=== PATIENT | male | born 1955 | race Caucasian/White ===

== ENCOUNTER 2016-06-27 13:56 | Emergency (ER) | payer MEDICARE, OTHER ==
[2016-06-27] MEDS ORDERED: SODIUM CHLORIDE 0.9% 1,000 ML IV STA (15:27)
[2016-06-27 15:54] LABS: Basophils % (A) 0 %; CH 33.8; CHCM 36.8; Eosinophils # (A) 0.1 k/uL (0-0.7); Eosinophils % (A) 1 %; HCT 47.6 % (39.0-53.0); HDW 3.17; HGB 16.9 gm/dL (13.0-17.5); Luc # (Auto) 0.17; Luc % (Auto) 2; Lymphocytes # (A) 1.4 k/uL (1.0-4.8); Lymphocytes % (A) 19 %; MCH 32.7 pg (25.0-35.0); MCHC 35.5 g/dL (31.0-37.0); MCV 92.1 fL (80.0-100.0); Mean Platelet Volume 7.1; Monocytes # (A) 0.4 k/uL (0-1.0); Monocytes % (A) 5 %; Neutrophils # (A) 5.5 k/uL (1.3-7.7); Neutrophils % (A) 73 %; RBC 5.17 m/uL (4.30-5.90); RDW 14.3 % (11.5-15.5); WBC 7.5 k/uL (3.8-10.6); WBC (Perox) 7.89
[2016-06-27 16:04] LABS: ALT 44 U/L (21-72); AST 25 U/L (17-59); Alkaline Phosphatase 127 U/L (38-126); Amylase 49 U/L (30-110); Anion Gap 15 mmol/L; Blood Urea Nitrogen 15 mg/dL (9-20); Calcium 9.9 mg/dL (8.4-10.2); Carbon Dioxide 25 mmol/L (22-30); Chloride 95 mmol/L (98-107); Glucose 416 mg/dL (74-99); Non-African American GFR(MDRD) >60 (>60 ml/min/1.73 sqM); Potassium 4.5 mmol/L (3.5-5.1); Sodium 135 mmol/L (137-145); Total Bilirubin 0.7 mg/dL (0.2-1.3); Total Protein 8.1 g/dL (6.3-8.2)
[2016-06-27] MEDS ORDERED: MORPHINE SULFATE 4 MG/ML SYRINGE IVP STA (16:07)
[2016-06-27 16:10] LABS: Creatine Kinase 58 U/L (55-170)
--- NOTE | 2016-06-27 16:14 | ED ---
General Adult HPI - General Chief complaint: Abdominal Pain Stated complaint: rt side pain, poss hernia Time Seen by Provider: 06/27/16 15:18 Source: patient, RN notes reviewed, old records reviewed Mode of arrival: ambulatory - History of Present Illness Initial comments: This is a upn-plav-brs no the ER for reevaluation. 8. Patient is a competitive epigastric right upper quadrant abdominal pain, worsening presses on it worse when he takes a deep breath. Mild indigestion. Patient has history of hiatal hernia, no prior history of scope. No significant recent medical issues. No modifying factors for symptoms eating and drinking appropriately, no diarrhea. Patient does have history of diverticulitis with colon surgery - Related Data Home Medications Medication Instructions Recorded Confirmed Lisinopril [Zestril] 5 mg PO DAILY 06/27/16 06/27/16 Pravastatin Sodium [Pravachol] 20 mg PO HS 06/27/16 06/27/16 glipiZIDE [Glucotrol] 10 mg PO AC-BID 06/27/16 06/27/16 sitaGLIPtin [Januvia] 100 mg PO DAILY 06/27/16 06/27/16 Previous Rx's Medication Instructions Recorded metFORMIN HCL [Glucophage] 1,000 mg PO BID #60 tab 05/31/15 Allergies Allergy/AdvReac Type Severity Reaction Status Date / Time No Known Allergies Allergy Verified 06/27/16 15:47 Review of Systems ROS Statement: Those systems with pertinent positive or pertinent negative responses have been documented in the HPI. ROS Other: All systems not noted in ROS Statement are negative. Past Medical History Past Medical History: Coronary Artery Disease (CAD), Diabetes Mellitus, Hyperlipidemia, Hypertension, Thyroid Disorder Additional Past Medical History / Comment(s): ddd, neck pain, chrons, diverticulits History of Any Multi-Drug Resistant Organisms: None Reported Past Surgical History: Bowel Resection, Cholecystectomy, Heart Catheterization With Stent Additional Past Surgical History / Comment(s): shoulder, stented in 2009 [facility] Past Anesthesia/Blood Transfusion Reactions: No Reported Reaction Date of Last Stent Placement:: 2009 Past Psychological History: No Psychological Hx Reported Smoking Status: Former smoker Past Alcohol Use History: None Reported Past Drug Use History: None Reported - Past Family History Father Family Medical History: Cancer, Myocardial Infarction ([place]) Additional Family Medical History / Comment(s): throat cancer Mother Family Medical History: Diabetes Mellitus, Myocardial Infarction ([place]) General Exam General appearance: alert, in no apparent distress Head exam: Present: atraumatic, normocephalic, normal inspection Eye exam: Present: normal appearance, PERRL, EOMI. Absent: scleral icterus, conjunctival injection, periorbital swelling ENT exam: Present: normal exam, mucous membranes moist Neck exam: Present: normal inspection. Absent: tenderness, meningismus, lymphadenopathy Respiratory exam: Present: normal lung sounds bilaterally. Absent: respiratory distress, wheezes, rales, rhonchi, stridor Cardiovascular Exam: Present: regular rate, normal rhythm, normal heart sounds. Absent: systolic murmur, diastolic murmur, rubs, gallop, clicks GI/Abdominal exam: Present: soft, normal bowel sounds. Absent: distended, tenderness, guarding, rebound, rigid Extremities exam: Present: normal inspection, full ROM, normal capillary refill. Absent: tenderness, pedal edema, joint swelling, calf tenderness Back exam: Present: normal inspection Neurological exam: Present: alert, oriented X3, CN II-XII intact Psychiatric exam: Present: normal affect, normal mood Skin exam: Present: warm, dry, intact, normal color. Absent: rash Course Vital Signs 06/27/16 15:07 Temperature 97.6 F Pulse Rate 87 Respiratory 18 Rate Blood Pressure 160/90 O2 Sat by Pulse 96 Oximetry - Reevaluation(s) Reevaluation #1: 06/27/16 19:09 At this time patient's pain appears to have resolved Medical Decision Making - Medical Decision Making 60 no year for evaluation of down pain. Lab work is normal, blood sugar is elevated will patient does or from diabetes, patient has x-rays CT evidence Pallister negative for acute disease, patient will be discharged home - Lab Data Result diagrams: 06/27/16 15:35 06/27/16 15:35 Lab Results 06/27/16 06/27/16 06/27/16 Range/Units 15:35 15:35 15:35 WBC 7.5 (3.8-10.6) k/uL RBC 5.17 (4.30-5.90) m/uL Hgb 16.9 (13.0-17.5) gm/dL Hct 47.6 (39.0-53.0) % MCV 92.1 (80.0-100.0) fL MCH 32.7 (25.0-35.0) pg MCHC 35.5 (31.0-37.0) g/dL RDW 14.3 (11.5-15.5) % Plt Count 218 (150-450) k/uL Neutrophils % 73 % Lymphocytes % 19 % Monocytes % 5 % Eosinophils % 1 % Basophils % 0 % Neutrophils # 5.5 (1.3-7.7) k/uL Lymphocytes # 1.4 (1.0-4.8) k/uL Monocytes # 0.4 (0-1.0) k/uL Eosinophils # 0.1 (0-0.7) k/uL Basophils # 0.0 (0-0.2) k/uL Sodium 135 L (137-145) mmol/L Potassium 4.5 (3.5-5.1) mmol/L Chloride 95 L (98-107) mmol/L Carbon Dioxide 25 (22-30) mmol/L Anion Gap 15 mmol/L BUN 15 (9-20) mg/dL Creatinine 0.60 L (0.66-1.25) mg/dL Est GFR (MDRD) Af Amer >60 (>60 ml/min/1.73 sqM) Est GFR (MDRD) Non-Af >60 (>60 ml/min/1.73 sqM) Glucose 416 H (74-99) mg/dL POC Glucose (mg/dL) (75-99) mg/dL POC Glu [employer] ID Calcium 9.9 (8.4-10.2) mg/dL Total Bilirubin 0.7 (0.2-1.3) mg/dL AST 25 (17-59) U/L ALT 44 (21-72) U/L Alkaline Phosphatase 127 H (38-126) U/L Total Creatine Kinase 58 (55-170) U/L CK-MB (CK-2) 0.9 (0.0-2.4) ng/mL CK-MB (CK-2) Rel Index 1.6 Troponin I <0.012 (0.000-0.034) ng/mL Total Protein 8.1 (6.3-8.2) g/dL Albumin 4.7 (3.5-5.0) g/dL Amylase 49 (30-110) U/L Lipase 81 (23-300) U/L 06/27/16 Range/Units 18:07 WBC (3.8-10.6) k/uL RBC (4.30-5.90) m/uL Hgb (13.0-17.5) gm/dL Hct (39.0-53.0) % MCV (80.0-100.0) fL MCH (25.0-35.0) pg MCHC (31.0-37.0) g/dL RDW (11.5-15.5) % Plt Count (150-450) k/uL Neutrophils % % Lymphocytes % % Monocytes % % Eosinophils % % Basophils % % Neutrophils # (1.3-7.7) k/uL Lymphocytes # (1.0-4.8) k/uL Monocytes # (0-1.0) k/uL Eosinophils # (0-0.7) k/uL Basophils # (0-0.2) k/uL Sodium (137-145) mmol/L Potassium (3.5-5.1) mmol/L Chloride (98-107) mmol/L Carbon Dioxide (22-30) mmol/L Anion Gap mmol/L BUN (9-20) mg/dL Creatinine (0.66-1.25) mg/dL Est GFR (MDRD) Af Amer (>60 ml/min/1.73 sqM) Est GFR (MDRD) Non-Af (>60 ml/min/1.73 sqM) Glucose (74-99) mg/dL POC Glucose (mg/dL) 336 H (75-99) mg/dL POC Glu [employer] ID Branch, Eyad Calcium (8.4-10.2) mg/dL Total Bilirubin (0.2-1.3) mg/dL AST (17-59) U/L ALT (21-72) U/L Alkaline Phosphatase (38-126) U/L Total Creatine Kinase (55-170) U/L CK-MB (CK-2) (0.0-2.4) ng/mL CK-MB (CK-2) Rel Index Troponin I (0.000-0.034) ng/mL Total Protein (6.3-8.2) g/dL Albumin (3.5-5.0) g/dL Amylase (30-110) U/L Lipase (23-300) U/L - Radiology Data Radiology results: report reviewed (CT pelvis is negative for acute disease), image reviewed Disposition Clinical Impression: Abdominal pain Disposition: HOME SELF-CARE Condition: Good Instructions: Abdominal Pain (ED) Referrals: Martín Davies MD [Primary Care Provider] - 1-2 days
[2016-06-27 16:22] LABS: Creatine Kinase MB 0.9 ng/mL (0.0-2.4); Troponin I <0.012 ng/mL (0.000-0.034)
--- NOTE | 2016-06-27 16:24 | XR ---
EXAMINATION TYPE: XR KUB DATE OF EXAM ORDERED: 06/27/2016 4:00 PM HISTORY: abdominal pain. COMPARISON: None. FINDINGS: There has been a previous cholecystectomy. The abdominal gas pattern is within normal limits. There is no evidence of obstruction or free air. N o unusual calcifications are seen. There is a modest stool load. IMPRESSION: CONSTIPATION.
[2016-06-27] MEDS ORDERED: INSULIN REGULAR 100 UNIT/ML VIAL IV ONE (17:13)
[2016-06-27] MEDS ORDERED: INSULIN REGULAR 100 UNIT/ML VIAL SQ ONE (17:13)
[2016-06-27] MEDS ORDERED: RX INFO: IV CONTRAST WAS GIVEN 1 EACH MISC MISCELLANE PRN (17:15)
[2016-06-27 18:09] LABS: Glucose,Whole Blood 336 mg/dL (75-99)
--- NOTE | 2016-06-27 18:14 | CT ---
EXAMINATION TYPE: CT abdomen pelvis w con DATE OF EXAM: 06/27/2016 5:52 PM COMPARISON: NONE HISTORY: Generalized pain with nausea CT DLP: 878 mGycm. Automated exposure control for dose reduction was used. TECHNIQUE: Helical acquisition of images was performed from the lung bases through the pelvis. CONTRAST: Patient injected with 100 mL mL of Omnipaque 300. FINDINGS: LUNG BASES: No acute abnormality is appreciated. No cardiomegaly or pericardial spaces findings, but coronary calcifications are noted. LIVER/GB: No significant abnormality is appreciated. PANCREAS: No significant abnormality is seen. SPLEEN: No significant abnormality is seen. ADRENALS: No significant abnormality is seen. KIDNEYS: No significant abnormality is seen. RETROPERITONEAL ADENOPATHY: None visualized REPRODUCTIVE ORGANS: No significant abnormality is seen URINARY BLADDER: No significant abnormality is seen. PELVIC ADENOPATHY: None visualized. OSSEOUS STRUCTURES: No significant abnormality is seen. BOWEL: No significant abnormality is seen. IMPRESSION: 1. NO ACUTE PROCESS, ABDOMINOPELVIC CT WITH CONTRAST. 2. INCIDENTAL FINDING: CORONARY CALCIFICATIONS.
[2016-06-27 19:32] VITALS: BP 154/87; PULSE 81; RESP 16; TEMP 97.2
== END 2016-06-27 19:26 | disposition home or self-care (01) ==
LOC: EC 13:56
DX: R10.9 Unspecified abdominal pain (principal); K30 Functional dyspepsia; E11.9 Type 2 diabetes mellitus without complications; I10 Essential (primary) hypertension; E78.5 Hyperlipidemia, unspecified; I25.10 Atherosclerotic heart disease of native coronary artery without angina pectoris; Z87.891 Personal history of nicotine dependence; Z79.899 Other long term (current) drug therapy; Z87.19 Personal history of other diseases of the digestive system; Z90.49 Acquired absence of other specified parts of digestive tract
CPT/HCPCS: 36415; 80053; 82150; 82550; 82553; 83690; 84484; 85025; 74000; 74177; 99285; 96374; 96361; J2270; Q9967

== ENCOUNTER 2016-11-13 01:59 | Inpatient (IN) | payer MEDICARE ==
[2016-11-13] MEDS ORDERED: SODIUM CHLORIDE 0.9% 1,000 ML IV STA (02:23)
[2016-11-13] MEDS ORDERED: ASPIRIN 81 MG CHEW PO STA (02:23)
--- NOTE | 2016-11-13 02:49 | XR ---
EXAM: XR Chest, 1 View CLINICAL HISTORY: Reason: chest pain TECHNIQUE: Frontal view of the chest. COMPARISON: No relevant prior studies available. FINDINGS: Lungs: Unchanged. No acute findings. Pleural space: Unremarkable. No pneumothorax. Heart: Unremarkable. No cardiomegaly. Mediastinum: Unchanged. Bones/joints: Unchanged. IMPRESSION: No evidence of acute pulmonary disease.
[2016-11-13 02:55] LABS: ALT 42 U/L (21-72); AST 22 U/L (17-59); Alkaline Phosphatase 116 U/L (38-126); Amylase <30 U/L (30-110); Anion Gap 15 mmol/L; Blood Urea Nitrogen 16 mg/dL (9-20); Carbon Dioxide 21 mmol/L (22-30); Chloride 99 mmol/L (98-107); Glucose 213 mg/dL (74-99); Magnesium 1.4 mg/dL (1.6-2.3); Non-African American GFR(MDRD) >60 (>60 ml/min/1.73 sqM); Potassium 4.4 mmol/L (3.5-5.1); Sodium 135 mmol/L (137-145); Total Protein 7.7 g/dL (6.3-8.2)
[2016-11-13 02:56] LABS: Basophils % (A) 0 %; CH 33.4; CHCM 36.8; Eosinophils # (A) 0.1 k/uL (0-0.7); Eosinophils % (A) 1 %; HCT 45.3 % (39.0-53.0); HGB 16.3 gm/dL (13.0-17.5); Luc # (Auto) 0.35; Luc % (Auto) 4; Lymphocytes # (A) 0.9 k/uL (1.0-4.8); Lymphocytes % (A) 12 %; MCH 32.6 pg (25.0-35.0); MCHC 35.9 g/dL (31.0-37.0); MCV 90.9 fL (80.0-100.0); Mean Platelet Volume 7.2; Monocytes # (A) 0.6 k/uL (0-1.0); Monocytes % (A) 7 %; Neutrophils # (A) 6.1 k/uL (1.3-7.7); Neutrophils % (A) 76 %; RBC 4.98 m/uL (4.30-5.90); RDW 13.6 % (11.5-15.5); WBC (Perox) 7.58
[2016-11-13 03:00] LABS: Partial Thromboplastin Time 31.3 sec (22.0-30.0); Prothrombin Time 10.3 sec (9.0-12.0)
[2016-11-13 03:13] LABS: Creatine Kinase 55 U/L (55-170)
[2016-11-13 03:25] LABS: Creatine Kinase MB 1.1 ng/mL (0.0-2.4); Troponin I <0.012 ng/mL (0.000-0.034)
[2016-11-13] MEDS ORDERED: RX INFO: IV CONTRAST WAS GIVEN 1 EACH MISC MISCELLANE PRN (03:25)
[2016-11-13 04:03] LABS: Appearance,Urine Clear (Clear); Bilirubin,Urine Negative (Negative); Glucose,Urine (UA) 4+ (Negative); Ketones,Urine 1+ (Negative); Leukocyte Esterase,Urine Negative (Negative); Nitrite,Urine Negative (Negative); Protein,Urine Negative (Negative); Specific Gravity,Urine 1.021 (1.001-1.035); UA Billing (MACRO vs. MICRO) CHEM; Urobilinogen,Urine <2.0 mg/dL (<2.0)
[2016-11-13] MEDS ORDERED: MAGNESIUM SULFATE-D5W PMX 1 GM in DEXTROSE/WATER 1 100ML.BAG IVPB ONE (04:32)
[2016-11-13] MEDS ORDERED: HEPARIN SODIUM,PORCINE 5,000 UNIT/ML 1 ML VIAL IV STA (04:32)
--- NOTE | 2016-11-13 04:35 | CT ---
EXAM: CT Angiography Chest With Intravenous Contrast CLINICAL HISTORY: Left chest pain TECHNIQUE: Axial computed tomographic angiography images of the chest with intravenous contrast using pulmonary embolism protocol. CTDI is 84.2 mGy and DLP is 319.30 mGy-cm. This CT exam was performed using one or more of the following dose reduction techniques: automated exposure control, adjustment of the mA and/or kV according to patient size, and/or use of iterative reconstruction technique. MIP reconstructed images were created and reviewed. COMPARISON: None. FINDINGS: Pulmonary arteries: Evaluation of the pulmonary arterial vasculature is limited secondary to poor opacification. Within this limitation, there appears to be a filling defect within a proximal subsegmental pulmonary artery supplying the left lower lobe (series 4, image 62) concerning for pulmonary embolism. Aorta: No acute findings. Mild/moderate atherosclerotic vascular calcifications. No thoracic aortic aneurysm. Lungs: Mild bronchiectasis is suggested. Minimal emphysematous changes are noted. No mass. Pleural space: Unremarkable. No significant effusion. No pneumothorax. Heart: Moderate atherosclerotic vascular calcifications involving the coronary arteries. No significant pericardial effusion. No evidence of RV dysfunction. Bones/joints: Mild degenerative changes are seen. No dislocation. Soft tissues: Unremarkable. Lymph nodes: Unremarkable. No enlarged lymph nodes. Mildly prominent peripancreatic lymph nodes are noted, measuring up to 1 cm in short axis, of unknown significance. Liver/spleen: Hepatic steatosis is noted. The spleen is enlarged, measuring up to 16 cm, of unknown significance. IMPRESSION: Evaluation of the pulmonary arterial vasculature is limited secondary to poor opacification. Within this limitation, there appears to be a filling defect within a proximal subsegmental pulmonary artery supplying the left lower lobe concerning for pulmonary embolism. Other findings as above. [employer] 11/13/16 04:27 Call Doctor Regarding Pulmonary Embolism, called Dr. Matias on 11/13 04:26 (-04:00)
[2016-11-13] MEDS ORDERED: MORPHINE SULFATE 4 MG/ML SYRINGE IV PRN (04:38)
[2016-11-13] MEDS ORDERED: ACETAMINOPHEN TAB 325 MG TAB PO PRN (04:38)
[2016-11-13] MEDS ORDERED: NALOXONE 0.4 MG/ML 1 ML VIAL IV PRN (04:38)
[2016-11-13] MEDS: HEPARIN SODIUM,PORCINE/D5W PMX 25,000 UNIT in DEXTROSE/WATER 1 500ML.BAG IV SCH ×2 (04:49→20:53)
[2016-11-13] MEDS: SODIUM CHLORIDE 0.9% 1,000 ML IV SCH ×2 (04:54→17:09)
--- NOTE | 2016-11-13 04:54 | ED ---
Chest Pain HPI - General Chief Complaint: Chest Pain Stated Complaint: Chest Pain Time Seen by Provider: 11/13/16 02:07 Source: patient Mode of arrival: wheelchair Limitations: no limitations - History of Present Illness MD Complaint: chest pain -: hour(s) Onset: during rest Pain Location: substernal Pain Radiation: none Severity: severe Quality: aching Consistency: constant Improves With: nothing Worsens With: nothing Anginal Symptoms: nausea Treatments Prior to Arrival: none - Related Data Home Medications Medication Instructions Recorded Confirmed Lisinopril [Zestril] 5 mg PO DAILY 06/27/16 11/13/16 Pravastatin Sodium [Pravachol] 20 mg PO HS 06/27/16 11/13/16 sitaGLIPtin [Januvia] 100 mg PO DAILY 06/27/16 11/13/16 Canagliflozin [Invokana] 300 mg PO 11/13/16 Diclofenac Sodium [Voltaren] 75 mg PO BID 11/13/16 11/13/16 Previous Rx's Medication Instructions Recorded metFORMIN HCL [Glucophage] 1,000 mg PO BID #60 tab 05/31/15 Allergies Allergy/AdvReac Type Severity Reaction Status Date / Time No Known Allergies Allergy Verified 06/27/16 15:47 Review of Systems ROS Statement: Those systems with pertinent positive or pertinent negative responses have been documented in the HPI. ROS Other: All systems not noted in ROS Statement are negative. Constitutional: Denies: fever, chills Respiratory: Denies: cough, dyspnea, hemoptysis Cardiovascular: Reports: as per HPI, chest pain. Denies: palpitations, edema, syncope Gastrointestinal: Denies: abdominal pain, nausea, vomiting Genitourinary: Denies: dysuria, hematuria Musculoskeletal: Reports: back pain Skin: Denies: rash, lesions Neurological: Denies: headache, weakness, numbness EKG Findings - EKG Results: EKG: interpreted by ERMD, sinus rhythm, normal axis, normal QRS, normal ST/T EKG shows: tachycardia Past Medical History Past Medical History: Coronary Artery Disease (CAD), Diabetes Mellitus, Hyperlipidemia, Hypertension, Thyroid Disorder Additional Past Medical History / Comment(s): ddd, neck pain, chrons, diverticulits History of Any Multi-Drug Resistant Organisms: None Reported Past Surgical History: Bowel Resection, Cholecystectomy, Heart Catheterization With Stent Additional Past Surgical History / Comment(s): shoulder, stented in 2009 [facility] Past Anesthesia/Blood Transfusion Reactions: No Reported Reaction Date of Last Stent Placement:: 2009 Past Psychological History: No Psychological Hx Reported Smoking Status: Former smoker - Past Family History Father Family Medical History: Cancer, Myocardial Infarction ([place]) Additional Family Medical History / Comment(s): throat cancer Mother Family Medical History: Diabetes Mellitus, Myocardial Infarction ([place]) General Exam Limitations: no limitations General appearance: alert, in no apparent distress Head exam: Present: atraumatic, normocephalic Eye exam: Present: normal appearance. Absent: scleral icterus, conjunctival injection ENT exam: Present: normal oropharynx Neck exam: Present: normal inspection, full ROM. Absent: meningismus Respiratory exam: Present: normal lung sounds bilaterally, chest wall tenderness. Absent: respiratory distress, wheezes, rales, rhonchi, stridor Cardiovascular Exam: Present: normal rhythm, tachycardia, normal heart sounds. Absent: systolic murmur, diastolic murmur, rubs, gallop GI/Abdominal exam: Present: soft. Absent: distended, tenderness, guarding, rebound, mass Extremities exam: Present: normal inspection, normal capillary refill. Absent: pedal edema, calf tenderness Back exam: Present: normal inspection. Absent: CVA tenderness (R), CVA tenderness (L) Neurological exam: Present: alert Skin exam: Present: warm, dry, intact, normal color. Absent: rash Course Vital Signs 11/13/16 11/13/16 11/13/16 02:02 03:55 05:02 Temperature 97.5 F L 98.2 F Pulse Rate 126 H 116 H 102 H Pulse Rate [ Pulse Oximetery ] Respiratory 20 18 18 Rate Blood Pressure 149/84 124/74 144/77 Blood Pressure [Right Arm] O2 Sat by Pulse 98 98 98 Oximetry 11/13/16 11/13/16 11/13/16 05:17 05:30 05:42 Temperature 98.2 F 97.1 F L 97.1 F L Pulse Rate 102 H Pulse Rate [ 98 98 Pulse Oximetery ] Respiratory 18 18 18 Rate Blood Pressure 144/77 Blood Pressure 131/73 131/73 [Right Arm] O2 Sat by Pulse 98 94 L 94 L Oximetry Chest Pain [facility] Patient is 60-year-old man with chest pain. D-dimer is slightly elevated and the subsequent computed tomography scan shows a possible pulmonary most of the left lower quadrant. Patient be admitted with heparinization. Also to have serial cardiac enzymes and telemetry monitoring. Disposition Clinical Impression: Chest pain, Pulmonary embolus, left Disposition: ADMITTED IP TO THIS HOSP Condition: Fair Referrals: Yohan Herrera MD [Primary Care Provider] - 1-2 days
[2016-11-13 05:42] VITALS: BMI 26.4
[2016-11-13 06:27] LABS: Glucose,Whole Blood 200 mg/dL (75-99)
[2016-11-13] MEDS: ETODOLAC 400 MG TAB PO SCH ×2 (08:16→21:36)
[2016-11-13] MEDS: LISINOPRIL 5 MG TAB PO SCH (08:16)
[2016-11-13] MEDS: FAMOTIDINE 20 MG TAB PO SCH ×2 (08:17→21:36)
[2016-11-13] MEDS: LINAGLIPTIN 5 MG TABLET PO SCH (08:17)
[2016-11-13] MEDS ORDERED: NON-FORMULARY DRUG (Metformin Hcl [Glucophage] 1,000 MG) PO SCH (09:00)
--- NOTE | 2016-11-13 10:36 | P.CNPUL ---
History of Present Illness Consult date: 11/13/16 Requesting physician: Saroj Damon Reason for consult: abnormal CXR/CT Chief complaint: Mid sternal chest pain History of present illness: This is a very pleasant 60-year-old gentleman who follows with Dr. Herrera as his primary care physician. He has a history of coronary artery disease with previous stent placement in 2009 at [facility], diabetes mellitus type II, hyperlipidemia, hypertension. He does have a 25 year pack per day smoking history but quit approximately 23 years ago. He presented to the emergency room yesterday after having a 2 week episode of chest discomfort that had been coming and going. He did feel it was possibly similar to his previous episode of angina that required stents in 2009. He did have some dizziness and lightheadedness as well. The pain was mainly midsternal with minimal radiation. No diaphoresis. No cough or congestion. No hemoptysis. No pain on inhalation. The patient is quite active and walks daily. No recent travels. No prolonged car rides. No recent surgeries. No cancer. No history of previous PE/DVT. No injuries. Upon questioning he does have some right calf discomfort. His chest x-ray revealed no acute cardiopulmonary process. D- dimer minimally elevated at 0.76. CT angiogram reveals poor quality opacity case and but possible pulmonary emboli in the proximal subsegmental pulmonary artery supplying the left lower lobe. He has been initiated on heparin. Troponins negative 2. EKG reveals normal sinus rhythm with no significant ST or T-wave abnormalities. Review of Systems 14 point review of system was conducted. All negative other than as mentioned in the HPI. Past Medical History Past Medical History: Coronary Artery Disease (CAD), Diabetes Mellitus, Hyperlipidemia, Hypertension, Thyroid Disorder Additional Past Medical History / Comment(s): ddd, neck pain, chrons, diverticulits History of Any Multi-Drug Resistant Organisms: None Reported Past Surgical History: Bowel Resection, Cholecystectomy, Heart Catheterization With Stent Additional Past Surgical History / Comment(s): shoulder, stented in 2009 [facility] Past Anesthesia/Blood Transfusion Reactions: No Reported Reaction Date of Last Stent Placement:: 2009 Past Psychological History: No Psychological Hx Reported Smoking Status: Former smoker - Past Family History Father Family Medical History: Cancer, Myocardial Infarction ([place]) Additional Family Medical History / Comment(s): throat cancer Mother Family Medical History: Diabetes Mellitus, Myocardial Infarction ([place]) Medications and Allergies Home Medications Medication Instructions Recorded Confirmed Type Lisinopril [Zestril] 5 mg PO DAILY 06/27/16 11/13/16 History Pravastatin Sodium [Pravachol] 20 mg PO HS 06/27/16 11/13/16 History sitaGLIPtin [Januvia] 100 mg PO DAILY 06/27/16 11/13/16 History Canagliflozin [Invokana] 300 mg PO DAILY 11/13/16 11/13/16 History Diclofenac Sodium [Voltaren] 75 mg PO BID 11/13/16 11/13/16 History Allergies Allergy/AdvReac Type Severity Reaction Status Date / Time No Known Allergies Allergy Verified 11/13/16 08:56 Physical Exam Vitals: Vital Signs Temp Pulse Pulse Resp BP BP Pulse Ox 11/13/16 08:00 97.2 F L 69 16 112/63 95 11/13/16 05:42 97.1 F L 98 18 131/73 94 L 11/13/16 05:30 97.1 F L 98 18 131/73 94 L 11/13/16 05:17 98.2 F 102 H 18 144/77 98 11/13/16 05:02 98.2 F 102 H 18 144/77 98 11/13/16 03:55 116 H 18 124/74 98 11/13/16 02:02 97.5 F L 126 H 20 149/84 98 Intake and Output 11/12/16 11/13/16 11/13/16 22:59 06:59 14:59 Other: # Voids 1 Weight 81 kg GENERAL EXAM: Alert, active, comfortable in no apparent distress. HEAD: Normocephalic. EYES: Normal reaction of pupils, equal size. NOSE: Clear with pink turbinates. THROAT: No erythema or exudates. NECK: No masses, no JVD. CHEST: No chest wall deformity. LUNGS: Equal air entry with no crackles, wheeze, rhonchi or dullness. CVS: S1 and S2 normal with no audible mumurs, regular rhythm. ABDOMEN: No hepatosplenomegaly, normal bowel sounds, no guarding or rigidity. SPINE: No scoliosis or deformity SKIN: No rashes CENTRAL NERVOUS SYSTEM: No focal deficits, tone is normal in all 4 extremities. Extremities: There is no peripheral edema. No clubbing, no cyanosis. Peripheral pulses are intact. There is some tenderness in the right calf. Results - Laboratory Findings CBC and BMP: 11/13/16 02:10 11/13/16 02:10 PT/INR, D-dimer PT 10.3 sec (9.0-12.0) 11/13/16 02:10 INR 1.0 (<1.2) 11/13/16 02:10 D-Dimer 0.76 mg/L FEU (<0.60) H 11/13/16 02:10 Abnormal lab findings: Abnormal Labs 11/13/16 11/13/16 11/13/16 02:10 02:10 02:10 Lymphocytes # 0.9 L APTT 31.3 H D-Dimer 0.76 H Sodium 135 L Carbon Dioxide 21 L Glucose 213 H POC Glucose (mg/dL) Magnesium 1.4 L Amylase <30 L Urine Glucose (UA) Urine Ketones 11/13/16 11/13/16 03:33 06:25 Lymphocytes # APTT D-Dimer Sodium Carbon Dioxide Glucose POC Glucose (mg/dL) 200 H Magnesium Amylase Urine Glucose (UA) 4+ H Urine Ketones 1+ H - Diagnostic Findings Chest x-ray: image reviewed CT scan - chest: image reviewed Assessment and Plan Plan: Impression: #1 Chest pain secondary to suspected small proximal subsegmental left lower lobe pulmonary emboli. #2 Coronary artery disease with previous stent placement in 2009. No evidence of acute coronary syndrome. #3 Hyper tension. #4 Hyperlipidemia. #5 Diabetes mellitus, type II. #6 Degenerative disc disease involving the neck and back with chronic pain and disability. #7 History of Crohn's disease with previous bowel resection. Plan: The patient was seen and evaluated by Dr. Sher. His chest x-ray and computed tomography scan and labs were all reviewed. It remains unclear if there is a true pulmonary emboli in the left lower lobe. We'll go ahead and order a VQ scan and Dopplers of the lower extremities. We'll continue with heparin drip for now. He is on Pepcid for GI prophylaxis. We will await further test results and make further recommendations based on his clinical status. Time with Patient: Greater than 30
[2016-11-13 11:36] LABS: Glucose,Whole Blood 266 mg/dL (75-99)
[2016-11-13] MEDS ORDERED: HEPARIN SODIUM,PORCINE 5,000 UNIT/ML 1 ML VIAL IV PRN ×2 (11:47→11:53)
[2016-11-13] MEDS ORDERED: Magnesium Replacement Protocol 1 EACH MISC MISCELLANE PRN (14:46)
--- NOTE | 2016-11-13 14:58 | NM ---
EXAMINATION TYPE: NM pul vent and perfuse DATE OF EXAM: 11/13/2016 COMPARISON: Correlation chest radiograph same day HISTORY: 60-year-old male question left lower lobe pulmonary embolus, chest pain and difficulty breat héctor. TECHNIQUE: Utilizing inhalation of 70.9 mCi Tc 99m DTPA aerosol and intravenous injection of 5.4 mCi of Tc 99m MAA, ventilation and perfusion images are acquired post injection in multiple projections. FINDINGS: Normal radiotracer distribution is noted in the lungs. There is no evidence of mismatched defects. IMPRESSION: Very low probability for pulmonary embolus.
--- NOTE | 2016-11-13 15:19 | US ---
EXAMINATION TYPE: US venous doppler duplex LE BI DATE OF EXAM: 11/13/2016 2:04 PM COMPARISON: NONE CLINICAL HISTORY: 60-year-old male with PE. on Heparin. Patient states having right calf pain. No sw elling or redness. SIDE PERFORMED: Bilateral TECHNIQUE: The lower extremity deep venous system is examined utilizing real time linear array sonog taylor with graded compression, doppler sonography and color-flow sonography. FINDINGS: VESSELS IMAGED: External Iliac Vein (EIV) Common Femoral Vein Deep Femoral Vein Greater Saphenous Vein * Femoral Vein Popliteal Vein Small Saphenous Vein * Proximal Calf Veins (* superficial vessels) Rouleaux flow seen in bilateral popliteal veins Right Leg: Appears negative for DVT Left Leg: Appears negative for DVT IMPRESSION: 1. No evidence for DVT within the bilateral lower extremities imaged from the groin to the upper calv es. 2. Slow flow seen by the intelligence specialist within both popliteal veins.
[2016-11-13 16:47] LABS: Glucose,Whole Blood 207 mg/dL (75-99)
[2016-11-13] MEDS: INSULIN LISPRO (humaLOG) 300 UNIT/3 ML VIAL SQ SCH ×2 (17:07→21:36)
[2016-11-13 18:05] LABS: Hemoglobin A1C 7.7 % (4.2-6.1)
[2016-11-13] MEDS ORDERED: PRAVASTATIN SODIUM 20 MG TAB PO SCH (21:00)
[2016-11-13 21:12] LABS: Glucose,Whole Blood 260 mg/dL (75-99)
--- NOTE | 2016-11-13 22:34 | P.HPIM ---
History of Present Illness H&P Date: 11/13/16 Chief Complaint: Chest pain Patient is a 60-year-old gentleman with a history of coronary artery disease with previous stent placement in 2009 at [facility], diabetes mellitus type II, hyperlipidemia, hypertension and 25 year pack per day smoking history but quit approximately 23 years ago who presented to the emergency room with complaints of chest discomfort and dizziness, lightheadedness on and off for the past 2 weeks. The pain was mainly midsternal with minimal radiation. No diaphoresis. No cough or congestion. No hemoptysis. No recent travels. No prolonged car rides. No recent surgeries. No cancer. No history of previous PE/DVT. No injuries. chest x-ray revealed no acute cardiopulmonary process. D-dimer minimally elevated at 0.76. CT angiogram reveals poor quality opacity case and but possible pulmonary emboli in the proximal subsegmental pulmonary artery supplying the left lower lobe. He has been initiated on heparin. Troponins negative 2. EKG reveals normal sinus rhythm with no significant ST or T-wave abnormalities. Bilateral lower extremity Duplex is negative for DVT. VQ scan showed very low probability for PE. Review of Systems CONSTITUTIONAL: No fever, no malaise, no fatigue. HEENT: No recent visual problems or hearing problems. Denied any sore throat. CARDIOVASCULAR: Chest discomfort. Denied chest pain, orthopnea, PND, no palpitations, no syncope. PULMONARY: , no hemoptysis. GASTROINTESTINAL: No diarrhea, no nausea, no vomiting, no abdominal pain. Normoactive bowel sounds. NEUROLOGICAL: No headaches, no weakness, no numbness. Patient does have dizziness and lightheadedness HEMATOLOGICAL: Denies any bleeding or petechiae. GENITOURINARY: Denies any burning micturition, frequency, or urgency. MUSCULOSKELETAL/RHEUMATOLOGICAL: Denies any joint pain, swelling, or any muscle pain. ENDOCRINE: Denies any polyuria or polydipsia. The rest of the 14-point review of systems is negative. Past Medical History Past Medical History: Coronary Artery Disease (CAD), Diabetes Mellitus, Hyperlipidemia, Hypertension, Thyroid Disorder Additional Past Medical History / Comment(s): ddd, neck pain, chrons, diverticulits History of Any Multi-Drug Resistant Organisms: None Reported Past Surgical History: Bowel Resection, Cholecystectomy, Heart Catheterization With Stent Additional Past Surgical History / Comment(s): shoulder, stented in 2009 [facility] Past Anesthesia/Blood Transfusion Reactions: No Reported Reaction Date of Last Stent Placement:: 2009 Past Psychological History: No Psychological Hx Reported Smoking Status: Former smoker - Past Family History Father Family Medical History: Cancer, Myocardial Infarction ([place]) Additional Family Medical History / Comment(s): throat cancer Mother Family Medical History: Diabetes Mellitus, Myocardial Infarction ([place]) Medications and Allergies Home Medications Medication Instructions Recorded Confirmed Type Lisinopril [Zestril] 5 mg PO DAILY 06/27/16 11/13/16 History Pravastatin Sodium [Pravachol] 20 mg PO HS 06/27/16 11/13/16 History sitaGLIPtin [Januvia] 100 mg PO DAILY 06/27/16 11/13/16 History Canagliflozin [Invokana] 300 mg PO DAILY 11/13/16 11/13/16 History Diclofenac Sodium [Voltaren] 75 mg PO BID 11/13/16 11/13/16 History Allergies Allergy/AdvReac Type Severity Reaction Status Date / Time No Known Allergies Allergy Verified 11/13/16 08:56 Physical Exam Vitals: Vital Signs Temp Pulse Pulse Resp BP BP Pulse Ox 11/13/16 15:37 97.8 F 68 16 114/74 98 11/13/16 11:20 96.8 F L 80 16 136/76 96 11/13/16 08:00 97.2 F L 69 16 112/63 95 11/13/16 05:42 97.1 F L 98 18 131/73 94 L 11/13/16 05:30 97.1 F L 98 18 131/73 94 L 11/13/16 05:17 98.2 F 102 H 18 144/77 98 11/13/16 05:02 98.2 F 102 H 18 144/77 98 11/13/16 03:55 116 H 18 124/74 98 11/13/16 02:02 97.5 F L 126 H 20 149/84 98 Intake and Output 11/13/16 11/13/16 11/13/16 06:59 14:59 22:59 Intake Total 202.301 Balance 202.301 Intake: Intake, IV Titration 202.301 Amount Heparin Sodium,Porcine/ 202.301 D5w Pmx 25,000 unit In Dextrose/Water 1 500ml. bag @ 18 UNITS/KG/HR 29. 39 mls/hr IV .Q17H1M [facility] Rx#:[id number] Other: # Voids 1 3 Weight 81 kg PHYSICAL EXAMINATION: Patient is lying in the bed comfortably, no acute distress, awake alert and oriented.. HEENT: Normocephalic. Neck is supple. Pupils reactive. Nostrils clear. Oral cavity is moist. Ears reveal no drainage. Neck reveals no JVD, carotid bruits, or thyromegaly. CHEST EXAMINATION: Trachea is central. Symmetrical expansion. Lung curiel clear to auscultation and percussion. CARDIAC: Normal S1, S2 with no gallops. No murmurs ABDOMEN: Soft. Bowel sounds normal. No organomegaly. No abdominal bruits. Extremities reveal no edema. No clubbing or cyanosis Neurologically awake, alert, oriented x3 with well-coordinated movements. Skin: no rash or skin lesions Musculoskeletal: no joint swelling or deformity. Results CBC & Chem 7: 11/13/16 02:10 11/13/16 02:10 Labs: Abnormal Lab Results - Last 24 Hours (Table) 11/13/16 11/13/16 11/13/16 Range/Units 02:10 02:10 02:10 Lymphocytes # 0.9 L (1.0-4.8) k/uL APTT 31.3 H (22.0-30.0) sec D-Dimer 0.76 H (<0.60) mg/L FEU Sodium 135 L (137-145) mmol/L Carbon Dioxide 21 L (22-30) mmol/L Glucose 213 H (74-99) mg/dL POC Glucose (mg/dL) (75-99) mg/dL Magnesium 1.4 L (1.6-2.3) mg/dL Amylase <30 L (30-110) U/L Urine Glucose (UA) (Negative) Urine Ketones (Negative) 11/13/16 11/13/16 11/13/16 Range/Units 03:33 06:25 10:59 Lymphocytes # (1.0-4.8) k/uL APTT 41.4 H (22.0-30.0) sec D-Dimer (<0.60) mg/L FEU Sodium (137-145) mmol/L Carbon Dioxide (22-30) mmol/L Glucose (74-99) mg/dL POC Glucose (mg/dL) 200 H (75-99) mg/dL Magnesium (1.6-2.3) mg/dL Amylase (30-110) U/L Urine Glucose (UA) 4+ H (Negative) Urine Ketones 1+ H (Negative) 11/13/16 11/13/16 Range/Units 11:35 16:46 Lymphocytes # (1.0-4.8) k/uL APTT (22.0-30.0) sec D-Dimer (<0.60) mg/L FEU Sodium (137-145) mmol/L Carbon Dioxide (22-30) mmol/L Glucose (74-99) mg/dL POC Glucose (mg/dL) 266 H 207 H (75-99) mg/dL Magnesium (1.6-2.3) mg/dL Amylase (30-110) U/L Urine Glucose (UA) (Negative) Urine Ketones (Negative) Thrombosis Risk Factor Assmnt - Choose All That Apply Any of the Below Risk Factors Present?: Yes Each Factor Represents 1 point: Age 41-60 years, Obesity (BMI >25) Other Risk Factors: No Thrombosis Risk Factor Assessment Total Risk Factor Score: 2 Thrombosis Risk Factor Assessment Level: Low Risk Assessment and Plan Plan: #1 Chest pressure with dizziness. suspected small proximal subsegmental left lower lobe pulmonary emboli. #2 Coronary artery disease with previous stent placement in 2009. No evidence of acute coronary syndrome. Troponin 2 negative #3 Hypertension. #4 Hyperlipidemia. #5 Diabetes mellitus-2. [id number] #6 Degenerative disc disease involving the neck and back with chronic pain and disability. #7 History of Crohn's disease with previous bowel resection. #8 GI and DVT prophylaxis Plan: Patient had elevated d-dimer and CT angiogram showed filling defect in the proximal subsegmental arteries supplying left lower lobe could not be seen clearly due to poor opacification. Patient had lower extremity duplex which is negative and VQ scan is very low probability for PE. Pulmonary has been consulted for further recommendations. We'll continue with the heparin drip for now. Follow up closely further recommendations based on the clinical course. Time with Patient: Greater than 30
[2016-11-13] MEDS ORDERED: MELATONIN 5 MG TABLET PO PRN (23:38)
[2016-11-14 03:25] LABS: Basophils % (A) 0 %; CH 32.9; CHCM 35.6; Eosinophils # (A) 0.1 k/uL (0-0.7); Eosinophils % (A) 2 %; HDW 3.37; HGB 14.1 gm/dL (13.0-17.5); Luc # (Auto) 0.26; Luc % (Auto) 4; Lymphocytes # (A) 1.2 k/uL (1.0-4.8); Lymphocytes % (A) 20 %; MCH 33.4 pg (25.0-35.0); MCV 92.8 fL (80.0-100.0); Mean Platelet Volume 7.1; Monocytes # (A) 0.5 k/uL (0-1.0); Monocytes % (A) 8 %; Neutrophils # (A) 4.1 k/uL (1.3-7.7); Neutrophils % (A) 67 %; RDW 13.5 % (11.5-15.5); WBC 6.1 k/uL (3.8-10.6); WBC (Perox) 6.41
[2016-11-14 03:40] LABS: Anion Gap 13 mmol/L; Blood Urea Nitrogen 15 mg/dL (9-20); Calcium 9.2 mg/dL (8.4-10.2); Carbon Dioxide 22 mmol/L (22-30); Chloride 101 mmol/L (98-107); Glucose 192 mg/dL (74-99); Magnesium 1.7 mg/dL (1.6-2.3); Non-African American GFR(MDRD) >60 (>60 ml/min/1.73 sqM); Potassium 3.6 mmol/L (3.5-5.1); Sodium 136 mmol/L (137-145)
[2016-11-14 06:23] LABS: Glucose,Whole Blood 173 mg/dL (75-99)
[2016-11-14] MEDS: SODIUM CHLORIDE 0.9% 1,000 ML IV SCH (06:44)
[2016-11-14] MEDS: INSULIN LISPRO (humaLOG) 300 UNIT/3 ML VIAL SQ SCH ×2 (06:44→14:25)
[2016-11-14] MEDS: ETODOLAC 400 MG TAB PO SCH (07:36)
[2016-11-14] MEDS: FAMOTIDINE 20 MG TAB PO SCH (07:37)
[2016-11-14] MEDS: LISINOPRIL 5 MG TAB PO SCH (07:37)
[2016-11-14] MEDS: LINAGLIPTIN 5 MG TABLET PO SCH (07:37)
[2016-11-14 07:39] VITALS: RESP 16; TEMP 98.1
[2016-11-14] MEDS ORDERED: AMINOPHYLLINE 500 MG/20 ML VIAL IV PRN (10:45)
[2016-11-14] MEDS ORDERED: REGADENOSON 0.4 MG/5 ML SYRINGE IV ONE (10:45)
--- NOTE | 2016-11-14 11:24 | P.CRDCN ---
History of Present Illness Consult date: 11/14/16 Reason for Consult (text): This is a very pleasant 60-year-old gentleman with history of coronary artery disease with previous LAD stent placement in 2009 at [facility], diabetes mellitus type 2, hyperlipidemia, hypertension and diabetic neuropathy. He does have a 25 year pack per day smoking history but quit approximately 23 years ago. He presented to the emergency roomafter having a 2 week episode of chest discomfort that had been coming and going. Not exertional, relieved with time, worse with deep inspiration. He did have some dizziness and lightheadedness as well. The pain was mainly midsternal with minimal radiation, described as a pressure. No diaphoresis or palpitations. EKG on admission showed sinus tachycardia. Laboratory values showed a d-dimer of 0.76. Patient subsequently underwent CT of the chest showed possible PE. Ultrasound of lower extremities negative for DVTs. To clarify the probability of PE V/Q scan was done that showed very low probability. Troponins negative 3. Upon examination, patient is sitting up in a chair, no current complaints of chest discomfort however did have an episode through the night. Complains of bilateral lower extremity mid calf down neuropathic pain. Past Medical History Past Medical History: Coronary Artery Disease (CAD), Diabetes Mellitus, Hyperlipidemia, Hypertension, Thyroid Disorder Additional Past Medical History / Comment(s): ddd, neck pain, chrons, diverticulits History of Any Multi-Drug Resistant Organisms: None Reported Past Surgical History: Bowel Resection, Cholecystectomy, Heart Catheterization With Stent Additional Past Surgical History / Comment(s): shoulder, stented in 2009 [facility] Past Anesthesia/Blood Transfusion Reactions: No Reported Reaction Date of Last Stent Placement:: 2009 Past Psychological History: No Psychological Hx Reported Smoking Status: Former smoker - Past Family History Father Family Medical History: Cancer, Myocardial Infarction ([place]) Additional Family Medical History / Comment(s): throat cancer Mother Family Medical History: Diabetes Mellitus, Myocardial Infarction ([place]) Medications and Allergies Home Medications Medication Instructions Recorded Confirmed Type Lisinopril [Zestril] 5 mg PO DAILY 06/27/16 11/13/16 History Pravastatin Sodium [Pravachol] 20 mg PO HS 06/27/16 11/13/16 History sitaGLIPtin [Januvia] 100 mg PO DAILY 06/27/16 11/13/16 History Canagliflozin [Invokana] 300 mg PO DAILY 11/13/16 11/13/16 History Diclofenac Sodium [Voltaren] 75 mg PO BID 11/13/16 11/13/16 History Allergies Allergy/AdvReac Type Severity Reaction Status Date / Time No Known Allergies Allergy Verified 11/13/16 08:56 Physical Exam Vitals: Vital Signs Temp Pulse Resp BP Pulse Ox 11/14/16 07:38 98.1 F 82 16 114/66 94 L 11/14/16 04:00 67 18 111/70 97 11/14/16 00:00 96 16 147/79 98 11/13/16 20:00 98.4 F 97 18 122/77 95 11/13/16 15:37 97.8 F 68 16 114/74 98 11/13/16 11:20 96.8 F L 80 16 136/76 96 Intake and Output 11/13/16 11/14/16 11/14/16 22:59 06:59 14:59 Intake Total 297.699 612.821 Balance 297.699 612.821 Intake: IV 330 Heparin Sodium,Porcine/ 330 D5w Pmx 25,000 unit In Dextrose/Water 1 500ml. bag @ 18 UNITS/KG/HR 29. 39 mls/hr IV .Q17H1M [facility] Rx#:[id number] Intake, IV Titration 297.699 282.821 Amount Heparin Sodium,Porcine/ 297.699 282.821 D5w Pmx 25,000 unit In Dextrose/Water 1 500ml. bag @ 18 UNITS/KG/HR 29. 39 mls/hr IV .Q17H1M [facility] Rx#:[id number] Other: # Voids 2 2 Weight 79.2 kg PHYSICAL EXAMINATION: HEENT: Head is atraumatic, normocephalic. Pupils equal, round. Neck is supple. There is no elevated jugular venous pressure. HEART EXAMINATION: Heart sounds regular, S1 and S2 normal. No murmur or gallop heard. CHEST EXAMINATION: Lungs are clear to auscultation and precussion. No chest wall tenderness is noted on palpation or with deep breathing. ABDOMEN: Soft, nontender. Bowel sounds are heard. No organomegaly noted. EXTREMITIES: 1+ peripheral pulses with no evidence of peripheral edema and no calf tenderness noted. NEUROLOGIC patient is awake, alert and oriented x3. . Results 11/14/16 03:02 11/14/16 03:02 Cardiac Enzymes 11/13/16 Range/Units 15:23 Troponin I <0.012 (0.000-0.034) ng/mL Coagulation 11/13/16 11/13/16 11/14/16 Range/Units 10:59 19:01 03:02 APTT 41.4 H 35.5 H 49.3 H (22.0-30.0) sec CBC 11/14/16 Range/Units 03:02 WBC 6.1 (3.8-10.6) k/uL RBC 4.20 L (4.30-5.90) m/uL Hgb 14.1 (13.0-17.5) gm/dL Hct 39.0 (39.0-53.0) % Plt Count 160 (150-450) k/uL Comprehensive Metabolic Panel 11/14/16 Range/Units 03:02 Sodium 136 L (137-145) mmol/L Potassium 3.6 (3.5-5.1) mmol/L Chloride 101 (98-107) mmol/L Carbon Dioxide 22 (22-30) mmol/L BUN 15 (9-20) mg/dL Creatinine 0.60 L (0.66-1.25) mg/dL Glucose 192 H (74-99) mg/dL Calcium 9.2 (8.4-10.2) mg/dL Current Medications Generic Name Dose Route Start Last Admin Trade Name Freq PRN Reason Stop Dose Admin Acetaminophen 650 mg 11/13/16 04:38 Tylenol Tab PO Q6HR PRN Mild Pain or Fever > 100.5 Aminophylline 100 mg 11/14/16 10:45 Aminophylline IV ONCE PRN Patient Response Etodolac 400 mg 11/13/16 09:00 11/14/16 07:36 Lodine PO 400 mg BID [facility] Administration Famotidine 20 mg 11/13/16 09:00 11/14/16 07:37 Pepcid PO 20 mg BID [facility] Administration Heparin Sodium (Porcine) 0 unit 11/13/16 11:53 Heparin IV PER PROTOCOL PRN PER PROTOCOL Protocol Sodium Chloride 1,000 mls @ 75 mls/hr 11/13/16 04:45 11/14/16 06:44 Saline 0.9% IV 75 mls/hr .[id number] [facility] Administration Insulin Human Lispro 0 unit 11/13/16 17:30 11/14/16 06:44 Humalog SQ 2 unit ACHS [facility] Administration Protocol Linagliptin 5 mg 11/13/16 09:00 11/14/16 07:37 Tradjenta PO 5 mg DAILY [facility] Administration Lisinopril 5 mg 11/13/16 09:00 11/14/16 07:37 Zestril PO 5 mg DAILY [facility] Administration Melatonin 5 mg 11/13/16 23:38 11/14/16 00:29 Melatonin PO 5 mg HS PRN Administration Insomnia Miscellaneous Information 1 each 11/13/16 03:25 Rx Info: Iv Contrast Was Given MISCELLANE 11/15/16 03:25 DAILY PRN Per Protocol Miscellaneous Information 1 each 11/13/16 14:46 Magnesium Per Protocol MISCELLANE DAILY PRN Per Protocol Protocol Morphine Sulfate 4 mg 11/13/16 04:38 11/13/16 04:53 Morphine Sulfate (Inj) IV 4 mg Q4HR PRN Administration Severe Pain Naloxone HCl 0.2 mg 11/13/16 04:38 Narcan IV Q2M PRN Opioid Reversal Pravastatin Sodium 20 mg 11/13/16 21:00 11/13/16 21:36 Pravachol PO 20 mg HS [facility] Administration Intake and Output 11/13/16 11/14/16 11/14/16 22:59 06:59 14:59 Intake Total 297.699 612.821 Balance 297.699 612.821 Intake: IV 330 Heparin Sodium,Porcine/ 330 D5w Pmx 25,000 unit In Dextrose/Water 1 500ml. bag @ 18 UNITS/KG/HR 29. 39 mls/hr IV .Q17H1M [facility] Rx#:[id number] Intake, IV Titration 297.699 282.821 Amount Heparin Sodium,Porcine/ 297.699 282.821 D5w Pmx 25,000 unit In Dextrose/Water 1 500ml. bag @ 18 UNITS/KG/HR 29. 39 mls/hr IV .Q17H1M [facility] Rx#:[id number] Other: # Voids 2 2 Weight 79.2 kg 11/14/16 03:02 11/14/16 03:02 Assessment and Plan Plan: Assessment and plan #1 symptoms of chest pressure with history significant for coronary artery disease, status post stenting of LAD in 2010 #2 hypertension #3 diabetes #4 hyperlipidemia From cardiology perspective, we'll obtain a 2-D echo with Doppler. 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 Due to patient's prior history and risk factors, although per symptoms are atypical for angina, we will schedule the patient for Lexiscan Cardiolite which will likely be done as an outpatient due to recent VQ scan. [employer] FABRICATOR note has been reviewed, I agree with a documented findings and plan of care. Patient was seen and examined.
[2016-11-14 11:47] LABS: Glucose,Whole Blood 227 mg/dL (75-99)
--- NOTE | 2016-11-14 12:17 | ECHOF ---
Referral Reason:chest pain MEASUREMENTS -------- HEIGHT: 175.3 cm WEIGHT: 78.9 kg BP: 114/66 RVIDd: 3.0 cm (< 3.3) IVSd: 1.1 cm (0.6 - 1.1) LVIDd: 4.3 cm (3.9 - 5.3) LVPWd: 1.1 cm (0.6 - 1.1) IVSs: 1.6 cm LVIDs: 3.2 cm LVPWs: 1.7 cm LA Diam: 3.3 cm (2.7 - 3.8) LAESV Index (A-L): 14.84 ml/m Ao Diam: 3.5 cm (2.0 - 3.7) AV Cusp: 2.4 cm (1.5 - 2.6) MV EXCURSION: 14.230 mm (> 18.000) MV EF SLOPE: 70 mm/s (70 - 150) EPSS: 1.0 cm MV E Aden: 0.74 m/s MV DecT: 238 ms MV A Aden: 0.83 m/s MV E/A Ratio: 0.90 FINDINGS -------- Sinus rhythm. This was a technically adequate study. The left ventricular size is normal. There is borderline concentric left ventricular hypertrophy. Overall left ventricular systolic function is normal with, an EF between 60 - 65 %. The right ventricle is normal in size. Normal LA size by volume 22+/-6 ml/m2. The right atrium is normal in size. The aortic valve is trileaflet and appears structurally normal. The mitral valve is normal. The tricuspid valve appears structurally normal. There is no pulmonic regurgitation present. The aortic root size is normal. IVC Not well visulized. There is no pericardial effusion. CONCLUSIONS -------- 1. Sinus rhythm. 2. The mitral valve is normal. 3. The tricuspid valve appears structurally normal. 4. There is no pulmonic regurgitation present. 5. The aortic root size is normal. 6. IVC Not well visulized. 7. There is no pericardial effusion. 8. This was a technically adequate study. 9. The left ventricular size is normal. 10. There is borderline concentric left ventricular hypertrophy. 11. Overall left ventricular systolic function is normal with, an EF between 60 - 65 %. 12. The right ventricle is normal in size. 13. Normal LA size by volume 22+/-6 ml/m2. 14. The right atrium is normal in size. 15. The aortic valve is trileaflet and appears structurally normal. [employer] SUPERVISOR: Sheron Paulson RDCS
--- NOTE | 2016-11-14 12:19 | P.PN ---
Subjective Principal diagnosis: Atypical chest pain This is a very pleasant 60-year-old gentleman who follows with Dr. Herrera as his primary care physician. He has a history of coronary artery disease with previous stent placement in 2009 at [facility], diabetes mellitus type II, hyperlipidemia, hypertension. He does have a 25 year pack per day smoking history but quit approximately 23 years ago. He presented to the emergency room yesterday after having a 2 week episode of chest discomfort that had been coming and going. He did feel it was possibly similar to his previous episode of angina that required stents in 2009. He did have some dizziness and lightheadedness as well. The pain was mainly midsternal with minimal radiation. No diaphoresis. No cough or congestion. No hemoptysis. No pain on inhalation. The patient is quite active and walks daily. No recent travels. No prolonged car rides. No recent surgeries. No cancer. No history of previous PE/DVT. No injuries. Upon questioning he does have some right calf discomfort. His chest x-ray revealed no acute cardiopulmonary process. D- dimer minimally elevated at 0.76. CT angiogram reveals poor quality opacity case and but possible pulmonary emboli in the proximal subsegmental pulmonary artery supplying the left lower lobe. He has been initiated on heparin. Troponins negative 2. EKG reveals normal sinus rhythm with no significant ST or T-wave abnormalities. Patient was reevaluated today on 11/14/2016, feeling better, no chest pain, no further episodes of shortness of breath, and I reviewed with him today the results of the venous Doppler which came back negative for DVT, VQ scan came back low probability for pulmonary embolism. Patient is asymptomatic, hence I felt this is not a picture of thromboembolic disease, and I have recommended that we stop heparin, and I also recommended a cardiology evaluation/ consultation. Pain is atypical, and further workup showed no evidence to suggest thromboembolic disease. Objective - Vital Signs Vital signs: Vital Signs Temp 98.1 F 11/14/16 07:38 Pulse 82 11/14/16 07:38 Resp 16 11/14/16 07:38 BP 114/66 11/14/16 07:38 Pulse Ox 94 L 11/14/16 07:38 Intake & Output 11/13/16 11/14/16 11/14/16 18:59 06:59 18:59 Intake Total 202.301 910.520 Balance 202.301 910.520 Weight 79.2 kg Intake: IV 330 Heparin Sodium,Porcine/ 330 D5w Pmx 25,000 unit In Dextrose/Water 1 500ml. bag @ 18 UNITS/KG/HR 29. 39 mls/hr IV .Q17H1M [facility] Rx#:[id number] Intake, IV Titration 202.301 580.520 Amount Heparin Sodium,Porcine/ 202.301 580.520 D5w Pmx 25,000 unit In Dextrose/Water 1 500ml. bag @ 18 UNITS/KG/HR 29. 39 mls/hr IV .Q17H1M [facility] Rx#:[id number] Other: # Voids 3 2 - Exam GENERAL EXAM: Alert, active, comfortable in no apparent distress. HEAD: Normocephalic. EYES: Normal reaction of pupils, equal size. NOSE: Clear with pink turbinates. THROAT: No erythema or exudates. NECK: No masses, no JVD. CHEST: No chest wall deformity. LUNGS: Equal air entry with no crackles, wheeze, rhonchi or dullness. CVS: S1 and S2 normal with no audible mumurs, regular rhythm. ABDOMEN: No hepatosplenomegaly, normal bowel sounds, no guarding or rigidity. SPINE: No scoliosis or deformity SKIN: No rashes CENTRAL NERVOUS SYSTEM: No focal deficits, tone is normal in all 4 extremities. Extremities: There is no peripheral edema. No clubbing, no cyanosis. Peripheral pulses are intact. There is some tenderness in the right calf. - Labs CBC & Chem 7: 11/14/16 03:02 11/14/16 03:02 Labs: Abnormal Lab Results - Last 24 Hours (Table) 11/13/16 11/13/16 11/13/16 Range/Units 02:10 16:46 19:01 RBC (4.30-5.90) m/uL APTT 35.5 H (22.0-30.0) sec Sodium (137-145) mmol/L Creatinine (0.66-1.25) mg/dL Glucose (74-99) mg/dL POC Glucose (mg/dL) 207 H (75-99) mg/dL Hemoglobin A1c 7.7 H (4.2-6.1) % 11/13/16 11/14/16 11/14/16 Range/Units 21:02 03:02 03:02 RBC (4.30-5.90) m/uL APTT 49.3 H (22.0-30.0) sec Sodium 136 L (137-145) mmol/L Creatinine 0.60 L (0.66-1.25) mg/dL Glucose 192 H (74-99) mg/dL POC Glucose (mg/dL) 260 H (75-99) mg/dL Hemoglobin A1c (4.2-6.1) % 11/14/16 11/14/16 11/14/16 Range/Units 03:02 06:21 11:46 RBC 4.20 L (4.30-5.90) m/uL APTT (22.0-30.0) sec Sodium (137-145) mmol/L Creatinine (0.66-1.25) mg/dL Glucose (74-99) mg/dL POC Glucose (mg/dL) 173 H 227 H (75-99) mg/dL Hemoglobin A1c (4.2-6.1) % Assessment and Plan Plan: #1 atypical chest pain, strongly doubt pulmonary embolism based on the workup so far, hence I will discontinue heparin, and I will arrange for cardiac evaluation on this patient. #2 Coronary artery disease with previous stent placement in 2009. No evidence of acute coronary syndrome. #3 Hyper tension. #4 Hyperlipidemia. #5 Diabetes mellitus, type II. #6 Degenerative disc disease involving the neck and back with chronic pain and disability. #7 History of Crohn's disease with previous bowel resection. Recommendation: Discussed with the patient the findings so far including the workup I have performed, and considering his VQ scan is negative, his venous Doppler was also negative, suggest cardiac evaluation, may need at least a Cardiolite stress test, or even a cardiac catheterization down the line. We'll see on when necessary basis. Time with Patient: Less than 30
[2016-11-14 15:46] VITALS: BP 100/59; PULSE 75
--- NOTE | 2016-11-15 01:23 | P.DS ---
Providers Date of admission: 11/13/16 04:38 Expected date of discharge: 11/14/16 Attending physician: Saroj Damon Consults: 11/13/16 04:41 Consult Physician Routine Consulting Provider: Indira Ramirez Consult Reason/Comments: chest pain, suspect PE. Do you want consulting provider notified?: Yes 11/13/16 11:00 Consult Physician Routine Consulting Provider: Juan Burk Consult Reason/Comments: chest pain hx of ashd and stent placement [place] Do you want consulting provider notified?: Yes Primary care physician: [facility] Course: Discharge diagnosis #1 Chest pressure with dizziness. suspected small proximal subsegmental left lower lobe pulmonary emboli. No Evidence of PE noted. DC'd heparin #2 Coronary artery disease with previous stent placement in 2009. No evidence of acute coronary syndrome. Troponin 2 negative. 2-D echo showed normal ejection fraction #3 Hypertension. #4 Hyperlipidemia. #5 Diabetes mellitus-2. Nss-kubhzdl-irczunjju #6 Degenerative disc disease involving the neck and back with chronic pain and disability. #7 History of Crohn's disease with previous bowel resection. #8 GI and DVT prophylaxis Patient is a 60-year-old gentleman with a history of coronary artery disease with previous stent placement in 2009 at [facility], diabetes mellitus type II, hyperlipidemia, hypertension and 25 year pack per day smoking history but quit approximately 23 years ago who presented to the emergency room with complaints of chest discomfort and dizziness, lightheadedness on and off for the past 2 weeks. The pain was mainly midsternal with minimal radiation. No diaphoresis. No cough or congestion. No hemoptysis. No recent travels. No prolonged car rides. No recent surgeries. No cancer. No history of previous PE/DVT. No injuries. chest x-ray revealed no acute cardiopulmonary process. D-dimer minimally elevated at 0.76. CT angiogram reveals poor quality opacity case and but possible pulmonary emboli in the proximal subsegmental pulmonary artery supplying the left lower lobe. He has been initiated on heparin. Troponins negative 2. EKG reveals normal sinus rhythm with no significant ST or T-wave abnormalities. Bilateral lower extremity Duplex is negative for DVT. VQ scan showed very low probability for PE. Patient had elevated d-dimer and CT angiogram showed filling defect in the proximal subsegmental arteries supplying left lower lobe could not be seen clearly due to poor opacification. Patient had lower extremity duplex which is negative and VQ scan is very low probability for PE. Pulmonary has been consulted for further recommendations. Heparin drip was discontinued. Patient was seen by cardiology and 2-D echo was done. It showed normal ejection fraction. Cardiology recommended to follow with as an outpatient for stress test. Patient currently is symptom free and is anxious to go home. Patient will be discharged and follow with primary care physician in one to 3 days. PHYSICAL EXAMINATION: Patient is lying in the bed comfortably, no acute distress, awake alert and oriented.. HEENT: Normocephalic. Neck is supple. Pupils reactive. Nostrils clear. Oral cavity is moist. Ears reveal no drainage. Neck reveals no JVD, carotid bruits, or thyromegaly. CHEST EXAMINATION: Trachea is central. Symmetrical expansion. Lung curiel clear to auscultation and percussion. CARDIAC: Normal S1, S2 with no gallops. No murmurs ABDOMEN: Soft. Bowel sounds normal. No organomegaly. No abdominal bruits. Extremities reveal no edema. No clubbing or cyanosis Neurologically awake, alert, oriented x3 with well-coordinated movements. Skin: no rash or skin lesions Musculoskeletal: no joint swelling or deformity. Patient Condition at Discharge: Fair Plan - Discharge Summary New Discharge Prescriptions: Continue metFORMIN HCL [Glucophage] 1,000 mg PO BID #60 tab sitaGLIPtin [Januvia] 100 mg PO DAILY Pravastatin Sodium [Pravachol] 20 mg PO HS Lisinopril [Zestril] 5 mg PO DAILY Diclofenac Sodium [Voltaren] 75 mg PO BID Canagliflozin [Invokana] 300 mg PO DAILY Discharge Medication List metFORMIN HCL [Glucophage] 1,000 mg PO BID #60 tab 05/31/15 [Rx] Lisinopril [Zestril] 5 mg PO DAILY 06/27/16 [History] Pravastatin Sodium [Pravachol] 20 mg PO HS 06/27/16 [History] sitaGLIPtin [Januvia] 100 mg PO DAILY 06/27/16 [History] Canagliflozin [Invokana] 300 mg PO DAILY 11/13/16 [History] Diclofenac Sodium [Voltaren] 75 mg PO BID 11/13/16 [History] Follow up Appointment(s)/Referral(s): Juan Burk MD [STAFF PHYSICIAN] - 11/27/16 11:15 am Yohan Herrera MD [Primary Care Provider] - 11/19/16 12:30 pm Patient Instructions/Handouts: Angina (DC) Discharge Disposition: HOME SELF-CARE
== END 2016-11-14 16:20 | disposition home or self-care (01) | DRG 313 ==
LOC: EC 01:59 → 6SEL 04:38
PROVIDERS: ADMIT Hospitalist; ATTEND Hospitalist
DX: R07.9 Chest pain, unspecified (principal); K50.90 Crohn's disease, unspecified, without complications; I25.10 Atherosclerotic heart disease of native coronary artery without angina pectoris; E11.40 Type 2 diabetes mellitus with diabetic neuropathy, unspecified; R42 Dizziness and giddiness; E78.5 Hyperlipidemia, unspecified; G89.29 Other chronic pain; I10 Essential (primary) hypertension; E07.9 Disorder of thyroid, unspecified; K57.90 Diverticulosis of intestine, part unspecified, without perforation or abscess without bleeding; M50.30 Other cervical disc degeneration, unspecified cervical region; Z79.84 Long term (current) use of oral hypoglycemic drugs; Z79.899 Other long term (current) drug therapy; Z87.891 Personal history of nicotine dependence; Z95.5 Presence of coronary angioplasty implant and graft; Z82.49 Family history of ischemic heart disease and other diseases of the circulatory system
CPT/HCPCS: 36415; 71010; 71275; 78582; 80048; 80053; 81003; 82150; 82550; 82553; 83036; 83605; 83690; 83735; 84484; 85025; 85379; 85610; 85730; 93005; 93306; 93970; 96361; 96365; 96367; 96375; 96376; 99285

== ENCOUNTER → 2018-04-13 | Outpatient (CLI) | payer MEDICARE ==
--- NOTE | 2018-04-13 12:59 | US ---
EXAMINATION TYPE: US thyroid st tissue head/neck DATE OF EXAM: 04/13/2018 COMPARISON: NONE CLINICAL HISTORY: M54.2 cervicalgia. GLAND SIZE: Right Lobe: 3.3 x 1.3 x 1.4 cm Overall Parenchyma: heterogenous Left Lobe: 4.4 x 1.3 x 1.4 cm Overall Parenchyma: heterogeneous Isthmus Thickness: 0.2 cm NODULES RIGHT: # of nodules measured on right: 1- Multiple subcentimeter cystic areas visualized, largest m easured: 1. 0.3 X 0.3 x 0.4 cm hypoechoic cystic nodule at the upper pole with well-defined margins; . This nodule is wider than tall and shows no intranodular vascularity. Prior size: No previous LEFT: # of nodules measured on left: 1 1. 0.7 X 0.6 x 0.6 cm hypoechoic mixed nodule at the lower pole with well-defined margins; . This nodule is wider than tall and shows intranodular vascularity. Prior size: No previous ISTHMUS: # of nodules measured in the isthmus: 0 Bilateral neck scanned, no evidence of lymphadenopathy. There is markedly heterogeneous somewhat small size thyroid with few small nodules marked by technolo gist. IMPRESSION: Heterogeneous small sized thyroid without suspicious greater than 1 cm solid or cystic nodule identif ied.
== END ==
LOC: RADUSWWP 12:02
PROVIDERS: ATTEND Family Medicine
DX: R93.89 Abnormal findings on diagnostic imaging of other specified body structures (principal)
CPT/HCPCS: 76536

== ENCOUNTER 2018-08-19 10:18 | Observation (INO) | payer MEDICARE ==
[2018-08-19] MEDS ORDERED: NITROGLYCERIN SL TABS 0.4 MG TAB SUBLINGUAL STA (10:32)
[2018-08-19] MEDS ORDERED: SODIUM CHLORIDE 0.9% 1,000 ML IV STA (10:32)
[2018-08-19] MEDS ORDERED: ASPIRIN 81 MG PO STA (10:32)
[2018-08-19] MEDS ORDERED: INSULIN REGULAR 100 UNIT/ML VIAL IV ONE (10:36)
--- NOTE | 2018-08-19 10:59 | ED ---
Chest Pain HPI <Yusef Funez - Last Filed: 08/19/18 11:29> - General Source: patient, RN notes reviewed Mode of arrival: wheelchair Limitations: no limitations <Cristian Saucedo - Last Filed: 08/19/18 12:22> - General Chief Complaint: Chest Pain Stated Complaint: high blood sugar & chest pain Time Seen by Provider: 08/19/18 10:21 - History of Present Illness Initial Comments: 62-year-old male presents emergency Department with chief complaint of chest pain and hyperglycemia. Patient states that it's been having on and off chest pain but worsens morning and he also woke up with a blood sugar over 500. Patient states that he has been out of some of his diabetes medications because he cannot afford them all in the ran out of samples. Patient states she did take Januvia and metformin this morning. Patient states he has prior cardiac disease including stents, diabetes, hyperlipidemia and hypertension. Patient was a former smoker quit 20 years ago. Patient denies any current nausea vomiting diarrhea constipation no fevers or chills no URI symptoms. Patient states his chest pain is centralized nonradiating. (Cristian Saucedo) - Related Data Home Medications Medication Instructions Recorded Confirmed sitaGLIPtin [Januvia] 100 mg PO DAILY 06/27/16 08/19/18 Diclofenac Sodium [Voltaren] 75 mg PO BID 11/13/16 08/19/18 Gabapentin [Neurontin] 300 mg PO TID 01/19/17 08/19/18 Levothyroxine Sodium [Synthroid] 75 mcg PO DAILY 08/19/18 08/19/18 Lisinopril [Zestril] 5 mg PO DAILY 08/19/18 08/19/18 Pravastatin Sodium [Pravachol] 20 mg PO HS 08/19/18 08/19/18 Previous Rx's Medication Instructions Recorded metFORMIN HCL [Glucophage] 1,000 mg PO BID #60 tab 05/31/15 Allergies Allergy/AdvReac Type Severity Reaction Status Date / Time No Known Allergies Allergy Verified 08/19/18 10:42 Review of Systems ROS Other: All systems not noted in ROS Statement are negative. <Yusef Funez - Last Filed: 08/19/18 11:29> ROS Other: All systems not noted in ROS Statement are negative. <Cristian Saucedo - Last Filed: 08/19/18 12:22> ROS Statement: Those systems with pertinent positive or pertinent negative responses have been documented in the HPI. EKG Findings - EKG Comments: EKG Findings:: EKG performed at 10:31 normal sinus rhythm with a rate of 92 LA 152 QRS 92 QT/QTC 356/440 <LewisCristian Mejias - Last Filed: 08/19/18 12:22> Past Medical History Past Medical History: Coronary Artery Disease (CAD), Diabetes Mellitus, Hyperlipidemia, Hypertension, Thyroid Disorder Additional Past Medical History / Comment(s): ddd, neck pain, chrons, diverticulits , not currently on anything for HTN, and cholesterol,. crohns, diverticulosis History of Any Multi-Drug Resistant Organisms: None Reported Past Surgical History: Bowel Resection, Cholecystectomy, Heart Catheterization With Stent, Joint Replacement Additional Past Surgical History / Comment(s): shoulder, stented in 2009 [facility]. colonoscopy Past Anesthesia/Blood Transfusion Reactions: No Reported Reaction Date of Last Stent Placement:: 2009 Past Psychological History: No Psychological Hx Reported Smoking Status: Former smoker - Past Family History Father Family Medical History: Cancer, Myocardial Infarction ([place]) Additional Family Medical History / Comment(s): throat cancer Mother Family Medical History: Diabetes Mellitus, Myocardial Infarction ([place]) <Cristian Saucedo Magalie - Last Filed: 08/19/18 12:22> General Exam Limitations: no limitations General appearance: alert, in no apparent distress Head exam: Present: atraumatic, normocephalic, normal inspection Eye exam: Present: normal appearance, PERRL, EOMI. Absent: scleral icterus, conjunctival injection, periorbital swelling ENT exam: Present: normal exam, normal oropharynx, mucous membranes moist Neck exam: Present: normal inspection. Absent: tenderness, meningismus, lymphadenopathy Respiratory exam: Present: normal lung sounds bilaterally. Absent: respiratory distress, wheezes, rales, rhonchi, stridor Cardiovascular Exam: Present: regular rate, normal rhythm, normal heart sounds. Absent: systolic murmur, diastolic murmur, rubs, gallop, clicks GI/Abdominal exam: Present: soft, normal bowel sounds. Absent: distended, tenderness, guarding, rebound, rigid Neurological exam: Present: alert, oriented X3, CN II-XII intact Skin exam: Present: warm, dry, intact, normal color. Absent: rash <Dedoe,Cristian M - Last Filed: 08/19/18 12:22> Course <Yusef Funez - Last Filed: 08/19/18 11:29> Vital Signs 08/19/18 08/19/18 10:21 10:55 Temperature 97.8 F Pulse Rate 98 71 Respiratory 20 18 Rate Blood Pressure 152/84 137/93 O2 Sat by Pulse 96 Oximetry - Reevaluation(s) Reevaluation #1: 08/19/18 11:29 PA supervision: I proceeded [id number] evaluation the patient did present with complaints of intermittent episodes of midsternal chest pain sharp in nature some pain going to the right chest. He does have a history of cardiac disease with stents in the past. He is also noted have a glucose level is markedly elevated in about 500 he ran out of some of his medication. Early is pain-free at this time EKG was nonspecific. He will be admitted for evaluation of the chest pain and control of the diabetes. I did discuss the case with Dr. Damon. (Yusef Funez) Chest Pain MDM <Cristian Saucedo - Last Filed: 08/19/18 12:22> - MDM 62-year-old male presents emergency department for chest pain hyperglycemia. Patient lab work, EKG, chest x-ray. Patiently admitted for unstable angina, hyperglycemia. Patient will be admitted with consultation to cardiology. (Cristian Saucedo) Critical Care Time Critical Care Time: Yes Total Critical Care Time: 35 <Cristian Saucedo - Last Filed: 08/19/18 12:22> Critical Care Time: Total 35 minutes critical care time were used initially evaluated the patient, reviewed vitals, reviewed past medical history, medications. Labs including CBC, CMP, troponin, acetone, EKG and chest x-ray were ordered. Patient was given aspirin and nitro. Patient also given a fluid bolus secondary to hyperglycemia along with insulin IV. Blood sugar has responded well. Patient's EKG does not reveal any acute changes though he has significant cardiac history and will be admitted for unstable angina started on heparin with cardiology evaluation. Discussed the case with the admitting physician. (Cristian Saucedo) Disposition <Yusef Funez - Last Filed: 08/19/18 11:29> <Cristian Saucedo - Last Filed: 08/19/18 12:22> Clinical Impression: Chest pain, Hyperglycemia Disposition: ADMITTED IP TO THIS HOSP Condition: Stable Referrals: Yohan Herrera MD [Primary Care Provider] - 1-2 days
[2018-08-19 11:03] LABS: Glucose,Whole Blood 426 mg/dL (75-99)
[2018-08-19 11:17] LABS: Appearance,Urine Clear (Clear); Bilirubin,Urine Negative (Negative); Blood,Urine Negative (Negative); Color,Urine Light Yellow; Glucose,Urine (UA) 4+ (Negative); Ketones,Urine Negative (Negative); Leukocyte Esterase,Urine Negative (Negative); Nitrite,Urine Negative (Negative); PH, Urine 5.5 (5.0-8.0); Protein,Urine Negative (Negative); Specific Gravity,Urine 1.026 (1.001-1.035); Urobilinogen,Urine <2.0 mg/dL (<2.0)
[2018-08-19 11:22] LABS: INR 0.9 (<1.2); Partial Thromboplastin Time 27.5 sec (22.0-30.0); Prothrombin Time 9.8 sec (9.0-12.0)
--- NOTE | 2018-08-19 11:24 | XR ---
EXAMINATION TYPE: XR chest 2V DATE OF EXAM: 08/19/2018 COMPARISON: NONE HISTORY: Chest pain and shortness of breath TECHNIQUE: Frontal and lateral views of the chest are obtained. FINDINGS: There is no focal air space opacity, pleural effusion, or pneumothorax seen. The cardiac silhouette size is within normal limits. The osseous structures are intact. Minimal multilevel dege nerative changes of the spine. IMPRESSION: No acute cardiopulmonary process.
[2018-08-19 11:31] LABS: ALT 24 U/L (21-72); AST 28 U/L (17-59); Albumin 4.2 g/dL (3.5-5.0); Alkaline Phosphatase 122 U/L (38-126); Anion Gap 11 mmol/L; Blood Urea Nitrogen 13 mg/dL (9-20); Calcium 9.4 mg/dL (8.4-10.2); Carbon Dioxide 24 mmol/L (22-30); Chloride 98 mmol/L (98-107); Glucose 478 mg/dL (74-99); Magnesium 1.3 mg/dL (1.6-2.3); Potassium 4.7 mmol/L (3.5-5.1); Sodium 133 mmol/L (137-145); Total Bilirubin 0.5 mg/dL (0.2-1.3)
[2018-08-19 11:43] LABS: Basophils % (A) 0 %; Eosinophils # (A) 0.1 k/uL (0-0.7); Eosinophils % (A) 1 %; HCT 43.7 % (39.0-53.0); HGB 14.8 gm/dL (13.0-17.5); Lymphocytes # (A) 0.8 k/uL (1.0-4.8); Lymphocytes % (A) 16 %; MCH 31.6 pg (25.0-35.0); MCHC 33.9 g/dL (31.0-37.0); MCV 93.2 fL (80.0-100.0); Mean Platelet Volume 7.8; Monocytes # (A) 0.4 k/uL (0-1.0); Monocytes % (A) 7 %; Neutrophils # (A) 3.9 k/uL (1.3-7.7); Neutrophils % (A) 74 %; Platelet Count 187 k/uL (150-450); RBC 4.69 m/uL (4.30-5.90); WBC 5.3 k/uL (3.8-10.6)
[2018-08-19 11:57] LABS: Glucose,Whole Blood 263 mg/dL (75-99)
[2018-08-19] MEDS ORDERED: NITROGLYCERIN SL TABS 0.4 MG TAB SUBLINGUAL PRN (12:22)
[2018-08-19] MEDS ORDERED: HEPARIN SODIUM,PORCINE 5,000 UNIT/ML 1 ML VIAL IV ONE (12:22)
[2018-08-19] MEDS ORDERED: HEPARIN SOD,PORK IN 0.45% NACL 25,000 UNIT in 0.45% NACL 1 250ML.BAG IV SCH (12:30)
[2018-08-19] MEDS ORDERED: MAGNESIUM OXIDE 400 MG TAB PO STA (13:40)
[2018-08-19 15:00] LABS: Glucose,Whole Blood 158 mg/dL (75-99)
[2018-08-19] MEDS: INSULIN ASPART (NovoLOG) 100 UNIT/ML VIAL SQ SCH ×3 (15:09→21:00)
[2018-08-19] MEDS ORDERED: MORPHINE SULFATE 4 MG/ML SYRINGE IVP PRN (15:11)
[2018-08-19] MEDS ORDERED: HYDROcodone/APAP 5-325MG 1 EACH TAB PO PRN (15:11)
[2018-08-19] MEDS ORDERED: HYDROcodone/APAP 5-325MG 1 EACH TAB PO STA (15:11)
[2018-08-19 16:38] LABS: Glucose,Whole Blood 192 mg/dL (75-99)
[2018-08-19] MEDS: GABAPENTIN 300 MG CAP PO SCH ×2 (17:18→20:21)
[2018-08-19 20:49] LABS: Glucose,Whole Blood 183 mg/dL (75-99)
[2018-08-19] MEDS ORDERED: PRAVASTATIN SODIUM 20 MG TAB PO SCH (21:00)
--- NOTE | 2018-08-19 22:38 | HP ---
HISTORY AND PHYSICAL DATE OF ADMISSION: 08/19/2018 DATE OF SERVICE: 08/19/2018 PRESENTING COMPLAINT: Chest pain. HISTORY OF PRESENTING COMPLAINT: This is a pleasant 62-year-old patient of Dr. Herrera. Chronic stable medical conditions include coronary artery disease with stent in 2006, hypertension, hyperlipidemia, hypothyroid, peripheral neuropathy, diverticulitis with colon resection. This morning the patient took his sugar and it was over 500. Patient took 2 Januvia extra metformin pill. He checked it again and sugar was 540. He decided to come to the ER. The patient for about 3 weeks has been having episodes of chest pain, even present at rest, not really related to activity. Sometimes it occurs going up the right shoulder, but he has had shoulder problems. Sometimes it is associated with shortness of breath and perspiration. There is no dizziness or lightheadedness. Patient has been getting episodes of clamminess; hence patient was admitted for the same. Cardiology was consulted. REVIEW OF SYSTEMS: CONSTITUTIONAL: None. HEENT: None. RESPIRATORY: None. CARDIOVASCULAR: None. GASTROINTESTINAL: None. GENITOURINARY: None. MUSCULOSKELETAL: None. DERMATOLOGICAL: None. HEMATOLOGICAL: None. LYMPHATICS: None. PSYCHIATRY: None. NEUROLOGICAL: Numbness and tingling in the feet. PAST MEDICAL HISTORY: 1. Coronary artery disease with stent around 2006. 2. Diabetes mellitus, type 2. 3. Hypertension. 4. Hyperlipidemia. 5. Hypothyroid. 6. Peripheral neuropathy of the feet. 7. Chronic low back pain. 8. DJD. 9. Vertebral stress fractures, lower back. 10.Two herniated cervical discs. 11.Neck pain. 12.Diverticulitis with bowel resection. 13.Recurrent shingles. PAST SURGICAL HISTORY: 1. Bowel resection. 2. Cholecystectomy. 3. Cardiac cath with stent in 2009 at [facility]. 4. Bowel resection due to Crohn's. 5. Right shoulder rotator cuff repair. 6. Colonoscopy. SOCIAL HISTORY: . Smoked for about 25 years, stopped in . He is on disability. 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 Alcohol none. FAMILY HISTORY: Father of throat cancer and also had heart problems. HOME MEDICATIONS: 1. Pravachol 20 mg at bedtime. 2. Zestril 5 mg p.o. daily. 3. Synthroid 75 mcg daily. 4. Januvia 100 mg p.o. daily. 5. Glucophage 1000 mg b.i.d. 6. Neurontin 300 mg t.i.d. 7. Voltaren 75 mg p.o. b.i.d. ALLERGIES: NONE. PHYSICAL EXAMINATION: VITAL SIGNS ON PRESENTATION: Temperature 97.8, pulse 80, respiration 20, blood pressure 152/84, pulse ox 96% on room air. GENERAL APPEARANCE: Average build. Sitting up. Not in distress. EYES: Pupils equal. Conjunctivae normal. HEENT: External appearance of nose and ears normal. Oral cavity normal. NECK: JVD not raised. Mass not palpable. RESPIRATORY: Effort normal. LUNGS: Fair air entry. CARDIOVASCULAR: First and second sounds normal. No edema. ABDOMEN: Soft, non-tender. Liver and spleen not palpable. LYMPHATIC: No lymph node palpable in neck or axillae. PSYCHIATRY: Alert and oriented x3. Mood and affect normal. NEUROLOGICAL: Pupils equal. Cranial nerves grossly intact. Decreased sensation in the feet. INVESTIGATIONS: White count 5.3, hemoglobin 14.8, potassium 4.7. BUN 13, creatinine 0.47. Initial blood sugar was 478. Troponin was negative. EKG tracing, personally reviewed by me, shows normal sinus rhythm. Chest x-ray film, personally reviewed by me, shows normal chest x-ray, no obvious infiltrate. ASSESSMENT: 1. Possible unstable angina in a patient with known coronary artery disease, possibly precipitated by hyperglycemia. 2. Non-ketotic hyperglycemia in a patient with diabetes mellitus, type 2. 3. Coronary artery disease with stent back in 2006. 4. Hyperlipidemia. 5. Essential hypertension. 6. Hypothyroid. 7. Peripheral neuropathy secondary to diabetes. PLAN: The patient was put on IV fluids. Home medications are resumed. Serial cardiac enzymes are ordered. The patient was also put on IV heparin. Cardiology was consulted. Will make the patient n.p.o. after midnight. The patient will need at least a stress test. Care was discussed the patient. Questions were answered. MMODL / IJN: [id number] /
[2018-08-19] MEDS: SODIUM CHLORIDE 0.9% 1,000 ML IV SCH (23:17)
[2018-08-20 02:16] LABS: Glucose,Whole Blood 158 mg/dL (75-99)
[2018-08-20 05:51] LABS: Platelet Count 195 k/uL (150-450)
[2018-08-20 06:02] LABS: Cholesterol 91 mg/dL (<200); HDL Cholesterol 21 mg/dL (40-60); LDL Cholesterol,Calculated 12 mg/dL (0-99); Triglycerides 288 mg/dL (<150)
[2018-08-20] MEDS ORDERED: LEVOTHYROXINE 75 MCG TAB PO SCH (06:30)
[2018-08-20 06:52] LABS: Glucose,Whole Blood 188 mg/dL (75-99)
[2018-08-20 07:52] VITALS: RESP 16
--- NOTE | 2018-08-20 08:57 | CONS ---
CONSULTATION CHIEF COMPLAINT: Uncontrolled blood sugars and chest pain. This is a 62-year-old gentleman with history of coronary artery disease, status post prior angioplasty, hypertension, dyslipidemia, hypothyroidism, and non-insulin diabetes, who presented to hospital mainly with elevated blood sugars. While in the ER, he also complained of chest pain. He describes it as a sharp precordial pain. It usually comes on at rest without diaphoresis and without radiation to neck, back. This thing has been going on for the last several weeks. His EKG shows normal sinus rhythm and is within normal limits. Cardiac enzymes have all been normal. At the time of my evaluation this morning, he appears comfortable at rest and is free of symptoms. Blood sugars are better controlled. I talked to him about his treatment options including a stress test in the hospital, a cardiac catheterization on an outpatient stress test. The patient does not want to have any further testing here, but is agreeable to undergoing an outpatient stress test. PAST MEDICAL HISTORY: Significant for hypertension, diabetes, dyslipidemia, and hypothyroidism. MEDICATIONS: At home included Pravachol 20 mg daily, Zestril 5 mg daily, Synthroid, Januvia, Glucophage, Neurontin, and Voltaren. ALLERGIES: There are no known drug allergies. FAMILY HISTORY: Negative for premature coronary artery disease. SOCIAL HISTORY: Negative for current smoking, EtOH abuse, or drug abuse. REVIEW OF SYSTEMS: HEENT is unremarkable. CARDIAC: As described above. RESPIRATORY: As described above. GI: Negative. GENITOURINARY: Negative. ALLERGY/IMMUNOLOGY: Negative. MUSCULOSKELETAL: Significant for arthritis. PSYCHOSOCIAL: Negative. ENDOCRINE: Negative. CONSTITUTIONAL: Negative. ONCOLOGICAL: Negative. The rest of the system review is not relevant. PHYSICAL EXAM: Comfortable at rest. Vital signs are stable. There is no jugular venous distention. Carotid upstroke is normal. There is no bruit. Chest exam reveals good air entry bilaterally. Heart exam reveals first and second heart sounds. No gallop. No murmur. No rub. Abdomen is soft, nontender. Exam of extremities did not reveal any edema. Peripheral pulses are felt. [employer] exam did not reveal focal neurological deficits. O2 sat is 96% on room air. Three sets of cardiac enzymes are negative EKG looks normal. LDL cholesterol is 12. ASSESSMENT: 1. Uncontrolled blood sugars in a patient with known diabetes. 2. Precordial chest pain. PLAN: I will stop the IV heparin, ambulate the patient. Obtain a 2D echo. Whenever he is fine, he can be discharged home and I will arrange an outpatient stress test on him. MALINA / JESSICA: [id number] /
[2018-08-20] MEDS ORDERED: LINAGLIPTIN 5 MG TABLET PO SCH (09:00)
[2018-08-20] MEDS ORDERED: ASPIRIN 325 MG TAB PO SCH (09:00)
[2018-08-20] MEDS ORDERED: LISINOPRIL 5 MG TAB PO SCH (09:00)
[2018-08-20] MEDS ORDERED: ISOSORBIDE MONONITRATE ER 30 MG TAB.ER.24H PO SCH (09:00)
--- NOTE | 2018-08-20 09:17 | ECHOF ---
Referral Reason:chest pain MEASUREMENTS -------- HEIGHT: 175.3 cm WEIGHT: 81.6 kg BP: 137/93 IVSd: 1.2 cm (0.6 - 1.1) LVIDd: 4.7 cm (3.9 - 5.3) LVPWd: 1.1 cm (0.6 - 1.1) IVSs: 1.5 cm LVIDs: 3.6 cm LVPWs: 1.7 cm LA Diam: 3.5 cm (2.7 - 3.8) LAESV Index (A-L): 20.74 ml/m Ao Diam: 3.4 cm (2.0 - 3.7) AV Cusp: 2.3 cm (1.5 - 2.6) MV EXCURSION: 28.460 mm (> 18.000) MV EF SLOPE: 458 mm/s (70 - 150) EPSS: 2.3 cm MV E Aden: 0.67 m/s MV DecT: 193 ms MV A Aden: 0.89 m/s MV E/A Ratio: 0.75 RAP: 5.00 mmHg RVSP: 20.59 mmHg FINDINGS -------- Sinus rhythm. This was a technically adequate study. The left ventricular size is normal. There is borderline concentric left ventricular hypertrophy. Overall left ventricular systolic function is normal with, an EF between 60 - 65 %. Normal LA size by volume 22+/-6 ml/m2. The right atrium is normal in size. Interatrial and interventricular septum intact. The aortic valve is trileaflet and appears structurally normal. The mitral valve is normal. Mild tricuspid regurgitation present. Right ventricular systolic pressure is normal at < 35 mmHg. The pulmonic valve was not well visualized. The aortic root size is normal. Normal inferior vena cava with normal inspiratory collapse consistent with estimated right atrial pre ssure of 5 mmHg. There is no pericardial effusion. CONCLUSIONS -------- 1. Sinus rhythm. 2. This was a technically adequate study. 3. The left ventricular size is normal. 4. There is borderline concentric left ventricular hypertrophy. 5. Overall left ventricular systolic function is normal with, an EF between 60 - 65 %. 6. Normal LA size by volume 22+/-6 ml/m2. 7. The right atrium is normal in size. 8. Interatrial and interventricular septum intact. 9. The aortic valve is trileaflet and appears structurally normal. 10. The mitral valve is normal. 11. Mild tricuspid regurgitation present. 12. Right ventricular systolic pressure is normal at < 35 mmHg. 13. The pulmonic valve was not well visualized. 14. The aortic root size is normal. 15. Normal inferior vena cava with normal inspiratory collapse consistent with estimated right atrial pressure of 5 mmHg. 16. There is no pericardial effusion. CARDROOM MANAGER: Sheron Paulson RDCS
[2018-08-20] MEDS: GABAPENTIN 300 MG CAP PO SCH (10:11)
[2018-08-20] MEDS: INSULIN ASPART (NovoLOG) 100 UNIT/ML VIAL SQ SCH ×2 (10:13→12:34)
[2018-08-20 11:39] VITALS: BP 102/65; PULSE 71; TEMP 97.9
[2018-08-20 11:53] LABS: Glucose,Whole Blood 303 mg/dL (75-99)
[2018-08-20] MEDS ORDERED: glipiZIDE 5 MG TAB PO SCH (12:15)
[2018-08-20] MEDS: SODIUM CHLORIDE 0.9% 1,000 ML IV SCH (12:28)
--- NOTE | 2018-08-21 04:16 | DS ---
DISCHARGE SUMMARY DATE OF ADMISSION: August 19, 2018. DATE OF DISCHARGE: August 20, 2018. FINAL DIAGNOSES: 1. Anterior chest wall pain possible angina. 2. Nonketotic hyperglycemia in a patient with diabetes mellitus type 2. 3. Coronary artery disease with stent in 2006. 4. Hyperlipidemia. 5. Essential hypertension. 6. Hyperthyroid. 7. Peripheral neuropathy secondary to diabetes. HOSPITAL COURSE: This patient presented with chest pain. Troponins were negative. Also had nonketotic hyperglycemia and that could have precipitated some element of angina. Given IV fluids. Medications adjusted. Doing much better. Seen by Dr. Twin Rivas. The patient will be further worked up as an outpatient. The patient is asymptomatic, up and about. PHYSICAL EXAMINATION: Temperature 97.9, pulse 72, respiration 16, blood pressure 102/65. LUNGS: Clear. CARDIOVASCULAR: 1st and 2nd sounds normal. CONSULTATION: Dr. Twin Rivas from Cardiology. INVESTIGATIONS: A 2-D echocardiogram EF of 60-65 percent. DISCHARGE MEDICATIONS: 1. Glucophage 1000 mg b.i.d. 2. Januvia 100 mg p.o. daily. 3. Voltaren 75 mg p.o. b.i.d. 4. Neurontin 300 mg p.o. t.i.d. 5. Synthroid 75 mcg a day. 6. Zestril 5 mg a day. 7. Pravachol 20 mg q.h.s. 8. Imdur ER 30 mg p.o. daily. 9. Nitrostat 0.4 sublingual q.5 p.r.n. 10.Glucotrol 5 mg a.c. b.i.d. FOLLOWUP: Follow up with Dr. Herrera in 3 days. Follow up with Dr. Twin Rivas on 09/02/2018. The patient to keep a check on his Accu-Cheks. Discussed with him. Copy to Dr. Herrera. MMODL / IJN: [id number] /
== END 2018-08-20 13:56 | disposition home or self-care (01) ==
LOC: EC 10:18 → 1SOBS 11:29
PROVIDERS: ADMIT Hospitalist; ATTEND Hospitalist
DX: R07.89 Other chest pain (principal); E11.42 Type 2 diabetes mellitus with diabetic polyneuropathy; E11.65 Type 2 diabetes mellitus with hyperglycemia; E03.9 Hypothyroidism, unspecified; E78.5 Hyperlipidemia, unspecified; I10 Essential (primary) hypertension; I25.10 Atherosclerotic heart disease of native coronary artery without angina pectoris; Z79.84 Long term (current) use of oral hypoglycemic drugs; Z79.890 Hormone replacement therapy; Z79.899 Other long term (current) drug therapy; Z87.891 Personal history of nicotine dependence; Z90.49 Acquired absence of other specified parts of digestive tract; Z95.5 Presence of coronary angioplasty implant and graft; Z80.8 Family history of malignant neoplasm of other organs or systems; Z82.49 Family history of ischemic heart disease and other diseases of the circulatory system; Z80.0 Family history of malignant neoplasm of digestive organs; Z83.3 Family history of diabetes mellitus
CPT/HCPCS: 96361 ×2; 96366 ×2; 96376; 96365; 99291; 36415; 93005; 93306; 80061; 80053; 82009; 83735; 84484; 85025; 85049; 85610; 85730 ×2; 81003; 71046; G0378 ×2; J1644 ×2

== ENCOUNTER 2019-01-22 13:22 | Observation (INO) | payer MEDICARE ==
[2019-01-22] MEDS ORDERED: NITROGLYCERIN OINT 1 INCH/GM PACKET TOPICAL STA (13:40)
[2019-01-22] MEDS ORDERED: ASPIRIN 81 MG PO STA (13:40)
--- NOTE | 2019-01-22 13:43 | ED ---
General Adult HPI - General Chief complaint: Chest Pain Stated complaint: chest pain, diabetic issue Time Seen by Provider: 01/22/19 13:24 Source: patient, RN notes reviewed Mode of arrival: wheelchair Limitations: no limitations - History of Present Illness Initial comments: Patient is a pleasant 63-year-old male presenting to the emergency Department with chest discomfort and hyperglycemia. Patient states this morning his blood sugars 300. Patient states prior to arrival his blood sugar was in the 500s. states he does have occasional sharp chest discomfort, right sternal region. Today patient has had mild tightness in the sternal region. No sharp discomfort today. Patient states he did have some associated dyspnea. No nausea or diaphoresis. Symptoms were not necessarily worse with exertion. No leg pain or leg swelling. Patient states the sharp chest discomfort occurs approximate once monthly and that he needs to follow-up with her doctor regarding this. - Related Data Home Medications Medication Instructions Recorded Confirmed Levothyroxine Sodium [Synthroid] 75 mcg PO DAILY 08/19/18 01/22/19 Lisinopril [Zestril] 5 mg PO DAILY 08/19/18 01/22/19 Pravastatin Sodium [Pravachol] 20 mg PO DAILY 08/19/18 01/22/19 Previous Rx's Medication Instructions Recorded metFORMIN HCL [Glucophage] 1,000 mg PO BID #60 tab 05/31/15 glipiZIDE [Glucotrol] 5 mg PO AC-BID #60 tab 08/20/18 Allergies Allergy/AdvReac Type Severity Reaction Status Date / Time No Known Allergies Allergy Verified 01/22/19 14:31 Review of Systems ROS Statement: Those systems with pertinent positive or pertinent negative responses have been documented in the HPI. ROS Other: All systems not noted in ROS Statement are negative. Constitutional: Denies: fever Eyes: Denies: eye pain ENT: Denies: ear pain Respiratory: Reports: dyspnea. Denies: cough Cardiovascular: Reports: chest pain Endocrine: Denies: fatigue, polydipsia, polyuria Gastrointestinal: Denies: abdominal pain Genitourinary: Denies: dysuria Musculoskeletal: Denies: back pain Skin: Denies: rash Neurological: Denies: weakness Past Medical History Past Medical History: Coronary Artery Disease (CAD), Diabetes Mellitus, Hyperlipidemia, Hypertension, Thyroid Disorder Additional Past Medical History / Comment(s): NIDDM type II, neuropathy bilateral feet, hypothyroid, chronic low back pain, DDD, stress vertebral fracture lower back, 2 herniated cervical discs-neck pain, chron's, diverticulosis, illeitis, suspected L upper lobe pulmonary embolism, recent/current shingelles R upper chest. History of Any Multi-Drug Resistant Organisms: None Reported Past Surgical History: Bowel Resection, Cholecystectomy, Heart Catheterization With Stent, Orthopedic Surgery, Tonsillectomy Additional Past Surgical History / Comment(s): PCI with stent [address] [facility], bowel resection d/t chron's, R shoulder rotator cuff repair, colonoscopy Past Anesthesia/Blood Transfusion Reactions: No Reported Reaction Date of Last Stent Placement:: 2009 Past Psychological History: No Psychological Hx Reported Smoking Status: Former smoker Past Alcohol Use History: None Reported Past Drug Use History: None Reported - Past Family History Father Family Medical History: Cancer Additional Family Medical History / Comment(s): Father of throat cancer in his early 70s. He had heart problems and an aneurysm Mother Family Medical History: Diabetes Mellitus, Myocardial Infarction ([place]) Additional Family Medical History / Comment(s): Pt does not recall at what age mother had her [place] General Exam Limitations: no limitations General appearance: alert, in no apparent distress Head exam: Present: normocephalic Eye exam: Present: normal appearance, PERRL ENT exam: Present: normal oropharynx Neck exam: Present: normal inspection Respiratory exam: Present: normal lung sounds bilaterally Cardiovascular Exam: Present: regular rate, normal rhythm Expanded Peripheral pulses: 2+: Radial (R), Radial (L), Posterior Tibialis (R), Posterior Tibialis (L), Dorsalis Pedis (R), Dorsalis Pedis (L) GI/Abdominal exam: Present: soft. Absent: tenderness Extremities exam: Present: normal inspection. Absent: pedal edema, calf tenderness Neurological exam: Present: alert Psychiatric exam: Present: normal affect, normal mood Skin exam: Present: normal color Course Vital Signs 01/22/19 01/22/19 13:25 13:45 Temperature 97.5 F L Pulse Rate 93 Pulse Rate [ 87 Bilateral Anchor Tacker ] Respiratory 18 Rate Blood Pressure 141/82 O2 Sat by Pulse 97 Oximetry EKG Findings - EKG Comments: EKG Findings:: Normal sinus rhythm 87. [place] 156. QRS 92. QT 366. QTc 440. Normal axis. Normal QRS. No acute ST change Medical Decision Making - Medical Decision Making Patient reevaluated and resting comfortably in bed. Blood sugar was elevated patient provided insulin. Blood sugar will need to be monitored. Patient updated on results and plan. [facility] physician group has been paged, covering for Dr. Herrera for admission. - Lab Data Result diagrams: 01/22/19 13:52 01/22/19 13:52 Lab Results 01/22/19 01/22/19 01/22/19 Range/Units 13:45 13:52 13:52 WBC 4.9 (3.8-10.6) k/uL RBC 4.38 (4.30-5.90) m/uL Hgb 14.7 (13.0-17.5) gm/dL Hct 41.1 (39.0-53.0) % MCV 93.8 (80.0-100.0) fL MCH 33.4 (25.0-35.0) pg MCHC 35.6 (31.0-37.0) g/dL RDW 13.8 (11.5-15.5) % Plt Count 198 (150-450) k/uL Neutrophils % 76 % Lymphocytes % 15 % Monocytes % 4 % Eosinophils % 2 % Basophils % 1 % Neutrophils # 3.7 (1.3-7.7) k/uL Lymphocytes # 0.7 L (1.0-4.8) k/uL Monocytes # 0.2 (0-1.0) k/uL Eosinophils # 0.1 (0-0.7) k/uL Basophils # 0.1 (0-0.2) k/uL PT (9.0-12.0) sec INR (<1.2) APTT (22.0-30.0) sec D-Dimer (<0.60) mg/L FEU Sodium 133 L (137-145) mmol/L Potassium 4.5 (3.5-5.1) mmol/L Chloride 97 L (98-107) mmol/L Carbon Dioxide 24 (22-30) mmol/L Anion Gap 12 mmol/L BUN 14 (9-20) mg/dL Creatinine 0.63 L (0.66-1.25) mg/dL Est GFR (CKD-EPI)AfAm >90 (>60 ml/min/1.73 sqM) Est GFR (CKD-EPI)NonAf >90 (>60 ml/min/1.73 sqM) Glucose 526 H* (74-99) mg/dL POC Glucose (mg/dL) 532 H (75-99) mg/dL POC Glu Teaching Aide ID Tristan Flowers Calcium 8.9 (8.4-10.2) mg/dL Magnesium 1.4 L (1.6-2.3) mg/dL Total Bilirubin 0.5 (0.2-1.3) mg/dL AST 39 (17-59) U/L ALT 56 (21-72) U/L Alkaline Phosphatase 91 (38-126) U/L Troponin I (0.000-0.034) ng/mL Total Protein 7.0 (6.3-8.2) g/dL Albumin 4.0 (3.5-5.0) g/dL Acetone, Qual Negative (Negative) 01/22/19 01/22/19 Range/Units 13:52 13:52 WBC (3.8-10.6) k/uL RBC (4.30-5.90) m/uL Hgb (13.0-17.5) gm/dL Hct (39.0-53.0) % MCV (80.0-100.0) fL MCH (25.0-35.0) pg MCHC (31.0-37.0) g/dL RDW (11.5-15.5) % Plt Count (150-450) k/uL Neutrophils % % Lymphocytes % % Monocytes % % Eosinophils % % Basophils % % Neutrophils # (1.3-7.7) k/uL Lymphocytes # (1.0-4.8) k/uL Monocytes # (0-1.0) k/uL Eosinophils # (0-0.7) k/uL Basophils # (0-0.2) k/uL PT 9.8 (9.0-12.0) sec INR 0.9 (<1.2) APTT 26.4 (22.0-30.0) sec D-Dimer 0.32 (<0.60) mg/L FEU Sodium (137-145) mmol/L Potassium (3.5-5.1) mmol/L Chloride (98-107) mmol/L Carbon Dioxide (22-30) mmol/L Anion Gap mmol/L BUN (9-20) mg/dL Creatinine (0.66-1.25) mg/dL Est GFR (CKD-EPI)AfAm (>60 ml/min/1.73 sqM) Est GFR (CKD-EPI)NonAf (>60 ml/min/1.73 sqM) Glucose (74-99) mg/dL POC Glucose (mg/dL) (75-99) mg/dL POC Glu Teaching Aide ID Calcium (8.4-10.2) mg/dL Magnesium (1.6-2.3) mg/dL Total Bilirubin (0.2-1.3) mg/dL AST (17-59) U/L ALT (21-72) U/L Alkaline Phosphatase (38-126) U/L Troponin I <0.012 (0.000-0.034) ng/mL Total Protein (6.3-8.2) g/dL Albumin (3.5-5.0) g/dL Acetone, Qual (Negative) - Radiology Data Radiology results: image reviewed (Chest x-ray shows no acute process) Disposition Clinical Impression: Chest pain, Hyperglycemia Disposition: ADMITTED IP TO THIS HOSP Is patient prescribed a controlled substance at d/c from ED?: No Referrals: Yohan Herrera MD [Primary Care Provider] - 1-2 days Decision Time: 15:24
[2019-01-22 13:47] LABS: Glucose,Whole Blood 532 mg/dL (75-99)
[2019-01-22 14:04] LABS: Basophils # (A) 0.1 k/uL (0-0.2); Basophils % (A) 1 %; Eosinophils # (A) 0.1 k/uL (0-0.7); Eosinophils % (A) 2 %; HCT 41.1 % (39.0-53.0); HGB 14.7 gm/dL (13.0-17.5); Lymphocytes # (A) 0.7 k/uL (1.0-4.8); Lymphocytes % (A) 15 %; MCH 33.4 pg (25.0-35.0); MCHC 35.6 g/dL (31.0-37.0); MCV 93.8 fL (80.0-100.0); Mean Platelet Volume 6.3; Monocytes # (A) 0.2 k/uL (0-1.0); Monocytes % (A) 4 %; Neutrophils # (A) 3.7 k/uL (1.3-7.7); Neutrophils % (A) 76 %; Platelet Count 198 k/uL (150-450); RBC 4.38 m/uL (4.30-5.90); RDW 13.8 % (11.5-15.5); WBC 4.9 k/uL (3.8-10.6)
[2019-01-22 14:14] LABS: ALT 56 U/L (21-72); AST 39 U/L (17-59); African American GFR (CKD) >90 (>60 ml/min/1.73 sqM); Alkaline Phosphatase 91 U/L (38-126); Anion Gap 12 mmol/L; Blood Urea Nitrogen 14 mg/dL (9-20); Calcium 8.9 mg/dL (8.4-10.2); Carbon Dioxide 24 mmol/L (22-30); Chloride 97 mmol/L (98-107); Magnesium 1.4 mg/dL (1.6-2.3); Non-African American GFR(CKD) >90 (>60 ml/min/1.73 sqM); Potassium 4.5 mmol/L (3.5-5.1); Sodium 133 mmol/L (137-145); Total Bilirubin 0.5 mg/dL (0.2-1.3)
--- NOTE | 2019-01-22 14:16 | XR ---
EXAMINATION TYPE: XR chest 2V DATE OF EXAM: 01/22/2019 COMPARISON: 08/19/2018 INDICATION: Chest pain TECHNIQUE: Frontal and lateral views of the chest are obtained. FINDINGS: The heart size is normal. The pulmonary vasculature is normal. The lungs are clear. IMPRESSION: 1. No acute pulmonary process.
[2019-01-22] MEDS ORDERED: INSULIN REGULAR 100 UNIT/ML VIAL IV ONE (14:19)
[2019-01-22 14:27] LABS: D-Dimer 0.32 mg/L FEU (<0.60); INR 0.9 (<1.2); Partial Thromboplastin Time 26.4 sec (22.0-30.0); Prothrombin Time 9.8 sec (9.0-12.0)
[2019-01-22 14:28] LABS: Glucose 526 mg/dL (74-99)
[2019-01-22] MEDS ORDERED: MAGNESIUM OXIDE 400 MG TAB PO STA (15:03)
[2019-01-22] MEDS ORDERED: NITROGLYCERIN SL TABS 0.4 MG TAB SUBLINGUAL PRN (15:26)
[2019-01-22 16:02] LABS: Glucose,Whole Blood 267 mg/dL (75-99)
[2019-01-22] MEDS: NITROGLYCERIN OINT 1 INCH/GM PACKET TOPICAL SCH ×2 (16:28→23:00)
[2019-01-22] MEDS: INSULIN ASPART (NovoLOG) 100 UNIT/ML VIAL SQ SCH ×2 (16:30→19:52)
--- NOTE | 2019-01-22 17:39 | P.CRDCN ---
History of Present Illness Consult date: 01/22/19 History of present illness: This is a 63-year-old gentleman with history of ischemic heart disease with previous angioplasty and also diabetes mellitus who was admitted to the hospital with uncontrolled diabetes and also some vague chest pains. Patient was admitted to the hospital in July of this year with similar scenario. At the time he had some atypical chest pain. He was advised to have outpatient stress test. Patient never had follow-up. His previous angioplasty was performed in [facility]. At the time of my examination patient is comfortable. His have some chest pain on the right side of the sternum which appear to be atypical with local tenderness. We will follow his cardiac enzymes. EKG did not reveal acute changes. If cardiac enzymes are negative, patient could be discharged home. 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 Review of Systems As per the chart Past Medical History Past Medical History: Coronary Artery Disease (CAD), Diabetes Mellitus, Hyperlipidemia, Hypertension, Thyroid Disorder Additional Past Medical History / Comment(s): NIDDM type II, neuropathy bilateral feet, hypothyroid, chronic low back pain, DDD, stress vertebral fracture lower back, 2 herniated cervical discs-neck pain, chron's, diverticu losis, illeitis, suspected L upper lobe pulmonary embolism, recent/current shingelles R upper chest. History of Any Multi-Drug Resistant Organisms: None Reported Past Surgical History: Bowel Resection, Cholecystectomy, Heart Catheterization With Stent, Orthopedic Surgery, Tonsillectomy Additional Past Surgical History / Comment(s): PCI with stent 2009 at [facility], bowel resection d/t chron's, R shoulder rotator cuff repair, colonoscopy Past Anesthesia/Blood Transfusion Reactions: No Reported Reaction Date of Last Stent Placement:: 2009 Past Psychological History: No Psychological Hx Reported Additional Psychological History / Comment(s): Pt resides with his spouse. He is disabled. He uses no assistive device. He drives. He states he cannot afford his diabetic medication. Smoking Status: Former smoker Past Alcohol Use History: None Reported Additional Past Alcohol Use History / Comment(s): Pt started smoking in 1968 and quit smoking in 1992 Past Drug Use History: None Reported - Past Family History Father Family Medical History: Cancer Additional Family Medical History / Comment(s): Father of throat cancer in his early 70s. He had heart problems and an aneurysm Mother Family Medical History: Diabetes Mellitus, Myocardial Infarction ([place]) Additional Family Medical History / Comment(s): Pt does not recall at what age mother had her [place] Medications and Allergies Home Medications Medication Instructions Recorded Confirmed Type metFORMIN HCL [Glucophage] 1,000 mg PO BID #60 tab 05/31/15 01/22/19 Rx Levothyroxine Sodium [Synthroid] 75 mcg PO DAILY 08/19/18 01/22/19 History Lisinopril [Zestril] 5 mg PO DAILY 08/19/18 01/22/19 History Pravastatin Sodium [Pravachol] 20 mg PO DAILY 08/19/18 01/22/19 History glipiZIDE [Glucotrol] 5 mg PO AC-BID #60 tab 08/20/18 01/22/19 Rx Allergies Allergy/AdvReac Type Severity Reaction Status Date / Time No Known Allergies Allergy Verified 01/22/19 14:31 Physical Exam Vitals: Vital Signs Temp Pulse Pulse Pulse Resp BP BP 01/22/19 16:29 97.5 F L 89 18 136/79 01/22/19 16:19 97.5 F L 90 18 120/78 01/22/19 16:10 90 18 120/78 01/22/19 16:01 90 18 120/78 01/22/19 16:00 18 01/22/19 13:45 87 01/22/19 13:25 97.5 F L 93 18 141/82 Pulse Ox 01/22/19 16:29 96 01/22/19 16:19 98 01/22/19 16:10 98 01/22/19 16:01 98 01/22/19 16:00 01/22/19 13:45 01/22/19 13:25 97 Intake and Output 01/22/19 01/22/19 01/22/19 06:59 14:59 22:59 Other: Voiding Method Toilet Weight 81.647 kg GENERAL EXAM: Patient is alert and oriented and doesn't appear to be in any acute distress HEENT: Normocephalic. Normal reaction of pupils, equal size, normal range of extraocular motion. No erythema or exudates in the throat. NECK: No masses, no nuchal rigidity. CHEST: No chest wall deformity. LUNGS: Equal air entry with no crackles or wheeze. HEART: S1 and S2 normal with no audible mumurs or gallops. Regular rhythm, femorals equal on both sides.. ABDOMEN: No hepatosplenomegaly, normal bowel sounds, no guarding or rigidity. SKIN: No rashes CENTRAL NERVOUS SYSTEM: No focal deficits. EXTREMITIES: No cyanosis, clubbing or edema. Results 01/22/19 13:52 01/22/19 13:52 Cardiac Enzymes 01/22/19 01/22/19 Range/Units 13:52 13:52 AST 39 (17-59) U/L Troponin I <0.012 (0.000-0.034) ng/mL Coagulation 01/22/19 Range/Units 13:52 PT 9.8 (9.0-12.0) sec APTT 26.4 (22.0-30.0) sec CBC 01/22/19 Range/Units 13:52 WBC 4.9 (3.8-10.6) k/uL RBC 4.38 (4.30-5.90) m/uL Hgb 14.7 (13.0-17.5) gm/dL Hct 41.1 (39.0-53.0) % Plt Count 198 (150-450) k/uL Comprehensive Metabolic Panel 01/22/19 Range/Units 13:52 Sodium 133 L (137-145) mmol/L Potassium 4.5 (3.5-5.1) mmol/L Chloride 97 L (98-107) mmol/L Carbon Dioxide 24 (22-30) mmol/L BUN 14 (9-20) mg/dL Creatinine 0.63 L (0.66-1.25) mg/dL Glucose 526 H* (74-99) mg/dL Calcium 8.9 (8.4-10.2) mg/dL AST 39 (17-59) U/L ALT 56 (21-72) U/L Alkaline Phosphatase 91 (38-126) U/L Total Protein 7.0 (6.3-8.2) g/dL Albumin 4.0 (3.5-5.0) g/dL Current Medications Generic Name Dose Route Start Last Admin Trade Name Freq PRN Reason Stop Dose Admin Aspirin 325 mg 01/23/19 09:00 Aspirin PO DAILY BARTOLO Insulin Aspart 0 unit 01/22/19 17:30 01/22/19 16:30 Novolog SQ 4 unit ACHS BARTOLO Administration Protocol Nitroglycerin 0.4 mg 01/22/19 15:26 Nitrostat SUBLINGUAL Q5M PRN Chest Pain Nitroglycerin 1 inch 01/22/19 18:00 01/22/19 16:28 Nitro-Bid Oint TOPICAL Not Given Q6HR BARTOLO Sodium Chloride 10 ml 01/22/19 21:00 Saline Flush IV BID BARTOLO Intake and Output 01/22/19 01/22/19 01/22/19 06:59 14:59 22:59 Other: Voiding Method Toilet Weight 81.647 kg Patient Weight 01/23/19 06:59 Weight 81.647 kg 01/22/19 13:52 01/22/19 13:52 EKG Interpretations (text) Sinus rhythm. No acute changes Assessment and Plan (1) Coronary artery disease Current Visit: Yes Status: Acute Code(s): I25.10 - ATHSCL HEART DISEASE OF [place] CORONARY ARTERY W/O ANG PCTRS SNOMED Code(s): 55286732 (2) Chest pain Current Visit: Yes Status: Acute Code(s): R07.9 - CHEST PAIN, UNSPECIFIED SNOMED Code(s): 14406525 (3) Hyperglycemia Current Visit: Yes Status: Acute Code(s): R73.9 - HYPERGLYCEMIA, UNSPECIFIED SNOMED Code(s): 33181205 Plan: Patient is admitted with atypical chest pain which appears to be atypical and not localized with is tenderness. Patient could be discharged home and his blood showed is controlled. Recommend outpatient evaluation
[2019-01-22 19:32] LABS: Glucose,Whole Blood 241 mg/dL (75-99)
[2019-01-22] MEDS: MAGNESIUM SULFATE-D5W PMX 1 GM in DEXTROSE/WATER 1 100ML.BAG IVPB SCH ×2 (20:40→21:45)
--- NOTE | 2019-01-22 20:46 | P.HPIM ---
History of Present Illness H&P Date: 01/22/19 Chief Complaint: chest pain, and hyperglycemia 63-year-old male with history of diabetes Crohn's disease hypertension CAD. patient comes in today due to chest pain and elevated blood sugar. He reports occasional chest pain right-sided 6 out of 10 in severity nonradiating not associated with any shortness of breath nausea vomiting sweating or palpitations denies any fevers chills or coughing. Reports that pain usually comes about randomly regardless of activity. He usually tries to walks a dog around his neighborhood walking long distances with no issues or limitations due to chest pain. However this time he got the chest pain while resting doing nothing he wa s also concerned regarding his elevated blood sugar which been high for a few days now he has run out of his diabetes medications for a while now unable to afford them. Patient admits that he doesn't watch his diet as he should be. His blood sugar normally runs between 203 100 however today was persistently high for which she decided come to the hospital. He denies any abdominal pain confusion headache changes in his vision or hearing denies any urinary symptoms or symptoms of upper respiratory infection. Denies any GI bleeding. he denies any history of cardiac workup in the past. In the ED he was found to have elevated blood sugar admit and hypomagnesemia he was admitted for chest pain to rule out ACS and for management of his hyperglycemia. Urine acetone was negative patient is not in DKA, initial troponins negative, EKG unremarkable Review of Systems Pertinent positives as noted in HPI. All other systems were reviewed and are negative Past Medical History Past Medical History: Coronary Artery Disease (CAD), Diabetes Mellitus, Hyperlipidemia, Hypertension, Thyroid Disorder Additional Past Medical History / Comment(s): NIDDM type II, neuropathy bilateral feet, hypothyroid, chronic low back pain, DDD, stress vertebral fracture lower back, 2 herniated cervical discs-neck pain, chron's, diverticulosis, illeitis, suspected L upper lobe pulmonary embolism, recent/current shingelles R upper chest. History of Any Multi-Drug Resistant Organisms: None Reported Past Surgical History: Bowel Resection, Cholecystectomy, Heart Catheterization With Stent, Orthopedic Surgery, Tonsillectomy Additional Past Surgical History / Comment(s): PCI with stent 2009 at [facility], bowel resection d/t chron's, R shoulder rotator cuff repair, colonoscopy Past Anesthesia/Blood Transfusion Reactions: No Reported Reaction Date of Last Stent Placement:: 2009 Past Psychological History: No Psychological Hx Reported Additional Psychological History / Comment(s): Pt resides with his spouse. He is disabled. He uses no assistive device. He drives. He states he cannot afford his diabetic medication. Smoking Status: Former smoker Past Alcohol Use History: None Reported Additional Past Alcohol Use History / Comment(s): Pt started smoking in 1968 and quit smoking in 1992 Past Drug Use History: None Reported - Past Family History Father Family Medical History: Cancer Additional Family Medical History / Comment(s): Father of throat cancer in his early 70s. He had heart problems and an aneurysm Mother Family Medical History: Diabetes Mellitus, Myocardial Infarction ([place]) Additional Family Medical History / Comment(s): Pt does not recall at what age mother had her [place] Medications and Allergies Home Medications Medication Instructions Recorded Confirmed Type metFORMIN HCL [Glucophage] 1,000 mg PO BID #60 tab 05/31/15 01/22/19 Rx Levothyroxine Sodium [Synthroid] 75 mcg PO DAILY 08/19/18 01/22/19 History Lisinopril [Zestril] 5 mg PO DAILY 08/19/18 01/22/19 History Pravastatin Sodium [Pravachol] 20 mg PO DAILY 08/19/18 01/22/19 History glipiZIDE [Glucotrol] 5 mg PO AC-BID #60 tab 08/20/18 01/22/19 Rx Allergies Allergy/AdvReac Type Severity Reaction Status Date / Time No Known Allergies Allergy Verified 01/22/19 14:31 Physical Exam Vitals: Vital Signs Temp Pulse Pulse Pulse Resp BP BP 01/22/19 19:58 18 01/22/19 19:37 97.4 F L 96 18 102/66 01/22/19 16:29 97.5 F L 89 18 136/79 01/22/19 16:19 97.5 F L 90 18 120/78 01/22/19 16:10 90 18 120/78 01/22/19 16:01 90 18 120/78 01/22/19 16:00 18 01/22/19 13:45 87 01/22/19 13:25 97.5 F L 93 18 141/82 Pulse Ox 01/22/19 19:58 01/22/19 19:37 94 L 01/22/19 16:29 96 01/22/19 16:19 98 01/22/19 16:10 98 01/22/19 16:01 98 01/22/19 16:00 01/22/19 13:45 01/22/19 13:25 97 Intake and Output 01/22/19 01/22/19 01/22/19 06:59 14:59 22:59 Other: Voiding Method Toilet # Voids 1 Weight 81.647 kg Constitutional: No acute distress, conversant, pleasant Eyes: Anicteric sclerae, moist conjunctiva, no lid-lag Pupils equal round reactive to light ENMT: NC/AT Oropharynx clear, no erythema, exudates Neck: Supple, FROM, no masses, or JVD No carotid bruits No thyromegaly Lungs: Clear to auscultation Clear to percussion Normal respiratory effort, no accessory muscle use Cardiovascular: Heart regular in rate and rhythm, No murmurs, gallops, or rubs No peripheral edema Abdominal: Soft Nontender, no guarding, rebound or rigidity Abdomen moving with respiration Normoactive bowel sounds No hepatomegaly, No splenomegaly No palpable mass No abdominal wall hernia noted Skin: Normal temperature, tone, texture, turgor No induration No subcutaneous nodules No rash, lesions No ulcers Extremities: No digital cyanosis No clubbing Pedal pulses intact and symmetrical Radial pulses intact and symmetrical No calf tenderness Psychiatric: Alert and oriented to person, place and time Appropriate affect fair judgment Neuro Muscles Strength 5/5 in all 4 extremities Sensation to light touch grossly present throughout Cranial nerves II-XII grossly intact No focal sensory deficits Lymphatics: no palpable cervical or supraclavicular , or inguinal lymph nodes Results CBC & Chem 7: 01/22/19 13:52 01/22/19 13:52 Labs: Abnormal Lab Results - Last 24 Hours (Table) 01/22/19 01/22/19 01/22/19 Range/Units 13:45 13:52 13:52 Lymphocytes # 0.7 L (1.0-4.8) k/uL Sodium 133 L (137-145) mmol/L Chloride 97 L (98-107) mmol/L Creatinine 0.63 L (0.66-1.25) mg/dL Glucose 526 H* (74-99) mg/dL POC Glucose (mg/dL) 532 H (75-99) mg/dL Magnesium 1.4 L (1.6-2.3) mg/dL 01/22/19 01/22/19 Range/Units 16:00 19:31 Lymphocytes # (1.0-4.8) k/uL Sodium (137-145) mmol/L Chloride (98-107) mmol/L Creatinine (0.66-1.25) mg/dL Glucose (74-99) mg/dL POC Glucose (mg/dL) 267 H 241 H (75-99) mg/dL Magnesium (1.6-2.3) mg/dL Thrombosis Risk Factor Assmnt - Choose All That Apply Each Risk Factor Represents 2 Points: Age 61-74 years Thrombosis Risk Factor Assessment Total Risk Factor Score: 2 Thrombosis Risk Factor Assessment Level: Low Risk Assessment and Plan Assessment: 63-year-old male with history of diabetes Crohn's disease hypertension CAD. Presented with chest pain admitted under observation with anticipated length of stay less than 2 midnights. Patient was also found to have elevated blood sugar with history of diabetes but not in DKA. Plan: chest pain rule out ACS Cardiac monitoring Trend cardiac enzymes Cardiology evaluation resume home meds lisinopril Continue aspirin and statin Hyperglycemia history of diabetes, not in DKA, secondary to noncompliance of medications Continue with insulin sliding scale Evaluate A1c assessments insulin requirement Hypothyroidism resume thyroxine Hypomagnesemia replace recheck levels in the morning CODE STATUS full code DVT prophylaxis:heparin subcu 3 times a day Discussed with: Patient, ER,RN Anticipated length of stay less than [address]: home A total of 60 minutes was spent on the care of this complex patient more than 50% of the time was spent in counseling and care coordination.
[2019-01-22] MEDS ORDERED: MELATONIN 3 MG TABLET PO SCH (21:00)
[2019-01-22] MEDS: HEPARIN SODIUM,PORCINE 5,000 UNIT/ML 1 ML VIAL SQ SCH (23:00)
[2019-01-23 03:03] LABS: Basophils % (A) 0 %; Eosinophils % (A) 2 %; HCT 39.2 % (39.0-53.0); HGB 13.9 gm/dL (13.0-17.5); Lymphocytes # (A) 1.3 k/uL (1.0-4.8); Lymphocytes % (A) 19 %; MCH 33.3 pg (25.0-35.0); MCHC 35.4 g/dL (31.0-37.0); Mean Platelet Volume 6.1; Monocytes # (A) 0.4 k/uL (0-1.0); Monocytes % (A) 5 %; Neutrophils % (A) 72 %; Platelet Count 199 k/uL (150-450); RBC 4.18 m/uL (4.30-5.90); RDW 13.7 % (11.5-15.5)
[2019-01-23 03:04] LABS: Eosinophils # (A) 0.1 k/uL (0-0.7)
[2019-01-23 03:13] LABS: Blood Urea Nitrogen 16 mg/dL (9-20); Calcium 8.7 mg/dL (8.4-10.2); Chloride 100 mmol/L (98-107); Glucose 260 mg/dL (74-99); HDL Cholesterol 24 mg/dL (40-60); Magnesium 2.1 mg/dL (1.6-2.3); Potassium 4.3 mmol/L (3.5-5.1); Sodium 135 mmol/L (137-145); Triglycerides 503 mg/dL (<150)
[2019-01-23 03:17] LABS: Cholesterol 128 mg/dL (<200)
[2019-01-23 03:18] LABS: African American GFR (CKD) >90 (>60 ml/min/1.73 sqM); Anion Gap 7 mmol/L; Carbon Dioxide 28 mmol/L (22-30); Non-African American GFR(CKD) >90 (>60 ml/min/1.73 sqM)
[2019-01-23] MEDS: NITROGLYCERIN OINT 1 INCH/GM PACKET TOPICAL SCH (03:35)
[2019-01-23] MEDS ORDERED: LEVOTHYROXINE 75 MCG TAB PO SCH (06:30)
[2019-01-23 06:51] LABS: Glucose,Whole Blood 303 mg/dL (75-99)
[2019-01-23 07:46] VITALS: BP 125/75; PULSE 74; RESP 16; TEMP 97.6
[2019-01-23] MEDS: HEPARIN SODIUM,PORCINE 5,000 UNIT/ML 1 ML VIAL SQ SCH (08:14)
[2019-01-23] MEDS: INSULIN ASPART (NovoLOG) 100 UNIT/ML VIAL SQ SCH (08:14)
[2019-01-23] MEDS ORDERED: PRAVASTATIN SODIUM 20 MG TAB PO SCH (09:00)
[2019-01-23] MEDS ORDERED: LISINOPRIL 5 MG TAB PO SCH (09:00)
[2019-01-23] MEDS ORDERED: ASPIRIN 325 MG TAB PO SCH (09:00)
--- NOTE | 2019-01-23 09:06 | P.PN ---
Subjective Progress Note Date: 01/23/19 This 62-year-old gentleman is admitted with atypical chest pain and uncontrolled diabetes. He chest pains are resolved, which appear to be muscular skeletal. Cardiac enzymes are negative. Once his diabetes is under control, patient could be discharged home. Follow-up with Dr. Rivas as an outpatient for further workup. Objective - Vital Signs Vital signs: Vital Signs Temp 97.6 F 01/23/19 07:45 Pulse 74 01/23/19 07:45 Resp 16 01/23/19 07:45 BP 125/75 01/23/19 07:45 Pulse Ox 97 01/23/19 07:45 Intake & Output 01/22/19 01/23/19 01/23/19 18:59 06:59 18:59 Weight 81.647 kg Other: Voiding Method Toilet Toilet # Voids 1 - Exam GENERAL EXAM: Patient is alert and oriented and doesn't appear to be in any acute distress HEENT: Normocephalic. Normal reaction of pupils, equal size, normal range of extraocular motion. No erythema or exudates in the throat. NECK: No masses, no nuchal rigidity. CHEST: No chest wall deformity. LUNGS: Equal air entry with no crackles or wheeze. HEART: S1 and S2 normal with no audible mumurs or gallops. Regular rhythm, f emorals equal on both sides.. ABDOMEN: No hepatosplenomegaly, normal bowel sounds, no guarding or rigidity. SKIN: No rashes CENTRAL NERVOUS SYSTEM: No focal deficits. EXTREMITIES: No cyanosis, clubbing or edema. - Labs CBC & Chem 7: 01/23/19 02:36 01/23/19 02:36 Labs: Abnormal Lab Results - Last 24 Hours (Table) 01/22/19 01/22/19 01/22/19 Range/Units 13:45 13:52 13:52 RBC (4.30-5.90) m/uL Lymphocytes # 0.7 L (1.0-4.8) k/uL Sodium 133 L (137-145) mmol/L Chloride 97 L (98-107) mmol/L Creatinine 0.63 L (0.66-1.25) mg/dL Glucose 526 H* (74-99) mg/dL POC Glucose (mg/dL) 532 H (75-99) mg/dL Magnesium 1.4 L (1.6-2.3) mg/dL Triglycerides (<150) mg/dL HDL Cholesterol (40-60) mg/dL 01/22/19 01/22/19 01/23/19 Range/Units 16:00 19:31 02:36 RBC (4.30-5.90) m/uL Lymphocytes # (1.0-4.8) k/uL Sodium 135 L (137-145) mmol/L Chloride (98-107) mmol/L Creatinine (0.66-1.25) mg/dL Glucose 260 H (74-99) mg/dL POC Glucose (mg/dL) 267 H 241 H (75-99) mg/dL Magnesium (1.6-2.3) mg/dL Triglycerides 503 H (<150) mg/dL HDL Cholesterol 24 L (40-60) mg/dL 01/23/19 01/23/19 Range/Units 02:36 06:49 RBC 4.18 L (4.30-5.90) m/uL Lymphocytes # (1.0-4.8) k/uL Sodium (137-145) mmol/L Chloride (98-107) mmol/L Creatinine (0.66-1.25) mg/dL Glucose (74-99) mg/dL POC Glucose (mg/dL) 303 H (75-99) mg/dL Magnesium (1.6-2.3) mg/dL Triglycerides (<150) mg/dL HDL Cholesterol (40-60) mg/dL Assessment and Plan (1) Coronary artery disease Current Visit: Yes Status: Acute Code(s): I25.10 - ATHSCL HEART DISEASE OF [place] CORONARY ARTERY W/O ANG PCTRS SNOMED Code(s): 77998285 (2) Chest pain Current Visit: Yes Status: Acute Code(s): R07.9 - CHEST PAIN, UNSPECIFIED SNOMED Code(s): 68512072 (3) Hyperglycemia Current Visit: Yes Status: Acute Code(s): R73.9 - HYPERGLYCEMIA, UNSPECIFIED SNOMED Code(s): 08258521 Plan: Patient is critically stable. From Cardec standpoint, patient could be discharged home. Outpatient follow-up
--- NOTE | 2019-01-23 10:54 | P.DS ---
Providers Date of admission: 01/22/19 15:26 Expected date of discharge: 01/23/19 Attending physician: Nat Rubi, DO Consults: 01/22/19 15:26 Consult Physician Urgent Consulting Provider: Jojo Ruiz Consult Reason/Comments: cp Do you want consulting provider notified?: Yes Primary care physician: [facility] Course: The patient is a 63-year-old male with a PMH of coronary artery disease, hypertension, poorly controlled diabetes mellitus, and hypothyroidism who presented to the ED with complaints of right-sided chest discomfort, pain, nonexertional, with no association shortness of breath, nausea, vomiting, palpitations, or dizziness. Patient had reported that he often does not get this pain with exertion and that there is no specific onset or alleviating/exacerbating factors. The patient was admitted for further management and evaluation by cardiology, who noted the patient had previously presented in July 2018 with similar symptoms and was advised to undergo an outpatient stress test for was the patient had never followed up. cardiology thereby recommended that the patient may be discharged home from their standpoint with outpatient follow-up stress test. The patient was also noted to be hyperglycemic in the emergency room with blood glucose in the 500s. Patient reported poor compliance with diet and notes that he does not check his sugar often. He noted that he is also unable to afford most of the medications that his physicians have prescribed the past due to cost. Confirmed the cost of basal insulins (lantus $250/month, levemir $300/3 months) which the patient stated is too much for him to afford. Prescribed Pioglitazone from [facility] ($10 for 30 day supply) which the patient is in agreement with. Stressed the importance of compliance with dietary modifications and medications. Also advised the patient on follow-up as an outpatient with his PMD and an conciliation court judge. The patient was seen and examined at the bedside on the day of discharge. He reported no further episodes of chest discomfort. He also denied cough, fever, chills, nausea, vomiting, or diaphoresis. Patient is currently stable and agreeable for discharge to home. The patient is currently stable, and ready for discharge home. Physical Examination General: Non-toxic, in no acute distress, appears stated age, overweight HEENT: NC/AT, anicteric sclerae, moist conjunctiva, no lid-lag, PERRLA Cardiovascular: S1/S2 wnl, no murmurs, rubs, or gallops Lungs: Clear to auscultation, normal respiratory effort, no accessory muscle use Abdominal: Soft, non-tender, non-distended, no guarding, rebound, or rigidity Skin: Warm, dry Extremities: No edema or contractures Psychiatric: Alert and oriented to person, place and time, appropriate affect Neuro: CN II-XII grossly intact, Strength 5/5 in all 4 extremities, Speech intact, Sensation to light touch grossly intact throughout Discharge diagnosis: Atypical chest pain; poorly controlled diabetes mellitus; hypertension; hypothyroidism; hypomagnesemia A total of 40 minutes of time were spent preparing this complex discharge summary. Patient Condition at Discharge: Stable Plan - Discharge Summary Discharge Rx Participant: No New Discharge Prescriptions: New Pioglitazone [Actos] 30 mg PO DAILY #30 tab Continue metFORMIN HCL [Glucophage] 1,000 mg PO BID #60 tab Pravastatin Sodium [Pravachol] 20 mg PO DAILY Lisinopril [Zestril] 5 mg PO DAILY Levothyroxine Sodium [Synthroid] 75 mcg PO DAILY glipiZIDE [Glucotrol] 5 mg PO AC-BID #60 tab Discharge Medication List metFORMIN HCL [Glucophage] 1,000 mg PO BID #60 tab 05/31/15 [Rx] Levothyroxine Sodium [Synthroid] 75 mcg PO DAILY 08/19/18 [History] Lisinopril [Zestril] 5 mg PO DAILY 08/19/18 [History] Pravastatin Sodium [Pravachol] 20 mg PO DAILY 08/19/18 [History] glipiZIDE [Glucotrol] 5 mg PO AC-BID #60 tab 08/20/18 [Rx] Pioglitazone [Actos] 30 mg PO DAILY #30 tab 01/23/19 [Rx] Follow up Appointment(s)/Referral(s): Yohan Herrera MD [Primary Care Provider] - 1-2 days John Rivas MD [STAFF PHYSICIAN] - 2 Weeks Discharge Disposition: HOME SELF-CARE
== END 2019-01-23 10:54 | disposition home or self-care (01) ==
LOC: EC 13:22 → 1SOBS 15:26
PROVIDERS: ADMIT Internal Medicine; ATTEND Internal Medicine
DX: R07.89 Other chest pain (principal); E11.65 Type 2 diabetes mellitus with hyperglycemia; I25.10 Atherosclerotic heart disease of native coronary artery without angina pectoris; T38.3X6A Underdosing of insulin and oral hypoglycemic [antidiabetic] drugs, initial encounter; Z91.120 Patient's intentional underdosing of medication regimen due to financial hardship; I10 Essential (primary) hypertension; E78.5 Hyperlipidemia, unspecified; E03.9 Hypothyroidism, unspecified; E11.42 Type 2 diabetes mellitus with diabetic polyneuropathy; G89.29 Other chronic pain; M54.5 Low back pain; K57.90 Diverticulosis of intestine, part unspecified, without perforation or abscess without bleeding; B02.9 Zoster without complications; E83.42 Hypomagnesemia; Z79.890 Hormone replacement therapy; Z79.899 Other long term (current) drug therapy; Z79.84 Long term (current) use of oral hypoglycemic drugs; Z90.49 Acquired absence of other specified parts of digestive tract; Z87.19 Personal history of other diseases of the digestive system; Z87.891 Personal history of nicotine dependence; Z87.312 Personal history of (healed) stress fracture; Z95.5 Presence of coronary angioplasty implant and graft; Z83.3 Family history of diabetes mellitus; Z82.49 Family history of ischemic heart disease and other diseases of the circulatory system; Z80.0 Family history of malignant neoplasm of digestive organs
CPT/HCPCS: 96365; 96366; 96372; 99285; 36415; 93005; 85379; 80061; 80053; 80048; 82009; 83735 ×2; 84484 ×2; 85025 ×2; 85610; 85730; 71046; G0378 ×2; J1644; J3475

== ENCOUNTER → 2020-05-15 | Outpatient (CLI) | payer MEDICARE ==
--- NOTE | 2020-05-16 14:09 | P.ARTDOP ---
Arterial Doppler LOWER EXTREMITY ARTERIAL DOPPLER: DATE OF SERVICE: 05/15/2020 Reason for study: Suspected PVD. Doppler waveforms: Multiphasic bilaterally throughout with normal digital waveforms. Pulse volume recording: []. Pressure gradients: None. Ankle-brachial indices: Greater than 1 bilaterally. Toe brachial indices: 0.71 on the right, 0.7 on the left Impression: Normal study.
== END | disposition home or self-care (01) ==
LOC: RADUSWWP 12:44
PROVIDERS: ATTEND Family Medicine
DX: I73.9 Peripheral vascular disease, unspecified (principal)
CPT/HCPCS: 93922; 93923

== ENCOUNTER → 2020-12-13 | Outpatient (CLI) | payer MEDICARE ==
--- NOTE | 2020-12-13 18:39 | XR ---
EXAMINATION TYPE: XR thoracic spine 3 views, XR lumbar spine 3V DATE OF EXAM: 12/13/2020 COMPARISON: CT 11/13/2016 HISTORY: 65-year-old male with a chronic mid and low back pain. FINDINGS: THORACIC SPINE: 12 rib-bearing thoracic vertebral bodies. All pedicles are visualized. Mild degenerative disc disease lower thoracic spine. T12 superior endplate deformity. Other vertebral body heights are preserved an d alignment is maintained. Lumbar spine: Cholecystectomy clips. 5 lumbar type vertebral bodies. Facet arthropathy lower lumbar spine. Superior endplate deformity with secondary mild anterior wedging T12. Remaining vertebral body heights are pr eserved. Alignment is maintained. IMPRESSION (thoracic and lumbar spine): 1. Chronic mild anterior compression deformity of T12, seen on the CT of 2017. 2. Mild degenerative disc disease lower thoracic spine. 3. Facet arthropathy lower lumbar spine. 4. No malalignment. No additional vertebral compression collapse seen.
== END | disposition home or self-care (01) ==
LOC: RADXRMAIN 15:06
PROVIDERS: ATTEND Nurse Practitioner Family
DX: M51.34 Other intervertebral disc degeneration, thoracic region (principal); M47.896 Other spondylosis, lumbar region
CPT/HCPCS: 72070; 72100

== ENCOUNTER 2021-03-02 15:07 | Inpatient (IN) | payer MEDICARE ==
[2021-03-02] MEDS ORDERED: NITROGLYCERIN SL TABS 0.4 MG TAB SUBLINGUAL STA (15:16)
[2021-03-02] MEDS ORDERED: NITROGLYCERIN OINT 1 INCH/GM PACKET TOPICAL STA (15:30)
[2021-03-02] MEDS ORDERED: HEPARIN SODIUM 1,000 UN/ML (10ML VL) IVP STA (15:31)
--- NOTE | 2021-03-02 15:31 | ED ---
General Adult HPI - General Chief complaint: Chest Pain Stated complaint: chest pain Time Seen by Provider: 03/02/21 15:07 Source: patient, EMS Mode of arrival: EMS Limitations: no limitations - History of Present Illness Initial comments: 65-year-old male with past medical history of coronary artery disease, one stent placed in 2010 and diabetes presents with chest pain for the past 2 hours. Reports he is at home getting ready for work when he had sudden onset of substernal chest pressure without radiation. Grades it as 10 out of 10. Has associated shortness of breath and diaphoresis. Patient felt nauseated but did not vomit. Pain became more significant and called EMS. Provided him with 4 chewable aspirins and 1 nitro. Prehospital EKG demonstrates ST segment elevation in V2 through V4. Patient reports improvement in pain upon hospital arrival and is currently graded as 5 out of 10. States he feels improved. EKG continues to demonstrate some J-point elevation in all leads. He denies associated shortness of breath. No fevers chills or cough. No other alleviating, precipitating or modifying factors - Related Data Home Medications Medication Instructions Recorded Confirmed Levothyroxine Sodium [Synthroid] 75 mcg PO DAILY 08/19/18 03/02/21 Pravastatin Sodium [Pravachol] 20 mg PO HS 08/19/18 03/02/21 lisinopriL [Zestril] 5 mg PO HS 08/19/18 03/02/21 Albuterol Inhaler [Ventolin Hfa 2 puff INHALATION RT-Q4H PRN 03/02/21 03/02/21 Inhaler] Aspirin EC [Ecotrin Low Dose] 81 mg PO HS 03/02/21 03/02/21 Naproxen 500 mg PO BID PRN 03/02/21 03/02/21 Previous Rx's Medication Instructions Recorded metFORMIN HCL [Glucophage] 1,000 mg PO BID #60 tab 05/31/15 glipiZIDE [Glucotrol] 5 mg PO AC-BID #60 tab 08/20/18 Allergies Allergy/AdvReac Type Severity Reaction Status Date / Time No Known Allergies Allergy Verified 03/02/21 15:42 Review of Systems ROS Statement: Those systems with pertinent positive or pertinent negative responses have been documented in the HPI. ROS Other: All systems not noted in ROS Statement are negative. Past Medical History Past Medical History: Coronary Artery Disease (CAD), Diabetes Mellitus, Hyperlipidemia, Hypertension, Thyroid Disorder Additional Past Medical History / Comment(s): NIDDM type II, neuropathy bilateral feet, hypothyroid, chronic low back pain, DDD, stress vertebral fracture lower back, 2 herniated cervical discs-neck pain, chron's, diverticulosis, illeitis, suspected L upper lobe pulmonary embolism, recent/current shingelles R upper chest. History of Any Multi-Drug Resistant Organisms: None Reported Past Surgical History: Bowel Resection, Cholecystectomy, Heart Catheterization With Stent, Orthopedic Surgery, Tonsillectomy Additional Past Surgical History / Comment(s): PCI with stent 2009 at [facility], bowel resection d/t chron's, R shoulder rotator cuff repair, colonoscopy Past Anesthesia/Blood Transfusion Reactions: No Reported Reaction Date of Last Stent Placement:: 2009 Past Psychological History: No Psychological Hx Reported Smoking Status: Former smoker Past Alcohol Use History: None Reported Past Drug Use History: None Reported - Past Family History Father Family Medical History: Cancer Additional Family Medical History / Comment(s): Father of throat cancer in his early 70s. He had heart problems and an aneurysm Mother Family Medical History: Diabetes Mellitus, Myocardial Infarction (LA) Additional Family Medical History / Comment(s): Pt does not recall at what age mother had her LA General Exam Limitations: no limitations General appearance: alert, in no apparent distress Head exam: Present: atraumatic, normocephalic, normal inspection Eye exam: Present: normal appearance, PERRL, EOMI. Absent: scleral icterus, conjunctival injection, periorbital swelling ENT exam: Present: normal exam, mucous membranes moist Neck exam: Present: normal inspection. Absent: tenderness, meningismus, lymphadenopathy Respiratory exam: Present: normal lung sounds bilaterally. Absent: respiratory distress, wheezes, rales, rhonchi, stridor Cardiovascular Exam: Present: regular rate, normal rhythm, normal heart sounds. Absent: systolic murmur, diastolic murmur, rubs, gallop, clicks GI/Abdominal exam: Present: soft, normal bowel sounds. Absent: distended, tenderness, guarding, rebound, rigid Extremities exam: Present: normal inspection, full ROM, normal capillary refill. Absent: tenderness, pedal edema, joint swelling, calf tenderness Back exam: Present: normal inspection Neurological exam: Present: alert, oriented X3, CN II-XII intact Psychiatric exam: Present: normal affect, normal mood Skin exam: Present: warm, dry, intact, normal color. Absent: rash Course Vital Signs 03/02/21 03/02/21 15:09 15:38 Temperature 97.7 F Pulse Rate 88 83 Respiratory 19 19 Rate Blood Pressure 162/87 175/83 O2 Sat by Pulse 98 98 Oximetry EKG Findings - EKG Comments: EKG Findings:: EKG 1510 demonstrates sinus rhythm with a rate of 78. WV of 118. Distress 90. QTC of 419. J-point elevation in 2, 3, aVF as well as V2 through the sixth. No reciprocal changes. EKG done at 1513 continues demonstrated sinus rhythm with a rate of 85. WV interval 122. QRS 92. QTC 440. Continue J-point elevation in all leads with no reciprocal changes. EKG 1518 demonstrates a sinus rhythm with ventricular rate of 84. Interval 120. QRS 90. QTC is 4:30. J-point elevation changes. EKG at 1529 demonstrates ventricular rate of 80. WV interval 120. QRS 90. QTC 422. J-point elevation. No reciprocal changes Medical Decision Making - Medical Decision Making Upon arrival patient is placed into room 2. Thorough history and physical exam was performed. The patient placed on continuous pulse ox and cardiac monitoring. 12-lead EKG was obtained immediately which demonstrates J-point elevation in most leads. Dr. Rivas is contacted due to concerning pre-hospital EKG. Serial EKGS obtained. Dr. Rivas does present to the ED. STEMI is activated. Patient awaiting kiln labourer at this time. Nitropaste, heparin, 1 liter bolus ordered. Patient taken to kiln labourer in stable condition. Spoke with Dr. Carroll who agreed to admit the patient. - Lab Data Result diagrams: 03/02/21 15:20 03/02/21 15:20 Lab Results 03/02/21 03/02/21 03/02/21 Range/Units 15:20 15:20 15:20 WBC 7.4 (3.8-10.6) k/uL RBC 3.89 L (4.30-5.90) m/uL Hgb 12.8 L (13.0-17.5) gm/dL Hct 36.4 L (39.0-53.0) % MCV 93.6 (80.0-100.0) fL MCH 32.9 (25.0-35.0) pg MCHC 35.2 (31.0-37.0) g/dL RDW 13.9 (11.5-15.5) % Plt Count 321 (150-450) k/uL MPV 8.9 Neutrophils % 81 % Lymphocytes % 9 % Monocytes % 7 % Eosinophils % 2 % Basophils % 0 % Neutrophils # 6.0 (1.3-7.7) k/uL Lymphocytes # 0.7 L (1.0-4.8) k/uL Monocytes # 0.5 (0-1.0) k/uL Eosinophils # 0.1 (0-0.7) k/uL Basophils # 0.0 (0-0.2) k/uL Hyperchromasia Slight Poikilocytosis Slight PT 10.7 (9.0-12.0) sec INR 1.0 (<1.2) APTT 19.9 L (22.0-30.0) sec Sodium 132 L (137-145) mmol/L Potassium 4.6 (3.5-5.1) mmol/L Chloride 97 L (98-107) mmol/L Carbon Dioxide 22 (22-30) mmol/L Anion Gap 13 mmol/L BUN 16 (9-20) mg/dL Creatinine 0.68 (0.66-1.25) mg/dL Est GFR (CKD-EPI)AfAm >90 (>60 ml/min/1.73 sqM) Est GFR (CKD-EPI)NonAf >90 (>60 ml/min/1.73 sqM) Glucose 297 H (74-99) mg/dL Calcium 9.4 (8.4-10.2) mg/dL Magnesium 1.0 L (1.6-2.3) mg/dL Total Bilirubin 0.6 (0.2-1.3) mg/dL AST 31 (17-59) U/L ALT 24 (4-49) U/L Alkaline Phosphatase 77 (38-126) U/L Troponin I (0.000-0.034) ng/mL NT-Pro-B Natriuret Pep pg/mL Total Protein 6.2 L (6.3-8.2) g/dL Albumin 3.2 L (3.5-5.0) g/dL Lipase 87 (23-300) U/L 03/02/21 03/02/21 Range/Units 15:20 15:20 WBC (3.8-10.6) k/uL RBC (4.30-5.90) m/uL Hgb (13.0-17.5) gm/dL Hct (39.0-53.0) % MCV (80.0-100.0) fL MCH (25.0-35.0) pg MCHC (31.0-37.0) g/dL RDW (11.5-15.5) % Plt Count (150-450) k/uL MPV Neutrophils % % Lymphocytes % % Monocytes % % Eosinophils % % Basophils % % Neutrophils # (1.3-7.7) k/uL Lymphocytes # (1.0-4.8) k/uL Monocytes # (0-1.0) k/uL Eosinophils # (0-0.7) k/uL Basophils # (0-0.2) k/uL Hyperchromasia Poikilocytosis PT (9.0-12.0) sec INR (<1.2) APTT (22.0-30.0) sec Sodium (137-145) mmol/L Potassium (3.5-5.1) mmol/L Chloride (98-107) mmol/L Carbon Dioxide (22-30) mmol/L Anion Gap mmol/L BUN (9-20) mg/dL Creatinine (0.66-1.25) mg/dL Est GFR (CKD-EPI)AfAm (>60 ml/min/1.73 sqM) Est GFR (CKD-EPI)NonAf (>60 ml/min/1.73 sqM) Glucose (74-99) mg/dL Calcium (8.4-10.2) mg/dL Magnesium (1.6-2.3) mg/dL Total Bilirubin (0.2-1.3) mg/dL AST (17-59) U/L ALT (4-49) U/L Alkaline Phosphatase (38-126) U/L Troponin I <0.012 (0.000-0.034) ng/mL NT-Pro-B Natriuret Pep 112 pg/mL Total Protein (6.3-8.2) g/dL Albumin (3.5-5.0) g/dL Lipase (23-300) U/L Critical Care Time Critical Care Time: Yes Critical Care Time: 32 minutes for stemi activation, consultation with cardio and heparin administra tion Disposition Clinical Impression: Chest pain Disposition: ADMITTED IP TO THIS HOSP Condition: Serious Is patient prescribed a controlled substance at d/c from ED?: No Decision to Admit Reason: Admit from EC Decision Date: 03/02/21 Decision Time: 15:48
[2021-03-02] MEDS ORDERED: SODIUM CHLORIDE 0.9% 1,000 ML IV ONE (15:33)
[2021-03-02 15:41] LABS: ALT 24 U/L (4-49); AST 31 U/L (17-59); African American GFR (CKD) >90 (>60 ml/min/1.73 sqM); Albumin 3.2 g/dL (3.5-5.0); Alkaline Phosphatase 77 U/L (38-126); Anion Gap 13 mmol/L; Blood Urea Nitrogen 16 mg/dL (9-20); Calcium 9.4 mg/dL (8.4-10.2); Carbon Dioxide 22 mmol/L (22-30); Chloride 97 mmol/L (98-107); Glucose 297 mg/dL (74-99); Lipase 87 U/L (23-300); Non-African American GFR(CKD) >90 (>60 ml/min/1.73 sqM); Sodium 132 mmol/L (137-145); Total Bilirubin 0.6 mg/dL (0.2-1.3); Total Protein 6.2 g/dL (6.3-8.2)
[2021-03-02 15:42] LABS: Potassium 4.6 mmol/L (3.5-5.1)
[2021-03-02] MEDS ORDERED: NALOXONE 0.4 MG/ML 1 ML VIAL IV PRN (15:48)
[2021-03-02] MEDS ORDERED: LIDOCAINE 1% INJ 10MG/ML (20 ML MDV) ONE (16:03)
[2021-03-02] MEDS ORDERED: LIDOCAINE 1% INJ 10MG/ML (20 ML MDV) SQ ONE (16:03)
[2021-03-02] MEDS ORDERED: VERAPAMIL 2.5 MG/ML 2 ML AMP ONE (16:04)
[2021-03-02 16:06] LABS: Prothrombin Time 10.7 sec (9.0-12.0)
[2021-03-02] MEDS ORDERED: VERAPAMIL SYRINGE (5 MG/10 ML) INTRAARTER ONE (16:09)
[2021-03-02] MEDS ORDERED: .fentaNYL (PF) 50 MCG/ML 2 ML AMP IV ONE (16:11)
[2021-03-02] MEDS ORDERED: MIDAZOLAM 2 MG/2 ML VIAL IV ONE ×2 (16:11)
[2021-03-02] MEDS ORDERED: IV FLUID CONTINUATION 500 ML IV ONE (16:12)
[2021-03-02 16:22] LABS: Partial Thromboplastin Time 19.9 sec (22.0-30.0)
[2021-03-02 16:24] LABS: Basophils % (A) 0 %; Eosinophils # (A) 0.1 k/uL (0-0.7); Eosinophils % (A) 2 %; HCT 36.4 % (39.0-53.0); HGB 12.8 gm/dL (13.0-17.5); Hyperchromasia Slight; Lymphocytes # (A) 0.7 k/uL (1.0-4.8); Lymphocytes % (A) 9 %; MCH 32.9 pg (25.0-35.0); MCHC 35.2 g/dL (31.0-37.0); MCV 93.6 fL (80.0-100.0); Mean Platelet Volume 8.9; Monocytes # (A) 0.5 k/uL (0-1.0); Monocytes % (A) 7 %; Neutrophils % (A) 81 %; Platelet Count 321 k/uL (150-450); Poikilocytosis Slight; RBC 3.89 m/uL (4.30-5.90); RDW 13.9 % (11.5-15.5); WBC 7.4 k/uL (3.8-10.6)
--- NOTE | 2021-03-02 16:29 | XR ---
INDICATION: Patient age:Male; 65 years old; Reason for study: chest pain; PHH. COMPARISON: Multiple radiographs, with the most recent on 12/13/2020 TECHNIQUE: Frontal view of the chest. FINDINGS: Lungs/Pleura: Subtle peripheral airspace opacities are seen within the lung bases. No evidence of pne umothorax or pleural effusion. Pulmonary vascularity: Unremarkable. Heart/mediastinum: Cardiomediastinal silhouette is unremarkable. Musculoskeletal: No acute osseous pathology. IMPRESSION: Findings suspicious for multifocal pneumonia.
[2021-03-02] MEDS ORDERED: HEPARIN SODIUM 1,000 UN/ML (10ML VL) IV ONE ×2 (16:30→17:05)
--- NOTE | 2021-03-02 16:36 | CONS ---
CONSULTATION CHIEF COMPLAINT: Chest pain. This is a 65-year-old gentleman with history of coronary artery disease, status post prior angioplasty, who presented to hospital with sudden-onset chest pain. He was getting ready to go to work and started having severe chest pressure, 8/10 in intensity, about 2 hours prior to coming to hospital. His chest pain has improved after receiving sublingual nitroglycerin. His EKG shows sinus rhythm with hyperacute T- waves and subtle ST-elevation in V2, V3 and V4. His ST segment looked different compared to a baseline EKG from 2019. At the time of my evaluation, he was more comfortable. Chest pain was improving. PAST MEDICAL HISTORY: Significant for coronary artery disease, status post prior [id number] diabetes, hypertension, hypothyroidism, chronic back pain Glucophage 1000 b.i.d. ALLERGIES: There are NO KNOWN DRUG ALLERGIES. FAMILY HISTORY: Family history is negative for premature coronary artery disease. SOCIAL HISTORY: He denies current smoking, EtOH abuse or drug abuse. REVIEW OF SYSTEMS: HEENT is unremarkable. CARDIAC: As described above. RESPIRATORY: Negative. GI: Negative. GENITOURINARY: Negative. ALLERGY/IMMUNOLOGY: Negative. SKIN: Negative. MUSCULOSKELETAL: Negative. ENDOCRINE: Negative. DERMATOLOGY: Negative. CONSTITUTIONAL: Negative. ONCOLOGICAL: Negative. PHYSICAL EXAMINATION: Comfortable at rest. Vital signs are stable. There is no jugular venous distention. Carotid upstroke is normal. There is no bruit. Chest exam reveals good air entry bilaterally. Heart exam reveals first and second heart sounds. No gallop. No murmur. No rub. Abdomen is soft, nontender. Examination of extremities did not reveal any edema. Peripheral pulses are felt. 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 ASSESSMENT: Acute coronary syndrome, probably acute anterior wall myocardial infarction with hyperacute T-waves in the precordial leads. PLAN: Patient will undergo emergent cardiac catheterization with a view to performing angioplasty. He understands risks, benefits. MMODL / IJN: [id number] /
[2021-03-02] MEDS ORDERED: IOPAMIDOL-370 100ML BTL INJ ONE (16:40)
[2021-03-02] MEDS ORDERED: TIROFIBAN BOLUS 12.5MG/250 ML BAG IV ONE (16:48)
[2021-03-02] MEDS ORDERED: NITROGLYCERIN 1000MCG/10ML SYRINGE INTRACORON ONE ×2 (16:49→16:52)
[2021-03-02] MEDS ORDERED: TIROFIBAN 12.5MG-250ML NS 250 ML IV ONE (16:49)
[2021-03-02] MEDS ORDERED: CLOPIDOGREL 75 MG TAB ONE (16:59)
[2021-03-02] MEDS ORDERED: CLOPIDOGREL 75 MG TAB PO ONE (17:05)
[2021-03-02] MEDS ORDERED: MAG HYDROX/AL HYDROX/SIMETH 30 ML CUP PO PRN (17:06)
[2021-03-02] MEDS ORDERED: RX INFO: IV CONTRAST WAS GIVEN 1 EACH MISC MISCELLANE PRN (17:06)
[2021-03-02] MEDS ORDERED: NITROGLYCERIN SL TABS 0.4 MG TAB SUBLINGUAL PRN (17:06)
[2021-03-02] MEDS ORDERED: ATROPINE SULFATE 0.1 MG/ML 10ML SYRINGE IV PRN (17:06)
[2021-03-02] MEDS ORDERED: ZOLPIDEM 5 MG TAB PO PRN (17:06)
[2021-03-02] MEDS ORDERED: WATER IVPB STA ×2 (17:09)
[2021-03-02] MEDS ORDERED: DEXTROSE 5% IVPB STA ×2 (17:09)
[2021-03-02] MEDS ORDERED: MAGNESIUM SULFATE IVPB STA ×2 (17:09)
[2021-03-02] MEDS ORDERED: ALBUTEROL NEBULIZED 2.5 MG/3 ML INHALATION PRN (17:10)
[2021-03-02] MEDS ORDERED: TIROFIBAN 12.5MG-250ML NS 250 ML IV SCH (17:15)
[2021-03-02] MEDS: SODIUM CHLORIDE 0.9% 1,000 ML IV SCH (17:43)
[2021-03-02 17:46] LABS: Glucose,Whole Blood 271 mg/dL (75-99)
[2021-03-02] MEDS: glipiZIDE 5 MG TAB PO SCH (18:05)
--- NOTE | 2021-03-02 18:06 | CC ---
CARDIAC CATHETERIZATION REPORT INDICATION: Acute coronary syndrome in a patient with known CAD status post prior angioplasty of LAD. PROCEDURE NOTE: After obtaining informed consent, left heart catheterization and coronary angiogram were performed via the right radial artery using a size 4 Jessica catheters. Patient tolerated the procedure well without any obvious immediate complications. Total sedation time was 19 minutes. The radial artery access was obtained using modified Seldinger technique and under fluoroscopic guidance the guidewire and catheters were floated into the ascending aorta. A pigtail was used to obtain left ventricular end- diastolic pressures. The patient received verapamil and already received IV heparin in the emergency room. FINDINGS: HEMODYNAMICS: Left ventricular end-diastolic pressure is 15 mm. There is no significant gradient across the aortic valve. LEFT VENTRICULOGRAM: Not performed. ANGIOGRAPHIC DATA: LEFT MAIN CORONARY ARTERY: Left main coronary artery is a normal-sized vessel and is free of stenosis. Divides into left anterior descending coronary artery and circumflex coronary artery. LEFT ANTERIOR DESCENDING CORONARY ARTERY: LAD was stented in the proximal portion before. There is a 90% focal in-stent restenosis noted. CIRCUMFLEX CORONARY ARTERY: The circumflex coronary artery is a nondominant vessel that was subselectively visualized but was free of significant stenosis. RIGHT CORONARY ARTERY: Right coronary artery is a large dominant vessel and is free of significant disease. CONCLUSIONS: 90% focal area of in-stent restenosis in the proximal LAD. PLAN: Patient will undergo angioplasty with stent placement of the same. MMODL / IJN: [id number] /
--- NOTE | 2021-03-02 18:09 | PTCA ---
PERCUTANEOUSTRANS CORORONARY ANGIOGRAPHY DATE OF SERVICE: 03/02/2021 PROCEDURE: PTCA and stenting of mid left anterior descending coronary artery a restenotic lesion with thrombus in the setting of an acute anterior wall ischemia with ST elevation. PERFORMED BY: Dr. Lee Ann Castillo. Moderate conscious sedation time was 31 minutes. Patient was administered Versed. Oxygen saturation, hemodynamics and EKG were monitored closely. CLINICAL INFORMATION: Mr. Иван Moctezuma is a 65-year-old gentleman, type 2 diabetes, hypertension, hyperlipidemia, and previous stenting of LAD performed about 10-12 years ago. This was performed at [facility]. He sees Dr. Ceasar Sears in the outpatient setting. He came to the hospital with chest pain, had a precordial prominent T-wave/ST elevation suggestive anterior ST elevation [place], was seen by Dr. Rivas who performed a cardiac cath from right radial approach which revealed an 80-90 percent mid LAD lesion within a previous stent with haziness suggestive of thrombus and somewhat of a sluggish flow in the LAD. Other vessels were nonsignificant. Circumflex had about an 80% mid lesion, but this was a nondominant circumflex. RCA had minor irregularities. He was advised PCI that was performed in the same setting. PCI PROCEDURE DETAILS: I used a JL 3.5 guide catheter to cannulate the left coronary artery and used a run- through wire to cross the lesion. A 2.5 caliber 12 mm Trek balloon was used to pre- dilate the lesion. I then deployed a 3.5 caliber 18 mm long Xience stent within the previous stent and distal to it. This was deployed at 13 atmospheres. Patient had mild chest pain and more prominent precordial ST elevation. Excellent angiographic result was achieved without complication. He received heparin intravenously. ACT was 205, and I gave additional 1000 units of heparin. Patient also received Aggrastat bolus and infusion. He also received 600 mg of Plavix. Excellent angiographic result without complication was achieved. The sheath was taken out and TR band applied as per protocol and saturation the fingers of the right hand was 94%. Results were discussed with the patient and and he was sent to the telemetry unit in a stable condition. Excellent angiographic result was achieved with reperfusion accomplished in about 88 minutes. MMODL / IJN: [id number] /
[2021-03-02] MEDS: METOPROLOL TARTRATE 25 MG TAB PO SCH (20:17)
[2021-03-02] MEDS: ATORVASTATIN 80 MG TAB PO SCH (20:17)
[2021-03-02 20:55] LABS: Glucose,Whole Blood 352 mg/dL (75-99)
[2021-03-02] MEDS: INSULIN ASPART (NovoLOG) 100 UNIT/ML VIAL SQ SCH (21:12)
[2021-03-03] MEDS: SODIUM CHLORIDE 0.9% 1,000 ML IV SCH ×2 (03:30→08:59)
[2021-03-03 06:01] LABS: Glucose,Whole Blood 245 mg/dL (75-99)
[2021-03-03] MEDS: glipiZIDE 5 MG TAB PO SCH ×2 (06:51→17:14)
[2021-03-03] MEDS: INSULIN ASPART (NovoLOG) 100 UNIT/ML VIAL SQ SCH ×4 (06:51→20:44)
[2021-03-03] MEDS: LEVOTHYROXINE 75 MCG TAB PO SCH (06:51)
[2021-03-03 08:29] LABS: Basophils % (A) 0 %; Eosinophils # (A) 0.1 k/uL (0-0.7); Eosinophils % (A) 1 %; HCT 32.8 % (39.0-53.0); HGB 11.4 gm/dL (13.0-17.5); Lymphocytes # (A) 0.6 k/uL (1.0-4.8); Lymphocytes % (A) 10 %; MCHC 34.7 g/dL (31.0-37.0); MCV 92.1 fL (80.0-100.0); Mean Platelet Volume 7.8; Monocytes # (A) 0.5 k/uL (0-1.0); Monocytes % (A) 7 %; Neutrophils # (A) 5.1 k/uL (1.3-7.7); Neutrophils % (A) 79 %; Platelet Count 280 k/uL (150-450); Poikilocytosis Slight; RBC 3.56 m/uL (4.30-5.90); RDW 13.1 % (11.5-15.5); WBC 6.4 k/uL (3.8-10.6)
[2021-03-03 08:40] LABS: African American GFR (CKD) >90 (>60 ml/min/1.73 sqM); Anion Gap 6 mmol/L; Blood Urea Nitrogen 11 mg/dL (9-20); Calcium 8.4 mg/dL (8.4-10.2); Carbon Dioxide 27 mmol/L (22-30); Chloride 101 mmol/L (98-107); Glucose 221 mg/dL (74-99); Magnesium 1.2 mg/dL (1.6-2.3); Non-African American GFR(CKD) >90 (>60 ml/min/1.73 sqM); Potassium 4.4 mmol/L (3.5-5.1); Sodium 134 mmol/L (137-145)
[2021-03-03] MEDS: METOPROLOL TARTRATE 25 MG TAB PO SCH ×2 (08:59→20:45)
[2021-03-03] MEDS: lisinopriL 10 MG TAB PO SCH (08:59)
[2021-03-03] MEDS: ASPIRIN 81 MG PO SCH (08:59)
[2021-03-03] MEDS: CLOPIDOGREL 75 MG TAB PO SCH (08:59)
[2021-03-03] MEDS ORDERED: Magnesium Replacement Protocol 1 EACH MISC MISCELLANE PRN (10:30)
--- NOTE | 2021-03-03 11:36 | ECHOF ---
Referral Reason:Ant Ischemia, LAD Stent MEASUREMENTS -------- HEIGHT: 175.3 cm WEIGHT: 79.8 kg BP: 147/82 RVIDd: 4.8 cm (< 3.3) IVSd: 1.2 cm (0.6 - 1.1) LVIDd: 4.4 cm (3.9 - 5.3) LVPWd: 1.3 cm (0.6 - 1.1) IVSs: 1.3 cm LVIDs: 3.5 cm LVPWs: 1.7 cm LAESV Index (A-L): 18.31 ml/m Ao Diam: 3.3 cm (2.0 - 3.7) AV Cusp: 1.3 cm (1.5 - 2.6) MV E Aden: 0.76 m/s MV DecT: 177 ms MV A Aden: 0.94 m/s MV E/A Ratio: 0.81 FINDINGS -------- Sinus rhythm. This was a technically adequate study. The left ventricular size is normal. There is mild concentric left ventricular hypertrophy. Overa ll left ventricular systolic function is low-normal with, an EF between 50 - 55 %. The right ventricle is moderately enlarged. Normal LA size by volume 22+/-6 ml/m2. The right atrium is mildly enlarged. Interatrial and interventricular septum intact. The aortic valve was not well visualized. There is no evidence of aortic regurgitation. There is no evidence of aortic stenosis. No mitral regurgitation. Mild tricuspid regurgitation present. There is no evidence of pulmonary hypertension. The right v entricular systolic pressure, as measured by Doppler, is {RVSP}. The pulmonic valve was not well visualized. There is no pulmonic regurgitation present. The aortic root size is normal. IVC Not well visulized. There is no pericardial effusion. CONCLUSIONS -------- 1. The left ventricular size is normal. 2. There is mild concentric left ventricular hypertrophy. 3. Overall left ventricular systolic function is low-normal with, an EF between 50 - 55 %. 4. The right atrium is mildly enlarged. 5. Mild tricuspid regurgitation present. TRAUMA PROGRAM MANAGER: Usha Freeman DINO
[2021-03-03 11:48] LABS: Glucose,Whole Blood 298 mg/dL (75-99)
[2021-03-03] MEDS: MAGNESIUM SULFATE-D5W PMX 1 GM in DEXTROSE/WATER 1 100ML.BAG IVPB SCH ×3 (11:55→14:00)
--- NOTE | 2021-03-03 15:29 | P.HPIM ---
History of Present Illness H&P Date: 03/02/21 Chief Complaint: Chest pain Patient is a 65-year-old male with a known history of hypertension, diabetes type 2 [id number] hyperlipidemia, coronary artery disease history of stent placement, hypothyroidism and history of bowel resection, prior history of smoking presents to ER with complaints of chest pain. Patient was at home and getting ready for work and suddenly developed left substernal chest pressure without any radiation. Patient is out of 10 in severity. Associated with shortness of breath and patient became diaphoretic. He felt nauseated and vom iting. patient has been having chest pain for 2 hours prior to admission. due to worsening symptoms can't ems and patient was brought to er. patient was given aspirin tablets and one nitro. Chest pain improved to 5 out of 10. EKG showed ST elevation in the anterior and lateral leads. Lab was activated and patient was taken to cardiac catheterization. Patient had PTCA and stenting of mid left anterior descending artery. Laboratory data showed WBC 7.4 hemoglobin 12.8 and platelets 321 Sodium 132 potassium 4.6 chloride 97 blood sugars 294, magnesium 1.0 proBNP 112 and troponin less than 0.012 and 1.320 Review of Systems Constitutional: Patient denies any fever or chills . No generalized weakness or weight loss. Abdomen: Patient denied nausea vomiting and diarrhea and abdominal pain. Cardiovascular: Patient denies any chest pain or short of breath no palpitations. Respiratory: patient denied any cough is from production. No shortness of breath Neurologic: Patient denied any numbness or tingling headache. Musculoskeletal: Patient denies any complaints of joint swelling or deformity. Skin: Negative Psychiatric: Negative Endocrine: No heat or cold intolerance. No recent weight gain. Genitourinary: No dysuria or hematuria. All other 14 point ROS negative except the above Past Medical History Past Medical History: Coronary Artery Disease (CAD), Diabetes Mellitus, Hyperlipidemia, Hypertension, Thyroid Disorder Additional Past Medical History / Comment(s): NIDDM type II, neuropathy bilateral feet, hypothyroid, chronic low back pain, DDD, stress vertebral fracture lower back, 2 herniated cervical discs-neck pain, chron's, diverticulosis, illeitis, suspected L upper lobe pulmonary embolism, recent/current shingelles R upper chest. Last Myocardial Infarction Date:: 03-02-2021 History of Any Multi-Drug Resistant Organisms: None Reported Past Surgical History: Bowel Resection, Cholecystectomy, Heart Catheterization With Stent, Orthopedic Surgery, Tonsillectomy Additional Past Surgical History / Comment(s): PCI with stent 2009 at [facility], bowel resection d/t chron's, R shoulder rotator cuff repair, colonoscopy Past Anesthesia/Blood Transfusion Reactions: No Reported Reaction Date of Last Stent Placement:: 2009 Past Psychological History: No Psychological Hx Reported Smoking Status: Former smoker Past Alcohol Use History: None Reported Past Drug Use History: None Reported - Past Family History Father Family Medical History: Cancer Additional Family Medical History / Comment(s): Father of throat cancer in his early 70s. He had heart problems and an aneurysm Mother Family Medical History: Diabetes Mellitus, Myocardial Infarction ([place]) Additional Family Medical History / Comment(s): Pt does not recall at what age mother had her VA Medications and Allergies Home Medications Medication Instructions Recorded Confirmed Type metFORMIN HCL [Glucophage] 1,000 mg PO BID #60 tab 05/31/15 03/02/21 Rx Levothyroxine Sodium [Synthroid] 75 mcg PO DAILY 08/19/18 03/02/21 History Pravastatin Sodium [Pravachol] 20 mg PO HS 08/19/18 03/02/21 History lisinopriL [Zestril] 5 mg PO HS 08/19/18 03/02/21 History glipiZIDE [Glucotrol] 5 mg PO AC-BID #60 tab 08/20/18 03/02/21 Rx Albuterol Inhaler [Ventolin Hfa 2 puff INHALATION RT-Q4H PRN 03/02/21 03/02/21 History Inhaler] Aspirin EC [Ecotrin Low Dose] 81 mg PO HS 03/02/21 03/02/21 History Naproxen 500 mg PO BID PRN 03/02/21 03/02/21 History Allergies Allergy/AdvReac Type Severity Reaction Status Date / Time No Known Allergies Allergy Verified 03/02/21 15:42 Physical Exam Vitals: Vital Signs Temp Pulse Pulse Pulse Resp BP BP 03/02/21 20:08 98.1 F 88 16 154/83 03/02/21 19:00 93 16 143/82 03/02/21 18:30 79 16 164/78 03/02/21 18:14 98 16 160/91 03/02/21 18:00 16 150/90 03/02/21 17:45 97.6 F 81 16 139/68 03/02/21 15:38 83 19 175/83 03/02/21 15:09 97.7 F 88 19 162/87 Pulse Ox 03/02/21 20:08 94 L 03/02/21 19:00 97 03/02/21 18:30 97 03/02/21 18:14 97 03/02/21 18:00 03/02/21 17:45 97 03/02/21 15:38 98 03/02/21 15:09 98 Intake and Output 03/02/21 03/02/21 03/02/21 06:59 14:59 22:59 Intake Total 250 Balance 250 Intake: IV 250 Other: # Voids 1 Weight 81.647 kg PHYSICAL EXAMINATION: Patient is lying in the bed comfortably, no acute distress, awake alert and oriented.. HEENT: Normocephalic. Neck is supple. Pupils reactive. Nostrils clear. Oral ca vity is moist. Neck reveals no JVD, carotid bruits, or thyromegaly. CHEST EXAMINATION: Trachea is central. Symmetrical expansion. Lung curiel clear to auscultation and percussion. CARDIAC: Normal S1, S2 with no gallops. No murmurs ABDOMEN: Soft. Bowel sounds normal. No organomegaly. No abdominal bruits. Extremities: reveal no edema. No clubbing or cyanosis Neurologically awake, alert, oriented x3 with well-coordinated movements. No focal deficits noted Skin: No rash or skin lesions. Psychiatric: Coperative. Nonsuicidal Musculoskeletal: No joint swelling or deformity. Normal range of motion. Results CBC & Chem 7: 03/03/21 07:42 03/03/21 07:55 Labs: Abnormal Lab Results - Last 24 Hours (Table) 03/02/21 03/02/21 03/02/21 Range/Units 15:20 15:20 15:20 RBC 3.89 L (4.30-5.90) m/uL Hgb 12.8 L (13.0-17.5) gm/dL Hct 36.4 L (39.0-53.0) % Lymphocytes # 0.7 L (1.0-4.8) k/uL APTT 19.9 L (22.0-30.0) sec Sodium 132 L (137-145) mmol/L Chloride 97 L (98-107) mmol/L Glucose 297 H (74-99) mg/dL POC Glucose (mg/dL) (75-99) mg/dL Magnesium 1.0 L (1.6-2.3) mg/dL Troponin I (0.000-0.034) ng/mL Total Protein 6.2 L (6.3-8.2) g/dL Albumin 3.2 L (3.5-5.0) g/dL 03/02/21 03/02/21 03/02/21 Range/Units 17:43 20:46 21:07 RBC (4.30-5.90) m/uL Hgb (13.0-17.5) gm/dL Hct (39.0-53.0) % Lymphocytes # (1.0-4.8) k/uL APTT (22.0-30.0) sec Sodium (137-145) mmol/L Chloride (98-107) mmol/L Glucose (74-99) mg/dL POC Glucose (mg/dL) 271 H 352 H (75-99) mg/dL Magnesium (1.6-2.3) mg/dL Troponin I 1.320 H* (0.000-0.034) ng/mL Total Protein (6.3-8.2) g/dL Albumin (3.5-5.0) g/dL Thrombosis Risk Factor Assmnt - DVT/VTE Prophylaxis DVT/VTE Prophylaxis: Pharmacologic Prophylaxis ordered - Choose All That Apply Any of the Below Risk Factors Present?: No Assessment and Plan Assessment: Acute anterior wall ST elevated [place]. Status post stent placement to mid LAD. Hyperglycemia with uncontrolled diabetes type 2 Coronary artery disease and history of stent placement in 2009 Hypovolemic hyponatremia Hypomagnesemia Hyperlipidemia Hypothyroidism History of bowel resection DVT prophylaxis. Plan: Patient was given heparin bolus in the ER. Was taken to cardiac catheterization and PTCA to mid LAD. Patient will be continued on telemetry monitoring. Continue with aspirin, Plavix and metoprolol, lisinopril and statins. Cardiology is on board. Continue with Glucotrol and insulin sliding scale and A1c level ordered Replace magnesium and repeat level. Continue with home medications. Follow-up CBC and BMP tomorrow. Time with Patient: Greater than 30
--- NOTE | 2021-03-03 15:33 | P.PN ---
Subjective Progress Note Date: 03/03/21 Principal diagnosis: Acute anterior wall SD Patient is a 65-year-old male with a known history of hypertension, diabetes type 2 [id number] hyperlipidemia, coronary artery disease history of stent placement, hypothyroidism and history of bowel resection, prior history of smoking presents to ER with complaints of chest pain. Patient was at home and getting ready for work and suddenly developed left substernal chest pressure without any radiation. Patient is out of 10 in severity. Associated with shortness of breath and patient became diaphoretic. He felt nauseated and vomiting. patient has been having chest pain for 2 hours prior to admission. due to worsening symptoms can't ems and patient was brought to er. patient was given aspirin tablets and one nitro. Chest pain improved to 5 out of 10. EKG showed ST elevation in the anterior and lateral leads. Lab was activated and patient was taken to cardiac catheterization. Patient had PTCA and stenting of mid left anterior descending artery. Laboratory data showed WBC 7.4 hemoglobin 12.8 and platelets 321 Sodium 132 potassium 4.6 chloride 97 blood sugars 294, magnesium 1.0 proBNP 112 and troponin less than 0.012 and 1.320 03/03/2021 Patient is status post stent placement to LAD. Currently denied any complaints of chest pain. No nausea vomiting or abdominal pain or diarrhea. No fever no chills. Magnesium is low and is being replaced. Added Levemir 10 units at bedtime for better blood pressure control. Follow-up A1c level. Cardiac telemetry monitoring. Cardiology is on board. Continue with the dual antiplatelets and statins. Current medications reviewed. Objective - Vital Signs Vital signs: Vital Signs Temp 97.6 F 03/03/21 15:11 Pulse 80 03/03/21 15:11 Resp 16 03/03/21 15:11 BP 128/69 03/03/21 15:11 Pulse Ox 93 L 03/03/21 15:11 Intake & Output 03/02/21 03/03/21 03/03/21 18:59 06:59 18:59 Intake Total 250 567.52 780 Output Total 700 Balance 250 -132.48 780 Weight 81.647 kg 80.1 kg Intake: IV 250 450 340 Invasive Line 1 20 Invasive Line 2 20 Magnesium Sulfate-D5w Pmx 300 1 gm In Dextrose/Water 1 100ml.bag @ 100 mls/hr IVPB Q[facility]H [facility] Rx#: [id number] Sodium Chloride 0.9% 1, 450 000 ml @ 75 mls/hr IV . [id number] [facility] Rx#:[id number] Intake, IV Titration 117.52 Amount Tirofiban 12.5MG-250Ml Ns 117.52 250 ml @ 0.15 MCG/KG/MIN 14.696 mls/hr IV .Q17H1M [facility] Rx#:[id number] Oral 440 Output: Urine 700 Other: # Voids 1 1 2 - Exam PHYSICAL EXAMINATION: Patient is lying in the bed comfortably, no acute distress, awake alert and oriented.. HEENT: Normocephalic. Neck is supple. Pupils reactive. Nostrils clear. Oral cavity is moist. Neck reveals no JVD, carotid bruits, or thyromegaly. CHEST EXAMINATION: Trachea is central. Symmetrical expansion. Lung curiel clear to auscultation and percussion. CARDIAC: Normal S1, S2 with no gallops. No murmurs ABDOMEN: Soft. Bowel sounds normal. No organomegaly. No abdominal bruits. Extremities: reveal no edema. No clubbing or cyanosis Neurologically awake, alert, oriented x3 with well-coordinated movements. No focal deficits noted Skin: No rash or skin lesions. Psychiatric: Coperative. Nonsuicidal Musculoskeletal: No joint swelling or deformity. Normal range of motion. - Labs CBC & Chem 7: 03/03/21 07:42 03/03/21 07:55 Labs: Abnormal Lab Results - Last 24 Hours (Table) 03/02/21 03/02/21 03/02/21 Range/Units 15:20 15:20 15:20 RBC 3.89 L (4.30-5.90) m/uL Hgb 12.8 L (13.0-17.5) gm/dL Hct 36.4 L (39.0-53.0) % Lymphocytes # 0.7 L (1.0-4.8) k/uL APTT 19.9 L (22.0-30.0) sec Sodium 132 L (137-145) mmol/L Chloride 97 L (98-107) mmol/L Creatinine (0.66-1.25) mg/dL Glucose 297 H (74-99) mg/dL POC Glucose (mg/dL) (75-99) mg/dL Magnesium 1.0 L (1.6-2.3) mg/dL Troponin I (0.000-0.034) ng/mL Total Protein 6.2 L (6.3-8.2) g/dL Albumin 3.2 L (3.5-5.0) g/dL 03/02/21 03/02/21 03/02/21 Range/Units 17:43 20:46 21:07 RBC (4.30-5.90) m/uL Hgb (13.0-17.5) gm/dL Hct (39.0-53.0) % Lymphocytes # (1.0-4.8) k/uL APTT (22.0-30.0) sec Sodium (137-145) mmol/L Chloride (98-107) mmol/L Creatinine (0.66-1.25) mg/dL Glucose (74-99) mg/dL POC Glucose (mg/dL) 271 H 352 H (75-99) mg/dL Magnesium (1.6-2.3) mg/dL Troponin I 1.320 H* (0.000-0.034) ng/mL Total Protein (6.3-8.2) g/dL Albumin (3.5-5.0) g/dL 03/03/21 03/03/21 03/03/21 Range/Units 05:48 07:42 07:42 RBC 3.56 L (4.30-5.90) m/uL Hgb 11.4 L (13.0-17.5) gm/dL Hct 32.8 L (39.0-53.0) % Lymphocytes # 0.6 L (1.0-4.8) k/uL APTT (22.0-30.0) sec Sodium (137-145) mmol/L Chloride (98-107) mmol/L Creatinine (0.66-1.25) mg/dL Glucose (74-99) mg/dL POC Glucose (mg/dL) 245 H (75-99) mg/dL Magnesium (1.6-2.3) mg/dL Troponin I 1.780 H* (0.000-0.034) ng/mL Total Protein (6.3-8.2) g/dL Albumin (3.5-5.0) g/dL 03/03/21 03/03/21 Range/Units 07:55 11:46 RBC (4.30-5.90) m/uL Hgb (13.0-17.5) gm/dL Hct (39.0-53.0) % Lymphocytes # (1.0-4.8) k/uL APTT (22.0-30.0) sec Sodium 134 L (137-145) mmol/L Chloride (98-107) mmol/L Creatinine 0.56 L (0.66-1.25) mg/dL Glucose 221 H (74-99) mg/dL POC Glucose (mg/dL) 298 H (75-99) mg/dL Magnesium 1.2 L (1.6-2.3) mg/dL Troponin I (0.000-0.034) ng/mL Total Protein (6.3-8.2) g/dL Albumin (3.5-5.0) g/dL Assessment and Plan Assessment: Acute anterior wall ST elevated SD. Status post stent placement to mid LAD. Hyperglycemia with uncontrolled diabetes type 2 Coronary artery disease and history of stent placement in 2009 Hypovolemic hyponatremia Hypomagnesemia Hyperlipidemia Hypothyroidism History of bowel resection DVT prophylaxis. Plan: Patient will be continued on telemetry monitoring. Continue with aspirin, Plavix and metoprolol, lisinopril and statins. Cardiology is on board. Continue with Glucotrol and insulin sliding scale and A1c level ordered Replace magnesium and repeat level. Continue with home medications. Follow-up CBC and BMP tomorrow. Time with Patient: Greater than 30
[2021-03-03 16:23] LABS: Glucose,Whole Blood 318 mg/dL (75-99)
[2021-03-03] MEDS: HEPARIN SODIUM,PORCINE/PF 5,000 UNIT/0.5 ML SYRINGE SQ SCH ×2 (17:15→23:44)
--- NOTE | 2021-03-03 17:24 | PN ---
PROGRESS NOTE Иван is a 65-year-old gentleman was presented to hospital with acute coronary syndrome, underwent emergent cardiac catheterization and angioplasty of proximal LAD. He is doing well and is free of chest pain. His peak troponin was 1.7. On exam, comfortable at rest. Vital signs are stable. There is no jugular venous distention. Carotid upstroke is normal. There is no bruit. Chest exam reveals good air entry bilaterally. Heart exam reveals first and second heart sounds. No gallop. Examination of extremities did not reveal any edema. Peripheral pulses are felt. Labs show a potassium of 4.4. Creatinine is 0.5. Troponins are elevated. Hemoglobin is 11.4. An echocardiogram shows normal LV systolic function. ASSESSMENT: Acute coronary syndrome, status post catheterization and angioplasty of LAD. PLAN: Patient is doing well. I reviewed echo findings with him. He is currently on aspirin, Lipitor, Plavix, insulin, Synthroid, Zestril, Lopressor, which he is going to continue. Hopefully home tomorrow. MMLIANNE / IJN: [id number] /
[2021-03-03 20:34] LABS: Glucose,Whole Blood 320 mg/dL (75-99)
[2021-03-03] MEDS: ATORVASTATIN 80 MG TAB PO SCH (20:45)
[2021-03-03] MEDS ORDERED: INSULIN DETEMIR (LEVEMIR) 100 UNIT/ML SYR SQ SCH (21:00)
[2021-03-04 06:25] LABS: Glucose,Whole Blood 173 mg/dL (75-99)
[2021-03-04] MEDS: INSULIN ASPART (NovoLOG) 100 UNIT/ML VIAL SQ SCH ×5 (06:41→20:36)
[2021-03-04] MEDS: LEVOTHYROXINE 75 MCG TAB PO SCH (06:41)
[2021-03-04] MEDS: glipiZIDE 5 MG TAB PO SCH ×2 (06:41→16:55)
[2021-03-04] MEDS: METOPROLOL TARTRATE 25 MG TAB PO SCH ×2 (08:17→20:36)
[2021-03-04] MEDS: CLOPIDOGREL 75 MG TAB PO SCH (08:17)
[2021-03-04] MEDS: ASPIRIN 81 MG PO SCH (08:17)
[2021-03-04] MEDS: lisinopriL 10 MG TAB PO SCH (08:17)
[2021-03-04] MEDS: HEPARIN SODIUM,PORCINE/PF 5,000 UNIT/0.5 ML SYRINGE SQ SCH ×3 (08:17→23:18)
[2021-03-04 10:12] LABS: Basophils % (A) 0 %; Eosinophils # (A) 0.1 k/uL (0-0.7); Eosinophils % (A) 1 %; HCT 35.4 % (39.0-53.0); HGB 11.9 gm/dL (13.0-17.5); Lymphocytes # (A) 0.6 k/uL (1.0-4.8); Lymphocytes % (A) 7 %; MCH 31.4 pg (25.0-35.0); MCHC 33.6 g/dL (31.0-37.0); MCV 93.6 fL (80.0-100.0); Monocytes # (A) 0.6 k/uL (0-1.0); Monocytes % (A) 7 %; Neutrophils # (A) 6.5 k/uL (1.3-7.7); Neutrophils % (A) 82 %; Platelet Count 305 k/uL (150-450); Poikilocytosis Slight; RBC 3.78 m/uL (4.30-5.90); RDW 13.1 % (11.5-15.5); WBC 7.9 k/uL (3.8-10.6)
[2021-03-04 10:30] LABS: African American GFR (CKD) >90 (>60 ml/min/1.73 sqM); Anion Gap 10 mmol/L; Blood Urea Nitrogen 10 mg/dL (9-20); Calcium 8.4 mg/dL (8.4-10.2); Carbon Dioxide 24 mmol/L (22-30); Chloride 95 mmol/L (98-107); Glucose 495 mg/dL (74-99); Magnesium 1.4 mg/dL (1.6-2.3); Non-African American GFR(CKD) >90 (>60 ml/min/1.73 sqM); Potassium 4.6 mmol/L (3.5-5.1); Sodium 129 mmol/L (137-145)
[2021-03-04] MEDS ORDERED: Magnesium Replacement Protocol 1 EACH MISC MISCELLANE PRN (10:53)
--- NOTE | 2021-03-04 11:14 | P.PN ---
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 Patient presented to the hospital secondary to chest pain. Patient was found to have a STEMI. He underwent cardiac cath yesterday with PCI of LAD which was a restenotic lesion with thrombus. Patient examined this morning. Patient is sitting up in the chair. He denies chest pain or pressure. He denies shortness of breath. Vital signs are stable. Right cardiac cath site with pulse present. Echocardiogram completed revealed ejection fraction 50-55% with mild tricuspid regurgitation. PHYSICAL EXAM: VITAL SIGNS: Reviewed. GENERAL: Well-developed in no acute distress. NECK: Supple. No JVD or thyromegaly LUNGS: Respirations even and unlabored. Lungs essentially clear to auscultation bilaterally. HEART: Regular rate and rhythm. S1 and S2 heard. EXTREMITIES: Normal range of motion. No clubbing or cyanosis. Peripheral pulses intact. No lower extremity edema ASSESSMENT: STEMI, s/p PCI of LAD History of coronary artery disease with previous stenting Hypertension Hyperlipidemia Diabetes PLAN: Continue current cardiac medications Continue to antiplatelet therapy with aspirin and Plavix He is stable for discharge home today from a cardiac standpoint He is to follow up outpatient with Dr. Rivas Nurse practitioner note has been reviewed by physician. Signing provider agrees with the documented findings, assessment, and plan of care. Objective - Vital Signs Vital signs: Vital Signs Temp 97.4 F L 03/04/21 07:30 Pulse 103 H 03/04/21 07:30 Resp 16 03/04/21 07:30 BP 119/68 03/04/21 07:30 Pulse Ox 92 L 03/04/21 07:30 Intake & Output 03/03/21 03/04/21 03/04/21 18:59 06:59 18:59 Intake Total 1020 138 Balance 1020 138 Weight 80 kg Intake: IV 340 20 Invasive Line 1 20 10 Invasive Line 2 20 10 Magnesium Sulfate-D5w Pmx 300 1 gm In Dextrose/Water 1 100ml.bag @ 100 mls/hr IVPB Q1H [facility] Rx#: [id number] Oral 680 118 Other: # Voids 2 - Labs CBC & Chem 7: 03/04/21 09:19 03/04/21 09:19 Labs: Abnormal Lab Results - Last 24 Hours (Table) 03/03/21 03/03/21 03/03/21 Range/Units 11:46 16:20 20:10 RBC (4.30-5.90) m/uL Hgb (13.0-17.5) gm/dL Hct (39.0-53.0) % Lymphocytes # (1.0-4.8) k/uL Sodium (137-145) mmol/L Chloride (98-107) mmol/L Glucose (74-99) mg/dL POC Glucose (mg/dL) 298 H 318 H 320 H (75-99) mg/dL Magnesium (1.6-2.3) mg/dL 03/04/21 03/04/21 03/04/21 Range/Units 05:51 09:19 09:19 RBC 3.78 L (4.30-5.90) m/uL Hgb 11.9 L (13.0-17.5) gm/dL Hct 35.4 L (39.0-53.0) % Lymphocytes # 0.6 L (1.0-4.8) k/uL Sodium 129 L (137-145) mmol/L Chloride 95 L (98-107) mmol/L Glucose 495 H (74-99) mg/dL POC Glucose (mg/dL) 173 H (75-99) mg/dL Magnesium 1.4 L (1.6-2.3) mg/dL
[2021-03-04 11:34] LABS: Glucose,Whole Blood 347 mg/dL (75-99)
[2021-03-04] MEDS: MAGNESIUM SULFATE-D5W PMX 1 GM in DEXTROSE/WATER 1 100ML.BAG IVPB SCH ×3 (12:32→16:56)
[2021-03-04] MEDS ORDERED: INSULIN DETEMIR (LEVEMIR) 100 UNIT/ML SYR SQ STA (12:36)
[2021-03-04 15:03] VITALS: BMI 26.0
[2021-03-04 16:47] LABS: Glucose,Whole Blood 406 mg/dL (75-99)
[2021-03-04] MEDS ORDERED: SODIUM CHLORIDE 0.9% 1,000 ML IV SCH (17:45)
--- NOTE | 2021-03-04 17:45 | P.PN ---
Subjective Progress Note Date: 03/04/21 This is a 65-year-old gentleman admitted with acute anterior wall STEMI, status post cardiac catheterization with stent placement to the mid LAD, hyperglycemia and multiple other medical issues. Denies chest pain, palpitations or shortness of breath. Hyperglycemic, with blood sugars currently in the 400s, hemoglobin A1c 8.7.. Magnesium 1.4. Sodium 129, renal function stable. Objective - Vital Signs Vital signs: Vital Signs Temp 97.8 F 03/04/21 12:34 Pulse 86 03/04/21 12:34 Resp 16 03/04/21 12:34 BP 121/59 03/04/21 12:34 Pulse Ox 93 L 03/04/21 12:34 Intake & Output 03/03/21 03/04/21 03/04/21 18:59 06:59 18:59 Intake Total 1020 1538 Balance 1020 1538 Weight 80 kg 80 kg Intake: IV 340 340 Invasive Line 1 20 20 Invasive Line 2 20 20 Magnesium Sulfate-D5w Pmx 300 300 1 gm In Dextrose/Water 1 100ml.bag @ 100 mls/hr IVPB Q1H [facility] Rx#: [id number] Oral 680 1198 Other: # Voids 2 1 - Exam - Exam General: Sitting up in chair, no acute distress HEENT: Normocephalic. Neck is supple. Pupils reactive. Oral mucosa moist. Neck: Supple, no JVD. CHEST EXAMINATION: CTA CARDIAC: Normal S1, S2 with no gallops. No murmurs ABDOMEN: Soft. Bowel sounds normal. No organomegaly. Extremities: reveal no edema. No clubbing or cyanosis Neurologically awake, alert, oriented x3.No focal deficits noted Skin: No rash, warm and dry - Labs CBC & Chem 7: 03/04/21 09:19 03/04/21 09:19 Labs: Abnormal Lab Results - Last 24 Hours (Table) 03/03/21 03/04/21 03/04/21 Range/Units 20:10 05:51 09:19 RBC (4.30-5.90) m/uL Hgb (13.0-17.5) gm/dL Hct (39.0-53.0) % Lymphocytes # (1.0-4.8) k/uL Sodium (137-145) mmol/L Chloride (98-107) mmol/L Glucose (74-99) mg/dL POC Glucose (mg/dL) 320 H 173 H (75-99) mg/dL Hemoglobin A1c 8.7 H (4.0-6.0) % Magnesium (1.6-2.3) mg/dL 03/04/21 03/04/21 03/04/21 Range/Units 09:19 09:19 11:25 RBC 3.78 L (4.30-5.90) m/uL Hgb 11.9 L (13.0-17.5) gm/dL Hct 35.4 L (39.0-53.0) % Lymphocytes # 0.6 L (1.0-4.8) k/uL Sodium 129 L (137-145) mmol/L Chloride 95 L (98-107) mmol/L Glucose 495 H (74-99) mg/dL POC Glucose (mg/dL) 347 H (75-99) mg/dL Hemoglobin A1c (4.0-6.0) % Magnesium 1.4 L (1.6-2.3) mg/dL 03/04/21 Range/Units 16:27 RBC (4.30-5.90) m/uL Hgb (13.0-17.5) gm/dL Hct (39.0-53.0) % Lymphocytes # (1.0-4.8) k/uL Sodium (137-145) mmol/L Chloride (98-107) mmol/L Glucose (74-99) mg/dL POC Glucose (mg/dL) 406 H (75-99) mg/dL Hemoglobin A1c (4.0-6.0) % Magnesium (1.6-2.3) mg/dL Assessment and Plan Assessment: Acute anterior wall ST elevated [place]. Status post stent placement to mid LAD. Hyperglycemia with uncontrolled diabetes type 2, hemoglobin A1c 8.7 Coronary artery disease and history of stent placement in 2009 Hypovolemic hyponatremia Hypomagnesemia Hyperlipidemia Hypothyroidism Plan: Continue on current medication regime ,monitoring and symptomatic treatment. Maintained on aspirin, Plavix, in a jessica, RAVI inhibitor and statin .Cleared by cardiology for discharge. Magnesium 1.4, supplementation as per replacement protocol ordered .Sodium 129, Blood sugars in the 400s, discharge placed on hold. Gentle IV fluid hydration. Lantus increased. Close monitoring of Accu-Cheks. Case management to check on outpatient Rx coverage for long-acting insulin. Patient will require further diabetic teaching in clinic with PCP. The impression and plan of care has been dictated as directed. : I performed a history and examination of this patient, discussed the same with the dictator. I agree with the dictator's note ,documented as a scribe. Any additional findings or plans will be noted.
[2021-03-04 20:23] LABS: Glucose,Whole Blood 324 mg/dL (75-99)
[2021-03-04] MEDS: ATORVASTATIN 80 MG TAB PO SCH (20:36)
[2021-03-04] MEDS ORDERED: INSULIN DETEMIR (LEVEMIR) 100 UNIT/ML SYR SQ SCH (21:00)
[2021-03-05 00:30] VITALS: RESP 16
[2021-03-05] MEDS: LEVOTHYROXINE 75 MCG TAB PO SCH (05:59)
[2021-03-05 06:45] LABS: Basophils % (A) 0 %; Eosinophils # (A) 0.1 k/uL (0-0.7); Eosinophils % (A) 1 %; HGB 11.9 gm/dL (13.0-17.5); Lymphocytes # (A) 0.9 k/uL (1.0-4.8); Lymphocytes % (A) 11 %; MCH 31.9 pg (25.0-35.0); MCHC 35.1 g/dL (31.0-37.0); MCV 91.1 fL (80.0-100.0); Mean Platelet Volume 8.1; Monocytes # (A) 0.7 k/uL (0-1.0); Monocytes % (A) 8 %; Neutrophils # (A) 6.3 k/uL (1.3-7.7); Neutrophils % (A) 78 %; Platelet Count 289 k/uL (150-450); Poikilocytosis Slight; RBC 3.73 m/uL (4.30-5.90); RDW 13.3 % (11.5-15.5); WBC 8.2 k/uL (3.8-10.6)
[2021-03-05 06:54] LABS: African American GFR (CKD) >90 (>60 ml/min/1.73 sqM); Anion Gap 5 mmol/L; Blood Urea Nitrogen 8 mg/dL (9-20); Calcium 8.2 mg/dL (8.4-10.2); Carbon Dioxide 28 mmol/L (22-30); Chloride 101 mmol/L (98-107); Glucose 124 mg/dL (74-99); Magnesium 1.8 mg/dL (1.6-2.3); Non-African American GFR(CKD) >90 (>60 ml/min/1.73 sqM); Potassium 4.5 mmol/L (3.5-5.1); Sodium 134 mmol/L (137-145)
[2021-03-05 06:55] LABS: Glucose,Whole Blood 210 mg/dL (75-99)
[2021-03-05] MEDS ORDERED: INSULIN DETEMIR (LEVEMIR) 100 UNIT/ML SYR SQ SCH (07:00)
[2021-03-05] MEDS: INSULIN ASPART (NovoLOG) 100 UNIT/ML VIAL SQ SCH ×4 (07:25→12:38)
[2021-03-05] MEDS: glipiZIDE 5 MG TAB PO SCH (07:26)
[2021-03-05] MEDS: lisinopriL 10 MG TAB PO SCH (07:26)
[2021-03-05] MEDS: HEPARIN SODIUM,PORCINE/PF 5,000 UNIT/0.5 ML SYRINGE SQ SCH (07:26)
[2021-03-05] MEDS: METOPROLOL TARTRATE 25 MG TAB PO SCH (07:26)
[2021-03-05] MEDS: CLOPIDOGREL 75 MG TAB PO SCH (07:26)
[2021-03-05] MEDS: ASPIRIN 81 MG PO SCH (07:26)
[2021-03-05 07:27] LABS: Glucose,Whole Blood 150 mg/dL (75-99)
[2021-03-05 07:28] VITALS: TEMP 98.6
[2021-03-05] MEDS: MAGNESIUM SULFATE-D5W PMX 1 GM in DEXTROSE/WATER 1 100ML.BAG IVPB SCH ×2 (07:33→09:33)
--- NOTE | 2021-03-05 12:31 | P.PN ---
Subjective Progress Note Date: 03/05/21 HISTORY OF PRESENT ILLNESS: This is a 65-year-old male who has not followed with a associate director qa in many years. Patient presented to the hospital secondary to chest pain. Patient was found to have a STEMI. He underwent cardiac cath yesterday with PCI of LAD which was a restenotic lesion with thrombus. Patient examined this morning. Patient is sitting up in the chair. He denies chest pain or pressure. He denies shortness of breath. Vital signs are stable. Right cardiac cath site with pulse present. Echocardiogram completed revealed ejection fraction 50-55% with mild tricuspid regurgitation. 03/05/2021 Patient examined this morning the bedside. Patient denies chest pain or pressure. He denies shortness of breath. Patient has been up ambulating in the hallway. Vital signs are stable. Patient anticipates being discharged home today. PHYSICAL EXAM: VITAL SIGNS: Reviewed. GENERAL: Well-developed in no acute distress. NECK: Supple. No JVD or thyromegaly LUNGS: Respirations even and unlabored. Lungs essentially clear to auscultation bilaterally. HEART: Regular rate and rhythm. S1 and S2 heard. EXTREMITIES: Normal range of motion. No clubbing or cyanosis. Peripheral pulses intact. No lower extremity edema ASSESSMENT: STEMI, s/p PCI of LAD History of coronary artery disease with previous stenting Hypertension Hyperlipidemia Diabetes PLAN: Continue current cardiac medications Continue dual antiplatelet therapy with aspirin and Plavix He is stable for discharge home today from a cardiac standpoint He is to follow up outpatient with Dr. Rivas Nurse practitioner note has been reviewed by physician. Signing provider agrees with the documented findings, assessment, and plan of care. Objective - Vital Signs Vital signs: Vital Signs Temp 98.6 F 03/05/21 07:20 Pulse 78 03/05/21 07:20 Resp 16 03/05/21 07:20 BP 108/59 03/05/21 07:20 Pulse Ox 88 L 03/05/21 07:20 Intake & Output 03/04/21 03/05/21 03/05/21 18:59 06:59 18:59 Intake Total 1538 240 480 Balance 1538 240 480 Weight 80 kg 80.4 kg Intake: IV 340 Invasive Line 1 20 Invasive Line 2 20 Magnesium Sulfate-D5w Pmx 300 1 gm In Dextrose/Water 1 100ml.bag @ 100 mls/hr IVPB Q1H [facility] Rx#: [id number] Oral 1198 144 480 Other: Voiding Method Toilet # Voids 1 1 # Bowel Movements 1 - Labs CBC & Chem 7: 03/05/21 06:24 03/05/21 06:24 Labs: Abnormal Lab Results - Last 24 Hours (Table) 03/04/21 03/04/21 03/04/21 Range/Units 09:19 16:27 20:21 RBC (4.30-5.90) m/uL Hgb (13.0-17.5) gm/dL Hct (39.0-53.0) % Lymphocytes # (1.0-4.8) k/uL Sodium (137-145) mmol/L BUN (9-20) mg/dL Creatinine (0.66-1.25) mg/dL Glucose (74-99) mg/dL POC Glucose (mg/dL) 406 H 324 H (75-99) mg/dL Hemoglobin A1c 8.7 H (4.0-6.0) % Calcium (8.4-10.2) mg/dL 03/05/21 03/05/21 03/05/21 Range/Units 06:24 06:24 06:51 RBC 3.73 L (4.30-5.90) m/uL Hgb 11.9 L (13.0-17.5) gm/dL Hct 34.0 L (39.0-53.0) % Lymphocytes # 0.9 L (1.0-4.8) k/uL Sodium 134 L (137-145) mmol/L BUN 8 L (9-20) mg/dL Creatinine 0.65 L (0.66-1.25) mg/dL Glucose 124 H (74-99) mg/dL POC Glucose (mg/dL) 210 H (75-99) mg/dL Hemoglobin A1c (4.0-6.0) % Calcium 8.2 L (8.4-10.2) mg/dL 03/05/21 Range/Units 07:22 RBC (4.30-5.90) m/uL Hgb (13.0-17.5) gm/dL Hct (39.0-53.0) % Lymphocytes # (1.0-4.8) k/uL Sodium (137-145) mmol/L BUN (9-20) mg/dL Creatinine (0.66-1.25) mg/dL Glucose (74-99) mg/dL POC Glucose (mg/dL) 150 H (75-99) mg/dL Hemoglobin A1c (4.0-6.0) % Calcium (8.4-10.2) mg/dL
[2021-03-05 12:33] LABS: Glucose,Whole Blood 113 mg/dL (75-99)
[2021-03-05 12:46] VITALS: BP 120/60; PULSE 74
--- NOTE | 2021-03-05 14:55 | P.DS ---
Providers Date of admission: 03/02/21 15:48 Expected date of discharge: 03/05/21 Attending physician: Ceasar Sears Consults: 03/02/21 15:48 Consult Physician Stat Consulting Provider: John Rivas Consult Reason/Comments: chest pain, stemi Do you want consulting provider notified?: Already Contacted 03/02/21 17:06 Consult Physician Routine Consulting Provider: [facility] Consult Reason/Comments: Post Interventional patient Do you want consulting provider notified?: Already Contacted Primary care physician: Ceasar Sears Hospital Course: Final Diagnoses: Acute anterior wall ST elevated [place]. Status post stent placement to mid LAD. Hyperglycemia with uncontrolled diabetes type 2, hemoglobin A1c 8.7 Coronary artery disease and history of stent placement in 2009 Hypovolemic hyponatremia Hypomagnesemia Hyperlipidemia Hypothyroidism Hospital course:This is a 65-year-old gentleman admitted with acute anterior wall STEMI, status post cardiac catheterization with stent placement to the mid LAD, hyperglycemia and multiple other medical issues. Denies chest pain, palpitations or shortness of breath. Hyperglycemic, with blood sugars currently in the 400s, hemoglobin A1c 8.7.. Magnesium 1.4. Sodium 129, renal function stable. Maintain on aspirin, Plavix, beta jessica, RAVI inhibitor and statin. Magnesium post supplementation 1.8. Sodium 134. Blood sugars better controlled this morning, ranging 150s to 200s long-acting insulin. Case management verified and patient currently does not have coverage for long-acting insulin at discharge-to be further researched outpatient in clinic. Patient will be discharged therefore on NovoLog 70/30 insulin. Patient will require further diabetic education in clinic with PCP. Significant clinical improvement. Cleared by cardiology for discharge. Denies chest pain, palpitations or increased shortness of breath. Ambulating, tolerating well Denies lightheadedness, dizziness or focal deficits with exertion. Patient will be discharged home today in a stable condition with guarded prognosis. The impression and plan of care has been dictated as directed. : I performed a history and examination of this patient, discussed the same with the dictator. I agree with the dictator's note ,documented as a scribe. Any additional findings or plans will be noted. Patient Condition at Discharge: Stable Plan - Discharge Summary Discharge Rx Participant: No New Discharge Prescriptions: New Atorvastatin [Lipitor] 80 mg PO HS #90 tab Clopidogrel [Plavix] 75 mg PO DAILY #90 tab lisinopriL [Zestril] 10 mg PO DAILY #90 tab Insuln Asp Prt/Insulin Aspart [NovoLOG MIX 70-30 VIAL] 15 unit SQ BID #10 ml Syringe-Needle,Insulin,0.5 ml [Insulin Syringe 30G 08/12" 1/2 ml] 1 syr SQ DIRECTED #60 each Metoprolol Tartrate [Lopressor] 25 mg PO BID #180 tab Nitroglycerin Sl Tabs [Nitrostat] 0.4 mg SUBLINGUAL Q5M PRN #100 tab PRN Reason: Chest Pain Magnesium Oxide [Mag-Ox] 400 mg PO BID #60 tablet Continue metFORMIN HCL [Glucophage] 1,000 mg PO BID #60 tab Levothyroxine Sodium [Synthroid] 75 mcg PO DAILY glipiZIDE [Glucotrol] 5 mg PO AC-BID #60 tab Albuterol Inhaler [Ventolin Hfa Inhaler] 2 puff INHALATION RT-Q4H PRN PRN Reason: Shortness Of Breath Aspirin EC [Ecotrin Low Dose] 81 mg PO HS #90 tab Discontinued Pravastatin Sodium [Pravachol] 20 mg PO HS lisinopriL [Zestril] 5 mg PO HS Naproxen 500 mg PO BID PRN PRN Reason: Pain Discharge Medication List metFORMIN HCL [Glucophage] 1,000 mg PO BID #60 tab 05/31/15 [Rx] Levothyroxine Sodium [Synthroid] 75 mcg PO DAILY 08/19/18 [History] glipiZIDE [Glucotrol] 5 mg PO AC-BID #60 tab 08/20/18 [Rx] Albuterol Inhaler [Ventolin Hfa Inhaler] 2 puff INHALATION RT-Q4H PRN 03/02/21 [History] Aspirin EC [Ecotrin Low Dose] 81 mg PO HS #90 tab 03/04/21 [Rx] Atorvastatin [Lipitor] 80 mg PO HS #90 tab 03/04/21 [Rx] Clopidogrel [Plavix] 75 mg PO DAILY #90 tab 03/04/21 [Rx] Metoprolol Tartrate [Lopressor] 25 mg PO BID #180 tab 03/04/21 [Rx] Nitroglycerin Sl Tabs [Nitrostat] 0.4 mg SUBLINGUAL Q5M PRN #100 tab 03/04/21 [Rx] lisinopriL [Zestril] 10 mg PO DAILY #90 tab 03/04/21 [Rx] Insuln Asp Prt/Insulin Aspart [NovoLOG MIX 70-30 VIAL] 15 unit SQ BID #10 ml 03/05/21 [Rx] Magnesium Oxide [Mag-Ox] 400 mg PO BID #60 tablet 03/05/21 [Rx] Syringe-Needle,Insulin,0.5 ml [Insulin Syringe 30G 5/16" 1/2 ml] 1 syr SQ DIRECTED #60 each 03/05/21 [Rx] Follow up Appointment(s)/Referral(s): Ceasar Sears DO [Primary Care Provider] - 03/12/21 10:50 am Jojo Ruiz MD [STAFF PHYSICIAN] - 03/13/21 11:00 am Patient Instructions/Handouts: *Surgery [facility] - After Heart Catheterization - [employer] Furn[employer] Instructions, Insulin Aspart, Recombinant (By injection), Insulin NPH/Regular (By injection), Heart Attack (DC), Coronary Artery Disease (DC), Heart Healthy Diet (DC), Basic Carbohydrate Counting (DC), Diabetic Foot Ulcers (DC), Diabetic Hyperglycemia (ED), Diabetic Kidney Disease (ED), Mediterranean Diet (DC) Activity/Diet/Wound Care/Special Instructions: Ensure patient has glucometer .Accu-Chek before meals and at bedtime, maintain log and take to follow-up visit with PCP for further recommendations. Patient will require further diabetic teaching in clinic with PCP. Discharge Disposition: HOME SELF-CARE
== END 2021-03-05 12:59 | disposition home or self-care (01) | DRG 246 ==
LOC: EC 15:07 → 2SICU 15:48 → 3SCARD 17:18
PROVIDERS: ADMIT Family Medicine; ATTEND Family Medicine
PROC: B2111ZZ Fluoroscopy of Multiple Coronary Arteries using Low Osmolar Contrast (ICD-10-PCS; 2021-03-02)
PROC: 027034Z Dilation of Coronary Artery, One Artery with Drug-eluting Intraluminal Device, Percutaneous Approach (ICD-10-PCS; principal; 2021-03-02 15:48)
PROC: 4A023N7 Measurement of Cardiac Sampling and Pressure, Left Heart, Percutaneous Approach (ICD-10-PCS; 2021-03-02 15:48)
DX: T82.855A Stenosis of coronary artery stent, initial encounter (principal); I21.09 ST elevation (STEMI) myocardial infarction involving other coronary artery of anterior wall; K50.90 Crohn's disease, unspecified, without complications; E87.1 Hypo-osmolality and hyponatremia; E03.9 Hypothyroidism, unspecified; E11.65 Type 2 diabetes mellitus with hyperglycemia; E78.5 Hyperlipidemia, unspecified; E83.42 Hypomagnesemia; I10 Essential (primary) hypertension; I25.10 Atherosclerotic heart disease of native coronary artery without angina pectoris; Y83.1 Surgical operation with implant of artificial internal device as the cause of abnormal reaction of the patient, or of later complication, without mention of misadventure at the time of the procedure; E86.1 Hypovolemia; Z20.822 Contact with and (suspected) exposure to COVID-19; Z79.84 Long term (current) use of oral hypoglycemic drugs; Z79.890 Hormone replacement therapy; Z79.899 Other long term (current) drug therapy; Z80.0 Family history of malignant neoplasm of digestive organs; Z82.49 Family history of ischemic heart disease and other diseases of the circulatory system; Z83.3 Family history of diabetes mellitus; Z87.891 Personal history of nicotine dependence; Z90.49 Acquired absence of other specified parts of digestive tract
CPT/HCPCS: 36415; 71045; 80048; 80053; 83036; 83690; 83735; 83880; 84484; 85025; 85610; 85730; 87635; 93005; 93306; 93458; 96374; 99285

== ENCOUNTER 2021-04-15 17:40 | Emergency (ER) | payer MEDICARE ==
[2021-04-15 18:38] VITALS: RESP 20
[2021-04-15] MEDS ORDERED: PROPARACAINE 0.5% OPHTH DROPS 15 ML BTL RIGHT EYE STA (18:58)
[2021-04-15] MEDS ORDERED: FLUORESCEIN STRIPS 1 MG STRIP RIGHT EYE ONE (18:58)
--- NOTE | 2021-04-15 20:27 | ED ---
Eye Problem HPI - General Chief complaint: Eye Problems Stated complaint: Lt Eye Problems Time Seen by Provider: 04/15/21 18:57 Source: patient Mode of arrival: ambulatory Limitations: no limitations - History of Present Illness Initial comments: 65 year-old male patient presents to the emergency department for evaluation of right eye discomfort and redness. States he was sitting and watching TV a few hours ago when he started to get some mild irritation to the right eye. States right over the corner of the eye on the outside. He states his vision became blurred. His daughter noticed that his eye was very red and instructed him to come in. Patient states he continues to have a slight pain to the right lateral eye. Denies any double vision. States it feels slightly blurred. States when he closes his eye for a few seconds and opens it he sees a "shutter" over the right side of his vision, then it clears. He started eliquis last month after having a heart attack. Denies any trauma to the eye. Denies any headache, pain with chewing, or fevers. Does report history of hypertension. - Related Data Home Medications Medication Instructions Recorded Confirmed Levothyroxine Sodium [Synthroid] 75 mcg PO DAILY 08/19/18 03/02/21 Albuterol Inhaler [Ventolin Hfa 2 puff INHALATION RT-Q4H PRN 03/02/21 03/02/21 Inhaler] Previous Rx's Medication Instructions Recorded metFORMIN HCL [Glucophage] 1,000 mg PO BID #60 tab 05/31/15 glipiZIDE [Glucotrol] 5 mg PO AC-BID #60 tab 08/20/18 Aspirin EC [Ecotrin Low Dose] 81 mg PO HS #90 tab 03/04/21 Atorvastatin [Lipitor] 80 mg PO HS #90 tab 03/04/21 Clopidogrel [Plavix] 75 mg PO DAILY #90 tab 03/04/21 Metoprolol Tartrate [Lopressor] 25 mg PO BID #180 tab 03/04/21 Nitroglycerin Sl Tabs [Nitrostat] 0.4 mg SUBLINGUAL Q5M PRN #100 tab 03/04/21 lisinopriL [Zestril] 10 mg PO DAILY #90 tab 03/04/21 Insuln Asp Prt/Insulin Aspart 15 unit SQ BID #10 ml 03/05/21 [NovoLOG MIX 70-30 VIAL] Magnesium Oxide [Mag-Ox] 400 mg PO BID #60 tablet 03/05/21 Syringe-Needle,Insulin,0.5 ml 1 syr SQ DIRECTED #60 each 03/05/21 [Insulin Syringe 30G 08/12" 1/2 ml] Allergies Allergy/AdvReac Type Severity Reaction Status Date / Time No Known Allergies Allergy Verified 04/15/21 18:34 Review of Systems ROS Statement: Those systems with pertinent positive or pertinent negative responses have been documented in the HPI. ROS Other: All systems not noted in ROS Statement are negative. Past Medical History Past Medical History: Coronary Artery Disease (CAD), Diabetes Mellitus, Hy perlipidemia, Hypertension, Myocardial Infarction (RI), Thyroid Disorder Additional Past Medical History / Comment(s): NIDDM type II, neuropathy bilateral feet, hypothyroid, chronic low back pain, DDD, stress vertebral fracture lower back, 2 herniated cervical discs-neck pain, chron's, diverticulosis, illeitis, suspected L upper lobe pulmonary embolism, recent/current shingelles R upper chest. Last Myocardial Infarction Date:: 03-02-2021 History of Any Multi-Drug Resistant Organisms: None Reported Past Surgical History: Bowel Resection, Cholecystectomy, Heart Catheterization With Stent, Orthopedic Surgery, Tonsillectomy Additional Past Surgical History / Comment(s): PCI with stent 2009 at [facility], bowel resection d/t chron's, R shoulder rotator cuff repair, colonoscopy Past Anesthesia/Blood Transfusion Reactions: No Reported Reaction Date of Last Stent Placement:: 2009 Past Psychological History: No Psychological Hx Reported Smoking Status: Former smoker Past Alcohol Use History: None Reported Past Drug Use History: None Reported - Past Family History Father Family Medical History: Cancer Additional Family Medical History / Comment(s): Father of throat cancer in his early 70s. He had heart problems and an aneurysm Mother Family Medical History: Diabetes Mellitus, Myocardial Infarction (RI) Additional Family Medical History / Comment(s): Pt does not recall at what age mother had her RI General Exam Limitations: no limitations General appearance: alert, in no apparent distress, other (This is a well developed, well nourished adult male in no acute distress.) Head exam: Present: other (No right temporal tenderness. No arterial induration. Palpable temporal pulse. ) Eye exam: Present: PERRL, EOMI, periorbital tenderness (right lateral canthus), other. Absent: scleral icterus, conjunctival injection, periorbital swelling Expanded Sclera/Conjunctival: Hemorrhage: Right (from 3 o'clock, extending to 11 o'clock) Anterior chamber: Normal Inspection: Right Posterior chamber: Normal Inspection: Right Visual acuity (R) = 20/: 15 Visual acuity (L) = 20/: 40 With correction: Yes IOP (R) in mmH IOP measured with: [facility] ENT exam: Present: normal exam, normal oropharynx, mucous membranes moist Respiratory exam: Present: normal lung sounds bilaterally. Absent: respiratory distress, wheezes, rales, rhonchi, stridor Cardiovascular Exam: Present: regular rate, normal rhythm, normal heart sounds. Absent: systolic murmur, diastolic murmur, rubs, gallop, clicks Neurological exam: Present: alert, oriented X3, CN II-XII intact Psychiatric exam: Present: normal affect, normal mood Skin exam: Present: warm, dry, intact, normal color. Absent: rash Course Vital Signs 04/15/21 04/15/21 18:35 20:59 Temperature 98.4 F 98.7 F Pulse Rate 82 85 Respiratory 20 20 Rate Blood Pressure 173/95 159/73 O2 Sat by Pulse 98 97 Oximetry Medical Decision Making - Medical Decision Making 65-year-old male patient presents for evaluation of redness and discomfort to the right eye. Physical examination did reveal large right subconjunctival hemorrhage. Cornea intact. No hyphema. Did perform limited funduscopic examination with the ophthalmoscope. No evidence for retinal detachment or other abnormalities. Pressure to the right eye 16 mmHg, visual acuity 20/15 with correction. I did discuss the case with on-call cafe lead who recommends follow-up in his office in the morning at 8 AM. I did discuss this plan with the patient. He is agreeable. He is discharged in stable condition. Case is discussed with my attending Dr. Leal. Disposition Clinical Impression: Subconjunctival hemorrhage of right eye Disposition: HOME SELF-CARE Condition: Good Instructions (If sedation given, give patient instructions): Subconjunctival Hemorrhage (ED) Additional Instructions: Do not rub the eye. Take home medications as directed. Follow up with ophthalmology in their office tomorrow morning at 8 AM. Follow up with your primary care physician for recheck in 1-2 days. Return for any new, worsening, or concerning symptoms. Is patient prescribed a controlled substance at d/c from ED?: No Referrals: Ceasar Sears DO [Primary Care Provider] - 1-2 days Ancelmo Ibrahim MD [STAFF PHYSICIAN] - 1-2 days Time of Disposition: 20:26
[2021-04-15] MEDS ORDERED: ACETAMINOPHEN TAB 325 MG TAB PO STA (20:31)
[2021-04-15 21:23] VITALS: BP 159/73; PULSE 85; TEMP 98.7
== END 2021-04-15 20:59 | disposition home or self-care (01) ==
LOC: EC 17:40
DX: H11.31 Conjunctival hemorrhage, right eye (principal); E11.9 Type 2 diabetes mellitus without complications; I10 Essential (primary) hypertension; I21.9 Acute myocardial infarction, unspecified; Z87.891 Personal history of nicotine dependence
CPT/HCPCS: 99283

== ENCOUNTER 2021-06-03 14:11 | Observation (INO) | payer MEDICARE ==
[2021-06-03 14:38] LABS: Basophils % (A) 0 %; Eosinophils # (A) 0.1 k/uL (0-0.7); Eosinophils % (A) 2 %; HCT 40.5 % (39.0-53.0); HGB 13.6 gm/dL (13.0-17.5); Lymphocytes # (A) 0.9 k/uL (1.0-4.8); Lymphocytes % (A) 13 %; MCH 32.6 pg (25.0-35.0); MCHC 33.5 g/dL (31.0-37.0); MCV 97.4 fL (80.0-100.0); Mean Platelet Volume 7.6; Monocytes # (A) 0.4 k/uL (0-1.0); Monocytes % (A) 5 %; Neutrophils # (A) 5.4 k/uL (1.3-7.7); Neutrophils % (A) 77 %; Platelet Count 236 k/uL (150-450); RBC 4.16 m/uL (4.30-5.90); RDW 14.8 % (11.5-15.5); WBC 6.9 k/uL (3.8-10.6)
[2021-06-03 14:44] LABS: INR 0.9 (<1.2); Prothrombin Time 10.4 sec (9.0-12.0)
[2021-06-03] MEDS ORDERED: ASPIRIN 81 MG PO STA (14:57)
[2021-06-03 14:58] LABS: ALT 25 U/L (4-49); AST 30 U/L (17-59); African American GFR (CKD) >90 (>60 ml/min/1.73 sqM); Albumin 4.2 g/dL (3.5-5.0); Alkaline Phosphatase 79 U/L (38-126); Anion Gap 9 mmol/L; Blood Urea Nitrogen 16 mg/dL (9-20); Calcium 9.3 mg/dL (8.4-10.2); Carbon Dioxide 24 mmol/L (22-30); Chloride 102 mmol/L (98-107); Glucose 295 mg/dL (74-99); Magnesium 1.5 mg/dL (1.6-2.3); Non-African American GFR(CKD) >90 (>60 ml/min/1.73 sqM); Potassium 4.8 mmol/L (3.5-5.1); Sodium 135 mmol/L (137-145); Total Bilirubin 0.7 mg/dL (0.2-1.3)
--- NOTE | 2021-06-03 15:03 | XR ---
EXAMINATION TYPE: XR chest 2V DATE OF EXAM: 06/03/2021 COMPARISON: Chest x-ray 03/02/2021 HISTORY: Chest pain TECHNIQUE: Frontal and lateral views of the chest are obtained. FINDINGS: There is no focal air space opacity, pleural effusion, or pneumothorax seen. The cardiac silhouette size is within normal limits. The aorta is dense. The osseous structures are stable, post op change noted to the distal right clavicle. IMPRESSION: No acute cardiopulmonary process.
--- NOTE | 2021-06-03 15:04 | ED ---
General Adult HPI - General Chief complaint: Chest Pain Stated complaint: chest pain Time Seen by Provider: 06/03/21 14:56 Source: patient, RN notes reviewed Mode of arrival: ambulatory Limitations: no limitations - History of Present Illness Initial comments: Patient is a pleasant [age]-year-old male presenting to the emergency department chest discomfort. Symptoms have been persistent for a several days now. Discomfort is sharp. Discomfort does worsen somewhat with exertion. Patient also has some mild dyspnea. No nausea. No diaphoresis. - Related Data Home Medications Medication Instructions Recorded Confirmed Levothyroxine Sodium [Synthroid] 75 mcg PO DAILY 08/19/18 03/02/21 Albuterol Inhaler [Ventolin Hfa 2 puff INHALATION RT-Q4H PRN 03/02/21 03/02/21 Inhaler] Previous Rx's Medication Instructions Recorded metFORMIN HCL [Glucophage] 1,000 mg PO BID #60 tab 05/31/15 glipiZIDE [Glucotrol] 5 mg PO AC-BID #60 tab 08/20/18 Aspirin EC [Ecotrin Low Dose] 81 mg PO HS #90 tab 03/04/21 Atorvastatin [Lipitor] 80 mg PO HS #90 tab 03/04/21 Clopidogrel [Plavix] 75 mg PO DAILY #90 tab 03/04/21 Metoprolol Tartrate [Lopressor] 25 mg PO BID #180 tab 03/04/21 Nitroglycerin Sl Tabs [Nitrostat] 0.4 mg SUBLINGUAL Q5M PRN #100 tab 03/04/21 lisinopriL [Zestril] 10 mg PO DAILY #90 tab 03/04/21 Insuln Asp Prt/Insulin Aspart 15 unit SQ BID #10 ml 03/05/21 [NovoLOG MIX 70-30 VIAL] Magnesium Oxide [Mag-Ox] 400 mg PO BID #60 tablet 03/05/21 Syringe-Needle,Insulin,0.5 ml 1 syr SQ DIRECTED #60 each 03/05/21 [Insulin Syringe 30G 5/16" 1/2 ml] Allergies Allergy/AdvReac Type Severity Reaction Status Date / Time No Known Allergies Allergy Verified 06/03/21 14:18 Review of Systems ROS Statement: Those systems with pertinent positive or pertinent negative responses have been documented in the HPI. ROS Other: All systems not noted in ROS Statement are negative. Constitutional: Denies: fever Eyes: Denies: eye pain ENT: Denies: ear pain Respiratory: Reports: as per HPI. Denies: cough Cardiovascular: Reports: as per HPI, chest pain Endocrine: Denies: fatigue Gastrointestinal: Denies: abdominal pain Genitourinary: Denies: urgency Musculoskeletal: Denies: back pain Skin: Denies: rash Neurological: Denies: weakness Past Medical History Past Medical History: Coronary Artery Disease (CAD), Diabetes Mellitus, Hyperlipidemia, Hypertension, Myocardial Infarction ([place]), Thyroid Disorder Additional Past Medical History / Comment(s): NIDDM type II, neuropathy bilateral feet, hypothyroid, chronic low back pain, DDD, stress vertebral fracture lower back, 2 herniated cervical discs-neck pain, chron's, diverticulosis, illeitis, suspected L upper lobe pulmonary embolism, recent/current shingelles R upper chest. Last Myocardial Infarction Date:: 03-02-2021 History of Any Multi-Drug Resistant Organisms: None Reported Past Surgical History: Bowel Resection, Cholecystectomy, Heart Catheterization With Stent, Orthopedic Surgery, Tonsillectomy Additional Past Surgical History / Comment(s): PCI with stent 2009 at [facility], bowel resection d/t chron's, R shoulder rotator cuff repair, colonoscopy Past Anesthesia/Blood Transfusion Reactions: No Reported Reaction Date of Last Stent Placement:: 2009 Past Psychological History: No Psychological Hx Reported Smoking Status: Former smoker Past Alcohol Use History: None Reported Past Drug Use History: None Reported - Past Family History Father Family Medical History: Cancer Additional Family Medical History / Comment(s): Father of throat cancer in his early 70s. He had heart problems and an aneurysm Mother Family Medical History: Diabetes Mellitus, Myocardial Infarction ([place]) Additional Family Medical History / Comment(s): Pt does not recall at what age mother had her [place] General Exam Limitations: no limitations General appearance: alert, in no apparent distress Head exam: Present: normocephalic Eye exam: Present: normal appearance Neck exam: Present: normal inspection Respiratory exam: Present: normal lung sounds bilaterally. Absent: chest wall tenderness Cardiovascular Exam: Present: regular rate, normal rhythm Expanded Peripheral pulses: 2+: Radial (R), Radial (L), Posterior Tibialis (R), Posterior Tibialis (L) GI/Abdominal exam: Present: soft. Absent: tenderness Extremities exam: Present: normal inspection. Absent: pedal edema, calf tenderness Neurological exam: Present: alert Psychiatric exam: Present: normal affect, normal mood Skin exam: Present: normal color Course Vital Signs 06/03/21 14:15 Temperature 96.9 F L Pulse Rate 96 Respiratory 18 Rate Blood Pressure 125/70 O2 Sat by Pulse 97 Oximetry EKG Findings - EKG Comments: EKG Findings:: Sinus rhythm with a rate of 88. SD 160. QRS 94. QT 356. QTc 402. Normal axis. Normal QRS. No acute ST change. Medical Decision Making - Medical Decision Making Patient updated on results and plan. Dr. Sears has been paged for admission of his patient. - Lab Data Result diagrams: 06/03/21 14:27 06/03/21 14:27 Lab Results 06/03/21 06/03/21 06/03/21 Range/Units 14:27 14:27 14:27 WBC 6.9 (3.8-10.6) k/uL RBC 4.16 L (4.30-5.90) m/uL Hgb 13.6 (13.0-17.5) gm/dL Hct 40.5 (39.0-53.0) % MCV 97.4 (80.0-100.0) fL MCH 32.6 (25.0-35.0) pg MCHC 33.5 (31.0-37.0) g/dL RDW 14.8 (11.5-15.5) % Plt Count 236 (150-450) k/uL MPV 7.6 Neutrophils % 77 % Lymphocytes % 13 % Monocytes % 5 % Eosinophils % 2 % Basophils % 0 % Neutrophils # 5.4 (1.3-7.7) k/uL Lymphocytes # 0.9 L (1.0-4.8) k/uL Monocytes # 0.4 (0-1.0) k/uL Eosinophils # 0.1 (0-0.7) k/uL Basophils # 0.0 (0-0.2) k/uL PT 10.4 (9.0-12.0) sec INR 0.9 (<1.2) APTT 25.0 (22.0-30.0) sec D-Dimer (<0.60) mg/L FEU Sodium 135 L (137-145) mmol/L Potassium 4.8 (3.5-5.1) mmol/L Chloride 102 (98-107) mmol/L Carbon Dioxide 24 (22-30) mmol/L Anion Gap 9 mmol/L BUN 16 (9-20) mg/dL Creatinine 0.79 (0.66-1.25) mg/dL Est GFR (CKD-EPI)AfAm >90 (>60 ml/min/1.73 sqM) Est GFR (CKD-EPI)NonAf >90 (>60 ml/min/1.73 sqM) Glucose 295 H (74-99) mg/dL Calcium 9.3 (8.4-10.2) mg/dL Magnesium 1.5 L (1.6-2.3) mg/dL Total Bilirubin 0.7 (0.2-1.3) mg/dL AST 30 (17-59) U/L ALT 25 (4-49) U/L Alkaline Phosphatase 79 (38-126) U/L Troponin I (0.000-0.034) ng/mL NT-Pro-B Natriuret Pep pg/mL Total Protein 7.0 (6.3-8.2) g/dL Albumin 4.2 (3.5-5.0) g/dL 06/03/21 06/03/21 06/03/21 Range/Units 14:27 14:27 14:27 WBC (3.8-10.6) k/uL RBC (4.30-5.90) m/uL Hgb (13.0-17.5) gm/dL Hct (39.0-53.0) % MCV (80.0-100.0) fL MCH (25.0-35.0) pg MCHC (31.0-37.0) g/dL RDW (11.5-15.5) % Plt Count (150-450) k/uL MPV Neutrophils % % Lymphocytes % % Monocytes % % Eosinophils % % Basophils % % Neutrophils # (1.3-7.7) k/uL Lymphocytes # (1.0-4.8) k/uL Monocytes # (0-1.0) k/uL Eosinophils # (0-0.7) k/uL Basophils # (0-0.2) k/uL PT (9.0-12.0) sec INR (<1.2) APTT (22.0-30.0) sec D-Dimer 0.74 H (<0.60) mg/L FEU Sodium (137-145) mmol/L Potassium (3.5-5.1) mmol/L Chloride (98-107) mmol/L Carbon Dioxide (22-30) mmol/L Anion Gap mmol/L BUN (9-20) mg/dL Creatinine (0.66-1.25) mg/dL Est GFR (CKD-EPI)AfAm (>60 ml/min/1.73 sqM) Est GFR (CKD-EPI)NonAf (>60 ml/min/1.73 sqM) Glucose (74-99) mg/dL Calcium (8.4-10.2) mg/dL Magnesium (1.6-2.3) mg/dL Total Bilirubin (0.2-1.3) mg/dL AST (17-59) U/L ALT (4-49) U/L Alkaline Phosphatase (38-126) U/L Troponin I <0.012 (0.000-0.034) ng/mL NT-Pro-B Natriuret Pep 32 pg/mL Total Protein (6.3-8.2) g/dL Albumin (3.5-5.0) g/dL - Radiology Data Radiology results: image reviewed (Chest x-ray shows no acute process) Disposition Clinical Impression: Chest pain Disposition: ADMITTED IP TO THIS HOSP Is patient prescribed a controlled substance at d/c from ED?: No Referrals: Ceasar Sears DO [Primary Care Provider] - 1-2 days Decision Time: 15:31
[2021-06-03] MEDS ORDERED: NITROGLYCERIN SL TABS 0.4 MG TAB SUBLINGUAL PRN (15:31)
--- NOTE | 2021-06-03 16:53 | CT ---
EXAMINATION TYPE: CT angio chest DATE OF EXAM: 06/03/2021 COMPARISON: CT dated 11/13/2016 HISTORY: Mid to right chest pain. CT DLP: 408.6 mGy.cm. Automated Exposure Control for Dose Reduction was Utilized. TECHNIQUE AND CONTRAST: CTA scan of the thorax is performed with IV Contrast, patient injected with 100 mL of Isovue 370, pul [facility] angiogram protocol. MIP Images are created on CT scanner and reviewed. FINDINGS: No definite filling defect within the pulmonary trunk, main pulmonary arteries, lobar, segmental and proximal subsegmental branches to suggest pulmonary embolism. Distal subsegmental branches are subopt imally assessed. The pulmonary trunk measures 2.6 cm. No gross cardiomegaly. Arterial and coronary at herosclerotic calcifications. No pericardial effusion. No pathologically enlarged lymph nodes in the chest. Stable 6 mm nodule at the posterolateral aspect of the right lower lobe (image #94, series 506). CBD changes with mild centrilobular emphysematous changes in the right upper lobe. Bilateral peripheral p ulmonary reticulations and [id number] fibrotic changes. Patent trachea and main bronchi. No ple ural effusion. Bulky liver and spleen, please correlate clinically. Previous cholecystectomy. No aggr essive bone lesion. IMPRESSION: No major or central pulmonary embolism. Incidental findings as described above.
[2021-06-03 18:38] LABS: Glucose,Whole Blood 158 mg/dL (75-99)
[2021-06-03] MEDS: NITROGLYCERIN OINT 1 INCH/GM PACKET TOPICAL SCH (20:06)
[2021-06-03] MEDS ORDERED: metFORMIN 500 MG TAB PO SCH (21:00)
[2021-06-03] MEDS ORDERED: ATORVASTATIN 80 MG TAB PO SCH (21:00)
[2021-06-03] MEDS ORDERED: glipiZIDE 5 MG TAB PO SCH (21:00)
[2021-06-03] MEDS ORDERED: ASPIRIN 81 MG PO SCH (21:00)
[2021-06-03 21:40] LABS: Glucose,Whole Blood 275 mg/dL (75-99)
[2021-06-03] MEDS ORDERED: INSULIN REGULAR 100 UNIT/ML VIAL (IV) IV ONE (21:50)
[2021-06-03] MEDS: METOPROLOL TARTRATE 25 MG TAB PO SCH (22:21)
[2021-06-03] MEDS: MAGNESIUM OXIDE 400 MG TAB PO SCH (22:21)
[2021-06-03] MEDS: INSULIN ASPART (NovoLOG) 100 UNIT/ML VIAL SQ SCH (22:57)
[2021-06-04] MEDS: NITROGLYCERIN OINT 1 INCH/GM PACKET TOPICAL SCH ×2 (02:32→05:39)
[2021-06-04] MEDS ORDERED: LEVOTHYROXINE 75 MCG TAB PO SCH (06:30)
[2021-06-04 08:10] LABS: Glucose,Whole Blood 189 mg/dL (75-99)
[2021-06-04 08:46] VITALS: BP 130/72; PULSE 69; RESP 14; TEMP 97.4
[2021-06-04] MEDS ORDERED: ASPIRIN 325 MG TAB PO SCH (09:00)
[2021-06-04] MEDS ORDERED: lisinopriL 10 MG TAB PO SCH (09:00)
[2021-06-04] MEDS ORDERED: CLOPIDOGREL 75 MG TAB PO SCH (09:00)
[2021-06-04] MEDS: MAGNESIUM OXIDE 400 MG TAB PO SCH (09:06)
[2021-06-04] MEDS: METOPROLOL TARTRATE 25 MG TAB PO SCH (09:07)
[2021-06-04] MEDS: INSULIN ASPART (NovoLOG) 100 UNIT/ML VIAL SQ SCH (09:07)
--- NOTE | 2021-06-04 10:32 | P.HPIM ---
History of Present Illness H&P Date: 06/04/21 History and Physical and Discharge Summary This is a 65-year-old gentleman with past medical history of recent anterior wall STEMI with stent placement to the mid LAD in February 2021, hyperglycemia a nd multiple other medical issues admitted with sharp chest pain, accompanied by mild increased shortness of breath, worsened with exertion for several days. Denies nausea vomiting or diarrhea. Denies diaphoresis. Denies lightheadedness dizziness or focal deficits. Serial troponins negative. EKG reported sinus rhythm. D-dimer elevated, 0.74. Chest CTA reported no major central PE, incidental findings of stable 6 mm nodule at the posterior lateral aspect of the right lower lobe,CBD changes with mild centrilobar emphysematous changes in the right upper lobe, bilateral peripheral pulmonary reticulations and mild to moderate fibrotic changes, bilateral peripheral pulmonary, bulky liver and spleen. Chest x-ray reporting no acute cardiopulmonary process. Afebrile, normal WBC, vital signs stable. Hematology and chemistry unremarkable with the exception of magnesium 1.5, repeat level pending. Lipid panel pending. Blood sugars ranging from 180s to 200s, recently placed on NovoLog mix 70/30 insulin. Cardiology consult in place. Review of Systems ROS Statement: Those systems with pertinent positive or pertinent negative responses have been documented in the HPI. ROS Other: All systems not noted in ROS Statement are negative. Past Medical History Past Medical History: Coronary Artery Disease (CAD), Diabetes Mellitus, Hyperlipidemia, Hypertension, Myocardial Infarction ([place]), Thyroid Disorder Additional Past Medical History / Comment(s): NIDDM type II, neuropathy bilateral feet, hypothyroid, chronic low back pain, DDD, stress vertebral fracture lower back, 2 herniated cervical discs-neck pain, chron's, diverticulosis, illeitis, suspected L upper lobe pulmonary embolism, recent/current shingelles R upper chest. Last Myocardial Infarction Date:: 03-02-2021 History of Any Multi-Drug Resistant Organisms: None Reported Past Surgical History: Bowel Resection, Cholecystectomy, Heart Catheterization With Stent, Orthopedic Surgery, Tonsillectomy Additional Past Surgical History / Comment(s): PCI with stent 2009 at [facility], bowel resection d/t chron's, R shoulder rotator cuff repair, colonoscopy Past Anesthesia/Blood Transfusion Reactions: No Reported Reaction Date of Last Stent Placement:: 2009 Past Psychological History: No Psychological Hx Reported Smoking Status: Former smoker Past Alcohol Use History: None Reported Past Drug Use History: None Reported - Past Family History Father Family Medical History: Cancer Additional Family Medical History / Comment(s): Father of throat cancer in his early 70s. He had heart problems and an aneurysm Mother Family Medical History: Diabetes Mellitus, Myocardial Infarction ([place]) Additional Family Medical History / Comment(s): Pt does not recall at what age mother had her [place] Medications and Allergies Home Medications Medication Instructions Recorded Confirmed Type metFORMIN HCL [Glucophage] 1,000 mg PO BID #60 tab 05/31/15 06/03/21 Rx Levothyroxine Sodium [Synthroid] 75 mcg PO DAILY 08/19/18 06/03/21 History Aspirin EC [Ecotrin Low Dose] 81 mg PO HS #90 tab 03/04/21 06/03/21 Rx Atorvastatin [Lipitor] 80 mg PO HS #90 tab 03/04/21 06/03/21 Rx Clopidogrel [Plavix] 75 mg PO DAILY #90 tab 03/04/21 06/03/21 Rx Metoprolol Tartrate [Lopressor] 25 mg PO BID #180 tab 03/04/21 06/03/21 Rx Nitroglycerin Sl Tabs [Nitrostat] 0.4 mg SUBLINGUAL Q5M PRN #100 tab 03/04/21 06/03/21 Rx lisinopriL [Zestril] 10 mg PO DAILY #90 tab 03/04/21 06/03/21 Rx Magnesium Oxide [Mag-Ox] 400 mg PO BID #60 tablet 03/05/21 06/03/21 Rx Insulin Aspart Protam & Aspart See Protocol SQ BID 06/03/21 06/03/21 History [NovoLOG MIX 70-30 Flexpen] Sildenafil Citrate [Viagra] 100 mg PO Q72H PRN 06/03/21 06/03/21 History glipiZIDE [Glucotrol] 5 mg PO BID 06/03/21 06/03/21 History Allergies Allergy/AdvReac Type Severity Reaction Status Date / Time No Known Allergies Allergy Verified 06/03/21 14:18 Physical Exam Vitals: Vital Signs Temp Pulse Pulse Pulse Resp BP BP 06/04/21 07:50 97.4 F L 69 14 130/72 06/04/21 07:17 06/04/21 06:08 98.5 F 67 18 124/69 06/04/21 02:21 63 18 06/04/21 01:00 62 16 06/04/21 00:38 65 16 06/03/21 23:00 72 06/03/21 21:37 70 18 120/78 06/03/21 20:01 76 16 06/03/21 18:22 69 18 127/76 06/03/21 17:00 69 18 121/68 06/03/21 16:00 70 18 111/63 06/03/21 15:37 83 06/03/21 15:33 81 18 135/72 06/03/21 14:15 96.9 F L 96 18 125/70 Pulse Ox 06/04/21 07:50 96 06/04/21 07:17 97 06/04/21 06:08 96 06/04/21 02:21 06/04/21 01:00 06/04/21 00:38 06/03/21 23:00 06/03/21 21:37 95 06/03/21 20:01 06/03/21 18:22 96 06/03/21 17:00 95 06/03/21 16:00 95 06/03/21 15:37 06/03/21 15:33 95 06/03/21 14:15 97 - Exam General: Sitting up in bed, no acute distress HEENT: Normocephalic. Neck is supple. Pupils reactive. Neck: Supple, no JVD. CHEST EXAMINATION: CTA CARDIAC: Normal S1, S2 with no gallops. No murmurs ABDOMEN: Soft. Bowel sounds normal. No organomegaly. Extremities: reveal no edema. No clubbing or cyanosis Neurologically awake, alert, oriented x3.No focal deficits noted Skin: No rash, warm and dry Results CBC & Chem 7: 06/03/21 14:27 06/03/21 14:27 Labs: Abnormal Lab Results - Last 24 Hours (Table) 06/03/21 06/03/21 06/03/21 Range/Units 14:27 14:27 14:27 RBC 4.16 L (4.30-5.90) m/uL Lymphocytes # 0.9 L (1.0-4.8) k/uL D-Dimer 0.74 H (<0.60) mg/L FEU Sodium 135 L (137-145) mmol/L Glucose 295 H (74-99) mg/dL POC Glucose (mg/dL) (75-99) mg/dL Magnesium 1.5 L (1.6-2.3) mg/dL 06/03/21 06/03/21 06/04/21 Range/Units 18:36 21:34 08:09 RBC (4.30-5.90) m/uL Lymphocytes # (1.0-4.8) k/uL D-Dimer (<0.60) mg/L FEU Sodium (137-145) mmol/L Glucose (74-99) mg/dL POC Glucose (mg/dL) 158 H 275 H 189 H (75-99) mg/dL Magnesium (1.6-2.3) mg/dL Assessment and Plan Assessment: Chest pain, serial troponins negative, outpatient stress test next week CAD,Recent anterior wall ST elevated [place], mid LAD stent, February 2021 and previous stent placement 2009 Incidental findings of stable 6 mm nodule at the posterior lateral aspect of the right lower lobe, further follow-up outpatient Diabetes mellitus type 2, hemoglobin A1c 8.1, February 2021. Hypomagnesemia Hyperlipidemia Hypothyroidism Plan: Continue current medication regime ,monitoring and symptomatic treatment. Evaluated and cleared by cardiology for discharge, patient to proceed with outpatient stress test previously scheduled for next week. Patient will be discharged home today in a stable condition with her prognosis pending magnesium level. Discharge Medication List metFORMIN HCL [Glucophage] 1,000 mg PO BID #60 tab 05/31/15 [Rx] Levothyroxine Sodium [Synthroid] 75 mcg PO DAILY 08/19/18 [History] Aspirin EC [Ecotrin Low Dose] 81 mg PO HS #90 tab 03/04/21 [Rx] Atorvastatin [Lipitor] 80 mg PO HS #90 tab 03/04/21 [Rx] Clopidogrel [Plavix] 75 mg PO DAILY #90 tab 03/04/21 [Rx] Metoprolol Tartrate [Lopressor] 25 mg PO BID #180 tab 03/04/21 [Rx] Nitroglycerin Sl Tabs [Nitrostat] 0.4 mg SUBLINGUAL Q5M PRN #100 tab 03/04/21 [Rx] lisinopriL [Zestril] 10 mg PO DAILY #90 tab 03/04/21 [Rx] Magnesium Oxide [Mag-Ox] 400 mg PO BID #60 tablet 12/07/21 [Rx] Insulin Aspart Protam & Aspart [NovoLOG MIX 70-30 Flexpen] See Protocol SQ BID 06/03/21 [History] Sildenafil Citrate [Viagra] 100 mg PO Q72H PRN 06/03/21 [History] glipiZIDE [Glucotrol] 5 mg PO BID 06/03/21 [History] The impression and plan of care has been dictated as directed. : I performed a history and examination of this patient, discussed the same with the dictator. I agree with the dictator's note ,documented as a scribe. Any additional findings or plans will be noted.
[2021-06-04] MEDS ORDERED: INSULIN DETEMIR (LEVEMIR) 100 UNIT/ML SYR SQ SCH (11:00)
[2021-06-04 11:12] LABS: Chol/HDL Ratio 2.31 Ratio; LDL Cholesterol,Calculated 13.2 mg/dL (0.0-131.0)
--- NOTE | 2021-06-04 13:12 | CONS ---
CONSULTATION Mr. Иван Moctezuma is a 65-year-old gentleman with a known history of CAD who underwent stenting of his mid LAD, a restenotic lesion that was performed by me in early February 2021. He has seen Dr. Rivas in the outpatient setting and was scheduled to have a stress test next week. However, for the last one week on and off he has been experiencing a persistent focal discomfort on the right side of his chest, sharp in nature, that seems to persist, does not have any relation to physical activity; in fact, with activity he feels better. With these symptoms he came into the hospital. Three sets of troponins are normal. Pain is atypical. He is asymptomatic and his EKG and troponins are unremarkable. Quality of pain is atypical. He also has other comorbid conditions in the form of hypertension, hyperlipidemia and type 2 diabetes mellitus, which are under good control. Based on my evaluation, his pain is atypical. I am recommending he can be discharged and follow up with Dr. Rivas within the next 7 to 8 days, and he is already scheduled to have a stress test. Discussed my thoughts in detail with the patient. He can be discharged. PAST MEDICAL HISTORY: 1. Hypertension. 2. Hyperlipidemia. 3. Type 2 diabetes mellitus. 4. CAD with anterior ST-elevation [place] and stenting of mid LAD restenotic lesion in early February 2021. MEDICATIONS: Please refer to the chart. PHYSICAL EXAMINATION: On examination, blood pressure is 124/70, pulse rate is 68 per minute, regular. HEENT unremarkable. Fundus was not examined by me. Neck is supple. No JVD. I do not hear a carotid bruit. Heart exam reveals S1, S2 heard normally. No rub, murmur or gallop. Lungs are clear. Abdomen is soft, nontender. Lower extremities reveal normal pulses. No edema. Central nervous system is normal EKG revealed sinus mechanism, no acute changes. LABORATORY DATA: Laboratory data suggest mild elevation of D-dimer and CT angiogram was negative for any pulmonary embolism. IMPRESSION: 1. Atypical chest pain. 2. History of coronary artery disease with previous stenting of LAD, last episode was an ST-elevation [place] with a good result in early February 2021. 3. Type 2 diabetes. 4. Hypertension. 5. Hyperlipidemia. RECOMMENDATIONS: We will increase activity, feed the patient. If he has no further symptoms, he can be discharged and follow up with a stress test scheduled within the next 7 to 8 days at the office and see Dr. Rivas following that. Thank you very much for the consult. MMODL / IJN: [id number] /
== END 2021-06-04 13:01 | disposition home or self-care (01) ==
LOC: EC 14:11 → 6NMEDSUR 15:32
PROVIDERS: ADMIT Family Medicine; ATTEND Family Medicine
DX: R07.89 Other chest pain (principal); R06.00 Dyspnea, unspecified; I25.10 Atherosclerotic heart disease of native coronary artery without angina pectoris; E11.40 Type 2 diabetes mellitus with diabetic neuropathy, unspecified; M50.20 Other cervical disc displacement, unspecified cervical region; E78.5 Hyperlipidemia, unspecified; I10 Essential (primary) hypertension; I25.2 Old myocardial infarction; R06.02 Shortness of breath; R79.89 Other specified abnormal findings of blood chemistry; E83.42 Hypomagnesemia; R91.1 Solitary pulmonary nodule; E11.65 Type 2 diabetes mellitus with hyperglycemia; E03.9 Hypothyroidism, unspecified; K50.90 Crohn's disease, unspecified, without complications; M50.30 Other cervical disc degeneration, unspecified cervical region; G89.29 Other chronic pain; M54.50 Low back pain, unspecified; K57.90 Diverticulosis of intestine, part unspecified, without perforation or abscess without bleeding; G62.9 Polyneuropathy, unspecified; Z79.890 Hormone replacement therapy; Z79.899 Other long term (current) drug therapy; Z79.84 Long term (current) use of oral hypoglycemic drugs; Z79.02 Long term (current) use of antithrombotics/antiplatelets; Z79.4 Long term (current) use of insulin; Z79.82 Long term (current) use of aspirin; Z90.49 Acquired absence of other specified parts of digestive tract; Z95.5 Presence of coronary angioplasty implant and graft; Z87.891 Personal history of nicotine dependence; Z86.19 Personal history of other infectious and parasitic diseases; Z80.0 Family history of malignant neoplasm of digestive organs; Z83.3 Family history of diabetes mellitus; Z82.49 Family history of ischemic heart disease and other diseases of the circulatory system
CPT/HCPCS: 99285; 36415; 93005 ×2; 85379; 83880; 80061; 80053; 83735 ×2; 84484; 85025; 85610; 85730; 71046; 71275; G0378 ×2; Q9967

== ENCOUNTER → 2022-07-10 | Outpatient (CLI) | payer MEDICARE ==
--- NOTE | 2022-07-10 09:56 | US ---
EXAMINATION TYPE: US abdomen complete DATE OF EXAM: 07/10/2022 COMPARISON: CT 2017 CLINICAL HISTORY: K50.90. Part of colon removed, Chron's, diverticulosis, cholecystectomy. TECHNIQUE: Multiple sonographic images of the abdomen are obtained. FINDINGS: EXAM MEASUREMENTS: Liver Length: 16.5 cm normal less than 15.5 cm. Gallbladder Wall: Surgically absent. CBD: 0.58 cm Spleen: 10.9 cm Right Kidney: 13.8 x 5.9 x 5.5 cm Left Kidney: 12.7 x 6.0 x 5.2 cm CANDY DIPPER HAND NOTES: Limited due to patient body habitus and overlying bowel gas. Pancreas: Hyperechoic. Not well seen. Liver: Increased echogenicity. Appears very coarse. Gallbladder: Surgically absent. Evidence for sonographic Steve's sign: No CBD: Normal Spleen: Appears wnl Right Kidney: Enlarged. No hydronephrosis or masses seen Left Kidney: Enlarged. No hydronephrosis or masses seen Upper IVC: Appears wnl Abd Aorta: Proximal segment appears ectatic. Iliacs were obscured. IMPRESSION: 1. Fatty infiltration of the liver. Mild hepatomegaly is present.
== END | disposition home or self-care (01) ==
LOC: RADUSWWP 08:46
PROVIDERS: ATTEND Family Medicine
DX: K76.0 Fatty (change of) liver, not elsewhere classified (principal); K50.90 Crohn's disease, unspecified, without complications; R16.0 Hepatomegaly, not elsewhere classified
CPT/HCPCS: 76700

== ENCOUNTER 2022-07-18 05:39 | Day surgery (SDC) | payer MEDICARE ==
[2022-07-16 10:52] VITALS: BMI 28.0
[2022-07-18] MEDS ORDERED: LACTATED RINGERS 1,000 ML IV SCH (06:02)
[2022-07-18] MEDS ORDERED: LACTATED RINGERS 1,000 ML IV ONE (06:08)
[2022-07-18 06:19] LABS: Glucose,Whole Blood 137 mg/dL (70-110)
[2022-07-18 06:20] VITALS: TEMP 98
[2022-07-18] MEDS ORDERED: PROPOFOL 10 MG/ML 20 ML VIAL IV ONE (06:48)
[2022-07-18] MEDS ORDERED: LIDOCAINE 2% INJ 20 MG/ML (2 ML VIAL) ONE (06:48)
--- NOTE | 2022-07-18 07:12 | P.PCN ---
Date of Procedure: 07/18/22 Procedure(s) Performed: BRIEF HISTORY: Patient is a 66-year-old pleasant white male scheduled for an elective colonoscopy as a part of evaluation of long-standing history of Crohn's disease diagnosed in 2009. He is been in clinical remission. Her no maintenance medications. Last colonoscopy in 2017 was normal. PROCEDURE PERFORMED: Colonoscopy. PREOPERATIVE DIAGNOSIS: Long-standing history of Crohn's disease. IV sedation per Anesthesia. PROCEDURE: After informed consent was obtained, the patient, was brought into the endoscopy unit. IV sedation was administered by Anesthesia under continuous monitoring. Digital rectal examination was normal. Initially the Olympus CF-160 flexible video colonoscope was then inserted in the rectum, gradually advanced into the cecum without any difficulty. Careful examination was performed as the scope was gradually being withdrawn. Ileocecal valve and the appendiceal orifice were visualized and appeared normal. Prep was excellent. Terminal ileum was intubated and 20 cm visualized appeared normal. Mucosa of the cecum, ascending colon, transverse colon, descending colon, sigmoid colon, and rectum appeared normal. Scattered sigmoid diverticulosis. At 20 cm from anal was there was anastomosis from previous sigmoid colectomy noted. Retroflexion was performed in the rectum and no lesions were seen. The patient tolerated the procedure well. IMPRESSION: Normal-appearing colon from rectum to cecum with no evidence of colitis or colorectal neoplasia Normal-appearing terminal ileum Scattered sigmoid diverticulosis . RECOMMENDATIONS: Findings of this examination were discussed with the patient as well as his family. He was advised to have a repeat colonoscopy in 5 years..
[2022-07-18 07:15] VITALS: RESP 16
[2022-07-18 07:31] VITALS: BP 109/70; PULSE 71
== END 2022-07-18 07:54 | disposition home or self-care (01) ==
LOC: ORWHC2ENDO 05:39
PROVIDERS: ATTEND Internal Medicine Gastroenterology
DX: K50.90 Crohn's disease, unspecified, without complications (principal); K57.30 Diverticulosis of large intestine without perforation or abscess without bleeding; I25.2 Old myocardial infarction; E78.5 Hyperlipidemia, unspecified; I25.10 Atherosclerotic heart disease of native coronary artery without angina pectoris; E11.9 Type 2 diabetes mellitus without complications; E03.9 Hypothyroidism, unspecified; Z79.890 Hormone replacement therapy; Z79.899 Other long term (current) drug therapy; Z79.84 Long term (current) use of oral hypoglycemic drugs; Z95.5 Presence of coronary angioplasty implant and graft; Z79.82 Long term (current) use of aspirin; Z98.890 Other specified postprocedural states
CPT/HCPCS: 45378; J2704; J2001

== ENCOUNTER 2022-07-18 23:54 | Emergency (ER) | payer MEDICARE ==
[2022-07-19 00:11] VITALS: BP 124/71; PULSE 79; RESP 18; TEMP 98.3
--- NOTE | 2022-07-19 00:37 | ED ---
Eye Problem HPI - General Chief complaint: Eye Problems Stated complaint: Metal in Right Eye Time Seen by Provider: 07/19/22 00:19 Source: patient Mode of arrival: ambulatory Limitations: no limitations - History of Present Illness Initial comments: Patient is a 66-year-old male presenting with chief complaint of foreign body sensation to the right eye. Patient states that he had a piece of metal in his eye earlier today. He was seen at urgent care, the piece of metal was removed and tobramycin eyedrops are sent's pharmacy. Patient has not been able to warp picker the eyedrops yet. States that this evening he started having increased pain and foreign body sensation to the eye. He is worried that there is a piece in there that was missed earlier. He is having watering as well as discomfort with moving the eye. No swelling or discharge. No vision loss. Patient does not wear contact lenses. - Related Data Home Medications Medication Instructions Recorded Confirmed Levothyroxine Sodium [Synthroid] 75 mcg PO QAM 08/19/18 07/16/22 Insulin Aspart Prot/Insuln Asp See Protocol SQ BID PRN 06/03/21 07/16/22 [NovoLOG MIX 70-30 Flexpen] glipiZIDE [Glucotrol] 5 mg PO BID 06/03/21 07/16/22 Naproxen [Naprosyn] 500 mg PO HS PRN 03/20/22 07/16/22 lisinopriL [Zestril] 10 mg PO HS 07/16/22 07/16/22 Previous Rx's Medication Instructions Recorded metFORMIN HCL [Glucophage] 1,000 mg PO BID #60 tab 05/31/15 Aspirin EC [Ecotrin Low Dose] 81 mg PO HS #90 tab 03/04/21 Atorvastatin [Lipitor] 80 mg PO HS #90 tab 03/04/21 Clopidogrel [Plavix] 75 mg PO DAILY #90 tab 03/04/21 Allergies Allergy/AdvReac Type Severity Reaction Status Date / Time No Known Allergies Allergy Verified 07/19/22 00:09 Review of Systems ROS Statement: Those systems with pertinent positive or pertinent negative responses have been documented in the HPI. ROS Other: All systems not noted in ROS Statement are negative. Past Medical History Past Medical History: Coronary Artery Disease (CAD), Diabetes Mellitus, Hyperlipidemia, Hypertension, Myocardial Infarction (AL), Thyroid Disorder Additional Past Medical History / Comment(s): NIDDM type II, neuropathy bilateral feet, hypothyroid, chronic low back pain, DDD, stress vertebral fracture lower back, 2 herniated cervical discs-neck pain, chron's, diverticulosis, suspected L upper lobe pulmonary embolism, shingles R upper chest Last Myocardial Infarction Date:: 03-02-2021 History of Any Multi-Drug Resistant Organisms: None Reported Past Surgical History: Bowel Resection, Cholecystectomy, Heart Catheterization With Stent, Orthopedic Surgery, Tonsillectomy Additional Past Surgical History / Comment(s): PCI with stent 2009 at [facility], bowel resection with 1 ft of colon removed d/t chron's, R shoulder rotator cuff repair, colonoscopy, right neck glad removed as child Past Anesthesia/Blood Transfusion Reactions: No Reported Reaction Date of Last Stent Placement:: 2020 Past Psychological History: No Psychological Hx Reported Smoking Status: Former smoker Past Alcohol Use History: None Reported Past Drug Use History: None Reported - Past Family History Father Family Medical History: Cancer Additional Family Medical History / Comment(s): Father of throat cancer in his early 70s. He had heart problems and an aneurysm Mother Family Medical History: Diabetes Mellitus, Myocardial Infarction (AL) Additional Family Medical History / Comment(s): Pt does not recall at what age mother had her AL Daughter(s) Family Medical History: Cancer Additional Family Medical History / Comment(s): thyroid CA Brother(s) Family Medical History: Diabetes Mellitus, Renal Disease General Exam Limitations: no limitations General appearance: alert, in no apparent distress Head exam: Present: atraumatic, normocephalic, normal inspection Eye exam: Present: PERRL, EOMI, conjunctival injection, other (no FB, corneal abrasion noted). Absent: periorbital swelling, periorbital tenderness Neck exam: Present: normal inspection, full ROM Neurological exam: Present: alert, oriented X3, CN II-XII intact Psychiatric exam: Present: normal affect, normal mood Skin exam: Present: warm, dry, intact, normal color. Absent: rash Course Vital Signs 07/19/22 00:09 Temperature 98.3 F Pulse Rate 79 Respiratory 18 Rate Blood Pressure 124/71 O2 Sat by Pulse 98 Oximetry Medical Decision Making - Medical Decision Making Was pt. sent in by a medical professional or institution (, PA, NIB FINISHER, urgent care, hospital, or fdc...) When possible be specific @ -No Did you speak to anyone other than the patient for history (EMS, parent, family, police, friend...)? What history was obtained from this source @ -No Did you review nursing and triage notes (agree or disagree)? Why? @ -I reviewed and agree with nursing and triage notes Were old charts reviewed (outside hosp., previous admission, EMS record, old EKG, old radiological studies, urgent care reports/EKG's, fdc records)? Report findings @ -No old charts were reviewed Differential Diagnosis (chest pain, altered mental status, abdominal pain women, abdominal pain men, vaginal bleeding, weakness, fever, dyspnea, syncope, headache, dizziness, GI bleed, back pain, seizure, CVA, palpatations, mental health, musculoskeletal)? @ -Differential includes corneal abrasion, foreign body, corneal ulcer, this is not an all inclusive list EKG interpreted by me (3pts min.). @ -As above X-rays interpreted by me (1pt min.). @ -None done CT interpreted by me (1pt min.). @ -None done U/S interpreted by me (1pt. min.). @ -None done What testing was considered but not performed or refused? (CT, X-rays, U/S, labs)? Why? @ -None What meds were considered but not given or refused? Why? @ -None Did you discuss the management of the patient with other professionals (professionals i.e. , PA, NIB FINISHER, lab, RT, psych nurse, web content & social media manager, flake miller helper, teacher, adult probation officer, housing case manager)? Give summary @ -No Was smoking cessation discussed for >3mins.? @ -No Was critical care preformed (if so, how long)? @ -No Were there social determinants of health that impacted care today? How? (Homelessness, low income, unemployed, alcoholism, drug addiction, transportation, low edu. Level, literacy, decrease access to med. care, [place] [facility], rehab)? @ -No Was there de-escalation of care discussed even if they declined (Discuss DNR or withdrawal of care, Hospice)? DNR status @ -No What co-morbidities impacted this encounter? (DM, HTN, Smoking, COPD, CAD, Cancer, CVA, ARF, Chemo, Hep., AIDS, mental health diagnosis, sleep apnea, morbid obesity)? @ -None Was patient admitted / discharged? Hospital course, mention meds given and route, prescriptions, significant lab abnormalities, going to OR and other pertinent info. @ -Patient is 66-year-old male presenting with chief complaint of right eye discomfort. Patient earlier had a piece of metal got into the eye today. He was seen in urgent care and foreign body was removed, [facility] eyed[facility] Patient has not yet picked up the eye drops, states that he still feels a foreign body sensation and is worried something else is in the eye. On with slight examination with fluorescein staining corneal abrasion is noted, no other foreign body noted on inspection and eyelid inversion. Patient is educated that corneal abrasions often reproduce the foreign body sensation. Patient is started on erythromycin eye ointment and is given the ointment to take home. Use 4 times a day for 5 days and is instructed to follow-up with his gear nicker. Follow-up with PCP. Report back to ER with any new or worsening symptoms. Discussed return parameters and answered all questions. Patient conveyed verbal understanding and agreed to the plan. I discussed this case in detail with my attending Dr. Saravia Undiagnosed new problem with uncertain prognosis? @ -No Drug Therapy requiring intensive monitoring for toxicity (Heparin, Nitro, Insulin, Cardizem)? @ -No Were any procedures done? @ -No Diagnosis/symptom? @ -Corneal abrasion Acute, or Chronic, or Acute on Chronic? @ -Acute Uncomplicated (without systemic symptoms) or Complicated (systemic symptoms)? @ -Uncomplicated Side effects of treatment? @ -No Exacerbation, Progression, or Severe Exacerbation? @ -No Poses a threat to life or bodily function? How? (Chest pain, USA, AL, pneumonia, PE, COPD, DKA, ARF, appy, cholecystitis, CVA, Diverticulitis, Homicidal, Suicidal, threat to staff... and all critical care pts) @ -No Disposition Clinical Impression: Corneal abrasion Disposition: HOME SELF-CARE Condition: Good Instructions (If sedation given, give patient instructions): Corneal Abrasion (ED) Additional Instructions: Follow-up with PCP and gear nicker. Report back to ER with any new or worsening symptoms. Apply antibiotic ointment to the affected eye 4 times daily for 5 days. Is patient prescribed a controlled substance at d/c from ED?: No Referrals: Ceasar Sears DO [Primary Care Provider] - 1-2 days Edin Jacob MD [STAFF PHYSICIAN] - 1-2 days Time of Disposition: 00:37
[2022-07-19] MEDS ORDERED: ERYTHROMYCIN 5 MG/GM OPHTH OINT 3.5 GM TUBE RIGHT EYE SCH (00:45)
== END 2022-07-19 00:52 | disposition home or self-care (01) ==
LOC: EC 23:54
DX: T15.01XA Foreign body in cornea, right eye, initial encounter (principal); I10 Essential (primary) hypertension; I25.10 Atherosclerotic heart disease of native coronary artery without angina pectoris; I25.2 Old myocardial infarction; E07.9 Disorder of thyroid, unspecified; E11.9 Type 2 diabetes mellitus without complications; E78.5 Hyperlipidemia, unspecified; Z79.02 Long term (current) use of antithrombotics/antiplatelets; Z79.1 Long term (current) use of non-steroidal anti-inflammatories (NSAID); Z79.84 Long term (current) use of oral hypoglycemic drugs; Z79.899 Other long term (current) drug therapy; Z79.890 Hormone replacement therapy; Z87.891 Personal history of nicotine dependence; Z90.49 Acquired absence of other specified parts of digestive tract
CPT/HCPCS: 99283

== ENCOUNTER 2022-08-16 14:42 | Observation (INO) | payer MEDICARE ==
[2022-08-16 15:34] LABS: Basophils % (A) 0 %; Eosinophils # (A) 0.1 k/uL (0-0.7); Eosinophils % (A) 1 %; HCT 32.6 % (39.0-53.0); HGB 10.4 gm/dL (13.0-17.5); Hypochromasia Moderate; Lymphocytes % (A) 13 %; MCH 26.1 pg (25.0-35.0); MCV 81.6 fL (80.0-100.0); Mean Platelet Volume 8.3; Monocytes # (A) 0.3 k/uL (0-1.0); Monocytes % (A) 5 %; Neutrophils % (A) 79 %; Platelet Count 262 k/uL (150-450); RDW 15.2 % (11.5-15.5); WBC 7.6 k/uL (3.8-10.6)
--- NOTE | 2022-08-16 15:36 | XR ---
EXAMINATION TYPE: XR chest 2V DATE OF EXAM: 08/16/2022 COMPARISON: CTA chest June 03, 2021 HISTORY: Chest pain and shortness of breath TECHNIQUE: Frontal and lateral views of the chest are obtained. FINDINGS: There is no suspicious focal air space opacity, pleural effusion, or pneumothorax seen. Th e cardiac silhouette size is stable and within normal limits. The osseous structures are intact. IMPRESSION: No acute process. No significant change from prior.
[2022-08-16 15:43] LABS: Partial Thromboplastin Time 23.1 sec (22.0-30.0); Prothrombin Time 10.3 sec (9.0-12.0)
--- NOTE | 2022-08-16 16:01 | ED ---
Chest Pain HPI - General Chief Complaint: Chest Pain Stated Complaint: Chest pain,SOB Time Seen by Provider: 08/16/22 15:19 Source: patient, RN notes reviewed, old records reviewed Mode of arrival: ambulatory Limitations: no limitations - History of Present Illness Initial Comments: This is a 66-year-old male to the emergency department for evaluation today here for evaluation of chest pain history of CAD significant. No current shortness of breath no travel history or sick contacts no fevers no other complaints. Patient did see his sawyer cork slabs this week scheduled for heart catheterization without other complaints. MD Complaint: chest pain -: days(s) Onset: during rest, during exertion (Worse) Pain Location: substernal, left chest Pain Radiation: none Severity: moderate Severity scale (1-10): 7 Quality: tightness, aching, heaviness Consistency: intermittent Improves With: nothing Worsens With: exertion Context: other (History of stents and CAD) Anginal Symptoms: dyspnea, sense of impending doom Other Symptoms: palpitations Treatments Prior to Arrival: none - Related Data Home Medications Medication Instructions Recorded Confirmed Levothyroxine Sodium [Synthroid] 75 mcg PO DAILY 08/19/18 08/16/22 glipiZIDE [Glucotrol] 5 mg PO BID 06/03/21 08/16/22 Naproxen [Naprosyn] 500 mg PO BID PRN 03/20/22 08/16/22 lisinopriL [Zestril] 10 mg PO HS 07/16/22 08/16/22 Aspirin EC [Ecotrin Low Dose] 81 mg PO DAILY 08/16/22 08/16/22 Insulin NPL/Insulin Lispro See Protocol SQ AC-TID PRN 08/16/22 08/16/22 [humaLOG MIX 75-25 VIAL] Isosorbide Mononitrate ER [Imdur] 30 mg PO DAILY 08/16/22 08/16/22 Metoprolol Succinate (ER) [Toprol 25 mg PO HS 08/16/22 08/16/22 Xl] Previous Rx's Medication Instructions Recorded metFORMIN HCL [Glucophage] 1,000 mg PO BID #60 tab 05/31/15 Atorvastatin [Lipitor] 80 mg PO HS #90 tab 03/04/21 Clopidogrel [Plavix] 75 mg PO DAILY #90 tab 03/04/21 Allergies Allergy/AdvReac Type Severity Reaction Status Date / Time No Known Allergies Allergy Verified 08/16/22 14:46 Review of Systems ROS Statement: Those systems with pertinent positive or pertinent negative responses have been documented in the HPI. ROS Other: All systems not noted in ROS Statement are negative. EKG Findings - EKG Comments: EKG Findings:: EKG is sinus 82 HI 143 QRS 94 QTC 391 Past Medical History Past Medical History: Coronary Artery Disease (CAD), Diabetes Mellitus, Hyperlipidemia, Hypertension, Myocardial Infarction (ND), Thyroid Disorder Additional Past Medical History / Comment(s): NIDDM type II, neuropathy bilateral feet, hypothyroid, chronic low back pain, DDD, stress vertebral fracture lower back, 2 herniated cervical discs-neck pain, chron's, diverticulosis, suspected L upper lobe pulmonary embolism, shingles R upper chest Last Myocardial Infarction Date:: 03-02-2021 History of Any Multi-Drug Resistant Organisms: None Reported Past Surgical History: Bowel Resection, Cholecystectomy, Heart Catheterization With Stent, Orthopedic Surgery, Tonsillectomy Additional Past Surgical History / Comment(s): PCI with stent 2009 at [facility], bowel resection with 1 ft of colon removed d/t chron's, R shoulder rotator cuff repair, colonoscopy, right neck glad removed as child Past Anesthesia/Blood Transfusion Reactions: No Reported Reaction Date of Last Stent Placement:: 2020 Past Psychological History: No Psychological Hx Reported Smoking Status: Former smoker Past Alcohol Use History: None Reported Past Drug Use History: None Reported - Past Family History Father Family Medical History: Cancer Additional Family Medical History / Comment(s): Father of throat cancer in his early 70s. He had heart problems and an aneurysm Mother Family Medical History: Diabetes Mellitus, Myocardial Infarction (ND) Additional Family Medical History / Comment(s): Pt does not recall at what age mother had her ND Daughter(s) Family Medical History: Cancer Additional Family Medical History / Comment(s): thyroid CA Brother(s) Family Medical History: Diabetes Mellitus, Renal Disease General Exam Limitations: no limitations General appearance: alert, in no apparent distress Head exam: Present: atraumatic, normocephalic, normal inspection Eye exam: Present: normal appearance, PERRL, EOMI. Absent: scleral icterus, conjunctival injection, periorbital swelling ENT exam: Present: normal exam, mucous membranes moist Neck exam: Present: normal inspection. Absent: tenderness, meningismus, lymphadenopathy Respiratory exam: Present: normal lung sounds bilaterally. Absent: respiratory distress, wheezes, rales, rhonchi, stridor Cardiovascular Exam: Present: regular rate, normal rhythm, normal heart sounds. Absent: systolic murmur, diastolic murmur, rubs, gallop, clicks GI/Abdominal exam: Present: soft, normal bowel sounds. Absent: distended, tenderness, guarding, rebound, rigid Extremities exam: Present: normal inspection, full ROM, normal capillary refill. Absent: tenderness, pedal edema, joint swelling, calf tenderness Back exam: Present: normal inspection Neurological exam: Present: alert, oriented X3, CN II-XII intact Psychiatric exam: Present: normal affect, normal mood Skin exam: Present: warm, dry, intact, normal color. Absent: rash Course Vital Signs 08/16/22 08/16/22 08/16/22 14:43 15:15 15:30 Temperature 96.7 F L Pulse Rate 98 75 79 Respiratory 20 12 12 Rate Blood Pressure 102/63 100/56 106/55 O2 Sat by Pulse 100 96 96 Oximetry 08/16/22 08/16/22 08/16/22 15:45 16:00 16:30 Temperature Pulse Rate 78 76 71 Respiratory 12 12 16 Rate Blood Pressure 103/57 94/56 120/68 O2 Sat by Pulse 96 97 97 Oximetry 08/16/22 08/16/22 16:53 17:00 Temperature Pulse Rate 85 81 Respiratory 18 14 Rate Blood Pressure 120/68 120/68 O2 Sat by Pulse 98 97 Oximetry - Reevaluation(s) Reevaluation #1: 08/16/22 17:03 Medical records reviewed Reevaluation #2: 08/16/22 17:03 Patient remains a chest pain here in the ER Reevaluation #3: 08/16/22 17:03 Patient informed results and questions are answered Reevaluation #4: 08/16/22 17:03 Was pt. sent in by a medical professional or institution? @ -no Did you speak to anyone other than the patient for history? @ -no Did you review nursing and triage notes? @ -agree Were old charts reviewed? @ -no Differential Diagnosis? @ -prior EKG interpreted by me (3pts min.)? @ -yes X-rays interpreted by me (1pt min.)? @ -yes CT interpreted by me (1pt min.)? @ -no U/S interpreted by me (1pt. min.)? @ -no What testing was considered but not performed? (CT, X-rays, U/S, labs)? Why? @ -no What meds were considered but not given? Why? @ -no Did you discuss the management of the patient with other professionals? @ -no Did you reconcile home meds? @ -no Was smoking cessation discussed for >3mins.? @ -no Was critical care preformed (if so, how long)? @ -no Were there social determinants of health that impacted care today? How? (Homelessness, low income, unemployed, alcoholism, drug addiction, transportation, low edu. Level, literacy, decrease access to med. care, senior living, rehab)? @ -no Was there de-escalation of care discussed even if they declined? (Discuss DNR or withdrawal of care, Hospice)? @ -no What co-morbidities impacted this encounter? (DM, HTN, Smoking, COPD, CAD, Cancer, CVA, Hep., AIDS, mental health diagnosis, sleep apnea, morbid obesity)? @ -none Was patient admitted / discharged? @ - Undiagnosed new problem with uncertain prognosis? @ -no Drug Therapy requiring intensive monitoring for toxicity (Heparin, Nitro, Insulin, Cardizem)? @ -no Were any procedures done? @ -no Diagnosis/symptom? @ - Acute, or Chronic, or Acute on Chronic? @ -no Uncomplicated (without systemic symptoms) or Complicated (systemic symptoms)? @ -uncomplicated Side effects of treatment? @ -no Exacerbation, Progression, or Severe Exacerbation] @ -no Poses a threat to life or bodily function? @ -yes Reevaluation #5: 08/16/22 17:04 Differential Chest Pain: Stable Angina, Unstable Angina, STEMI, NSTEMI Aortic Dissection, Pneumothorax, Musculoskeletal, Esophageal Spasm GERD, Cholecystitis, Pancreatitis, Zoster, this is not meant to be an all-inclusive list. - Consultations Consultation #1: spoke w [facility] who agree to admit this patient Chest Pain MDM - MDM 66 male to the emergency department for evaluation of chest pain. History of CAD, scheduled for heart catheterization next week. Patient states he sustained currently weak with increasing shortness of breath severe chest pain upon exertion. Patient states he can't really get out of bed today and is exertional shortness of breath was causing to sit down after small or very little activity Critical Care Time Critical Care Time: Yes Total Critical Care Time: 31 Disposition Clinical Impression: Chest pain, Coronary artery disease Disposition: ADMITTED IP TO THIS HOSP Condition: Undetermined Is patient prescribed a controlled substance at d/c from ED?: No Time of Disposition: 16:10
[2022-08-16 16:05] LABS: ALT 24 U/L (4-49); AST 33 U/L (17-59); African American GFR (CKD) >90 (>60 ml/min/1.73 sqM); Albumin 3.8 g/dL (3.5-5.0); Alkaline Phosphatase 72 U/L (38-126); Anion Gap 12 mmol/L; Blood Urea Nitrogen 18 mg/dL (9-20); Calcium 9.5 mg/dL (8.4-10.2); Carbon Dioxide 24 mmol/L (22-30); Chloride 98 mmol/L (98-107); Glucose 151 mg/dL (74-99); Lipase 81 U/L (23-300); Magnesium 1.6 mg/dL (1.6-2.3); Non-African American GFR(CKD) 84 (>60 ml/min/1.73 sqM); Potassium 4.6 mmol/L (3.5-5.1); Sodium 134 mmol/L (137-145); Total Bilirubin 0.4 mg/dL (0.2-1.3); Total Protein 6.3 g/dL (6.3-8.2)
[2022-08-16] MEDS ORDERED: MORPHINE SULFATE 4 MG/ML SYRINGE IV PRN (16:10)
[2022-08-16] MEDS ORDERED: ONDANSETRON 4 MG/2 ML VIAL IVP PRN (16:10)
[2022-08-16] MEDS ORDERED: NALOXONE 0.4 MG/ML 1 ML VIAL IV PRN (16:10)
[2022-08-16] MEDS: SODIUM CHLORIDE 0.9% 1,000 ML IV SCH (16:55)
[2022-08-16 18:56] VITALS: RESP 16
[2022-08-17] MEDS: SODIUM CHLORIDE 0.9% 1,000 ML IV SCH ×2 (06:09→18:21)
[2022-08-17 08:17] LABS: Glucose,Whole Blood 145 mg/dL (70-110)
[2022-08-17] MEDS ORDERED: PANTOPRAZOLE 40 MG/10 ML VIAL IV SCH (09:00)
[2022-08-17] MEDS ORDERED: ASPIRIN 325 MG TAB PO STA (09:28)
[2022-08-17] MEDS ORDERED: ATORVASTATIN 80 MG TAB PO STA (09:28)
[2022-08-17] MEDS ORDERED: HEPARIN SODIUM 1,000 UN/ML (10ML VL) ONE (11:14)
[2022-08-17] MEDS ORDERED: VERAPAMIL 2.5 MG/ML 2 ML AMP ONE (11:14)
[2022-08-17] MEDS ORDERED: fentaNYL (PF) 50 MCG/ML 2 ML AMP ONE (11:15)
[2022-08-17] MEDS ORDERED: MIDAZOLAM 2 MG/2 ML VIAL IV ONE (11:34)
[2022-08-17] MEDS ORDERED: fentaNYL (PF) 50 MCG/ML 2 ML AMP IV ONE (11:34)
[2022-08-17] MEDS ORDERED: LIDOCAINE 1% INJ 10MG/ML (5 ML VIAL-PF) SQ ONE (11:37)
[2022-08-17] MEDS ORDERED: LIDOCAINE 1% INJ 10MG/ML (20 ML MDV) SQ ONE (11:40)
[2022-08-17] MEDS ORDERED: SODIUM CHLORIDE 0.9% 1,000 ML IV ONE (11:48)
[2022-08-17] MEDS ORDERED: CLOPIDOGREL 75 MG TAB ONE (12:19)
[2022-08-17] MEDS ORDERED: CLOPIDOGREL 75 MG TAB PO ONE (12:20)
[2022-08-17] MEDS: HEPARIN SODIUM 1,000 UN/ML (10ML VL) IV ONE ×2 (12:21→12:58)
[2022-08-17] MEDS ORDERED: IOPAMIDOL-370 100ML BTL INJ ONE ×2 (12:42→12:51)
--- NOTE | 2022-08-17 12:48 | CC ---
CARDIAC CATHETERIZATION REPORT INDICATION: Unstable angina. PROCEDURE NOTE: After obtaining informed consent, left heart catheterization and coronary angiogram were performed via right femoral artery using standard Jessica catheters. The patient tolerated the procedure well without any obvious immediate complications. The patient received moderate conscious sedation. Total sedation time was 21 minutes. I initially attempted right radial artery access. The patient has good pulse, but we were not able to pass the wire up into the radial artery, hence I aborted that and proceeded with the femoral catheterization, which was completed uneventfully. FINDINGS: 1. Hemodynamics: Left ventricular end-diastolic pressure is 10 to 12 mm. There is no significant gradient across the aortic valve. 2. Left ventriculogram: Left ventriculogram is not performed. 3. Angiographic data: a.Right coronary artery: Right coronary artery is a large dominant vessel that shows mild nonobstructive disease in the proximal portion. b.Left main coronary artery is a large vessel and is free of stenosis, divides into left anterior descending coronary artery and circumflex coronary artery. Circumflex is a nondominant vessel that shows a 70% to 80% ostial stenosis involving the AV groove circumflex, which is a very small-caliber vessel. The OM branch also has a 40% to 50% stenosis. c.LAD was previously stented. There is an 80% to 90% stenosis just proximal to the proximal end of the previous stent. There is a clear landing zone between the stenosis and the left main. CONCLUSIONS: 80% to 90% focal stenosis involving the left anterior descending coronary artery, which is proximal to the previous stent. There is fdorbzfo-ai-nalaal disease involving the AV groove circumflex, which is a fairly small-caliber vessel. PLAN: I am going to have Dr. Quevedo review the angiographic data and advise on angioplasty of the proximal LAD. MMODL / IJN: [id number] /
[2022-08-17] MEDS ORDERED: ATROPINE SULFATE 0.1 MG/ML 10ML SYRINGE IV PRN (13:06)
[2022-08-17] MEDS ORDERED: MAG HYDROX/AL HYDROX/SIMETH 30 ML CUP PO PRN (13:06)
[2022-08-17] MEDS ORDERED: ZOLPIDEM 5 MG TAB PO PRN (13:06)
[2022-08-17] MEDS ORDERED: NITROGLYCERIN SL TABS 0.4 MG TAB SUBLINGUAL PRN (13:06)
[2022-08-17] MEDS ORDERED: RX INFO: IV CONTRAST WAS GIVEN 1 EACH MISC MISCELLANE PRN (13:06)
--- NOTE | 2022-08-17 13:12 | P.CARDCATH ---
Date of Procedure: 08/17/22 Description of Procedure: PERCUTANEOUS TRANSLUMINAL CORONARY ANGIOPLASTY CLINICAL INFORMATION: The patient is a 66-year-old male with known history of CAD, hypertension, hyperlipidemia and diabetes who presented with symptoms of angina pectoris, underwent cardiac catheterization by Dr. Alfredito ma, was found to have significant disease involving the proximal LAD . Recommendations were made regarding angioplasty and stenting. The procedure as well as the risks and the complications were discussed with the patient who was in full understanding and agreement. PROCEDURE: A 6 Chinese EBU 3.75 guiding catheter was introduced into the system. After cannulating the left main, a 0.014 BMW J was advanced across the lesion and positioned distally. Following that an IVUS catheter [place] was introduced and images were obtained. Following that a 4.5 x 18 mm Xience ravi point stent was deployed. It was dilated at 16 suhas. Repeat intravascular ultrasound imaging was performed and subsequently a 4.5 x 15 mm NC Treck balloon was advanced and one inflation at 14 suhas was done. After the last inflation, after appropriate wait, the balloon and the guidewire were withdrawn back into the guiding catheter. Images were obtained and repeated. Those images reveal stable successful stenting. At that point, the guiding catheter, the balloon, and guidewire were removed. The sheath was removed. Hemostasis was obtained with deployment of an Angio-Seal. There were no immediate complications. The patient was returned to the room in stable condition. Of note, the patient received 7000 units of heparin as well as Plavix. His ACT was followed. There was no immediate complications. He had chest discomfort and EKG changes that resolved at the end of the procedure RESULTS: Successful stenting of the proximal LAD with reduction of stenosis from 80 % to 0 % with intravascular ultrasound imaging. RECOMMENDATIONS: The patient will continue on aspirin and clopidogrel without any interruption for 6 months in addition to aggressive coronary risks modification. The findings and recommendations were discussed with the patient and the family, they are in full understanding and agreement. Duration of sedation: 28 minutes
[2022-08-17] MEDS ORDERED: SODIUM CHLORIDE 0.9% 1,000 ML in EMPTY BAG 1 BAG IV SCH (13:15)
--- NOTE | 2022-08-17 15:22 | HP ---
HISTORY AND PHYSICAL This is a combined history and physical and discharge summary. CHIEF COMPLAINT: Chest pain. HISTORY OF PRESENT ILLNESS: This is a 66-year-old gentleman with a past medical history of multiple medical problems including CAD, diabetes, hypertension, and hyperlipidemia, who was admitted chest pain. The pain was felt in the anterior part of chest. Troponins are negative. The calcium score was extremely high. Cardiology performed a cardiac cath, which showed only mild disease. The full report is not available in the computer yet, but Dr. Rivas has recommended the patient to be discharged home, continue with Imdur, and follow up in the outpatient setting. There is no history of fever, rigors, or chills. PAST MEDICAL HISTORY: Reviewed and includes diabetes mellitus, hypertension, and hyperlipidemia. Rest of the history and rest of the chart are also reviewed. HOME MEDICATIONS: Reviewed and include Glucotrol. Doses and rest of medications noted. ALLERGIES: None. FAMILY HISTORY: History of cancer. SOCIAL HISTORY: Previous history of smoking. REVIEW OF SYSTEMS: 14-point review of systems is negative except as mentioned earlier. PHYSICAL EXAMINATION: VITAL SIGNS: Pulse 68, blood pressure 123/60, respirations 16. HEENT: Conjunctivae normal. NECK: No jugular venous distention. CARDIOVASCULAR: S1 and S2. RESPIRATIONS: Clear to auscultation. ABDOMEN: Soft. LEGS: No edema. NERVOUS SYSTEM: No focal deficits. SKIN: No ulcer, rash, or bleeding. JOINTS: No active deforming arthropathy. LABORATORY DATA: Reviewed. ASSESSMENT: 1. Chest pain, possible unstable angina, status post cardiac catheterization. 2. Diabetes mellitus type 2. 3. Hypertension. 4. Hyperlipidemia. 5. Multiple medical issues. RECOMMENDATIONS: Recommend to continue the home medications and add Imdur per Dr. Rivas's recommendations, and follow up with Dr. Rivas as well as primary physician, Dr. Ceasar Sears, in the outpatient setting. Once again, the patient will be discharged in stable condition with guarded prognosis. MMODL / IJN: [id number] /
[2022-08-17 17:19] LABS: Glucose,Whole Blood 177 mg/dL (70-110)
[2022-08-17 20:36] LABS: Glucose,Whole Blood 290 mg/dL (70-110)
[2022-08-17] MEDS: glipiZIDE 5 MG TAB PO SCH (20:41)
[2022-08-17] MEDS ORDERED: ATORVASTATIN 80 MG TAB PO SCH (21:00)
[2022-08-17] MEDS ORDERED: lisinopriL 10 MG TAB PO SCH (21:00)
[2022-08-17] MEDS ORDERED: METOPROLOL SUCCINATE (ER) 25 MG TAB.ER.24H PO SCH (21:00)
[2022-08-18 06:30] LABS: African American GFR (CKD) >90 (>60 ml/min/1.73 sqM); Anion Gap 5 mmol/L; Blood Urea Nitrogen 13 mg/dL (9-20); Calcium 8.4 mg/dL (8.4-10.2); Carbon Dioxide 29 mmol/L (22-30); Chloride 105 mmol/L (98-107); Glucose 101 mg/dL (74-99); Non-African American GFR(CKD) >90 (>60 ml/min/1.73 sqM); Potassium 4.4 mmol/L (3.5-5.1); Sodium 139 mmol/L (137-145)
[2022-08-18 07:09] LABS: Glucose,Whole Blood 106 mg/dL (70-110)
[2022-08-18 07:51] VITALS: BP 111/67; PULSE 68; TEMP 97.8
[2022-08-18] MEDS ORDERED: ASPIRIN 81 MG PO SCH (09:00)
[2022-08-18] MEDS ORDERED: PANTOPRAZOLE 40 MG TABLET PO SCH (09:00)
[2022-08-18] MEDS ORDERED: CLOPIDOGREL 75 MG TAB PO SCH (09:00)
[2022-08-18] MEDS ORDERED: METOPROLOL SUCCINATE (ER) 50 MG TAB.ER.24H PO SCH (09:00)
[2022-08-18] MEDS ORDERED: LEVOTHYROXINE 75 MCG TAB PO SCH (09:00)
[2022-08-18] MEDS: glipiZIDE 5 MG TAB PO SCH (09:11)
[2022-08-18] MEDS: SODIUM CHLORIDE 0.9% 1,000 ML IV SCH (09:13)
--- NOTE | 2022-08-18 10:15 | P.PN ---
Subjective HISTORY OF PRESENT ILLNESS: Patient is status post cardiac catheterization with PCI to the proximal LAD. Patient examined this morning at the bedside. Patient denies chest pain or pressure. He denies shortness of breath. Vital signs are stable. PHYSICAL EXAM: VITAL SIGNS: Reviewed. GENERAL: Well-developed in no acute distress. NECK: Supple. No JVD or thyromegaly LUNGS: Respirations even and unlabored. Lungs essentially clear to auscultation bilaterally. HEART: Regular rate and rhythm. S1 and S2 heard. EXTREMITIES: Normal range of motion. No clubbing or cyanosis. Peripheral pulses intact. No lower extremity edema ASSESSMENT: Chest pain, status post cardiac catheterization as above History of coronary artery disease Hypertension Hyperlipidemia Diabetes PLAN: Continue dual antiplatelet therapy with aspirin and Plavix Continue high-intensity statin Continue additional cardiac medications Patient is stable for discharge home today from a cardiac standpoint Nurse practitioner note has been reviewed by physician. Signing provider agrees with the documented findings, assessment, and plan of care. Objective - Vital Signs Vital signs: Vital Signs Temp 97.8 F 08/18/22 07:00 Pulse 68 08/18/22 07:00 Resp 16 08/18/22 07:00 BP 111/67 08/18/22 07:00 Pulse Ox 97 08/18/22 08:26 FiO2 21 08/18/22 08:26 Intake & Output 08/17/22 08/18/22 08/18/22 18:59 06:59 18:59 Intake Total 218 298 Balance 218 298 Intake: IV 100 Oral 118 298 Other: Voiding Method Toilet # Voids 2 1 - Labs CBC & Chem 7: 08/16/22 15:21 08/18/22 05:34 Labs: Abnormal Lab Results - Last 24 Hours (Table) 08/17/22 08/17/22 08/18/22 Range/Units 17:18 20:35 05:34 Glucose 101 H (74-99) mg/dL POC Glucose (mg/dL) 177 H 290 H (70-110) mg/dL
[2022-08-18 13:22] VITALS: BMI 27.3
--- NOTE | 2022-08-20 22:59 | P.DS ---
Providers Date of admission: 08/16/22 16:11 Expected date of discharge: 08/18/22 Attending physician: Ceasar Sears Consults: 08/16/22 16:10 Consult Physician Routine Consulting Provider: Ewa Quevedo Consult Reason/Comments: cp Do you want consulting provider notified?: Yes 08/17/22 13:06 Consult Physician Routine Consulting Provider: [facility] Consult Reason/Comments: Post Interventional patient Do you want consulting provider notified?: Already Contacted Primary care physician: Ceasar Sears - Discharge Diagnosis(es) (1) Chest pain Status: Acute (2) Coronary artery disease Status: Acute (3) Hyperglycemia Status: Acute Hospital Course: Patient is a pleasant 66-year-old white male who was admitted for chest pain and underwent cardiac evaluation. He proceeded with cardiac catheterization which found a significant lesion in the LAD which was angioplastied and stented. He is doing well now and is cleared by cardiology to be discharged to follow-up in one week in the office continue lifestyle modifications including blood pressure reduction cholesterol control and anticoagulation Patient Condition at Discharge: Undetermined Plan - Discharge Summary New Discharge Prescriptions: New Isosorbide Mononitrate ER [Imdur] 30 mg PO DAILY #30 tab Metoprolol Succinate (ER) [Toprol XL] 50 mg PO DAILY #90 tab Continue metFORMIN HCL [Glucophage] 1,000 mg PO BID #60 tab Levothyroxine Sodium [Synthroid] 75 mcg PO DAILY Atorvastatin [Lipitor] 80 mg PO HS #90 tab Clopidogrel [Plavix] 75 mg PO DAILY #90 tab Isosorbide Mononitrate ER [Imdur] 30 mg PO DAILY Aspirin EC [Ecotrin Low Dose] 81 mg PO DAILY glipiZIDE [Glucotrol] 5 mg PO BID Naproxen [Naprosyn] 500 mg PO BID PRN PRN Reason: Pain lisinopriL [Zestril] 10 mg PO HS Insulin NPL/Insulin Lispro [humaLOG MIX 75-25 VIAL] See Protocol SQ AC-TID PRN PRN Reason: Blood Sugar - High Discontinued Metoprolol Succinate (ER) [Toprol XL] 25 mg PO HS Discharge Medication List metFORMIN HCL [Glucophage] 1,000 mg PO BID #60 tab 05/31/15 [Rx] Levothyroxine Sodium [Synthroid] 75 mcg PO DAILY 08/19/18 [History] Atorvastatin [Lipitor] 80 mg PO HS #90 tab 03/04/21 [Rx] Clopidogrel [Plavix] 75 mg PO DAILY #90 tab 03/04/21 [Rx] glipiZIDE [Glucotrol] 5 mg PO BID 06/03/21 [History] Naproxen [Naprosyn] 500 mg PO BID PRN 03/20/22 [History] lisinopriL [Zestril] 10 mg PO HS 07/16/22 [History] Aspirin EC [Ecotrin Low Dose] 81 mg PO DAILY 08/16/22 [History] Insulin NPL/Insulin Lispro [humaLOG MIX 75-25 VIAL] See Protocol SQ AC-TID PRN 08/16/22 [History] Isosorbide Mononitrate ER [Imdur] 30 mg PO DAILY 08/16/22 [History] Isosorbide Mononitrate ER [Imdur] 30 mg PO DAILY #30 tab 08/17/22 [Rx] Metoprolol Succinate (ER) [Toprol XL] 50 mg PO DAILY #90 tab 08/18/22 [Rx] Follow up Appointment(s)/Referral(s): Ceasar Sears DO [Primary Care Provider] - 1 Week John Rivas MD [STAFF PHYSICIAN] - 08/22/22 10:30 am Patient Instructions/Handouts: *Sur[facility] - After Heart Catheterization - Engineering Programmer Instructions, After Radial Heart Catheterization (GEN) Activity/Diet/Wound Care/Special Instructions: diet cardiac act limited till f/u f/u cardio as advised Discharge Disposition: HOME SELF-CARE
== END 2022-08-18 14:54 | disposition home or self-care (01) ==
LOC: EC 14:42 → 6NMEDSUR 16:11
PROVIDERS: ADMIT Family Medicine; ATTEND Family Medicine
DX: I25.10 Atherosclerotic heart disease of native coronary artery without angina pectoris (principal); E11.65 Type 2 diabetes mellitus with hyperglycemia; E03.9 Hypothyroidism, unspecified; I10 Essential (primary) hypertension; E78.5 Hyperlipidemia, unspecified; E11.42 Type 2 diabetes mellitus with diabetic polyneuropathy; I25.2 Old myocardial infarction; K50.90 Crohn's disease, unspecified, without complications; G89.29 Other chronic pain; M54.50 Low back pain, unspecified; K57.90 Diverticulosis of intestine, part unspecified, without perforation or abscess without bleeding; M50.30 Other cervical disc degeneration, unspecified cervical region; Z79.82 Long term (current) use of aspirin; Z79.02 Long term (current) use of antithrombotics/antiplatelets; Z79.4 Long term (current) use of insulin; Z79.890 Hormone replacement therapy; Z79.84 Long term (current) use of oral hypoglycemic drugs; Z79.899 Other long term (current) drug therapy; Z90.49 Acquired absence of other specified parts of digestive tract; Z95.5 Presence of coronary angioplasty implant and graft; Z87.891 Personal history of nicotine dependence; Z98.890 Other specified postprocedural states; Z80.0 Family history of malignant neoplasm of digestive organs; Z82.49 Family history of ischemic heart disease and other diseases of the circulatory system; Z80.8 Family history of malignant neoplasm of other organs or systems; Z83.3 Family history of diabetes mellitus; Z84.1 Family history of disorders of kidney and ureter
CPT/HCPCS: 96361 ×3; 96375; 96374; 99291; 36415; 94760; 93005; 92978; 93458; 85379; 83880; 80053; 80048; 83690; 83735; 84484; 85025; 85610; 85730; 71046; G0378 ×3; C9600; C1769 ×3; C1760; C1887; C1894 ×2; C1753; C1874; C1725; J2250; J2270; J2001 ×2; J3010; J1644; C9113; Q9967

== ENCOUNTER 2022-08-28 16:10 | Observation (INO) | payer MEDICARE ==
--- NOTE | 2022-08-28 16:41 | ED ---
Chest Pain HPI - General Chief Complaint: Chest Pain Stated Complaint: chest pains, sob, light headed Time Seen by Provider: 08/28/22 16:27 Source: patient, RN notes reviewed, old records reviewed Mode of arrival: wheelchair Limitations: no limitations - History of Present Illness Initial Comments: This is a 66-year-old male who presents today for evaluation. Patient is here for evaluation regards to chest pain and near-syncope with significant exertional shortness of breath. Patient has history of shortness of breath today and chest pain with recent inpatient evaluation treatment of heart disease and stent placement. Patient is been doing well since home but today he was very short of breath especially with any activity. Patient has no other complaints MD Complaint: chest pain -: unknown Onset: during rest, during exertion Pain Location: left chest, epigastric Pain Radiation: LUE Severity: moderate Severity scale (1-10): 7 Quality: heaviness Consistency: intermittent Improves With: nothing Worsens With: nothing Anginal Symptoms: sense of impending doom Other Symptoms: palpitations Treatments Prior to Arrival: none - Related Data Home Medications Medication Instructions Recorded Confirmed Levothyroxine Sodium [Synthroid] 75 mcg PO DAILY 08/19/18 08/28/22 lisinopriL [Zestril] 10 mg PO HS 07/16/22 08/28/22 Aspirin EC [Ecotrin Low Dose] 81 mg PO DAILY 08/16/22 08/28/22 Insulin NPL/Insulin Lispro See Protocol SQ AC-TID PRN 08/16/22 08/28/22 [humaLOG MIX 75-25 VIAL] Previous Rx's Medication Instructions Recorded metFORMIN HCL [Glucophage] 1,000 mg PO BID #60 tab 05/31/15 Atorvastatin [Lipitor] 80 mg PO HS #90 tab 03/04/21 Clopidogrel [Plavix] 75 mg PO DAILY #90 tab 03/04/21 Isosorbide Mononitrate ER [Imdur] 30 mg PO DAILY #30 tab 08/17/22 Metoprolol Succinate (ER) [Toprol 50 mg PO DAILY #90 tab 08/18/22 XL] Ferrous Gluconate 324 mg PO BID #60 tablet 08/30/22 glipiZIDE [Glucotrol] 10 mg PO BID #0 08/30/22 Allergies Allergy/AdvReac Type Severity Reaction Status Date / Time No Known Allergies Allergy Verified 08/28/22 17:17 Review of Systems ROS Statement: Those systems with pertinent positive or pertinent negative responses have been documented in the HPI. ROS Other: All systems not noted in ROS Statement are negative. EKG Findings - EKG Comments: EKG Findings:: EKG sinus 72 DE 136 QRS anyone QTc 402, unchanged from initial Past Medical History Past Medical History: Coronary Artery Disease (CAD), Diabetes Mellitus, Hyperlipidemia, Hypertension, Myocardial Infarction (NV), Thyroid Disorder Additional Past Medical History / Comment(s): NIDDM type II, neuropathy bilateral feet, hypothyroid, chronic low back pain, DDD, stress vertebral fracture lower back, 2 herniated cervical discs-neck pain, chron's, diverticulosis, suspected L upper lobe pulmonary embolism, shingles R upper chest Last Myocardial Infarction Date:: 03-02-2021 History of Any Multi-Drug Resistant Organisms: None Reported Past Surgical History: Bowel Resection, Cholecystectomy, Heart Catheterization With Stent, Orthopedic Surgery, Tonsillectomy Additional Past Surgical History / Comment(s): PCI with stent 2010 at [facility], bowel resection with 1 ft of colon removed d/t chron's, R shoulder rotator cuff repair, colonoscopy, right neck glad removed as child, stent at [facility] 08/24/22 Past Anesthesia/Blood Transfusion Reactions: No Reported Reaction Date of Last Stent Placement:: 2020 Past Psychological History: No Psychological Hx Reported Smoking Status: Former smoker Past Alcohol Use History: None Reported Past Drug Use History: None Reported - Past Family History Father Family Medical History: Cancer Additional Family Medical History / Comment(s): Father of throat cancer in his early 70s. He had heart problems and an aneurysm Mother Family Medical History: Diabetes Mellitus, Myocardial Infarction (NV) Additional Family Medical History / Comment(s): Pt does not recall at what age mother had her NV Daughter(s) Family Medical History: Cancer Additional Family Medical History / Comment(s): thyroid CA Brother(s) Family Medical History: Diabetes Mellitus, Renal Disease General Exam Limitations: no limitations General appearance: alert, in no apparent distress, anxious Head exam: Present: atraumatic, normocephalic, normal inspection Eye exam: Present: normal appearance, PERRL, EOMI. Absent: scleral icterus, conjunctival injection, periorbital swelling ENT exam: Present: normal exam, mucous membranes moist Neck exam: Present: normal inspection. Absent: tenderness, meningismus, lymphadenopathy Respiratory exam: Present: normal lung sounds bilaterally. Absent: respiratory distress, wheezes, rales, rhonchi, stridor Cardiovascular Exam: Present: regular rate, normal rhythm, normal heart sounds. Absent: systolic murmur, diastolic murmur, rubs, gallop, clicks GI/Abdominal exam: Present: soft, normal bowel sounds. Absent: distended, tenderness, guarding, rebound, rigid Extremities exam: Present: normal inspection, full ROM, normal capillary refill. Absent: tenderness, pedal edema, joint swelling, calf tenderness Back exam: Present: normal inspection Neurological exam: Present: alert, oriented X3, CN II-XII intact Psychiatric exam: Present: normal affect, normal mood Skin exam: Present: warm, dry, intact, normal color. Absent: rash Course Vital Signs 08/28/22 08/28/22 08/28/22 16:13 18:00 19:11 Temperature 97.6 F Pulse Rate 87 72 69 Respiratory 18 16 18 Rate Blood Pressure 122/67 121/61 120/69 O2 Sat by Pulse 99 97 100 Oximetry 08/28/22 08/28/22 20:30 21:00 Temperature Pulse Rate 76 74 Respiratory 16 19 Rate Blood Pressure 120/69 129/67 O2 Sat by Pulse 96 95 Oximetry - Reevaluation(s) Reevaluation #1: 08/28/22 17:36 Medical records reviewed Reevaluation #2: 08/28/22 17:36 patient still feels significantly short of breath lightheaded with occasional chest pain with some most minimal exertion here in the ER Reevaluation #3: 08/28/22 17:36 Patient informed results questions answered Reevaluation #4: 08/28/22 17:35 Was pt. sent in by a medical professional or institution? @ -no Did you speak to anyone other than the patient for history? @ -no Did you review nursing and triage notes? @ -agree Were old charts reviewed? @ -no Differential Diagnosis? @ -prior EKG interpreted by me (3pts min.)? @ -yes X-rays interpreted by me (1pt min.)? @ -yes CT interpreted by me (1pt min.)? @ -no U/S interpreted by me (1pt. min.)? @ -no What testing was considered but not performed? (CT, X-rays, U/S, labs)? Why? @ -no What meds were considered but not given? Why? @ -no Did you discuss the management of the patient with other professionals? @ -no Did you reconcile home meds? @ -yes Was smoking cessation discussed for >3mins.? @ -no Was critical care preformed (if so, how long)? @ -yes31 Were there social determinants of health that impacted care today? How? (Homelessness, low income, unemployed, alcoholism, drug addiction, transportation, low edu. Level, literacy, decrease access to med. care, half-way, rehab)? @ -no Was there de-escalation of care discussed even if they declined? (Discuss DNR or withdrawal of care, Hospice)? @ -no What co-morbidities impacted this encounter? (DM, HTN, Smoking, COPD, CAD, Cancer, CVA, Hep., AIDS, mental health diagnosis, sleep apnea, morbid obesity)? @ -none Was patient admitted / discharged? @ -66 male with recent stent placement coming with chest pain and near-syncope especially with exertion and exertional shortness of breath. Patient be admitted for cardiac evaluation and treatment Admitted Undiagnosed new problem with uncertain prognosis? @ -no Drug Therapy requiring intensive monitoring for toxicity (Heparin, Nitro, Insulin, Cardizem)? @ -no Were any procedures done? @ -no Diagnosis/symptom? @ -] Near syncope, ACS Acute, or Chronic, or Acute on Chronic? @ -no Uncomplicated (without systemic symptoms) or Complicated (systemic symptoms)? @ -uncomplicated Side effects of treatment? @ -no Exacerbation, Progression, or Severe Exacerbation] @ -no Poses a threat to life or bodily function? @ -Yes of ACS and NV. Cardiovascular collapse Reevaluation #5: 08/28/22 17:35 Differential Chest Pain: Stable Angina, Unstable Angina, STEMI, NSTEMI Aortic Dissection, Pneumothorax, Musculoskeletal, Esophageal Spasm GERD, Cholecystitis, Pancreatitis, Zoster, this is not meant to be an all-inclusive list. Differential Syncope: Valvular disease, hypertrophic cardiomyopathy, pulmonary embolism, tamponade, tachycardia, bradycardia, NV, hypovolemia, hemorrhage, dissection, anemia, intra cranial hemorrhage, seizure, hypoglycemia, carbon monoxide poisoning, this is not meant to be an all-inclusive list. - Consultations Consultation #1: Spoke with Admitting physicians agreeable to admit the patient Chest Pain MDM - MDM 66 male DF for evaluation recent stent placement with shortness of breath and near-syncope. A she'll be admitted for cardiac treatment and evaluation, supportive care Critical Care Time Critical Care Time: Yes Total Critical Care Time: 31 Disposition Clinical Impression: Chest pain, Coronary artery disease, Unstable angina pectoris, Near syncope Disposition: ADMITTED IP TO THIS HOSP Condition: Fair Is patient prescribed a controlled substance at d/c from ED?: No Time of Disposition: 18:15
[2022-08-28 17:05] LABS: Basophils % (A) 0 %; Eosinophils # (A) 0.1 k/uL (0-0.7); Eosinophils % (A) 2 %; HCT 29.5 % (39.0-53.0); HGB 9.5 gm/dL (13.0-17.5); Hypochromasia Slight; Lymphocytes # (A) 1.1 k/uL (1.0-4.8); Lymphocytes % (A) 15 %; MCH 25.6 pg (25.0-35.0); MCHC 32.1 g/dL (31.0-37.0); MCV 79.7 fL (80.0-100.0); Mean Platelet Volume 8.4; Monocytes # (A) 0.4 k/uL (0-1.0); Monocytes % (A) 5 %; Neutrophils # (A) 5.5 k/uL (1.3-7.7); Neutrophils % (A) 76 %; Platelet Count 261 k/uL (150-450); Poikilocytosis Slight; RDW 15.5 % (11.5-15.5); WBC 7.3 k/uL (3.8-10.6)
--- NOTE | 2022-08-28 17:07 | XR ---
EXAMINATION TYPE: XR chest 2V DATE OF EXAM: 08/28/2022 5:03 PM COMPARISON: Chest radiographs from 08/16/2022 TECHNIQUE: XR chest 2V Frontal and lateral views of the chest. CLINICAL INDICATION:Male, 66 years old with history of Chest Pain; FINDINGS: Lungs/Pleura: There is no evidence of pleural effusion, focal consolidation, or pneumothorax. Pulmonary vascularity: Unremarkable. Heart/mediastinum: Cardiomediastinal silhouette is unremarkable. Musculoskeletal: No acute osseous pathology. IMPRESSION: No acute cardiopulmonary disease/process.
[2022-08-28 17:15] LABS: ALT 24 U/L (4-49); AST 31 U/L (17-59); African American GFR (CKD) >90 (>60 ml/min/1.73 sqM); Albumin 3.9 g/dL (3.5-5.0); Alkaline Phosphatase 71 U/L (38-126); Anion Gap 13 mmol/L; Blood Urea Nitrogen 23 mg/dL (9-20); Calcium 9.2 mg/dL (8.4-10.2); Carbon Dioxide 21 mmol/L (22-30); Chloride 100 mmol/L (98-107); Glucose 175 mg/dL (74-99); Lipase 107 U/L (23-300); Magnesium 1.4 mg/dL (1.6-2.3); Non-African American GFR(CKD) 90 (>60 ml/min/1.73 sqM); Potassium 4.8 mmol/L (3.5-5.1); Sodium 134 mmol/L (137-145); Total Bilirubin 0.3 mg/dL (0.2-1.3); Total Protein 6.4 g/dL (6.3-8.2)
[2022-08-28 17:43] LABS: Partial Thromboplastin Time 22.5 sec (22.0-30.0); Prothrombin Time 10.5 sec (9.0-12.0)
[2022-08-28] MEDS ORDERED: SODIUM CHLORIDE 0.9% 1,000 ML IV ONE (18:14)
[2022-08-28] MEDS ORDERED: HEPARIN SODIUM 1,000 UN/ML (10ML VL) IV PRN (18:15)
[2022-08-28] MEDS ORDERED: HEPARIN SODIUM 1,000 UN/ML (10ML VL) IV ONE ×2 (18:15)
[2022-08-28] MEDS ORDERED: ASPIRIN 81 MG PO STA (18:15)
[2022-08-28] MEDS ORDERED: NITROGLYCERIN SL TABS 0.4 MG TAB SUBLINGUAL PRN (18:15)
[2022-08-28] MEDS ORDERED: HEPARIN SOD,PORK IN 0.45% NACL 25,000 UNIT in 0.45% NACL 1 250ML.BAG IV SCH ×2 (18:15)
[2022-08-28] MEDS: SODIUM CHLORIDE 0.9% 1,000 ML IV SCH (19:32)
[2022-08-29] MEDS: SODIUM CHLORIDE 0.9% 1,000 ML IV SCH ×3 (05:33→20:29)
[2022-08-29] MEDS ORDERED: ASPIRIN 325 MG TAB PO STA (07:30)
[2022-08-29] MEDS ORDERED: ALPRAZolam 0.5 MG TAB PO PRN (07:30)
[2022-08-29] MEDS ORDERED: NITROGLYCERIN SL TABS 0.4 MG TAB SUBLINGUAL PRN (07:30)
[2022-08-29] MEDS ORDERED: ATORVASTATIN 80 MG TAB PO STA (07:30)
[2022-08-29] MEDS ORDERED: ALPRAZolam 0.25 MG TAB PO PRN (07:30)
[2022-08-29 07:35] LABS: Mean Platelet Volume 8.7; Platelet Count 213 k/uL (150-450)
--- NOTE | 2022-08-29 07:52 | CONS ---
CONSULTATION CHIEF COMPLAINT: Dizziness and near syncope and shortness of breath. HISTORY OF PRESENT ILLNESS: Иван is a 66-year-old gentleman, with history of coronary artery disease, who recently presented with unstable angina and underwent cardiac catheterization and angioplasty of the proximal LAD. He called my office stating that he was becoming extremely short of breath with activity with chest pressure and near syncope and has had similar symptoms in the ER. I started him on heparin and advised him to undergo cardiac catheterization. I evaluated him in the ER yesterday. The patient did not have any chest pain and EKG did not reveal ischemic changes. The plan at this stage is to perform a cardiac catheterization on him on Thursday morning. PAST MEDICAL HISTORY: Significant for CAD, status post angioplasty; oej-butpteo-axubmmakk diabetes; and hypertension. MEDICATIONS: Include: 1. Aspirin. 2. Plavix 75 mg daily. 3. Lipitor 80 daily. 4. Imdur 30 daily. 5. Toprol-XL 50 daily. 6. Glucotrol. 7. Zestril. 8. Glucophage. ALLERGIES: There are no known drug allergies. FAMILY HISTORY: Negative for premature coronary artery disease. SOCIAL HISTORY: Negative for smoking, EtOH, or drug abuse. REVIEW OF SYSTEMS: HEENT: Unremarkable. CARDIAC: As described above. RESPIRATORY: As described above. GI: Negative. GENITOURINARY: Negative. ALLERGY/IMMUNOLOGY: Negative. SKIN: Negative. MUSCULOSKELETAL: Negative. ENDOCRINE: Negative. DERM: Negative. CONSTITUTIONAL: Negative. ONCOLOGICAL: Negative. INTERNET DEVELOPER: Negative Rest of the system review is not relevant. PHYSICAL EXAMINATION: GENERAL: Comfortable at rest. VITAL SIGNS: Stable. NECK: There is no jugular venous distention. Carotid upstroke is normal. There is no bruit. CHEST: Good air entry bilaterally. HEART: First and second heart sounds. No gallop. No murmur. No rub. ABDOMEN: Soft, nontender. EXTREMITIES: Did not reveal any edema. Peripheral pulses are felt. INTERNET DEVELOPER: Did not reveal focal neurological deficits. ASSESSMENT: Unstable angina. PLAN: I will perform a cardiac catheterization on him to rule out any issues with recent stent in the proximal LAD. MMODL / IJN: [id number] /
[2022-08-29] MEDS ORDERED: ASPIRIN 325 MG TAB PO SCH (09:00)
[2022-08-29] MEDS ORDERED: fentaNYL (PF) 50 MCG/1 ML VIAL IVP ONE (09:17)
[2022-08-29] MEDS ORDERED: MIDAZOLAM 2 MG/2 ML VIAL IVP ONE (09:17)
[2022-08-29] MEDS ORDERED: LIDOCAINE 1% INJ 10MG/ML (5 ML VIAL-PF) SQ ONE (09:18)
[2022-08-29] MEDS ORDERED: IV FLUID CONTINUATION 1,000 ML IV ONE (09:19)
[2022-08-29] MEDS ORDERED: LIDOCAINE 1% INJ 10MG/ML (20 ML MDV) SQ ONE (09:27)
[2022-08-29] MEDS ORDERED: IOPAMIDOL-370 100ML BTL INJ ONE (09:46)
[2022-08-29] MEDS ORDERED: RX INFO: IV CONTRAST WAS GIVEN 1 EACH MISC MISCELLANE PRN (10:02)
[2022-08-29] MEDS: METOPROLOL SUCCINATE (ER) 50 MG TAB.ER.24H PO SCH (10:06)
[2022-08-29] MEDS: LEVOTHYROXINE 75 MCG TAB PO SCH (10:06)
[2022-08-29] MEDS: ISOSORBIDE MONONITRATE ER 60 MG TAB.ER.24H PO SCH (10:48)
--- NOTE | 2022-08-29 11:07 | CC ---
CARDIAC CATHETERIZATION REPORT INDICATION: Unstable angina. PROCEDURE NOTE: This is a 66-year-old gentleman with history of coronary artery disease, who has had recent visit to hospital with shortness of breath and underwent cardiac catheterization and angioplasty of the proximal LAD with stent placement because of a tight lesion noted there. This procedure was done on 08/17 and the patient was discharged home on the . He comes in complaining of near syncope and shortness of breath and chest tightness, and EKG did not reveal any ischemic changes. Cardiac enzymes have been negative and he is anemic with a hemoglobin of 9.5, which was around 13.6 in May and was around 10.6 at last visit. It is unclear if the symptoms are related to the anemia if the patient had any problems with the recently stented vessel, hence I decided to proceed with cardiac catheterization. The patient had been explained of risks, benefits, and alternatives. PROCEDURE NOTE: After obtaining informed consent, left heart catheterization and coronary angiogram were performed via the left femoral artery using standard Jessica catheters. The patient tolerated the procedure well without any obvious immediate complications. The patient received moderate conscious sedation. Total sedation time was 45 minutes. I initially attempted right radial artery access, but was unsuccessful. The patient had an Angio-Seal for hemostasis. FINDINGS: 1. HEMODYNAMICS: Left ventricular end-diastolic pressure is 12-14 mm. There is no significant gradient across the aortic valve. 2. LEFT VENTRICULOGRAM: Left ventriculogram is not performed. 3. ANGIOGRAPHIC DATA: a.Right coronary artery: Right coronary artery is a large dominant vessel that shows mild nonobstructive disease involving mid RCA. b.Left main coronary artery is a normal-sized vessel and is free of stenosis. Divides into left anterior descending coronary artery and circumflex coronary artery. The previously placed stent in the proximal LAD appears patent. There is a 40% stenosis between this stent and the other stent that was placed in the past and distal to the stent again, there is around 40% stenosis, but these lesions do not appear significant and there is brisk flow into the distal LAD. c.Circumflex coronary artery gives off an OM branch that shows a 60% to 70% stenosis, which was noted on the circ lesion, seems unchanged compared to the previous angiogram when I compare the two. CONCLUSIONS: Patent stent within the proximal LAD with a 40% stenosis between the proximal and distal stent and the lesion past the distal stent. I reviewed angiographic data with Dr. Torsten Castillo, the platform material handler manager, who performed his initial intervention and we decided that these lesions do not quite explain his symptoms and hence we opted to treat him with medical therapy and may we consider an outpatient stress test if we have to. Some of the patient's symptomatology may be related to the anemia and this needs to be treated, probably consult Hematology and maybe start the patient on iron. I discussed these issues at length with the patient and his . They understand and are in agreement with the plans. MMODL / IJN: [id number] /
[2022-08-29 11:37] LABS: Chol/HDL Ratio 2.58 Ratio
[2022-08-29 12:58] LABS: Glucose,Whole Blood 297 mg/dL (70-110)
[2022-08-29 15:27] LABS: Reticulocyte % 3.5 % (0.5-2.0)
--- NOTE | 2022-08-29 17:02 | P.CONS ---
History of Present Illness - Reason for Consult Consult date: 08/29/22 anemia microcytic - History of Present Illness Patient is a 66-year-old white male with multiple medical problems, including a known history of CAD. The patient came in with chest pain this admission. He was in the hospital recently on 08/17/22, when he underwent PTCA with stent placement to the LAD. The patient is currently on double antiplatelet therapy. During this admission the patient has been evaluated by cardiology with EKG, and cardiac enzymes which were negative. He had a repeat cardiac catheterizatio n which showed stable findings. hemoglobin this admission was 9.5, with MCV in the 79 range. Hemoglobin during his recent admission was also lower than normal, and the mid 10 range. It had been normal at 13.6, in mid 2021. The patient denied any prior history of blood related problems, or malignancy. Has not noted any obvious bleeding. He has been compliant with his double antiplatelet therapy. He denies use of any other blood thinning medications. He does have a long-standing history of Crohn's disease, diagnosed in 2009. He is not on any treatment, as he is apparently in remission, with colonoscopy on 07/18/22 showing a normal appearing colon. However he states that he does have "diarrhea all the time". Review of Systems Constitutional: Reports fatigue Eyes: denies blurred vision, denies pain Ears: deny: decreased hearing, ear discharge, earache, tinnitus Ears, nose, mouth and throat: Denies headache, Denies sore throat Cardiovascular: Reports as per HPI, Reports chest pain, Reports dyspnea on exertion Respiratory: Denies cough Gastrointestinal: Reports as per HPI, Reports diarrhea Genitourinary: Reports as per HPI Musculoskeletal: Denies myalgias Integumentary: Denies pruritus, Denies rash Neurological: Denies numbness, Denies weakness Psychiatric: Denies anxiety, Denies depression Endocrine: Denies fatigue, Denies weight change Hematologic/Lymphatic: Reports as per HPI Past Medical History Past Medical History: Coronary Artery Disease (CAD), Diabetes Mellitus, Hyperlipidemia, Hypertension, Myocardial Infarction (HI), Thyroid Disorder Additional Past Medical History / Comment(s): NIDDM type II, neuropathy bilateral feet, hypothyroid, chronic low back pain, DDD, stress vertebral fracture lower back, 2 herniated cervical discs-neck pain, chron's, diverticulosis, suspected L upper lobe pulmonary embolism, shingles R upper chest Last Myocardial Infarction Date:: 03-02-2021 History of Any Multi-Drug Resistant Organisms: None Reported Past Surgical History: Bowel Resection, Cholecystectomy, Heart Catheterization With Stent, Orthopedic Surgery, Tonsillectomy Additional Past Surgical History / Comment(s): PCI with stent 2010 at [facility], bowel resection with 1 ft of colon removed d/t chron's, R shoulder rotator cuff repair, colonoscopy, right neck glad removed as child, stent at [facility] 08/24/22 Past Anesthesia/Blood Transfusion Reactions: No Reported Reaction Date of Last Stent Placement:: 2020 Past Psychological History: No Psychological Hx Reported Additional Psychological History / Comment(s): Pt resides with his spouse. He is disabled. He uses no assistive device. He drives. Smoking Status: Former smoker Past Alcohol Use History: None Reported Additional Past Alcohol Use History / Comment(s): Pt started smoking in 1968 and quit smoking in 1992 Past Drug Use History: None Reported - Past Family History Father Family Medical History: Cancer Additional Family Medical History / Comment(s): Father of throat cancer in his early 70s. He had heart problems and an aneurysm Mother Family Medical History: Diabetes Mellitus, Myocardial Infarction (HI) Additional Family Medical History / Comment(s): Pt does not recall at what age mother had her [place] Daughter(s) Family Medical History: Cancer Additional Family Medical History / Comment(s): thyroid CA Brother(s) Family Medical History: Diabetes Mellitus, Renal Disease Medications and Allergies Home Medications Medication Instructions Recorded Confirmed Type metFORMIN HCL [Glucophage] 1,000 mg PO BID #60 tab 05/31/15 08/28/22 Rx Levothyroxine Sodium [Synthroid] 75 mcg PO DAILY 08/19/18 08/28/22 History Atorvastatin [Lipitor] 80 mg PO HS #90 tab 03/04/21 08/28/22 Rx Clopidogrel [Plavix] 75 mg PO DAILY #90 tab 03/04/21 08/28/22 Rx glipiZIDE [Glucotrol] 5 mg PO BID 06/03/21 08/28/22 History Naproxen [Naprosyn] 500 mg PO BID PRN 03/20/22 08/28/22 History lisinopriL [Zestril] 10 mg PO HS 07/16/22 08/28/22 History Aspirin EC [Ecotrin Low Dose] 81 mg PO DAILY 08/16/22 08/28/22 History Insulin NPL/Insulin Lispro See Protocol SQ AC-TID PRN 08/16/22 08/28/22 History [humaLOG MIX 75-25 VIAL] Isosorbide Mononitrate ER [Imdur] 30 mg PO DAILY #30 tab 08/17/22 08/28/22 Rx Metoprolol Succinate (ER) [Toprol 50 mg PO DAILY #90 tab 08/18/22 08/28/22 Rx XL] Allergies Allergy/AdvReac Type Severity Reaction Status Date / Time No Known Allergies Allergy Verified 08/28/22 17:17 Physical Exam Vitals: Vital Signs Temp Pulse Pulse Resp BP BP BP 08/29/22 14:00 77 16 08/29/22 13:50 77 16 107/60 08/29/22 13:41 97.8 F 74 16 115/61 08/29/22 12:50 70 16 112/62 08/29/22 11:50 73 16 114/58 08/29/22 11:20 69 16 120/67 08/29/22 10:50 70 16 111/67 08/29/22 10:35 66 16 113/66 08/29/22 10:20 69 16 121/72 08/29/22 10:05 68 16 120/64 08/29/22 09:38 08/29/22 08:00 71 16 08/29/22 07:04 97.8 F 71 16 124/73 08/29/22 01:01 98.0 F 87 15 135/68 08/28/22 21:48 97.7 F 78 17 169/71 08/28/22 21:28 76 119/60 08/28/22 21:00 74 19 129/67 08/28/22 20:30 76 16 120/69 08/28/22 19:11 69 18 120/69 08/28/22 18:00 72 16 121/61 Pulse Ox 08/29/22 14:00 08/29/22 13:50 96 08/29/22 13:41 96 08/29/22 12:50 96 08/29/22 11:50 95 08/29/22 11:20 98 08/29/22 10:50 99 08/29/22 10:35 99 08/29/22 10:20 97 08/29/22 10:05 97 08/29/22 09:38 98 08/29/22 08:00 08/29/22 07:04 98 08/29/22 01:01 96 08/28/22 21:48 98 08/28/22 21:28 08/28/22 21:00 95 08/28/22 20:30 96 08/28/22 19:11 100 08/28/22 18:00 97 Intake and Output 08/29/22 08/29/22 08/29/22 06:59 14:59 22:59 Intake Total 64.333 50 Output Total 500 Balance 64.333 -450 Intake: IV 50 Intake, IV Titration 64.333 Amount Heparin Sod,Pork in 0.45% 64.333 NaCl 25,000 unit In 0.45 % NaCl 1 250ml.bag @ 11. 603 UNITS/KG/HR 10 mls/hr IV .Q24H BARTOLO Rx#: [id number] Output: Urine 500 Other: Voiding Method Toilet # Voids 5 - Constitutional General appearance: no acute distress - EENT Eyes: EOMI, PERRLA ENT: hearing grossly normal, normal oropharynx - Neck Neck: no lymphadenopathy Thyroid: bilateral: normal size - Respiratory Respiratory: bilateral: CTA - Cardiovascular Rhythm: regular Heart sounds: normal: S1, S2 - Gastrointestinal General gastrointestinal: normal bowel sounds, soft - Integumentary Integumentary: normal - Neurologic Neurologic: CNII-XII intact - Musculoskeletal Musculoskeletal: generalized weakness, strength equal bilaterally - Psychiatric Psychiatric: A&O x's 3, appropriate affect Results CBC & Chem 7: 08/29/22 07:00 08/28/22 16:45 Labs: Abnormal Lab Results - Last 24 Hours (Table) 08/28/22 08/28/22 08/28/22 Range/Units 16:45 16:45 23:30 RBC 3.70 L (4.30-5.90) m/uL Hgb 9.5 L (13.0-17.5) gm/dL Hct 29.5 L (39.0-53.0) % MCV 79.7 L (80.0-100.0) fL Retic Count (0.5-2.0) % APTT 32.0 H (22.0-30.0) sec Sodium 134 L (137-145) mmol/L Carbon Dioxide 21 L (22-30) mmol/L BUN 23 H (9-20) mg/dL Glucose 175 H (74-99) mg/dL POC Glucose (mg/dL) (70-110) mg/dL Magnesium 1.4 L (1.6-2.3) mg/dL HDL Cholesterol (40.00-60.00) mg/dL 08/29/22 08/29/22 08/29/22 Range/Units 07:00 07:13 12:56 RBC (4.30-5.90) m/uL Hgb (13.0-17.5) gm/dL Hct (39.0-53.0) % MCV (80.0-100.0) fL Retic Count (0.5-2.0) % APTT 42.9 H (22.0-30.0) sec Sodium (137-145) mmol/L Carbon Dioxide (22-30) mmol/L BUN (9-20) mg/dL Glucose (74-99) mg/dL POC Glucose (mg/dL) 297 H (70-110) mg/dL Magnesium (1.6-2.3) mg/dL HDL Cholesterol 30.30 L (40.00-60.00) mg/dL 08/29/22 Range/Units 15:02 RBC (4.30-5.90) m/uL Hgb (13.0-17.5) gm/dL Hct (39.0-53.0) % MCV (80.0-100.0) fL Retic Count 3.5 H (0.5-2.0) % APTT (22.0-30.0) sec Sodium (137-145) mmol/L Carbon Dioxide (22-30) mmol/L BUN (9-20) mg/dL Glucose (74-99) mg/dL POC Glucose (mg/dL) (70-110) mg/dL Magnesium (1.6-2.3) mg/dL HDL Cholesterol (40.00-60.00) mg/dL Comments: EKG images reviewed Catheterization report, colonoscopy procedure note reviewed Chest x-ray: report reviewed US - abdomen: report reviewed (07/20, showing hepatic steatosis) Assessment and Plan (1) Microcytic anemia Narrative/Plan: The patient is being seen for a moderate anemia, with mild microcytosis. This was noted during his previous admission, with hemoglobin overall in the same range, that is 9-10. Hemoglobin was normal about a year ago. - The patient presenting symptoms of chest pain was felt to be possibly related, at least in part to his anemia, given repeat cardiac workup being overall negative for any new findings. Given the level of the hemoglobin, and the fact that there is not much of a change compared to his recent admission, it is less likely to be a contributing factor. However the patient's hemoglobin will need to be treated anyway, especially if this is found to be due to blood loss, on workup. - Check labs for anemia workup, including deficiency states. Iron deficiency is definitely concerned, given microcytosis, as well as ongoing double antiplatelet therapy. In addition the patient may be at risk for decreased iron and other nutrient absorption from his history of Crohn's disease, although recent colonoscopy did not show any new changes. - If workup does reveal evidence of iron deficiency, the patient will be aggressively supplemented. If hemoglobin can be maintained in a safe range with aggressive supplementation, he can continue on his antiplatelet therapy, which is vital for his cardiac management. - If iron deficiency is confirmed, we would definitely recommend EGD for completion of GI workup. This can be scheduled as an outpatient, as long as the patient does not show any evidence of active blood loss during this admission. Current Visit: Yes Status: Acute Code(s): D50.9 - IRON DEFICIENCY ANEMIA, UNSPECIFIED SNOMED Code(s): 256930255 Plan: Defer to cardiology for management of his other medical issues.
[2022-08-29 17:19] LABS: Glucose,Whole Blood 302 mg/dL (70-110)
[2022-08-29 20:23] LABS: % Iron Saturation 4.05 (15.00-50.00); Ferritin 7.1 ng/mL (22.0-322.0)
[2022-08-29] MEDS: glipiZIDE 5 MG TAB PO SCH (20:28)
[2022-08-29 20:32] LABS: Glucose,Whole Blood 385 mg/dL (70-110)
[2022-08-29] MEDS ORDERED: ATORVASTATIN 80 MG TAB PO SCH (21:00)
[2022-08-29] MEDS ORDERED: lisinopriL 10 MG TAB PO SCH (21:00)
--- NOTE | 2022-08-29 23:22 | P.HPIM ---
History of Present Illness H&P Date: 08/29/22 This is a 66-year-old male readmitted for atypical chest pain left midsternal nonradiating patient was not doing anything exertional denies any diaphoresis denies any nausea vomiting patient has had a persistent microcytic anemia Review of Systems GENERAL: Patient denies fever. Denies chills. EYES: Denies blurred vision. Denies vision changes. Denies eye pain. EARS, NOSE, MOUTH, & THROAT: Denies headache. Denies sore throat. Denies ear pain. RESPIRATORY: Denies cough. Denies shortness of breath. Denies sputum production. Denies hemoptysis. CARDIOVASCULAR: chest pain As described. Denies palpitations. Denies arrhythmias. GASTROINTESTINAL: Denies abdominal pain. Denies diarrhea. Denies constipation. Denies nausea. Denies vomiting. Denies heartburn. Denies blood in the stool. GENITOURINARY: Denies urinary frequency. Denies burning. Denies dysuria. Denies cloudy urine. Denies blood in the urine. MUSCULOSKELETAL: Denies myalgias. Denies joint swelling. Denies decreased range of motion beyond patients baseline. INTEGUMENTARY: Denies pruitis. Denies rash. PSYCHIATRIC: Denies suicidal or homicial ideations. ENDOCRINE: Denies weight change. Denies polydipsia. Denies polyuria. HEMATOLOGIC: Denies bleeding disorders. Past Medical History Past Medical History: Coronary Artery Disease (CAD), Diabetes Mellitus, Hyperlipidemia, Hypertension, Myocardial Infarction (AK), Thyroid Disorder Additional Past Medical History / Comment(s): NIDDM type II, neuropathy bilateral feet, hypothyroid, chronic low back pain, DDD, stress vertebral fracture lower back, 2 herniated cervical discs-neck pain, chron's, diverticulosis, suspected L upper lobe pulmonary embolism, shingles R upper chest Last Myocardial Infarction Date:: 03-02-2021 History of Any Multi-Drug Resistant Organisms: None Reported Past Surgical History: Bowel Resection, Cholecystectomy, Heart Catheterization With Stent, Orthopedic Surgery, Tonsillectomy Additional Past Surgical History / Comment(s): PCI with stent 2009 at [facility], bowel resection with 1 ft of colon removed d/t chron's, R shoulder rot ator cuff repair, colonoscopy, right neck glad removed as child, stent at [facility] 08/24/22 Past Anesthesia/Blood Transfusion Reactions: No Reported Reaction Date of Last Stent Placement:: 2020 Past Psychological History: No Psychological Hx Reported Additional Psychological History / Comment(s): Pt resides with his spouse. He is disabled. He uses no assistive device. He drives. Smoking Status: Former smoker Past Alcohol Use History: None Reported Additional Past Alcohol Use History / Comment(s): Pt started smoking in 1968 and quit smoking in 1992 Past Drug Use History: None Reported - Past Family History Father Family Medical History: Cancer Additional Family Medical History / Comment(s): Father of throat cancer in his early 70s. He had heart problems and an aneurysm Mother Family Medical History: Diabetes Mellitus, Myocardial Infarction (AK) Additional Family Medical History / Comment(s): Pt does not recall at what age mother had her AK Daughter(s) Family Medical History: Cancer Additional Family Medical History / Comment(s): thyroid CA Brother(s) Family Medical History: Diabetes Mellitus, Renal Disease Medications and Allergies Home Medications Medication Instructions Recorded Confirmed Type metFORMIN HCL [Glucophage] 1,000 mg PO BID #60 tab 05/31/15 08/28/22 Rx Levothyroxine Sodium [Synthroid] 75 mcg PO DAILY 08/19/18 08/28/22 History Atorvastatin [Lipitor] 80 mg PO HS #90 tab 03/04/21 08/28/22 Rx Clopidogrel [Plavix] 75 mg PO DAILY #90 tab 03/04/21 08/28/22 Rx glipiZIDE [Glucotrol] 5 mg PO BID 06/03/21 08/28/22 History Naproxen [Naprosyn] 500 mg PO BID PRN 03/20/22 08/28/22 History lisinopriL [Zestril] 10 mg PO HS 07/16/22 08/28/22 History Aspirin EC [Ecotrin Low Dose] 81 mg PO DAILY 08/16/22 08/28/22 History Insulin NPL/Insulin Lispro See Protocol SQ AC-TID PRN 08/16/22 08/28/22 History [humaLOG MIX 75-25 VIAL] Isosorbide Mononitrate ER [Imdur] 30 mg PO DAILY #30 tab 08/17/22 08/28/22 Rx Metoprolol Succinate (ER) [Toprol 50 mg PO DAILY #90 tab 08/18/22 08/28/22 Rx XL] Allergies Allergy/AdvReac Type Severity Reaction Status Date / Time No Known Allergies Allergy Verified 08/28/22 17:17 Physical Exam Osteopathic Statement: *. No significant issues noted on an osteopathic structural exam other than those noted in the History and Physical/Consult. Vitals: Vital Signs Temp Pulse Resp BP BP Pulse Ox 08/29/22 19:21 98.3 F 73 15 133/61 96 08/29/22 14:00 77 16 08/29/22 13:50 77 16 107/60 96 08/29/22 13:41 97.8 F 74 16 115/61 96 08/29/22 12:50 70 16 112/62 96 08/29/22 11:50 73 16 114/58 95 08/29/22 11:20 69 16 120/67 98 08/29/22 10:50 70 16 111/67 99 08/29/22 10:35 66 16 113/66 99 08/29/22 10:20 69 16 121/72 97 08/29/22 10:05 68 16 120/64 97 08/29/22 09:38 98 08/29/22 08:00 71 16 08/29/22 07:04 97.8 F 71 16 124/73 98 08/29/22 01:01 98.0 F 87 15 135/68 96 Intake and Output 08/29/22 08/29/22 08/30/22 14:59 22:59 06:59 Intake Total 50 118 Output Total 500 Balance -450 118 Intake: IV 50 Oral 118 Output: Urine 500 Other: Voiding Method Toilet GENERAL: This is a 66-year-old in no apparent distress at the time of examination. Pleasant and cooperative. HEENT: Head is atraumatic, normocephalic. Pupils are equal, round, and reactive to light. Sclerae anicteric. Conjunctivae are clear. Mucus membranes of the mouth are moist. Neck is supple. RESPIRATORY: Clear to auscultation. No wheezes, rales, or rhonchi. No use of accessory muscles. Patient maintaining oxygen saturation greater than 92%. No chest wall tenderness is noted on palpation or with deep breathing. CARDIOVASCULAR: Regular rate and rhythm. S1 and S2 noted. GASTROINTESTINAL: No distention noted. Abdomen soft and round. Normal active bowel sounds auscultated x 4 quadrants. No pain or tenderness noted upon palpation. INTEGUMENTARY: No cyanosis. No jaundice. No rashes noted. No cellulitis noted. EXTREMITIES: 2+ peripheral pulses. No evidence of peripheral edema. No calf tenderness noted. NEUROLOGIC: Cranial nerves II-XII intact. PSYCHIATRIC: Awake, alert, and oriented X 3. Appropriate affect. Intact judgement and insight. Results CBC & Chem 7: 08/29/22 07:00 08/28/22 16:45 Labs: Abnormal Lab Results - Last 24 Hours (Table) 08/28/22 08/29/22 08/29/22 Range/Units 23:30 07:00 07:00 Retic Count (0.5-2.0) % APTT 32.0 H (22.0-30.0) sec POC Glucose (mg/dL) (70-110) mg/dL Iron 18 L (65-175) ug/dL % Saturation 4.05 L (15.00-50.00) Ferritin 7.1 L (22.0-322.0) ng/mL HDL Cholesterol 30.30 L (40.00-60.00) mg/dL 08/29/22 08/29/22 08/29/22 Range/Units 07:13 12:56 15:02 Retic Count 3.5 H (0.5-2.0) % APTT 42.9 H (22.0-30.0) sec POC Glucose (mg/dL) 297 H (70-110) mg/dL Iron (65-175) ug/dL % Saturation (15.00-50.00) Ferritin (22.0-322.0) ng/mL HDL Cholesterol (40.00-60.00) mg/dL 08/29/22 08/29/22 Range/Units 17:14 20:30 Retic Count (0.5-2.0) % APTT (22.0-30.0) sec POC Glucose (mg/dL) 302 H 385 H (70-110) mg/dL Iron (65-175) ug/dL % Saturation (15.00-50.00) Ferritin (22.0-322.0) ng/mL HDL Cholesterol (40.00-60.00) mg/dL Assessment and Plan (1) Chest pain Current Visit: Yes Status: Acute Code(s): R07.9 - CHEST PAIN, UNSPECIFIED SNOMED Code(s): 57759143 (2) Coronary artery disease Current Visit: Yes Status: Acute Code(s): I25.10 - ATHSCL HEART DISEASE OF [place] CORONARY ARTERY W/O ANG PCTRS SNOMED Code(s): 24381947 (3) Microcytic anemia Current Visit: Yes Status: Acute Code(s): D50.9 - IRON DEFICIENCY ANEMIA, UNSPECIFIED SNOMED Code(s): 354505010 (4) Near syncope Current Visit: Yes Status: Acute Code(s): R55 - SYNCOPE AND COLLAPSE SNOMED Code(s): 418835477 (5) Pulmonary embolus, left Current Visit: No Status: Acute Code(s): I26.99 - OTHER PULMONARY EMBOLISM WITHOUT ACUTE COR PULMONALE SNOMED Code(s): 85003080
[2022-08-30 03:38] VITALS: PULSE 71; RESP 16
[2022-08-30] MEDS: LEVOTHYROXINE 75 MCG TAB PO SCH (06:03)
[2022-08-30 06:45] LABS: Mean Platelet Volume 8.7; Platelet Count 223 k/uL (150-450)
[2022-08-30] MEDS ORDERED: HEPARIN SODIUM,PORCINE 2,500 UNIT in SODIUM CHLORIDE 0.9% 250 ML IRRIGATION PRN (07:00)
[2022-08-30] MEDS ORDERED: HEPARIN SODIUM,PORCINE 10,000 UNIT in SODIUM CHLORIDE 0.9% 1,000 ML IRRIGATION PRN (07:00)
[2022-08-30] MEDS: glipiZIDE 5 MG TAB PO SCH (08:19)
[2022-08-30] MEDS: METOPROLOL SUCCINATE (ER) 50 MG TAB.ER.24H PO SCH (08:20)
[2022-08-30] MEDS: ISOSORBIDE MONONITRATE ER 60 MG TAB.ER.24H PO SCH (08:20)
[2022-08-30] MEDS ORDERED: ASPIRIN 81 MG PO SCH (09:00)
[2022-08-30] MEDS ORDERED: CLOPIDOGREL 75 MG TAB PO SCH (09:00)
[2022-08-30] MEDS: SODIUM CHLORIDE 0.9% 1,000 ML IV SCH (09:01)
[2022-08-30 09:28] VITALS: BP 135/76; TEMP 97.7
[2022-08-30] MEDS ORDERED: DEXTROSE 50% SYRINGE 50 ML IVP PRN ×2 (09:46)
--- NOTE | 2022-08-30 12:18 | P.PN ---
Subjective Progress Note Date: 08/30/22 Is a pleasant 66-year-old gentleman who follows in the office with Dr. Cloud. Has a history of CAD with prior PCI of the proximal LAD. Presented to the emergency department with complaints of extreme shortness of breath with activity as well as chest pressure and near syncope. He was found to be anemic. He did undergo cardiac catheterization which showed patent stent in the LAD with 40% lesion. Symptoms are felt to be related to the anemia and he has been evaluated by hematology. Upon examination this morning he is overall feeling a bit better. He's had no complaints of chest pressure or near syncope. His breathing has stabilized. Objective - Vital Signs Vital signs: Vital Signs Temp 97.7 F 08/30/22 07:00 Pulse 71 08/30/22 07:00 Resp 16 08/30/22 07:00 BP 135/76 08/30/22 07:00 Pulse Ox 95 08/30/22 07:53 FiO2 Intake & Output 08/29/22 08/30/22 08/30/22 18:59 06:59 18:59 Intake Total 168 Output Total 500 Balance -332 Intake: IV 50 Oral 118 Output: Urine 500 Other: Voiding Method Toilet Toilet # Voids 2 - Exam PHYSICAL EXAMINATION: HEENT: Head is atraumatic, normocephalic. Pupils equal, round. Neck is supple. There is no elevated jugular venous pressure. HEART EXAMINATION: Heart sounds regular, S1 and S2 normal. No murmur or gallop heard. CHEST EXAMINATION: Lungs are clear to auscultation and precussion. No chest wall tenderness is noted on palpation or with deep breathing. ABDOMEN: Soft, nontender. Bowel sounds are heard. No organomegaly noted. EXTREMITIES: 2+ peripheral pulses with no evidence of peripheral edema and no calf tenderness noted. Left femoral puncture site soft without ecchymosis or hematoma. NEUROLOGIC patient is awake, alert and oriented x3. . - Labs CBC & Chem 7: 08/30/22 06:26 08/28/22 16:45 Labs: Abnormal Lab Results - Last 24 Hours (Table) 08/29/22 08/29/22 08/29/22 Range/Units 07:00 12:56 15:02 Retic Count 3.5 H (0.5-2.0) % POC Glucose (mg/dL) 297 H (70-110) mg/dL Iron 18 L (65-175) ug/dL % Saturation 4.05 L (15.00-50.00) Ferritin 7.1 L (22.0-322.0) ng/mL 08/29/22 08/29/22 Range/Units 17:14 20:30 Retic Count (0.5-2.0) % POC Glucose (mg/dL) 302 H 385 H (70-110) mg/dL Iron (65-175) ug/dL % Saturation (15.00-50.00) Ferritin (22.0-322.0) ng/mL Assessment and Plan Assessment: #1 symptoms of shortness of breath, chest pressure and near syncope, could be related to underlying anemia #2 CAD with prior stent of the LAD, patent on cardiac catheterization done yesterday #3 hypertension #4 hyperlipidemia #5 diabetes #6 hypothyroidism Plan: From cardiology's perspective patient may be discharged home. Encourage further evaluation as an outpatient for underlying anemia. Medications were reviewed and we will continue the same. He'll follow-up as an outpatient in the office with Dr. Rivsa. [employer] note has been reviewed, I agree with a documented findings and plan of care. Patient was seen and examined.
[2022-08-30] MEDS ORDERED: INSULIN ASPART (NovoLOG) 100 UNIT/ML VIAL SQ SCH (12:30)
--- NOTE | 2022-08-30 13:01 | P.PN ---
Subjective Patient was in [id number] male came in with complaints of epigastric abdominal pain found to have an keratitis patient back hepatitis is secondary to alcohol use although patient doesn't drink excess alcohol. Patient used to drink a lot in the past had multiple episodes of pancreatitis in the past. Patient's serum sodium is 134. Ultrasound of the abdomen did not show any gallstones but did show fatty liver. Patient the pain is sharp epigastric radiate to the back 10 x 10 in severity REVIEW OF SYSTEMS: CONSTITUTIONAL: No fever, no malaise, no fatigue. HEENT: No recent visual problems or hearing problems. Denied any sore throat. CARDIOVASCULAR: No chest pain, orthopnea, PND, no palpitations, no syncope. PULMONARY: No shortness of breath, no cough, no hemoptysis. GASTROINTESTINAL: No diarrheaNEUROLOGICAL: No headaches, no weakness, no numbness. HEMATOLOGICAL: Denies any bleeding or petechiae. GENITOURINARY: Denies any burning micturition, frequency, or urgency. MUSCULOSKELETAL/RHEUMATOLOGICAL: Denies any joint pain, swelling, or any muscle pain. ENDOCRINE: Denies any polyuria or polydipsia. The rest of the 14-point review of systems is negative. PHYSICAL EXAMINATION: GENERAL: The patient is alert and oriented x3, not in any acute distress. Well developed, well nourished. HEENT: Pupils are round and equally reacting to light. EOMI. No scleral icterus. No conjunctival pallor. Normocephalic, atraumatic. No pharyngeal erythema. No thyromegaly. CARDIOVASCULAR: S1 and S2 present. No murmurs, rubs, or gallops. PULMONARY: Chest is clear to auscultation, no wheezing or crackles. ABDOMEN: Soft, moderate epigastric abdominal tenderness, nondistended, normoactive bowel sounds. No palpable organomegaly. MUSCULOSKELETAL: No joint swelling or deformity. EXTREMITIES: No cyanosis, clubbing, or pedal edema. NEUROLOGICAL: Gross neurological examination did not reveal any focal deficits. SKIN: No rashes. Assessment and plan -Alcoholic pancreatitis: Counseling was provided regarding alcoholism patient pain is better patient will be started on clear liquid diet, advance as tolerated. Patient will be and IV Protonix and Toradol for pain -Hypervolemic hyponatremia for which patient will continued on IV fluids will increase the IV fluids -Hypomagnesemia secondary to alcoholism pain is will be replaced -Nicotine use: Counseling was provided DVT prophylaxis: Early ambulation Objective - Vital Signs Vital signs: Vital Signs Temp 97.7 F 08/30/22 07:00 Pulse 71 08/30/22 07:00 Resp 16 08/30/22 07:00 BP 135/76 08/30/22 07:00 Pulse Ox 95 08/30/22 07:53 FiO2 Intake & Output 08/29/22 08/30/22 08/30/22 18:59 06:59 18:59 Intake Total 168 Output Total 500 Balance -332 Intake: IV 50 Oral 118 Output: Urine 500 Other: Voiding Method Toilet Toilet # Voids 2 - Labs CBC & Chem 7: 08/30/22 06:26 08/28/22 16:45 Labs: Abnormal Lab Results - Last 24 Hours (Table) 08/29/22 08/29/22 08/29/22 Range/Units 07:00 15:02 17:14 Retic Count 3.5 H (0.5-2.0) % POC Glucose (mg/dL) 302 H (70-110) mg/dL Iron 18 L (65-175) ug/dL % Saturation 4.05 L (15.00-50.00) Ferritin 7.1 L (22.0-322.0) ng/mL 08/29/22 Range/Units 20:30 Retic Count (0.5-2.0) % POC Glucose (mg/dL) 385 H (70-110) mg/dL Iron (65-175) ug/dL % Saturation (15.00-50.00) Ferritin (22.0-322.0) ng/mL
--- NOTE | 2022-08-30 13:19 | P.DS ---
Providers Date of admission: 08/28/22 18:16 Attending physician: Ceasar Sears Consults: 08/28/22 18:15 Consult Physician Urgent Consulting Provider: John Rivas Consult Reason/Comments: known Do you want consulting provider notified?: Yes 08/29/22 11:21 Consult Physician Routine Consulting Provider: Ben Hinojosa Consult Reason/Comments: anemia Do you want consulting provider notified?: Yes Primary care physician: Ceasar Sears [facility] Course: Patient is admitted for chest pain and underwent a cardiac catheterization patient had history of coronary artery disease. Patient did not have any significant occlusive disease that needs stenting all the LAD has 40% lesion. Patient was also evaluated for anemia patient does have an deficiency anemia with serum ferritin around 7 and received IV iron supplementation here and will follow-up with oncology as an outpatient for IV iron supplementation. Patient will be discharged on ferrous gluconate twice a day. Patient doesn't have any evidence of acute or subacute GI bleed. No acute blood loss anemia PHYSICAL EXAMINATION: GENERAL: The patient is alert and oriented x3, not in any acute distress. Well developed, well nourished. HEENT: Pupils are round and equally reacting to light. EOMI. No scleral icterus. No conjunctival pallor. Normocephalic, atraumatic. No pharyngeal erythema. No thyromegaly. CARDIOVASCULAR: S1 and S2 present. No murmurs, rubs, or gallops. PULMONARY: Chest is clear to auscultation, no wheezing or crackles. ABDOMEN: Soft, nontender, nondistended, normoactive bowel sounds. No palpable organomegaly. MUSCULOSKELETAL: No joint swelling or deformity. EXTREMITIES: No cyanosis, clubbing, or pedal edema. NEUROLOGICAL: Gross neurological examination did not reveal any focal deficits. SKIN: No rashes. -Shortness of breath chest pressure near-syncope believed to be secondary to anemia no evidence of stent unable coronary occlusive disease next Plan coronary artery disease -Hyperlipidemia -Hypertension next and-diabetes mellitus next and have another does of -Iron deficiency anemia probably secondary to malabsorption Patient Condition at Discharge: Fair Plan - Discharge Summary New Discharge Prescriptions: New Ferrous Gluconate 324 mg PO BID #60 tablet Continue metFORMIN HCL [Glucophage] 1,000 mg PO BID #60 tab Levothyroxine Sodium [Synthroid] 75 mcg PO DAILY Atorvastatin [Lipitor] 80 mg PO HS #90 tab Clopidogrel [Plavix] 75 mg PO DAILY #90 tab Aspirin EC [Ecotrin Low Dose] 81 mg PO DAILY lisinopriL [Zestril] 10 mg PO HS Insulin NPL/Insulin Lispro [humaLOG MIX 75-25 VIAL] See Protocol SQ AC-TID PRN PRN Reason: Blood Sugar - High Isosorbide Mononitrate ER [Imdur] 30 mg PO DAILY #30 tab Metoprolol Succinate (ER) [Toprol XL] 50 mg PO DAILY #90 tab Changed glipiZIDE [Glucotrol] 10 mg PO BID #0 Discontinued Naproxen [Naprosyn] 500 mg PO BID PRN PRN Reason: Pain Discharge Medication List metFORMIN HCL [Glucophage] 1,000 mg PO BID #60 tab 05/31/15 [Rx] Levothyroxine Sodium [Synthroid] 75 mcg PO DAILY 08/19/18 [History] Atorvastatin [Lipitor] 80 mg PO HS #90 tab 03/04/21 [Rx] Clopidogrel [Plavix] 75 mg PO DAILY #90 tab 03/04/21 [Rx] lisinopriL [Zestril] 10 mg PO HS 07/16/22 [History] Aspirin EC [Ecotrin Low Dose] 81 mg PO DAILY 08/16/22 [History] Insulin NPL/Insulin Lispro [humaLOG MIX 75-25 VIAL] See Protocol SQ AC-TID PRN 08/16/22 [History] Isosorbide Mononitrate ER [Imdur] 30 mg PO DAILY #30 tab 08/17/22 [Rx] Metoprolol Succinate (ER) [Toprol XL] 50 mg PO DAILY #90 tab 08/18/22 [Rx] Ferrous Gluconate 324 mg PO BID #60 tablet 08/30/22 [Rx] glipiZIDE [Glucotrol] 10 mg PO BID #0 08/30/22 [Rx] Follow up Appointment(s)/Referral(s): Ben Hinojosa MD [STAFF PHYSICIAN] - 1 Week Ceasar Sears DO [Primary Care Provider] - 3 Days Patient Instructions/Handouts: Anemia (DC) Discharge Disposition: HOME SELF-CARE
[2022-08-31 09:24] LABS: Immunoglobulin M <35.0 mg/dL; Protein, Total 5.7 d/dL
[2022-09-02 06:42] LABS: Methylmalonic Acid 0.3 umol/L (<0.40)
[2022-09-03 15:14] LABS: Free Lambda Lt Chain Qnt, Seru 2.33 mg/dL (0.57-2.63)
== END 2022-08-30 12:00 | disposition home or self-care (01) ==
LOC: EC 16:10 → 6NMEDSUR 18:16
PROVIDERS: ADMIT Family Medicine; ATTEND Family Medicine
DX: D50.9 Iron deficiency anemia, unspecified (principal); I25.110 Atherosclerotic heart disease of native coronary artery with unstable angina pectoris; R07.89 Other chest pain; I10 Essential (primary) hypertension; E78.5 Hyperlipidemia, unspecified; I25.2 Old myocardial infarction; E03.9 Hypothyroidism, unspecified; E11.42 Type 2 diabetes mellitus with diabetic polyneuropathy; G89.29 Other chronic pain; M54.50 Low back pain, unspecified; M50.20 Other cervical disc displacement, unspecified cervical region; K50.90 Crohn's disease, unspecified, without complications; Z87.19 Personal history of other diseases of the digestive system; Z86.19 Personal history of other infectious and parasitic diseases; Z90.49 Acquired absence of other specified parts of digestive tract; Z95.5 Presence of coronary angioplasty implant and graft; Z98.890 Other specified postprocedural states; Z87.891 Personal history of nicotine dependence; Z82.49 Family history of ischemic heart disease and other diseases of the circulatory system; Z83.3 Family history of diabetes mellitus; Z80.0 Family history of malignant neoplasm of digestive organs; Z80.8 Family history of malignant neoplasm of other organs or systems; Z84.1 Family history of disorders of kidney and ureter; Z79.84 Long term (current) use of oral hypoglycemic drugs; Z79.02 Long term (current) use of antithrombotics/antiplatelets; Z79.890 Hormone replacement therapy; Z79.4 Long term (current) use of insulin; Z79.899 Other long term (current) drug therapy; Z79.82 Long term (current) use of aspirin
CPT/HCPCS: 96376 ×2; 96366 ×3; 96365; 99285; 36415; 94760 ×2; 93005; 93458; 83921; 85379; 83880; 80061; 80053; 82607; 82728; 82525; 82746; 83540; 83550; 83615; 83690; 83735; 84484; 85025; 85049 ×2; 85610; 85045; 85730 ×2; 84165; 83010; 86334; 83883; 71046; G0378 ×3; C1760; C1769 ×2; C1894 ×2; J2250; J2001 ×2; J1644 ×3; Q9967; J3010

== ENCOUNTER 2022-10-10 12:31 | Observation (INO) | payer MEDICARE ==
[2022-10-10] MEDS ORDERED: ASPIRIN 81 MG PO STA (12:42)
[2022-10-10] MEDS ORDERED: NITROGLYCERIN SL TABS 0.4 MG TAB SUBLINGUAL STA ×3 (12:42)
--- NOTE | 2022-10-10 12:48 | ED ---
General Adult HPI - General Chief complaint: Shortness of Breath Stated complaint: SOB,Chest Pain, thinks its his low iron Time Seen by Provider: 10/10/22 12:36 Source: patient, RN notes reviewed Mode of arrival: ambulatory Limitations: no limitations - History of Present Illness Initial comments: Patient is a pleasant 66-year-old male presenting to the emergency department with concern with chest discomfort. Onset of symptoms was 2 or 3 days ago. S ymptoms have been intermittent. Discomfort is somewhat severe at this time. Discomfort feels like pressure. Patient has associated dyspnea. Patient at times feels like he may be sweaty. No nausea. Patient does have history of stent placement 2 months ago. Patient did have cardiac cath following that that was reported to him as clean. Patient was in the hospital last month with somewhat similar symptoms that he believes was associated with low iron. Patient did have colonoscopy done without evidence of bleeding. Patient does have history of Crohn's. - Related Data Home Medications Medication Instructions Recorded Confirmed Levothyroxine Sodium [Synthroid] 75 mcg PO DAILY 08/19/18 10/10/22 lisinopriL [Zestril] 10 mg PO HS 07/16/22 10/10/22 Aspirin EC [Ecotrin Low Dose] 81 mg PO DAILY 08/16/22 10/10/22 Ferrous Sulfate [Feosol] 325 mg PO BID 10/10/22 10/10/22 Insuln Asp Prt/Insulin Aspart See Protocol SQ AC-TID PRN 10/10/22 10/10/22 [NovoLOG MIX 70-30 VIAL] Metoprolol Succinate (ER) [Toprol 25 mg PO DAILY 10/10/22 10/10/22 Xl] Nitroglycerin Sl Tabs [Nitrostat] 0.4 mg SUBLINGUAL Q5M PRN 10/10/22 10/10/22 Pantoprazole Sodium [Protonix] 40 mg PO DAILY 10/10/22 10/10/22 glipiZIDE [Glucotrol] 5 mg PO BID 10/10/22 10/10/22 Previous Rx's Medication Instructions Recorded metFORMIN HCL [Glucophage] 1,000 mg PO BID #60 tab 05/31/15 Atorvastatin [Lipitor] 80 mg PO HS #90 tab 03/04/21 Clopidogrel [Plavix] 75 mg PO DAILY #90 tab 12/06/21 Isosorbide Mononitrate ER [Imdur] 30 mg PO DAILY #30 tab 08/17/22 Allergies Allergy/AdvReac Type Severity Reaction Status Date / Time No Known Allergies Allergy Verified 10/10/22 13:30 Review of Systems ROS Statement: Those systems with pertinent positive or pertinent negative responses have been documented in the HPI. ROS Other: All systems not noted in ROS Statement are negative. Constitutional: Denies: fever Eyes: Denies: eye pain ENT: Denies: ear pain Respiratory: Reports: as per HPI, dyspnea. Denies: cough Cardiovascular: Reports: chest pain Endocrine: Reports: fatigue Gastrointestinal: Denies: abdominal pain Musculoskeletal: Denies: back pain Past Medical History Past Medical History: Coronary Artery Disease (CAD), Diabetes Mellitus, Hyperlipidemia, Hypertension, Myocardial Infarction ([place]), Thyroid Disorder Additional Past Medical History / Comment(s): NIDDM type II, neuropathy bilateral feet, hypothyroid, chronic low back pain, DDD, stress vertebral fracture lower back, 2 herniated cervical discs-neck pain, chron's, diverticulosis, suspected L upper lobe pulmonary embolism, shingles R upper chest Last Myocardial Infarction Date:: 03-02-2021 History of Any Multi-Drug Resistant Organisms: None Reported Past Surgical History: Bowel Resection, Cholecystectomy, Heart Catheterization With Stent, Orthopedic Surgery, Tonsillectomy Additional Past Surgical History / Comment(s): PCI with stent 2009 at [facility], bowel resection with 1 ft of colon removed d/t chron's, R shoulder rotator cuff repair, colonoscopy, right neck glad removed as child, stent at [facility] 08/24/22 Past Anesthesia/Blood Transfusion Reactions: No Reported Reaction Date of Last Stent Placement:: 2020 Past Psychological History: No Psychological Hx Reported Smoking Status: Never smoker Past Alcohol Use History: None Reported Past Drug Use History: None Reported - Past Family History Father Family Medical History: Cancer Additional Family Medical History / Comment(s): Father of throat cancer in his early 70s. He had heart problems and an aneurysm Mother Family Medical History: Diabetes Mellitus, Myocardial Infarction ([place]) Additional Family Medical History / Comment(s): Pt does not recall at what age mother had her [place] Daughter(s) Family Medical History: Cancer Additional Family Medical History / Comment(s): thyroid CA Brother(s) Family Medical History: Diabetes Mellitus, Renal Disease General Exam Limitations: no limitations General appearance: alert, in no apparent distress Head exam: Present: normocephalic Eye exam: Present: normal appearance Neck exam: Present: normal inspection Respiratory exam: Present: normal lung sounds bilaterally. Absent: chest wall tenderness Cardiovascular Exam: Present: regular rate, normal rhythm, normal heart sounds Expanded Peripheral pulses: 2+: Radial (R), Radial (L), Posterior Tibialis (R), Posterior Tibialis (L) GI/Abdominal exam: Present: soft. Absent: tenderness Extremities exam: Present: normal inspection. Absent: pedal edema, calf tenderness Neurological exam: Present: alert Psychiatric exam: Present: normal affect, normal mood Skin exam: Present: normal color Course Vital Signs 10/10/22 10/10/22 10/10/22 12:33 13:05 13:10 Temperature 98.3 F 98.2 F Pulse Rate 98 86 90 Respiratory 24 20 18 Rate Blood Pressure 113/64 102/65 106/60 O2 Sat by Pulse 99 97 91 L Oximetry 10/10/22 14:00 Temperature Pulse Rate 85 Respiratory 20 Rate Blood Pressure 106/60 O2 Sat by Pulse 96 Oximetry EKG Findings - EKG Results: EKG: interpreted by ERMD, sinus rhythm, normal axis, normal QRS, normal ST/T Medical Decision Making - Medical Decision Making Was pt. sent in by a medical professional or institution ([facility], [employer]OCIATE, urgent care, hospital, or retirement...) When possible be specific @ -No Did you speak to anyone other than the patient for history (EMS, parent, family, police, friend...)? What history was obtained from this source @ -No Did you review nursing and triage notes (agree or disagree)? Why? @ -I reviewed and agree with nursing and triage notes Were old charts reviewed (outside hosp., previous admission, EMS record, old EKG, old radiological studies, urgent care reports/EKG's, retirement records)? Report findings @ -No old charts were reviewed Differential Diagnosis (chest pain, altered mental status, abdominal pain women, abdominal pain men, vaginal bleeding, weakness, fever, dyspnea, syncope, headache, dizziness, GI bleed, back pain, seizure, CVA, palpatations, mental health, musculoskeletal)? @ -Differential Chest Pain: Stable Angina, Unstable Angina, STEMI, NSTEMI Aortic Dissection, Pneumothorax, Musculoskeletal, Esophageal Spasm GERD, Cholecystitis, Pancreatitis, Zoster, this is not meant to be an all-inclusive list. EKG interpreted by me (3pts min.). @ -As above X-rays interpreted by me (1pt min.). @ -Chest x-ray shows no acute process CT interpreted by me (1pt min.). @ -None done U/S interpreted by me (1pt. min.). @ -None done What testing was considered but not performed or refused? (CT, X-rays, U/S, labs)? Why? @ -None What meds were considered but not given or refused? Why? @ -None Did you discuss the management of the patient with other professionals (professionals i.e. , PA, VISUAL AND STOCK ASSOCIATE, lab, RT, psych nurse, social worker delinquency prevention, assistant casino shift manager, teacher, mail officer, pillowcase cutter)? Give summary @ -Case discussed with Dr. Santana, will admit cover Dr. Sears Was smoking cessation discussed for >3mins.? @ -No Was critical care preformed (if so, how long)? @ -No Were there social determinants of health that impacted care today? How? (Homelessness, low income, unemployed, alcoholism, drug addiction, transportation, low edu. Level, literacy, decrease access to med. care, long term, rehab)? @ -No Was there de-escalation of care discussed even if they declined (Discuss DNR or withdrawal of care, Hospice)? DNR status @ -No What co-morbidities impacted this encounter? (DM, HTN, Smoking, COPD, CAD, Cancer, CVA, ARF, Chemo, Hep., AIDS, mental health diagnosis, sleep apnea, morbid obesity)? @ -None Was patient admitted / discharged? Hospital course, mention meds given and route, prescriptions, significant lab abnormalities, going to OR and other pertinent info. @ -Patient reevaluated and significantly improved with the doctor skyla. Patient is updated on results and plan. Patient will be admitted. Undiagnosed new problem with uncertain prognosis? @ -No Drug Therapy requiring intensive monitoring for toxicity (Heparin, Nitro, Insulin, Cardizem)? @ -No Were any procedures done? @ -No Diagnosis/symptom? @ -Chest pain Acute, or Chronic, or Acute on Chronic? @ -Acute Uncomplicated (without systemic symptoms) or Complicated (systemic symptoms)? @ -default Side effects of treatment? @ -No Exacerbation, Progression, or Severe Exacerbation? @ -No Poses a threat to life or bodily function? How? (Chest pain, [place], [place], pneumonia, PE, COPD, DKA, ARF, appy, cholecystitis, CVA, Diverticulitis, Homicidal, Odalis cidal, threat to staff... and all critical care pts) @ -No - Lab Data Result diagrams: 10/10/22 12:46 10/10/22 12:46 Lab Results 10/10/22 10/10/22 10/10/22 Range/Units 12:46 12:46 12:46 WBC 8.0 (3.8-10.6) k/uL RBC 4.36 (4.30-5.90) m/uL Hgb 12.4 L (13.0-17.5) gm/dL Hct 37.4 L (39.0-53.0) % MCV 85.8 D (80.0-100.0) fL MCH 28.5 (25.0-35.0) pg MCHC 33.2 (31.0-37.0) g/dL RDW 19.0 H (11.5-15.5) % Plt Count 199 (150-450) k/uL MPV 8.1 Neutrophils % 78 % Lymphocytes % 9 % Monocytes % 8 % Eosinophils % 1 % Basophils % 0 % Neutrophils # 6.2 (1.3-7.7) k/uL Lymphocytes # 0.7 L (1.0-4.8) k/uL Monocytes # 0.6 (0-1.0) k/uL Eosinophils # 0.1 (0-0.7) k/uL Basophils # 0.0 (0-0.2) k/uL Anisocytosis Slight PT 10.1 (9.0-12.0) sec INR 0.9 (<1.2) APTT 23.6 (22.0-30.0) sec Sodium 135 L (137-145) mmol/L Potassium 5.0 (3.5-5.1) mmol/L Chloride 101 (98-107) mmol/L Carbon Dioxide 21 L (22-30) mmol/L Anion Gap 13 mmol/L BUN 15 (9-20) mg/dL Creatinine 0.68 (0.66-1.25) mg/dL Est GFR (CKD-EPI)AfAm >90 (>60 ml/min/1.73 sqM) Est GFR (CKD-EPI)NonAf >90 (>60 ml/min/1.73 sqM) Glucose 158 H (74-99) mg/dL Calcium 9.3 (8.4-10.2) mg/dL Magnesium 1.4 L (1.6-2.3) mg/dL Total Bilirubin 0.8 (0.2-1.3) mg/dL AST 38 (17-59) U/L ALT 29 (4-49) U/L Alkaline Phosphatase 82 (38-126) U/L Troponin I (0.000-0.034) ng/mL NT-Pro-B Natriuret Pep pg/mL Total Protein 7.0 (6.3-8.2) g/dL Albumin 4.2 (3.5-5.0) g/dL Amylase 59 (30-110) U/L Lipase 181 (23-300) U/L 10/10/22 10/10/22 Range/Units 12:46 12:46 WBC (3.8-10.6) k/uL RBC (4.30-5.90) m/uL Hgb (13.0-17.5) gm/dL Hct (39.0-53.0) % MCV (80.0-100.0) fL MCH (25.0-35.0) pg MCHC (31.0-37.0) g/dL RDW (11.5-15.5) % Plt Count (150-450) k/uL MPV Neutrophils % % Lymphocytes % % Monocytes % % Eosinophils % % Basophils % % Neutrophils # (1.3-7.7) k/uL Lymphocytes # (1.0-4.8) k/uL Monocytes # (0-1.0) k/uL Eosinophils # (0-0.7) k/uL Basophils # (0-0.2) k/uL Anisocytosis PT (9.0-12.0) sec INR (<1.2) APTT (22.0-30.0) sec Sodium (137-145) mmol/L Potassium (3.5-5.1) mmol/L Chloride (98-107) mmol/L Carbon Dioxide (22-30) mmol/L Anion Gap mmol/L BUN (9-20) mg/dL Creatinine (0.66-1.25) mg/dL Est GFR (CKD-EPI)AfAm (>60 ml/min/1.73 sqM) Est GFR (CKD-EPI)NonAf (>60 ml/min/1.73 sqM) Glucose (74-99) mg/dL Calcium (8.4-10.2) mg/dL Magnesium (1.6-2.3) mg/dL Total Bilirubin (0.2-1.3) mg/dL AST (17-59) U/L ALT (4-49) U/L Alkaline Phosphatase (38-126) U/L Troponin I <0.012 (0.000-0.034) ng/mL NT-Pro-B Natriuret Pep 62 pg/mL Total Protein (6.3-8.2) g/dL Albumin (3.5-5.0) g/dL Amylase (30-110) U/L Lipase (23-300) U/L Disposition Clinical Impression: Chest pain Disposition: ADMITTED IP TO THIS HOSP Is patient prescribed a controlled substance at d/c from ED?: No Time of Disposition: 15:30
[2022-10-10 13:07] LABS: Anisocytosis Slight; Basophils % (A) 0 %; Eosinophils # (A) 0.1 k/uL (0-0.7); Eosinophils % (A) 1 %; HCT 37.4 % (39.0-53.0); HGB 12.4 gm/dL (13.0-17.5); Lymphocytes # (A) 0.7 k/uL (1.0-4.8); Lymphocytes % (A) 9 %; MCH 28.5 pg (25.0-35.0); MCHC 33.2 g/dL (31.0-37.0); Mean Platelet Volume 8.1; Monocytes # (A) 0.6 k/uL (0-1.0); Monocytes % (A) 8 %; Neutrophils # (A) 6.2 k/uL (1.3-7.7); Neutrophils % (A) 78 %; Platelet Count 199 k/uL (150-450); RBC 4.36 m/uL (4.30-5.90)
--- NOTE | 2022-10-10 13:09 | XR ---
EXAMINATION TYPE: XR chest 2V DATE OF EXAM: 10/10/2022 COMPARISON: 08/28/2022 INDICATION: Chest pain short of breath TECHNIQUE: Frontal and lateral views of the chest are obtained. FINDINGS: The heart size is normal. The pulmonary vasculature is normal. The lungs are clear. IMPRESSION: 1. No acute pulmonary process.
[2022-10-10 13:17] LABS: MCV 85.8 fL (80.0-100.0)
[2022-10-10 13:27] LABS: ALT 29 U/L (4-49); AST 38 U/L (17-59); African American GFR (CKD) >90 (>60 ml/min/1.73 sqM); Albumin 4.2 g/dL (3.5-5.0); Alkaline Phosphatase 82 U/L (38-126); Amylase 59 U/L (30-110); Anion Gap 13 mmol/L; Blood Urea Nitrogen 15 mg/dL (9-20); Calcium 9.3 mg/dL (8.4-10.2); Carbon Dioxide 21 mmol/L (22-30); Chloride 101 mmol/L (98-107); Glucose 158 mg/dL (74-99); INR 0.9 (<1.2); Lipase 181 U/L (23-300); Magnesium 1.4 mg/dL (1.6-2.3); Non-African American GFR(CKD) >90 (>60 ml/min/1.73 sqM); Partial Thromboplastin Time 23.6 sec (22.0-30.0); Prothrombin Time 10.1 sec (9.0-12.0); Sodium 135 mmol/L (137-145); Total Bilirubin 0.8 mg/dL (0.2-1.3)
[2022-10-10] MEDS ORDERED: NITROGLYCERIN SL TABS 0.4 MG TAB SUBLINGUAL PRN (15:30)
[2022-10-10 17:09] LABS: Glucose,Whole Blood 103 mg/dL (70-110)
[2022-10-10] MEDS: NITROGLYCERIN OINT 1 INCH/GM PACKET TOPICAL SCH (17:34)
[2022-10-10] MEDS: metFORMIN 500 MG TAB PO SCH (17:34)
[2022-10-10 20:08] LABS: % Iron Saturation 7.09 (15.00-50.00)
[2022-10-10] MEDS: PANTOPRAZOLE 40 MG TABLET PO SCH (20:29)
[2022-10-10] MEDS: glipiZIDE 5 MG TAB PO SCH (20:29)
[2022-10-10 20:52] LABS: Glucose,Whole Blood 306 mg/dL (70-110)
[2022-10-10] MEDS ORDERED: PANTOPRAZOLE 40 MG/10 ML VIAL IVP SCH (21:00)
[2022-10-10] MEDS ORDERED: ATORVASTATIN 80 MG TAB PO SCH (21:00)
[2022-10-10] MEDS ORDERED: lisinopriL 10 MG TAB PO SCH (21:00)
[2022-10-11] MEDS: NITROGLYCERIN OINT 1 INCH/GM PACKET TOPICAL SCH ×2 (01:27→05:52)
--- NOTE | 2022-10-11 02:33 | HP ---
HISTORY AND PHYSICAL CHIEF COMPLAINT: Chest pain and shortness of breath. HISTORY OF PRESENT ILLNESS: This is a 66-year-old gentleman with a past medical history of multiple medical problems including diabetes mellitus, CAD, also had low anemia. The patient also had melena and the patient is also being evaluated in the outpatient setting for possible endoscopy. Otherwise, the patient had an intermittent chest discomfort and the patient came to [facility] and admitted for further evaluation and treatment. The patient had a stent placement about 2 months ago as well. There is no history of any fever, rigors, or chills. PAST MEDICAL HISTORY: History of CAD, hypertension, hyperlipidemia. Rest of the history and rest of the chart is also reviewed. HOME MEDICATIONS: Reviewed include Ecotrin. Doses and rest of medication noted. ALLERGIES: None. FAMILY HISTORY: History of cancer in the family. SOCIAL HISTORY: No history of smoking, or alcohol. REVIEW OF SYSTEMS: A 14-point review is negative except as mentioned earlier. PHYSICAL EXAMINATION: VITAL SIGNS: Pulse is 85, blood pressure 106/60, respirations 20. HEENT: Conjunctivae pale. Oral mucosa moist. NECK: No JVD. CARDIOVASCULAR: S1, S2 normal. RESPIRATIONS: Clear to auscultation. ABDOMEN: Soft, nontender. LEGS: No edema. NERVOUS SYSTEM: Nonfocal. LABORATORY DATA: Reviewed. WBC NTD, hemoglobin 12.4, sodium 135. Rest of the labs are noted. Magnesium 1.4. ASSESSMENT: 1. Chest pain, possible unstable angina. 2. History of coronary artery disease stent recently. 3. Anemia. Rule out upper gastrointestinal bleeding. 4. Hypomagnesemia. 5. History of diabetes mellitus type 2. 6. Hypertension. 7. Hyperlipidemia. 8. Multiple medical issues. 9. History of coronary artery disease stent. RECOMMENDATIONS AND DISCUSSION: This is a 66-year-old gentleman, who presented with multiple complex medical issues. We will monitor the patient closely. I would recommend Cardiology consult, rule out unstable angina protocol. I would also recommend proton pump inhibitors. Repeat labs in the morning. Resume the home medications. Prognosis guarded because of multiple complex medical issues. Further recommendations to follow. See orders for further details. MMODL / IJN: [id number] / MTDD
[2022-10-11] MEDS: metFORMIN 500 MG TAB PO SCH (05:53)
[2022-10-11] MEDS: PANTOPRAZOLE 40 MG TABLET PO SCH (05:53)
[2022-10-11] MEDS ORDERED: LEVOTHYROXINE 75 MCG TAB PO SCH (06:30)
[2022-10-11 07:43] LABS: Glucose,Whole Blood 156 mg/dL (70-110)
[2022-10-11] MEDS ORDERED: CLOPIDOGREL 75 MG TAB PO SCH (09:00)
[2022-10-11] MEDS ORDERED: METOPROLOL SUCCINATE (ER) 25 MG TAB.ER.24H PO SCH (09:00)
[2022-10-11] MEDS ORDERED: ASPIRIN 81 MG PO SCH (09:00)
[2022-10-11] MEDS ORDERED: ASPIRIN 325 MG TAB PO SCH (09:00)
[2022-10-11] MEDS: glipiZIDE 5 MG TAB PO SCH (09:01)
[2022-10-11 09:34] LABS: BUN/Creat Ratio 15.75 Ratio (12.00-20.00); Blood Urea Nitrogen 12.6 mg/dL (9.0-27.0); Calcium 8.9 mg/dL (8.7-10.3); Carbon Dioxide 22.9 mmol/L (21.6-31.8); Chloride 102 mmol/L (96-109); Glucose 146 mg/dL (70-110); LDL Cholesterol,Calculated 15.6 mg/dL (0.0-131.0); Potassium 4.5 mmol/L (3.5-5.5); Sodium 137 mmol/L (135-145); VLDL Calculation 18.68 mg/dL (5.00-40.00)
[2022-10-11 09:48] LABS: Basophils # (A) 0.01 X 10*3/uL (0.00-0.10); Basophils % (A) 0.2 %; Eosinophils # (A) 0.06 X 10*3/uL (0.04-0.35); Eosinophils % (A) 0.9 %; HCT 35.7 % (39.6-50.0); HGB 11.3 d/dL (12.0-15.0); Lymphocytes # (A) 0.68 X 10*3/uL (0.90-5.00); Lymphocytes % (A) 10.3 %; MCH 28.1 pg (27.0-32.0); MCHC 31.7 d/dL (32.0-37.0); MCV 88.8 FL (80.0-97.0); Mean Platelet Volume 10.8 FL (9.5-12.2); Monocytes # (A) 0.83 X 10*3/uL (0.20-1.00); Monocytes % (A) 12.5 %; NRBC Per 100 WBC 0 X 10*3/uL (0.00-0.01); Neutrophils # (A) 5.01 X 10*3/uL (1.80-7.70); Neutrophils % (A) 75.6 %; Platelet Count 186 X 10*3/uL (140-440); RBC 4.02 X 10*6/uL (4.40-5.60); RDW 19.9 % (11.5-14.5); WBC 6.62 X 10*3/uL (4.50-10.00)
[2022-10-11 11:46] LABS: Glucose,Whole Blood 149 mg/dL (70-110)
--- NOTE | 2022-10-11 12:27 | P.CRDCN ---
History of Present Illness Consult date: 10/11/22 Requesting physician: Lesly Santana Reason for Consult (text): chest pain Chief complaint: chest pain, shortness of breath, dizziness History of present illness: This is a pleasant 66-year-old gentleman who follows with Dr. Cloud in the office. Has a history of CAD with prior STEMI in 2020 requiring PCI of the LAD, recent repeat PCI of LAD in July of this year with subsequent cardiac catheteriz ation in August which revealed the stent in the proximal LAD to be patent with a 40% stenosis between the proximal and mid stent and distal to the mid stent. At that time he was found to be anemic with hemoglobin 9.5 which was felt to explain some of his symptoms. He presented this admission with similar symptoms of dizziness, chest discomfort lasting for 2-3 days progressively worsening as well as shortness of breath. Hemoglobin this admission is 12.4. Troponins have been negative 3 and EKG is unremarkable. Continues to complain of a discomfort in his chest rated a 1 out of 10. He's also had some positional dizziness at home and feeling more short of breath over the last 3 days. Vital signs stable. He's been afebrile. He denies any complaints of edema orthopnea or PND. He's had no palpitations. He's had no syncope or near syncope. He has had some mild right lower quadrant discomfort due to his history of Crohn's. Past Medical History Past Medical History: Coronary Artery Disease (CAD), Diabetes Mellitus, Hyperlipidemia, Hypertension, Myocardial Infarction ([place]), Thyroid Disorder Additional Past Medical History / Comment(s): NIDDM type II, neuropathy bilateral feet, hypothyroid, chronic low back pain, DDD, stress vertebral fracture lower back, 2 herniated cervical discs-neck pain, chron's, diverticulosis, suspected L upper lobe pulmonary embolism, shingles R upper chest hiatal hernia Last Myocardial Infarction Date:: 03-02-2021 History of Any Multi-Drug Resistant Organisms: None Reported Past Surgical History: Bowel Resection, Cholecystectomy, Heart Catheterization With Stent, Orthopedic Surgery, Tonsillectomy Additional Past Surgical History / Comment(s): PCI with stent 2009 at [facility], bowel resection with 1 ft of colon removed d/t chron's, R shoulder rotator cuff repair, colonoscopy, right neck glad removed as child, stent at [facility] 08/24/22 Past Anesthesia/Blood Transfusion Reactions: No Reported Reaction Date of Last Stent Placement:: 2020 Past Psychological History: No Psychological Hx Reported Additional Psychological History / Comment(s): Pt resides with his spouse. He is disabled. He uses no assistive device. He drives. Smoking Status: Former smoker Past Alcohol Use History: None Reported Additional Past Alcohol Use History / Comment(s): Pt started smoking in 1968 and quit smoking in 1992 Past Drug Use History: None Reported - Past Family History Father Family Medical History: Cancer Additional Family Medical History / Comment(s): Father of throat cancer in his early 70s. He had heart problems and an aneurysm Mother Family Medical History: Diabetes Mellitus, Myocardial Infarction ([place]) Additional Family Medical History / Comment(s): Pt does not recall at what age mother had her [place] Daughter(s) Family Medical History: Cancer Additional Family Medical History / Comment(s): thyroid CA Brother(s) Family Medical History: Diabetes Mellitus, Renal Disease Medications and Allergies Home Medications Medication Instructions Recorded Confirmed Type metFORMIN HCL [Glucophage] 1,000 mg PO BID #60 tab 05/31/15 10/10/22 Rx Levothyroxine Sodium [Synthroid] 75 mcg PO DAILY 08/19/18 10/10/22 History Atorvastatin [Lipitor] 80 mg PO HS #90 tab 03/04/21 10/10/22 Rx Clopidogrel [Plavix] 75 mg PO DAILY #90 tab 03/04/21 10/10/22 Rx lisinopriL [Zestril] 10 mg PO HS 07/16/22 10/10/22 History Aspirin EC [Ecotrin Low Dose] 81 mg PO DAILY 08/16/22 10/10/22 History Isosorbide Mononitrate ER [Imdur] 30 mg PO DAILY #30 tab 08/17/22 10/10/22 Rx Ferrous Sulfate [Iron (65 MG 325 mg PO BID 10/10/22 10/10/22 History Elemental)] Insuln Asp Prt/Insulin Aspart See Protocol SQ AC-TID PRN 10/10/22 10/10/22 History [NovoLOG MIX 70-30 VIAL] Metoprolol Succinate (ER) [Toprol 25 mg PO DAILY 10/10/22 10/10/22 History XL] Nitroglycerin Sl Tabs [Nitrostat] 0.4 mg SUBLINGUAL Q5M PRN 10/10/22 10/10/22 History glipiZIDE [Glucotrol] 5 mg PO BID 10/10/22 10/10/22 History Pantoprazole [Protonix] 40 mg PO AC-BID #60 tab 10/11/22 Rx Allergies Allergy/AdvReac Type Severity Reaction Status Date / Time No Known Allergies Allergy Verified 10/10/22 13:30 Physical Exam Vitals: Vital Signs Temp Pulse Pulse Resp BP BP Pulse Ox 10/11/22 11:40 96 10/11/22 08:51 16 10/11/22 07:00 98.0 F 81 16 107/61 96 10/11/22 02:19 98.3 F 88 15 95/47 98 10/11/22 01:32 78 16 10/10/22 20:29 78 16 10/10/22 19:16 98.1 F 78 16 116/55 96 10/10/22 16:11 70 18 104/68 96 10/10/22 16:00 72 18 95 10/10/22 14:00 85 20 106/60 96 10/10/22 13:10 98.2 F 90 18 106/60 91 L 10/10/22 13:05 86 20 102/65 97 10/10/22 12:33 98.3 F 98 24 113/64 99 Intake and Output 10/10/22 10/11/22 10/11/22 22:59 06:59 14:59 Other: Voiding Method Toilet Toilet Toilet # Voids 1 2 Weight 86.183 kg PHYSICAL EXAMINATION: This is a 66-year-old gentleman in no apparent distress at the time of my examination. HEENT: Head is atraumatic, normocephalic. Pupils are equal, round. Sclerae anicteric. Conjunctivae are clear. Mucous membranes of the mouth are moist. Neck is supple. There is no elevated jugular venous pressure. No carotid bruit is heard. CHEST EXAMINATION: Clear to auscultation bilaterally. No wheezes rales or rhonchi. Respirations even and nonlabored. HEART EXAMINATION: Heart regular, positive S1 and S2. No S3. No S4. No clicks, rubs or murmurs. ABDOMEN: Soft, mild right lower quadrant tenderness to palpation. Bowel sounds a re heard. No organomegaly noted. EXTREMITIES: 2+ peripheral pulses with no evidence of peripheral edema and no calf tenderness noted. NEUROLOGIC EXAMINATION: Patient is awake, alert and oriented x3. Results 10/11/22 05:38 10/11/22 05:38 Cardiac Enzymes 10/10/22 10/10/22 10/10/22 Range/Units 12:46 12:46 16:22 AST 38 (17-59) U/L Troponin I <0.012 <0.012 (0.000-0.034) ng/mL 10/10/22 Range/Units 19:58 AST (17-59) U/L Troponin I <0.012 (0.000-0.034) ng/mL Coagulation 10/10/22 Range/Units 12:46 PT 10.1 (9.0-12.0) sec APTT 23.6 (22.0-30.0) sec Lipids 10/11/22 Range/Units 05:38 Triglycerides 93.40 (0.00-149.00) mg/dL Cholesterol 63.00 (0.00-200.00) mg/dL HDL Cholesterol 28.70 L (40.00-60.00) mg/dL Cholesterol/HDL Ratio 2.20 Ratio CBC 10/10/22 10/11/22 Range/Units 12:46 05:38 WBC 8.0 6.62 (3.8-10.6) k/uL RBC 4.36 4.02 L (4.30-5.90) m/uL Hgb 12.4 L 11.3 L (13.0-17.5) gm/dL Hct 37.4 L 35.7 L (39.0-53.0) % Plt Count 199 186 (150-450) k/uL Comprehensive Metabolic Panel 10/10/22 10/11/22 Range/Units 12:46 05:38 Sodium 135 L 137 (137-145) mmol/L Potassium 5.0 4.5 (3.5-5.1) mmol/L Chloride 101 102 (98-107) mmol/L Carbon Dioxide 21 L 22.9 (22-30) mmol/L BUN 15 12.6 (9-20) mg/dL Creatinine 0.68 0.8 (0.66-1.25) mg/dL Glucose 158 H 146 H (74-99) mg/dL Calcium 9.3 8.9 (8.4-10.2) mg/dL AST 38 (17-59) U/L ALT 29 (4-49) U/L Alkaline Phosphatase 82 (38-126) U/L Total Protein 7.0 (6.3-8.2) g/dL Albumin 4.2 (3.5-5.0) g/dL Current Medications Generic Name Dose Route Start Last Admin Trade Name Freq PRN Reason Stop Dose Admin Aspirin 81 mg 10/11/22 09:00 10/11/22 09:00 Aspirin 81 Mg PO 81 mg DAILY [facility] Administration Atorvastatin Calcium 80 mg 10/10/22 21:00 10/10/22 20:26 Atorvastatin 80 Mg Tab PO 80 mg HS [facility] Administration Clopidogrel Bisulfate 75 mg 10/11/22 09:00 10/11/22 09:00 Clopidogrel 75 Mg Tab PO 75 mg DAILY [facility] Administration Glipizide 5 mg 10/10/22 21:00 10/11/22 09:01 Glipizide 5 Mg Tab PO Not Given BID [facility] Levothyroxine Sodium 75 mcg 10/11/22 06:30 10/11/22 05:52 Levothyroxine 75 Mcg Tab PO 75 mcg DAILY@0630 [facility] Administration Lisinopril 10 mg 10/10/22 21:00 10/10/22 20:26 Lisinopril 10 Mg Tab PO 10 mg HS [facility] Administration Metformin HCl 1,000 mg 10/10/22 17:30 10/11/22 05:53 Metformin 500 Mg Tab PO 1,000 mg BID-W/MEALS [facility] Administration Metoprolol Succinate 25 mg 10/11/22 09:00 10/11/22 09:00 Metoprolol Succinate (Er) 25 Mg Tab.Er.24h PO 25 mg DAILY [facility] Administration Nitroglycerin 0.4 mg 10/10/22 15:30 Nitroglycerin Sl Tabs 0.4 Mg Tab SUBLINGUAL Q5M PRN Chest Pain Nitroglycerin 1 inch 10/10/22 18:00 10/11/22 05:52 Nitroglycerin Oint 1 Inch/Gm Packet TOPICAL 1 inch Q6HR [facility] Administration Pantoprazole Sodium 40 mg 10/10/22 21:00 10/11/22 05:53 Pantoprazole 40 Mg Tablet PO 40 mg AC-BID [facility] Administration Intake and Output 10/10/22 10/11/22 10/11/22 22:59 06:59 14:59 Other: Voiding Method Toilet Toilet Toilet # Voids 1 2 Weight 86.183 kg 10/11/22 05:38 10/11/22 05:38 EKG Interpretations (text) Sinus rhythm Assessment and Plan Assessment: #1 recurrent chest pain, shortness of breath and dizziness, acute coronary event has been ruled out, EKG shows no evidence of ischemia and troponins were negative 3 #2 CAD with prior stenting of the LAD #3 hypertension #4 hyperlipidemia #5 diabetes #6 history of anemia, current hemoglobin 12.4 #7 history of Crohn's Plan: From 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 We will schedule the patient for a Cardiolite MPI to be done on Thursday. We will continue to follow the patient provide further recommendations accordingly. APPARATUS LINEMAN note has been reviewed, I agree with a documented findings and plan of care. Patient was seen and examined.
--- NOTE | 2022-10-11 15:14 | CA ---
Transthoracic Echo Report Name: Иван Moctezuma Age: 66 Gender: M : 1955 Exam Date: 10/11/2022 09:09 Exam Location: [facility] Ht (in): 69 Wt (lb): 190 Ordering Physician: Sabi Baird Attending/Referring Phys: [id number], Brie Claims Service Adjustor Do Perry [facility] Procedure CPT: Indications: Chest Pain Cardiac Hx: Technical Quality: Fair Contrast 1: Total Dose (mL): Contrast 2: Total Dose (mL): MEASUREMENTS (Male / Female) Normal Values 2D ECHO LV Diastolic Diameter PLAX 4.9 cm 4.2 - 5.9 / 3.9 - 5.3 cm LV Systolic Diameter PLAX 3.7 cm IVS Diastolic Thickness 0.8 cm 0.6 - 1.0 / 0.6 - 0.9 cm LVPW Diastolic Thickness 1.0 cm 0.6 - 1.0 / 0.6 - 0.9 cm LV Relative Wall Thickness 0.4 M-MODE Aortic Root Diameter MM 3.4 cm LA Systolic Diameter MM 3.9 cm LA Ao Ratio MM 1.2 AV Cusp Separation MM 2.3 cm DOPPLER AV Peak Velocity 109.4 cm/s AV Peak Gradient 4.8 mmHg AV Mean Velocity 84.1 cm/s AV Mean Gradient 3.1 mmHg AV Velocity Time Integral 20.1 cm LVOT Peak Velocity 87.3 cm/s LVOT Peak Gradient 3.0 mmHg LVOT Velocity Time Integral 18.1 cm Mitral E Point Velocity 63.7 cm/s Mitral A Point Velocity 77.2 cm/s Mitral E to A Ratio 0.8 MV Deceleration Time 258.7 ms LV E' Lateral Velocity 11.1 cm/s Mitral E to LV E' Lateral Ratio 5.8 LV E' Septal Velocity 8.4 cm/s Mitral E to LV E' Septal Ratio 7.6 Right Atrial Pressure 3.0 mmHg FINDINGS Left Ventricle Normal Left ventricular wall thickness, systolic function with no obvious regional wall motion abnormalities. Left ventricular cavity size at the upper limits of normal. Left ventricular ejection fraction is estimated at 55-60 %. normal global left ventricular systolic function. Right Ventricle Moderate right ventricular dilatation. Normal right ventricular global systolic function. Right Atrium Mild right atrial dilatation. Left Atrium Normal left atrial size. Highly mobile interatrial septum Mitral Valve Structurally normal mitral valve. Mild mitral regurgitation. Aortic Valve Aortic valve not well visualized. No aortic regurgitation. Tricuspid Valve Structurally normal tricuspid valve. Trace to mild tricuspid regurgitation. Pulmonic Valve Pulmonic valve not well visualized. Pericardium No pericardial effusion. Aorta Normal size aortic root. CONCLUSIONS 1. Normal size and systolic function 2. Moderate mitral with trace to mild tricuspid regurgitation Previewed by: Campbell Chun MD Dr. Bashar Samman MD (Electronically Signed) Final Date: 11 October 2022 15:14
[2022-10-11 15:59] VITALS: BP 128/68; PULSE 82; RESP 18; TEMP 98.2
--- NOTE | 2022-10-12 00:15 | DS ---
DISCHARGE SUMMARY FINAL DIAGNOSES: 1. Chest pain, myocardial infarction ruled out. 2. History of CAD and stent recently. 3. Anemia, rule out upper GI bleeding, stable. 4. Hypomagnesemia. 5. History of diabetes mellitus type 2. 6. Hypertension. 7. Hyperlipidemia. 8. Multiple medical issues. DISCHARGE DISPOSITION: The patient will be discharged in stable condition. Guarded prognosis. HISTORY OF PRESENT ILLNESS: This is a 66-year-old gentleman with a past medical history of multiple medical problems, admitted with chest pain. The patient also had anemia which is described stable. No active bleeding was noted. Cardiology saw the patient, recommended outpatient followup and outpatient stress test. Myocardial infarction ruled out. The patient is asymptomatic. The patient will be discharged in stable condition. Guarded prognosis. I have also recommend the patient to follow up with primary physician on Thursday and EGD on Thursday. Follow up with Cardiology as recommended. Once again, the patient is stable but overall prognosis is guarded. Increase Protonix to b.i.d. MMLIANNE / NURIAN: [id number] /
== END 2022-10-11 16:30 | disposition home or self-care (01) ==
LOC: EC 12:31 → 6NMEDSUR 15:30
PROVIDERS: ADMIT Hospitalist; ATTEND Hospitalist
DX: R07.89 Other chest pain (principal); I25.10 Atherosclerotic heart disease of native coronary artery without angina pectoris; E83.42 Hypomagnesemia; D64.9 Anemia, unspecified; E11.42 Type 2 diabetes mellitus with diabetic polyneuropathy; K50.90 Crohn's disease, unspecified, without complications; K57.90 Diverticulosis of intestine, part unspecified, without perforation or abscess without bleeding; I10 Essential (primary) hypertension; E78.5 Hyperlipidemia, unspecified; E03.9 Hypothyroidism, unspecified; G89.29 Other chronic pain; M54.50 Low back pain, unspecified; M50.20 Other cervical disc displacement, unspecified cervical region; K44.9 Diaphragmatic hernia without obstruction or gangrene; R06.02 Shortness of breath; R42 Dizziness and giddiness; I25.2 Old myocardial infarction; Z79.890 Hormone replacement therapy; Z79.02 Long term (current) use of antithrombotics/antiplatelets; Z79.82 Long term (current) use of aspirin; Z79.84 Long term (current) use of oral hypoglycemic drugs; Z79.899 Other long term (current) drug therapy; Z95.5 Presence of coronary angioplasty implant and graft; Z87.19 Personal history of other diseases of the digestive system; Z86.19 Personal history of other infectious and parasitic diseases; Z87.891 Personal history of nicotine dependence; Z90.49 Acquired absence of other specified parts of digestive tract; Z98.890 Other specified postprocedural states; Z80.0 Family history of malignant neoplasm of digestive organs; Z83.3 Family history of diabetes mellitus; Z82.49 Family history of ischemic heart disease and other diseases of the circulatory system; Z80.8 Family history of malignant neoplasm of other organs or systems
CPT/HCPCS: 99285; 36415; 94760; 93005; 93306; 83880; 80061; 80053; 80048; 82150; 83540; 83550; 83690; 83735; 84484; 85025 ×2; 85610; 85730; 71046; G0378 ×2

== ENCOUNTER → 2023-10-23 | Day surgery (SDC) | payer MEDICARE ==
[2023-10-21 11:00] VITALS: BMI 27.3
[~2023-10-23] MED LIST: LIDOCAINE 1% (10MG/ML) FOR IV START INTRADERMA PRN; PROPOFOL 10 MG/ML 20 ML VIAL IV ONE
[2023-10-23 09:23] VITALS: TEMP 97.8
[2023-10-23] MEDS: IV FLUID CONTINUATION 1,000 ML IV ONE (09:30)
[2023-10-23] MEDS: LACTATED RINGERS 1,000 ML IV SCH (09:37)
[2023-10-23 09:38] LABS: Glucose,Whole Blood 188 mg/dL (70-110)
--- NOTE | 2023-10-23 10:04 | P.PCN ---
Date of Procedure: 10/23/23 Implants: BRIEF HISTORY: Patient is a 67-year-old, pleasant, white male scheduled for an upper endoscopy as a part of evaluation of anemia and black intermittent black tarry stools.. He is presently on aspirin and Plavix. PROCEDURE PERFORMED: Esophagogastroduodenoscopy with biopsy. PREOPERATIVE DIAGNOSIS: Anemia and intermittent darker stools. IV sedation per anesthesia. PROCEDURE: After informed consent was obtained, the patient was brought into the endoscopy unit. IV sedation was administered by Anesthesia under continuous monitoring. Initially the Olympus GIF-140 video endoscope was inserted into the mouth. Esophagus intubated without any difficulty. It was gradually advanced into the stomach and duodenum and carefully examined. The bulb and the second part of the duodenum appeared normal. The scope at this time was withdrawn to the stomach, adequately insufflated with air, and upon careful examination, mucosa of the antrum, had multiple scattered erosions with some old blood consistent with gastritis and biopsies were done from this area. Body, cardia and the fundus appeared normal. The scope was then withdrawn into the esophagus. The GE junction was located at 39 cm from the incisors. The esophagus appeared normal. There were no erosions or ulcerations seen and the patient tolerated the procedure well. IMPRESSION: 1. Mild antral erosive gastritis. 2. No evidence of esophagitis or peptic ulcer disease. RECOMMENDATIONS: The findings of this examination were discussed with the patient as well as his family. He was advised to follow-up with the biopsy results. Recommend Prilosec 20 mg daily for 3 months. Advised to avoid NSAIDs..
[2023-10-23 10:10] VITALS: RESP 16
[2023-10-23 10:13] LABS: Glucose,Whole Blood 175 mg/dL (70-110)
[2023-10-23 10:25] VITALS: BP 115/66; PULSE 71
== END ==
LOC: ORWHC2ENDO 09:08
PROVIDERS: ATTEND Internal Medicine Gastroenterology
DX: K29.50 Unspecified chronic gastritis without bleeding (principal); D64.9 Anemia, unspecified; I25.2 Old myocardial infarction; I25.10 Atherosclerotic heart disease of native coronary artery without angina pectoris; I10 Essential (primary) hypertension; E78.5 Hyperlipidemia, unspecified; E11.9 Type 2 diabetes mellitus without complications; E07.9 Disorder of thyroid, unspecified; Z79.84 Long term (current) use of oral hypoglycemic drugs; Z86.711 Personal history of pulmonary embolism; Z95.5 Presence of coronary angioplasty implant and graft; Z79.4 Long term (current) use of insulin; Z79.82 Long term (current) use of aspirin; Z79.02 Long term (current) use of antithrombotics/antiplatelets; Z79.890 Hormone replacement therapy; Z79.899 Other long term (current) drug therapy; Z90.49 Acquired absence of other specified parts of digestive tract
CPT/HCPCS: 88305; 43239; J2704

== ENCOUNTER 2024-02-09 11:45 | Observation (INO) | payer MEDICARE ==
--- NOTE | 2024-02-09 12:08 | ED ---
General Adult HPI - General Chief complaint: Chest Pain Stated complaint: Chest pain,SOB Time Seen by Provider: 02/09/24 11:55 Source: patient, RN notes reviewed, old records reviewed Mode of arrival: ambulatory Limitations: no limitations - History of Present Illness Initial comments: This is a 68-year-old male with a past medical history significant for cardiac stents diabetes hypertension high cholesterol and used to smoke many years ago. Patient dates he also has a very strong family history of heart disease. Patient comes in today stating that he is been having some chest pain and shortness of breath with exertion over the last 2 weeks. Patient states that symptoms have gotten progressively worse over the last 2 weeks. Patient denies any recent fever chills or cough or patient has abdominal pain patient denies palpitations. Patient denies headache patient denies numbness or weakness. - Related Data Home Medications Medication Instructions Recorded Confirmed Levothyroxine Sodium [Synthroid] 75 mcg PO QAM 08/19/18 10/23/23 lisinopriL [Zestril] 10 mg PO HS 07/16/22 10/23/23 Aspirin EC [Ecotrin Low Dose] 81 mg PO QAM 08/16/22 10/23/23 Ferrous Sulfate [Iron (65 MG 45 mg PO BID 10/10/22 10/23/23 Elemental)] Metoprolol Succinate (ER) [Toprol 25 mg PO QAM 10/10/22 10/23/23 XL] Nitroglycerin Sl Tabs [Nitrostat] 0.4 mg SUBLINGUAL Q5M PRN 10/10/22 10/23/23 glipiZIDE [Glucotrol] 5 mg PO BID 10/10/22 10/23/23 Centrum(Unknown Dose) 1 dose PO QAM 10/21/23 10/23/23 Clopidogrel [Plavix] 75 mg PO QAM 10/21/23 10/23/23 Dicyclomine [Bentyl] 10 mg PO QID PRN 10/21/23 10/23/23 Isosorbide Mononitrate ER [Imdur] 30 mg PO QAM 10/21/23 10/23/23 Previous Rx's Medication Instructions Recorded metFORMIN HCL [Glucophage] 1,000 mg PO BID #60 tab 05/31/15 Atorvastatin [Lipitor] 80 mg PO HS #90 tab 03/04/21 Allergies Allergy/AdvReac Type Severity Reaction Status Date / Time No Known Allergies Allergy Verified 10/23/23 09:21 Review of Systems ROS Statement: Those systems with pertinent positive or pertinent negative responses have been documented in the HPI. ROS Other: All systems not noted in ROS Statement are negative. Past Medical History Past Medical History: Blood Disorder, Coronary Artery Disease (CAD), Diabetes Mellitus, Hyperlipidemia, Hypertension, Myocardial Infarction (LA), Pulmonary Embolus (PE), Thyroid Disorder Additional Past Medical History / Comment(s): "They think I'm still bleeding somewhere." Hx blood transfusion r/t anemia.IDDM type II, neuropathy bilateral feet, hypothyroid, chronic low back pain, DDD, stress vertebral fracture lower back, 2 herniated cervical discs-neck pain, chron's, diverticulosis, suspected L upper lobe pulmonary embolism, shingles R upper chest hiatal hernia Hx dirrhea. "They thought I had a blood clot that caused my heart attack." Last Myocardial Infarction Date:: 03-02-2021 History of Any Multi-Drug Resistant Organisms: None Reported Past Surgical History: Bowel Resection, Cholecystectomy, Heart Catheterization With Stent, Orthopedic Surgery, Tonsillectomy Additional Past Surgical History / Comment(s): PCI with stent 2010 at [facility], bowel resection with 1 ft of colon removed d/t chron's, R shoulder rotator cuff repair, colonoscopy, right neck glad removed as child, stent at [facility] 08/24/22 Past Anesthesia/Blood Transfusion Reactions: No Reported Reaction Additional Past Anesthesia/Blood Transfusion Reaction / Comment(s): Hx blood transfusion. Date of Last Stent Placement:: July/2022 Past Psychological History: No Psychological Hx Reported Smoking Status: Former smoker - Past Family History Father Family Medical History: Cancer Additional Family Medical History / Comment(s): Father of throat cancer in his early 70s. He had heart problems and an aneurysm Mother Family Medical History: Diabetes Mellitus, Myocardial Infarction (LA) Additional Family Medical History / Comment(s): Pt does not recall at what age mother had her LA Daughter(s) Family Medical History: Cancer Additional Family Medical History / Comment(s): thyroid CA Brother(s) Family Medical History: Diabetes Mellitus, Renal Disease General Exam - General Exam Comments Initial Comments: GENERAL: Patient is well-developed and well-nourished. Patient is nontoxic and well- hydrated and is in mild distress. ENT: Neck is soft and supple. No significant lymphadenopathy is noted. Oropharynx is clear. Moist mucous membranes. Neck has full range of motion without eliciting any pain. EYES: The sclera were anicteric and conjunctiva were pink and moist. Extraocular movements were intact and pupils were equal round and reactive to light. Eyelids were unremarkable. PULMONARY: Unlabored respirations. Good breath sounds bilaterally. No audible rales rhonchi or wheezing was noted. CARDIOVASCULAR: There is a regular rate and rhythm without any murmurs gallops or rubs. ABDOMEN: Soft and nontender with normal bowel sounds. SKIN: Skin is clear with no lesions or rashes and otherwise unremarkable. NEUROLOGIC: Patient is alert and oriented x3. Cranial nerves II through XII are grossly intact. Motor and sensory are also intact. Normal speech, volume and content. Symmetrical smile. MUSCULOSKELETAL: Normal extremities with adequate strength and full range of motion. No lower extremity swelling or edema. No calf tenderness. LYMPHATICS: No significant lymphadenopathy is noted PSYCHIATRIC: Normal psychiatric evaluation. Limitations: no limitations Course Vital Signs 02/09/24 02/09/24 11:45 12:49 Temperature 97.5 F L Pulse Rate 83 75 Respiratory 20 18 Rate Blood Pressure 127/70 135/69 O2 Sat by Pulse 97 94 L Oximetry Medical Decision Making - Medical Decision Making EKG is interpreted by myself. EKG shows a sinus rhythm at 77 bpm DE was under 51 QRS is 88 QT interval is 371 QTc is 403. Patient's EKG shows no ST segment elevation or depression. Was pt. sent in by a medical professional or institution (, PA, HEEL TRIMMER, urgent care, hospital, or skilled nursing...) When possible be specific @ -No Did you speak to anyone other than the patient for history (EMS, parent, family, police, friend...)? What history was obtained from this source @ -No Did you review nursing and triage notes (agree or disagree)? Why? @ -I reviewed and agree with nursing and triage notes Were old charts reviewed (outside hosp., previous admission, EMS record, old EKG, old radiological studies, urgent care reports/EKG's, skilled nursing records)? Report findings @ -No old charts were reviewed Differential Diagnosis? @ -Differential Chest Pain: Stable Angina, Unstable Angina, STEMI, NSTEMI Aortic Dissection, Pneumothorax, Musculoskeletal, Esophageal Spasm GERD, Cholecystitis, Pancreatitis, Zoster, this is not meant to be an all-inclusive list. EKG interpreted by me (3pts min.). @ -As above X-rays interpreted by me (1pt min.). @ -Chest x-ray shows no acute normality CT interpreted by me (1pt min.). @ -None done U/S interpreted by me (1pt. min.). @ -None done What testing was considered but not performed or refused? (CT, X-rays, U/S, labs)? Why? @ -None What meds were considered but not given or refused? Why? @ -None Did you discuss the management of the patient with other professionals (professionals i.e. , PA, HEEL TRIMMER, lab, RT, psych nurse, criminal justice social worker, boiler washer, teacher, sewage reticulation drafting officer, pillowcase folder)? Give summary @ -I spoke with Dr. Sears he agreed to admit the patient I admitted the patient I wrote admitting orders Was smoking cessation discussed for >3mins.? @ -No Was critical care preformed (if so, how long)? @ -No Were there social determinants of health that impacted care today? How? (Homelessness, low income, unemployed, alcoholism, drug addiction, transportation, low edu. Level, literacy, decrease access to med. care, skilled nursing, rehab)? @ -No Was there de-escalation of care discussed even if they declined (Discuss DNR or withdrawal of care, Hospice)? DNR status @ -No What co-morbidities impacted this encounter? (DM, HTN, Smoking, COPD, CAD, Cancer, CVA, ARF, Chemo, Hep., AIDS, mental health diagnosis, sleep apnea, morbid obesity)? @ -None Was patient admitted / discharged? Hospital course, mention meds given and route, prescriptions, significant lab abnormalities, going to OR and other pertinent info. @ -Patient was given aspirin Nitropaste in the emergency department. Patient's troponin was normal. Patient will be admitted to Dr. Sears and cardiology will be consulted. I wrote these orders. Undiagnosed new problem with uncertain prognosis? @ -No Drug Therapy requiring intensive monitoring for toxicity (Heparin, Nitro, Insulin, Cardizem)? @ -No Were any procedures done? @ -No Diagnosis/symptom? @ -Chest pain Acute, or Chronic, or Acute on Chronic? @ -Acute Uncomplicated (without systemic symptoms) or Complicated (systemic symptoms)? @ -Complicated Side effects of treatment? @ -No Exacerbation, Progression, or Severe Exacerbation? @ -No Poses a threat to life or bodily function? How? (Chest pain, USA, LA, pneumonia, PE, COPD, DKA, ARF, appy, cholecystitis, CVA, Diverticulitis, Homicidal, Suicidal, threat to staff... and all critical care pts) @ -Yes this could lead to an LA and endorgan dysfunction Diagnosis/symptom? @ -Hypomagnesemia Acute, or Chronic, or Acute on Chronic? @ -Acute Uncomplicated (without systemic symptoms) or Complicated (systemic symptoms)? @ -Complicated Side effects of treatment? @ -None Exacerbation, Progression, or Severe Exacerbation] @ -No Poses a threat to life or bodily function? @ -No - Lab Data Result diagrams: 02/09/24 12:17 02/09/24 12:17 Lab Results 02/09/24 02/09/24 02/09/24 Range/Units 12:17 12:17 12:17 WBC 7.7 (3.8-10.6) k/uL RBC 4.09 L (4.30-5.90) m/uL Hgb 13.5 (13.0-17.5) gm/dL Hct 40.2 (39.0-53.0) % MCV 98.3 (80.0-100.0) fL MCH 33.0 (25.0-35.0) pg MCHC 33.6 (31.0-37.0) g/dL RDW 13.3 (11.5-15.5) % Plt Count 191 (150-450) k/uL MPV 7.8 Neutrophils % 78 % Lymphocytes % 12 % Monocytes % 6 % Eosinophils % 2 % Basophils % 0 % Neutrophils # 6.0 (1.3-7.7) k/uL Lymphocytes # 0.9 L (1.0-4.8) k/uL Monocytes # 0.5 (0-1.0) k/uL Eosinophils # 0.1 (0-0.7) k/uL Basophils # 0.0 (0-0.2) k/uL PT (10.0-12.5) sec INR (<1.2) APTT (22.0-30.0) sec Sodium 133 L (137-145) mmol/L Potassium 4.9 (3.5-5.1) mmol/L Chloride 104 (98-107) mmol/L Carbon Dioxide 21 L (22-30) mmol/L Anion Gap 8 mmol/L BUN 19 (9-20) mg/dL Creatinine 0.70 (0.66-1.25) mg/dL Est GFR (CKD-EPI)AfAm >90 (>60 ml/min/1.73 sqM) Est GFR (CKD-EPI)NonAf >90 (>60 ml/min/1.73 sqM) Glucose 338 H (74-99) mg/dL Calcium 9.3 (8.4-10.2) mg/dL Magnesium 1.2 L (1.6-2.3) mg/dL Total Bilirubin 0.7 (0.2-1.3) mg/dL AST 30 (17-59) U/L ALT 28 (4-49) U/L Alkaline Phosphatase 116 (38-126) U/L Troponin I <0.012 (0.000-0.034) ng/mL Total Protein 6.8 (6.3-8.2) g/dL Albumin 4.2 (3.5-5.0) g/dL 02/09/24 Range/Units 12:35 WBC (3.8-10.6) k/uL RBC (4.30-5.90) m/uL Hgb (13.0-17.5) gm/dL Hct (39.0-53.0) % MCV (80.0-100.0) fL MCH (25.0-35.0) pg MCHC (31.0-37.0) g/dL RDW (11.5-15.5) % Plt Count (150-450) k/uL MPV Neutrophils % % Lymphocytes % % Monocytes % % Eosinophils % % Basophils % % Neutrophils # (1.3-7.7) k/uL Lymphocytes # (1.0-4.8) k/uL Monocytes # (0-1.0) k/uL Eosinophils # (0-0.7) k/uL Basophils # (0-0.2) k/uL PT 10.7 (10.0-12.5) sec INR 1.0 (<1.2) APTT 23.9 (22.0-30.0) sec Sodium (137-145) mmol/L Potassium (3.5-5.1) mmol/L Chloride (98-107) mmol/L Carbon Dioxide (22-30) mmol/L Anion Gap mmol/L BUN (9-20) mg/dL Creatinine (0.66-1.25) mg/dL Est GFR (CKD-EPI)AfAm (>60 ml/min/1.73 sqM) Est GFR (CKD-EPI)NonAf (>60 ml/min/1.73 sqM) Glucose (74-99) mg/dL Calcium (8.4-10.2) mg/dL Magnesium (1.6-2.3) mg/dL Total Bilirubin (0.2-1.3) mg/dL AST (17-59) U/L ALT (4-49) U/L Alkaline Phosphatase (38-126) U/L Troponin I (0.000-0.034) ng/mL Total Protein (6.3-8.2) g/dL Albumin (3.5-5.0) g/dL Disposition Clinical Impression: Chest pain, Hypomagnesemia Disposition: ADMITTED IP TO THIS HOSP Referrals: Ceasar Sears DO [Primary Care Provider] - 1-2 days Time of Disposition: 13:42
[2024-02-09] MEDS: ASPIRIN 81 MG PO STA (12:20)
[2024-02-09 12:28] LABS: Basophils % (A) 0 %; Eosinophils # (A) 0.1 k/uL (0-0.7); Eosinophils % (A) 2 %; HCT 40.2 % (39.0-53.0); HGB 13.5 gm/dL (13.0-17.5); Lymphocytes # (A) 0.9 k/uL (1.0-4.8); Lymphocytes % (A) 12 %; MCHC 33.6 g/dL (31.0-37.0); MCV 98.3 fL (80.0-100.0); Mean Platelet Volume 7.8; Monocytes # (A) 0.5 k/uL (0-1.0); Monocytes % (A) 6 %; Neutrophils % (A) 78 %; Platelet Count 191 k/uL (150-450); RBC 4.09 m/uL (4.30-5.90); RDW 13.3 % (11.5-15.5); WBC 7.7 k/uL (3.8-10.6)
[2024-02-09 12:41] LABS: ALT 28 U/L (4-49); AST 30 U/L (17-59); African American GFR (CKD) >90 (>60 ml/min/1.73 sqM); Albumin 4.2 g/dL (3.5-5.0); Alkaline Phosphatase 116 U/L (38-126); Anion Gap 8 mmol/L; Blood Urea Nitrogen 19 mg/dL (9-20); Calcium 9.3 mg/dL (8.4-10.2); Carbon Dioxide 21 mmol/L (22-30); Chloride 104 mmol/L (98-107); Glucose 338 mg/dL (74-99); Magnesium 1.2 mg/dL (1.6-2.3); Non-African American GFR(CKD) >90 (>60 ml/min/1.73 sqM); Potassium 4.9 mmol/L (3.5-5.1); Sodium 133 mmol/L (137-145); Total Bilirubin 0.7 mg/dL (0.2-1.3); Total Protein 6.8 g/dL (6.3-8.2)
--- NOTE | 2024-02-09 12:48 | XR ---
EXAMINATION TYPE: XR chest 2V DATE OF EXAM: 02/09/2024 12:42 PM COMPARISON: None. CLINICAL INDICATION: Male, 68 years old with history of Chest Pain, TECHNIQUE: XR chest 2V view(s) obtained. FINDINGS: The heart size is normal. The pulmonary vasculature is normal. The lungs are clear. IMPRESSION: 1. No acute pulmonary process. [facility], , 02/09/2024 12:46 PM
[2024-02-09 13:13] LABS: Partial Thromboplastin Time 23.9 sec (22.0-30.0); Prothrombin Time 10.7 sec (10.0-12.5)
[2024-02-09] MEDS: NITROGLYCERIN OINT 1 INCH/GM PACKET TOPICAL STA (13:28)
[2024-02-09] MEDS: NITROGLYCERIN SL TABS 0.4 MG TAB SUBLINGUAL STA (13:28)
[2024-02-09] MEDS ORDERED: NITROGLYCERIN SL TABS 0.4 MG TAB SUBLINGUAL PRN (13:42)
[2024-02-09] MEDS: MAGNESIUM SULFATE-D5W PMX 1 GM in DEXTROSE/WATER 1 100ML.BAG IVPB SCH (14:05)
[2024-02-09] MEDS: NITROGLYCERIN OINT 1 INCH/GM PACKET TOPICAL SCH (18:08)
[2024-02-09 22:14] LABS: Glucose,Whole Blood 223 mg/dL (70-110)
[2024-02-10] MEDS ORDERED: DEXTROSE 50% SYRINGE 50 ML IVP PRN ×2 (00:15)
[2024-02-10 06:14] LABS: Glucose,Whole Blood 236 mg/dL (70-110)
[2024-02-10] MEDS: metFORMIN 500 MG TAB PO SCH (06:52)
[2024-02-10] MEDS: PANTOPRAZOLE 40 MG TABLET PO SCH (06:53)
[2024-02-10] MEDS: INSULIN ASPART (NovoLOG) 100 UNIT/ML VIAL SQ SCH (06:53)
[2024-02-10] MEDS: LEVOTHYROXINE 75 MCG TAB PO SCH (06:53)
[2024-02-10] MEDS: ASPIRIN 81 MG PO SCH (08:20)
[2024-02-10] MEDS: CLOPIDOGREL 75 MG TAB PO SCH (08:34)
[2024-02-10] MEDS: glipiZIDE 5 MG TAB PO SCH (08:34)
[2024-02-10] MEDS: NAPROXEN 250 MG TAB PO SCH (08:34)
[2024-02-10] MEDS: DICYCLOMINE 10 MG CAP PO SCH (08:34)
[2024-02-10] MEDS: ISOSORBIDE MONONITRATE ER 30 MG TAB.ER.24H PO SCH (08:34)
[2024-02-10] MEDS: ASPIRIN 325 MG TAB PO SCH (08:35)
[2024-02-10] MEDS: lisinopriL 10 MG TAB PO SCH (08:35)
[2024-02-10] MEDS: METOPROLOL SUCCINATE (ER) 25 MG TAB.ER.24H PO SCH (08:35)
[2024-02-10] MEDS ORDERED: CAFFEINE CITRATE 60 MG/3 ML VIAL IV PRN (08:51)
[2024-02-10] MEDS ORDERED: AMINOPHYLLINE 500 MG/20 ML VIAL IV PRN (08:51)
[2024-02-10] MEDS ORDERED: REGADENOSON 0.4 MG/5 ML SYRINGE IV PRN (08:51)
[2024-02-10] MEDS ORDERED: NON FORMULARY DRUG (Mv-Min/Folic/K1/Lycopen/Lutein [Centrum Silver Men Tablet] 1 EACH Tabl PO SCH (09:00)
[2024-02-10] MEDS ORDERED: MAGNESIUM PO SCH (09:00)
[2024-02-10] MEDS ORDERED: [UNRECOGNIZED DRUG - OTHER] PO SCH (09:00)
[2024-02-10 10:40] LABS: Chol/HDL Ratio 2.37 Ratio
--- NOTE | 2024-02-10 10:44 | P.CRDCN ---
History of Present Illness History of present illness: HISTORY OF PRESENT ILLNESS: This is a 68-year-old male with a past medical history significant for coronary artery disease, hypertension, hyperlipidemia, and diabetes. Patient follows in the office with Dr. Rivas. We have been asked to see the patient in consultation for chest pain. Patient examined at the bedside. Patient states he has been having chest pain for the past few days. He states the pain has been worse with exertion typically but he can also have pain when he is just laying in bed. He also reports having associated shortness of breath. He denies any radiation of the pain. He states the pain feels similar to to previous events when he required angioplasty. Patient's magnesium was found to be low when he came in at 1.2. Patient states he was given magnesium supplementation last night. He states that his discomfort has significantly decreased since that. Reports very mild chest discomfort this morning. DIAGNOSTICS: - EKG reveals sinus mechanism with no signs of acute ischemia - Chest xray negative for acute process - Laboratory data: WBC 7.7. Hemoglobin 13.5. Platelet count 191. Sodium 133. Potassium 4.9. BUN 19. Creatinine 0.70. Troponin negative x 3. - Current home cardiac medications include lisinopril 10 mg daily, Toprol succinate 25 mg daily, Imdur 30 mg daily, Plavix 75 mg daily, Lipitor 80 mg at night, aspirin 81 mg daily - Most recent echocardiogram obtained in September 2022 revealed ejection fraction 55 to 60%, mild MR trace to mild TR. - Patient underwent treadmill exercise stress test in March 2023 which was negative for ischemia - Cardiac catheterization history: August 2022 revealing mild nonobstructive disease involving the mid RCA. Left main free of stenosis. Previously stented proximal LAD appears patent. 40% stenosis between the stent and the other stent that was placed in the past and distal to the stent again there is around 40% stenosis but these lesions do not appear significant and there is brisk flow into the distal LAD. Circumflex gives off OM branch that show 60 to 70% stenosis which was noted on the circumflex lesion, seems unchanged compared to previous angiogram. Medical management was recommended. REVIEW OF SYSTEMS: At the time of my exam: CONSTITUTIONAL: Denies fever or chills. HEENT: Denies blurred vision, vision changes, or eye pain. Denies hemoptysis CARDIOVASCULAR: Denies chest pain. Denies orthopnea. Denies PND. Denies palpitations RESPIRATORY: Denies shortness of breath. GASTROINTESTINAL: Denies abdominal pain. Denies nausea or vomiting. HEMATOLOGIC: Denies bleeding disorders. GENITOURINARY: Denies any blood in urine. SKIN: Denies pruitis. Denies rash. PHYSICAL EXAM: VITAL SIGNS: Reviewed. GENERAL: Well-developed in no acute distress. HEENT: Head is normocephalic. Pupils are equal, round. Sclerae anicteric. Mucous membranes of the mouth are moist. Neck supple. No JVD or thyromegaly LUNGS: Respirations even and unlabored. Lungs essentially clear to auscultation bilaterally. HEART: Regular rate and rhythm. S1 and S2 heard. Systolic murmur noted. ABDOMEN: Soft. Nondistended. Nontender. EXTREMITIES: Normal range of motion. No clubbing or cyanosis. Peripheral pulses intact. No lower extremity edema NEUROLOGIC: Awake and alert. Oriented x 3. ASSESSMENT: Chest pain Coronary artery disease with previous stenting to the LAD Hypomagnesemia Hypertension Hyperlipidemia History of anemia, stable, s/p EGD 09/2023 revealing mild antral erosive gastritis PLAN: An acute coronary event has been ruled out Obtain 2D echo to assess cardiac structure and function Resume home cardiac medications Patient to undergo Lexiscan stress test today Further recommendations pending patient course Nurse practitioner note has been reviewed by physician. Signing provider agrees with the documented findings, assessment, and plan of care documented by DATA QUALITY CONSULTANT as a scribe. Past Medical History Past Medical History: Blood Disorder, Coronary Artery Disease (CAD), Diabetes Mellitus, Hyperlipidemia, Hypertension, Myocardial Infarction (SC), Pulmonary Embolus (PE), Thyroid Disorder Additional Past Medical History / Comment(s): "They think I'm still bleeding somewhere." Hx blood transfusion r/t anemia.IDDM type II, neuropathy bilateral feet, hypothyroid, chronic low back pain, DDD, stress vertebral fracture lower back, 2 herniated cervical discs-neck pain, chron's, diverticulosis, suspected L upper lobe pulmonary embolism, shingles R upper chest hiatal hernia Hx dirrhea. "They thought I had a blood clot that caused my heart attack." Last Myocardial Infarction Date:: 03-02-2021 History of Any Multi-Drug Resistant Organisms: None Reported Past Surgical History: Bowel Resection, Cholecystectomy, Heart Catheterization With Stent, Orthopedic Surgery, Tonsillectomy Additional Past Surgical History / Comment(s): PCI with stent 2010 at [facility], bowel resection with 1 ft of colon removed d/t chron's, R shoulder rotator cuff repair, colonoscopy, right neck glad removed as child, stent at [facility] 08/24/22 Past Anesthesia/Blood Transfusion Reactions: No Reported Reaction Additional Past Anesthesia/Blood Transfusion Reaction / Comment(s): Hx blood t ransfusion. Date of Last Stent Placement:: July/2022 Past Psychological History: No Psychological Hx Reported Additional Psychological History / Comment(s): Pt resides with his spouse. He is disabled. He uses no assistive device. He drives. Smoking Status: Former smoker Past Alcohol Use History: None Reported Additional Past Alcohol Use History / Comment(s): Pt started smoking in 1968 and quit smoking in 1992, smoked 2.5ppd Past Drug Use History: None Reported - Past Family History Father Family Medical History: Cancer Additional Family Medical History / Comment(s): Father of throat cancer in his early 70s. He had heart problems and an aneurysm Mother Family Medical History: Diabetes Mellitus, Myocardial Infarction (SC) Additional Family Medical History / Comment(s): Pt does not recall at what age mother had her SC Daughter(s) Family Medical History: Cancer Additional Family Medical History / Comment(s): thyroid CA Brother(s) Family Medical History: Diabetes Mellitus, Renal Disease Medications and Allergies Home Medications Medication Instructions Recorded Confirmed Type metFORMIN HCL [Glucophage] 1,000 mg PO BID #60 tab 05/31/15 02/09/24 Rx Levothyroxine Sodium [Synthroid] 75 mcg PO DAILY 08/19/18 02/09/24 History Atorvastatin [Lipitor] 80 mg PO HS #90 tab 03/04/21 02/09/24 Rx lisinopriL [Zestril] 10 mg PO DAILY 07/16/22 02/09/24 History Aspirin EC [Ecotrin Low Dose] 81 mg PO DAILY 08/16/22 02/09/24 History Metoprolol Succinate (ER) [Toprol 25 mg PO DAILY 10/10/22 02/09/24 History XL] Nitroglycerin Sl Tabs [Nitrostat] 0.4 mg SL Q5M PRN 10/10/22 02/09/24 History glipiZIDE [Glucotrol] 5 mg PO BID 10/10/22 02/09/24 History Clopidogrel [Plavix] 75 mg PO DAILY 10/21/23 02/09/24 History Dicyclomine [Bentyl] 10 mg PO DAILY 10/21/23 02/09/24 History Isosorbide Mononitrate ER [Imdur] 30 mg PO DAILY 10/21/23 02/09/24 History Iron Gummy 1 tab PO HS 02/09/24 02/09/24 History Magnesium W/Vitamin D(Unknown Dose) 1 tab PO DAILY 02/09/24 02/09/24 History Mv-Min/Folic/K1/Lycopen/Lutein 1 tab PO DAILY 02/09/24 02/09/24 History [Centrum Silver Men Tablet] Naproxen [Naprosyn] 500 mg PO DAILY 02/09/24 02/09/24 History Pantoprazole [Protonix] 40 mg PO DAILY 02/09/24 02/09/24 History Allergies Allergy/AdvReac Type Severity Reaction Status Date / Time No Known Allergies Allergy Verified 02/09/24 14:08 Physical Exam Vitals: Vital Signs Temp Pulse Pulse Resp BP BP Pulse Ox 02/10/24 08:28 97.9 F 76 14 122/74 94 L 02/10/24 04:00 80 16 132/70 95 02/10/24 01:14 18 02/10/24 00:00 74 18 150/72 97 02/09/24 21:30 97.7 F 68 18 129/76 97 02/09/24 21:20 68 17 110/64 97 02/09/24 21:00 67 15 117/67 96 02/09/24 18:07 71 18 120/66 98 02/09/24 14:06 77 18 129/63 96 02/09/24 12:49 75 18 135/69 94 L 02/09/24 11:45 97.5 F L 83 20 127/70 97 Intake and Output 02/09/24 02/10/24 02/10/24 22:59 06:59 14:59 Other: Voiding Method Toilet Toilet # Voids 1 2 Weight 83.915 kg 79.9 kg Results 02/09/24 12:17 02/09/24 12:17 Cardiac Enzymes 02/09/24 02/09/24 02/09/24 Range/Units 12:17 12:17 15:39 AST 30 (17-59) U/L Troponin I <0.012 <0.012 (0.000-0.034) ng/mL 02/09/24 Range/Units 17:37 AST (17-59) U/L Troponin I <0.012 (0.000-0.034) ng/mL Coagulation 02/09/24 Range/Units 12:35 PT 10.7 (10.0-12.5) sec APTT 23.9 (22.0-30.0) sec CBC 02/09/24 Range/Units 12:17 WBC 7.7 (3.8-10.6) k/uL RBC 4.09 L (4.30-5.90) m/uL Hgb 13.5 (13.0-17.5) gm/dL Hct 40.2 (39.0-53.0) % Plt Count 191 (150-450) k/uL Comprehensive Metabolic Panel 02/09/24 Range/Units 12:17 Sodium 133 L (137-145) mmol/L Potassium 4.9 (3.5-5.1) mmol/L Chloride 104 (98-107) mmol/L Carbon Dioxide 21 L (22-30) mmol/L BUN 19 (9-20) mg/dL Creatinine 0.70 (0.66-1.25) mg/dL Glucose 338 H (74-99) mg/dL Calcium 9.3 (8.4-10.2) mg/dL AST 30 (17-59) U/L ALT 28 (4-49) U/L Alkaline Phosphatase 116 (38-126) U/L Total Protein 6.8 (6.3-8.2) g/dL Albumin 4.2 (3.5-5.0) g/dL Current Medications Generic Name Dose Route Start Last Admin Trade Name Freq PRN Reason Stop Dose Admin Aspirin 325 mg 02/10/24 09:00 02/10/24 08:35 Aspirin 325 Mg Tab PO 325 mg DAILY [facility] Administration Aspirin 81 mg 02/10/24 09:00 02/10/24 08:20 Aspirin 81 Mg PO Not Given DAILY [facility] Atorvastatin Calcium 80 mg 02/10/24 21:00 Atorvastatin 80 Mg Tab PO [facility] Clopidogrel Bisulfate 75 mg 02/10/24 09:00 02/10/24 08:34 Clopidogrel 75 Mg Tab PO 75 mg DAILY [facility] Administration Dextrose/Water 25 ml 02/10/24 00:15 Dextrose 50% Syringe 50 Ml IVP PER PROTOCOL PRN Hypoglycemia Protocol Dextrose/Water 50 ml 02/10/24 00:15 Dextrose 50% Syringe 50 Ml IVP PER PROTOCOL PRN Hypoglycemia Protocol Dicyclomine HCl 10 mg 02/10/24 09:00 02/10/24 08:34 Dicyclomine 10 Mg Cap PO 10 mg DAILY [facility] Administration Glipizide 5 mg 02/10/24 09:00 02/10/24 08:34 Glipizide 5 Mg Tab PO 5 mg BID [facility] Administration Insulin Aspart 0 unit 02/10/24 07:30 02/10/24 06:53 Insulin Aspart (Novolog) 100 Unit/Ml Vial SQ 4 unit ACHS [facility] Administration Protocol Isosorbide Mononitrate 30 mg 02/10/24 09:00 02/10/24 08:34 Isosorbide Mononitrate Er 30 Mg Tab.Er.24h PO 30 mg DAILY [facility] Administration Levothyroxine Sodium 75 mcg 02/10/24 06:00 02/10/24 06:53 Levothyroxine 75 Mcg Tab PO 75 mcg DAILY@0600 [facility] Administration Lisinopril 10 mg 02/10/24 09:00 02/10/24 08:35 Lisinopril 10 Mg Tab PO 10 mg DAILY [facility] Administration Metformin HCl 1,000 mg 02/10/24 07:30 02/10/24 06:52 Metformin 500 Mg Tab PO 1,000 mg BID-W/MEALS [facility] Administration Metoprolol Succinate 25 mg 02/10/24 09:00 02/10/24 08:35 Metoprolol Succinate (Er) 25 Mg Tab.Er.24h PO 25 mg DAILY [facility] Administration Naproxen 500 mg 02/10/24 08:30 02/10/24 08:34 Naproxen 250 Mg Tab PO 500 mg [id number] [facility] Administration Nitroglycerin 0.4 mg 02/09/24 13:42 Nitroglycerin Sl Tabs 0.4 Mg Tab SUBLINGUAL Q5M PRN Chest Pain Nitroglycerin 1 inch 02/09/24 18:00 02/10/24 05:57 Nitroglycerin Oint 1 Inch/Gm Packet TOPICAL Not Given Q6HR [facility] Pantoprazole Sodium 40 mg 02/10/24 07:30 02/10/24 06:53 Pantoprazole 40 Mg Tablet PO 40 mg DAILY@0730 [facility] Administration Intake and Output 02/09/24 02/10/24 02/10/24 22:59 06:59 14:59 Other: Voiding Method Toilet Toilet # Voids 1 2 Weight 83.915 kg 79.9 kg 02/09/24 12:17 02/09/24 12:17
--- NOTE | 2024-02-10 11:27 | CA ---
Lexiscan Nuclear Stress Test Report Name: Иван Moctezuma Exam Date: 02/10/2024 10:52 Exam Location: [place] Stress Ht (in): 69 Wt (lb): 185 BSA: 2.00 Ordering Phys: Brittanie De Leon Referring Phys: PRESLEY Technologist: Иван Kiser Age: 68 Gender: M : 1955 Procedure CPT: Indications: Reflex order-Stress test ICD-10 Codes: Patient History: Medications: SEE CHART Meds past 24 hrs: Pretest Chest Pain: STRESS TEST Lexiscan Protocol Exercise Duration (min:sec): 01:[address] Depressions (mm): Angina Score: Landry Score: Resting HR (bpm): 70 Peak HR (bpm): 90 Resting BP (mmHg): 114 / 68 Peak BP (mmHg): 112 / 55 MPHR: 152 Target HR: 129 % MPHR: 59 METS: 1.0 Total Dose: Peak Dose: Atropine: Double Product: 14967 BP Response: Stress Termination: INFUSION COMPLETE Stress Symptoms: NO SYMPTOMS Stress Summary: ECG ANALYSIS Resting ECG: Stress ECG: CONCLUSIONS Nondiagnostic electrocardiogram stress testing Dr. Juan Burk MD (Electronically Signed) Final Date: 10 February 2024 11:26
[2024-02-10 11:29] LABS: Blood Urea Nitrogen 15.7 mg/dL (9.0-27.0); Calcium 8.8 mg/dL (8.7-10.3); Carbon Dioxide 24.4 mmol/L (21.6-31.8); Chloride 100 mmol/L (96-109); Glucose 241 mg/dL (70-110); Magnesium 1.5 mg/dL (1.5-2.4); Potassium 4.6 mmol/L (3.5-5.5); Sodium 136 mmol/L (135-145)
[2024-02-10 12:07] LABS: Glucose,Whole Blood 173 mg/dL (70-110)
[2024-02-10] MEDS: MAGNESIUM SULFATE-D5W PMX 1 GM in DEXTROSE/WATER 1 100ML.BAG IVPB SCH (12:16)
--- NOTE | 2024-02-10 13:06 | P.HPIM ---
History of Present Illness H&P Date: 02/10/24 Chief Complaint: Chest pain, hypomagnesemia History and Physical and Discharge Summary: This is a 68-year-old gentleman with past medical history significant for CAD, IN, cardiac stent LAD, hypertension, hyperlipidemia ,diabetes mellitus, diverticulosis , chronic active colitis-negative for dysplasia per right colon biopsy 01/13 ,chronic diarrhea, chronic anemia -recent EGD reporting mild antral erosive gastritis and multiple other medical issues presented to the ER with complaints of reoccurring nonradiating midsternal chest pain lasting up to 1 hour ,occurring with exertion and at rest, accompanied by shortness of breath. States his chest pain was reproducible. reports his symptoms resembled previous episodes when he required stenting. Discloses that he has had diarrhea for the last 2 days up to 8 times per day and that he has a history of chronic diarrhea. Patient takes a supplement of magnesium with vitamin D daily.Magnesium 1.2 on admission, received supplementation, repeat magnesium level pending. Troponins negative x 3 EKG reported sinus rhythm. Chest x-ray reported nonacute. Afebrile, WBC 7.7. Hemoglobin 13.5, platelets 191. Electrolytes and renal function within normal limits. Echo from 10/11/2022 reporting normal LV function, moderate mitral and trace to mild tricuspid regurgitation. Blood sugars ranging from 170 low 200s. Evaluated by cardiology, echo, Lexiscan stress ordered. Review of Systems ROS Statement: Those systems with pertinent positive or pertinent negative responses have been documented in the HPI. ROS Other: All systems not noted in ROS Statement are negative. Past Medical History Past Medical History: Blood Disorder, Coronary Artery Disease (CAD), Diabetes Mellitus, Hyperlipidemia, Hypertension, Myocardial Infarction (IN), Pulmonary Embolus (PE), Thyroid Disorder Additional Past Medical History / Comment(s): "They think I'm still bleeding somewhere." Hx blood transfusion r/t anemia.IDDM type II, neuropathy bilateral feet, hypothyroid, chronic low back pain, DDD, stress vertebral fracture lower back, 2 herniated cervical discs-neck pain, chron's, diverticulosis, suspected L upper lobe pulmonary embolism, shingles R upper chest hiatal hernia Hx dirrhea. "They thought I had a blood clot that caused my heart attack." Last Myocardial Infarction Date:: 03-02-2021 History of Any Multi-Drug Resistant Organisms: None Reported Past Surgical History: Bowel Resection, Cholecystectomy, Heart Catheterization With Stent, Orthopedic Surgery, Tonsillectomy Additional Past Surgical History / Comment(s): PCI with stent 2009 at [facility], bowel resection with 1 ft of colon removed d/t chron's, R shoulder rotator cuff repair, colonoscopy, right neck glad removed as child, stent at [facility] 08/24/22 Past Anesthesia/Blood Transfusion Reactions: No Reported Reaction Additional Past Anesthesia/Blood Transfusion Reaction / Comment(s): Hx blood transfusion. Date of Last Stent Placement:: July/2022 Past Psychological History: No Psychological Hx Reported Additional Psychological History / Comment(s): Pt resides with his spouse. He is disabled. He uses no assistive device. He drives. Smoking Status: Former smoker Past Alcohol Use History: None Reported Additional Past Alcohol Use History / Comment(s): Pt started smoking in 1968 and quit smoking in 1992, smoked 2.5ppd Past Drug Use History: None Reported - Past Family History Father Family Medical History: Cancer Additional Family Medical History / Comment(s): Father of throat cancer in his early 70s. He had heart problems and an aneurysm Mother Family Medical History: Diabetes Mellitus, Myocardial Infarction (IN) Additional Family Medical History / Comment(s): Pt does not recall at what age mother had her IN Daughter(s) Family Medical History: Cancer Additional Family Medical History / Comment(s): thyroid CA Brother(s) Family Medical History: Diabetes Mellitus, Renal Disease Medications and Allergies Home Medications Medication Instructions Recorded Confirmed Type metFORMIN HCL [Glucophage] 1,000 mg PO BID #60 tab 05/31/15 02/09/24 Rx Levothyroxine Sodium [Synthroid] 75 mcg PO DAILY 08/19/18 02/09/24 History Atorvastatin [Lipitor] 80 mg PO HS #90 tab 03/04/21 02/09/24 Rx lisinopriL [Zestril] 10 mg PO DAILY 07/16/22 02/09/24 History Aspirin EC [Ecotrin Low Dose] 81 mg PO DAILY 08/16/22 02/09/24 History Metoprolol Succinate (ER) [Toprol 25 mg PO DAILY 10/10/22 02/09/24 History XL] Nitroglycerin Sl Tabs [Nitrostat] 0.4 mg SL Q5M PRN 10/10/22 02/09/24 History glipiZIDE [Glucotrol] 5 mg PO BID 10/10/22 02/09/24 History Clopidogrel [Plavix] 75 mg PO DAILY 10/21/23 02/09/24 History Dicyclomine [Bentyl] 10 mg PO DAILY 10/21/23 02/09/24 History Isosorbide Mononitrate ER [Imdur] 30 mg PO DAILY 10/21/23 02/09/24 History Iron Gummy 1 tab PO HS 02/09/24 02/09/24 History Mv-Min/Folic/K1/Lycopen/Lutein 1 tab PO DAILY 02/09/24 02/09/24 History [Centrum Silver Men Tablet] Naproxen [Naprosyn] 500 mg PO DAILY 02/09/24 02/09/24 History Pantoprazole [Protonix] 40 mg PO DAILY 02/09/24 02/09/24 History Magnesium W/Vitamin D(Unknown Dose) 1 tab PO DAILY #0 02/10/24 02/09/24 Rx Allergies Allergy/AdvReac Type Severity Reaction Status Date / Time No Known Allergies Allergy Verified 02/09/24 14:08 Physical Exam Vitals: Vital Signs Temp Pulse Pulse Resp BP BP Pulse Ox 02/10/24 08:28 97.9 F 76 14 122/74 94 L 02/10/24 04:00 80 16 132/70 95 02/10/24 01:14 18 02/10/24 00:00 74 18 150/72 97 02/09/24 21:30 97.7 F 68 18 129/76 97 02/09/24 21:20 68 17 110/64 97 02/09/24 21:00 67 15 117/67 96 02/09/24 18:07 71 18 120/66 98 02/09/24 14:06 77 18 129/63 96 02/09/24 12:49 75 18 135/69 94 L Intake and Output 02/09/24 02/10/24 02/10/24 22:59 06:59 14:59 Other: Voiding Method Toilet Toilet Toilet # Voids 1 2 Weight 83.915 kg 79.9 kg General: Sitting up in bed, no acute distress HEENT: Normocephalic. Neck is supple. Pupils reactive. Neck: Supple, no JVD. CHEST EXAMINATION: CTA CARDIAC: Normal S1, S2 with no gallops. Systolic murmurs ABDOMEN: Soft. Bowel sounds normal. No organomegaly. Extremities: reveal no edema. No clubbing or cyanosis Neurologically awake, alert, oriented x3.No focal deficits noted Skin: No rash, warm and dry Results CBC & Chem 7: 02/09/24 12:17 02/10/24 06:28 Labs: Abnormal Lab Results - Last 24 Hours (Table) 02/09/24 02/09/24 02/09/24 Range/Units 12:17 12:17 22:12 RBC 4.09 L (4.30-5.90) m/uL Lymphocytes # 0.9 L (1.0-4.8) k/uL Sodium 133 L (137-145) mmol/L Carbon Dioxide 21 L (22-30) mmol/L Glucose 338 H (74-99) mg/dL POC Glucose (mg/dL) 223 H (70-110) mg/dL Magnesium 1.2 L (1.6-2.3) mg/dL HDL Cholesterol (40.00-60.00) mg/dL 02/10/24 02/10/24 02/10/24 Range/Units 06:12 06:28 06:28 RBC (4.30-5.90) m/uL Lymphocytes # (1.0-4.8) k/uL Sodium (137-145) mmol/L Carbon Dioxide (22-30) mmol/L Glucose 241 H (74-99) mg/dL POC Glucose (mg/dL) 236 H (70-110) mg/dL Magnesium (1.6-2.3) mg/dL HDL Cholesterol 27.00 L (40.00-60.00) mg/dL Thrombosis Risk Factor Assmnt - Choose All That Apply Any of the Below Risk Factors Present?: Yes Each Factor Represents 1 point: Obesity (BMI >25) Each Risk Factor Represents 2 Points: Age 61-74 years Each Risk Factor Represents 3 Points: Family history of DVT/PE Other congenital or acquired thrombophilia - If yes, enter type in comment: No Thrombosis Risk Factor Assessment Total Risk Factor Score: 6 Thrombosis Risk Factor Assessment Level: High Risk Assessment and Plan Assessment: Chest pain, serial troponins negative Hypomagnesemia CAD, history of IN, cardiac stent of LAD Chronic diarrhea, history of chronic colitis Diabetes mellitus type 2, Hypertension Hyperlipidemia Hypothyroidism Chronic anemia Plan: Continue on current medication regimen ,monitoring and symptomatic treatment. Echo pending. evaluated by cardiology and scheduled for Lexiscan stress test. Patient will be discharged home today pending stress test results, final DC recommendations and clearance per cardiology. Magnesium supplementation. Discussed magnesium could also enhance diarrhea, will increase magnesium supplementation to twice a day for 1 week and then reevaluate in clinic with PCP. Discharge Medication List metFORMIN HCL [Glucophage] 1,000 mg PO BID #60 tab 05/31/15 [Rx] Levothyroxine Sodium [Synthroid] 75 mcg PO DAILY 08/19/18 [History] Atorvastatin [Lipitor] 80 mg PO HS #90 tab 03/04/21 [Rx] lisinopriL [Zestril] 10 mg PO DAILY 07/16/22 [History] Aspirin EC [Ecotrin Low Dose] 81 mg PO DAILY 08/16/22 [History] Metoprolol Succinate (ER) [Toprol XL] 25 mg PO DAILY 10/10/22 [History] Nitroglycerin Sl Tabs [Nitrostat] 0.4 mg SL Q5M PRN 10/10/22 [History] glipiZIDE [Glucotrol] 5 mg PO BID 10/10/22 [History] Clopidogrel [Plavix] 75 mg PO DAILY 10/21/23 [History] Dicyclomine [Bentyl] 10 mg PO DAILY 10/21/23 [History] Isosorbide Mononitrate ER [Imdur] 30 mg PO DAILY 10/21/23 [History] Iron Gummy 1 tab PO HS 02/09/24 [History] Mv-Min/Folic/K1/Lycopen/Lutein [Centrum Silver Men Tablet] 1 tab PO DAILY 02/09/24 [History] Naproxen [Naprosyn] 500 mg PO DAILY 02/09/24 [History] Pantoprazole [Protonix] 40 mg PO DAILY 02/09/24 [History] Magnesium W/Vitamin D(Unknown Dose) 1 tab PO DAILY #0 02/10/24 [Rx] The impression and plan of care has been dictated as directed. : I performed a history and examination of this patient, discussed the same with the dictator. I agree with the dictator's note ,documented as a scribe. Any additional findings or plans will be noted.
--- NOTE | 2024-02-10 15:58 | NM ---
EXAMINATION TYPE: NM stress lexiscan cardiolite DATE OF EXAM: 02/10/2024 COMPARISON: NONE HISTORY: Chest pain TECHNIQUE: After the intravenous administration of 7.4 mCi Tc 99m Sestamibi - Cardiolite resting SPE CT images acquired 60 minutes post injection. At peak stress 26 mCi Tc 99m Sestamibi - Stress images obtained 45 minutes post injection The patient was stressed with 0.4mg Lexiscan. FINDINGS: Minimal septal wall defect may be present. Prior infarct is not excluded. No significant reversible d efect is identified. Wall motion is normal Ejection fraction is calculated to be 54 %. IMPRESSION: 1. Minimal distal septal wall defect near the cardiac apex may be a prior infarct. 2. No significant reversible perfusion defect evident [facility], , 02/10/2024 3:56 PM
[2024-02-10 16:40] LABS: Glucose,Whole Blood 269 mg/dL (70-110)
[2024-02-10 16:49] VITALS: BP 112/68; PULSE 65; RESP 14; TEMP 97.5
[2024-02-10] MEDS ORDERED: IRON PO SCH (21:00)
[2024-02-10] MEDS ORDERED: ATORVASTATIN 80 MG TAB PO SCH (21:00)
== END 2024-02-10 17:44 | disposition home or self-care (01) ==
LOC: EC 11:45 → INTOOBSV 13:43 → 3SCARD 13:43
PROVIDERS: ADMIT Family Medicine; ATTEND Family Medicine
DX: R07.89 Other chest pain (principal); R06.02 Shortness of breath; E83.42 Hypomagnesemia; I25.10 Atherosclerotic heart disease of native coronary artery without angina pectoris; I08.1 Rheumatic disorders of both mitral and tricuspid valves; K50.90 Crohn's disease, unspecified, without complications; E11.42 Type 2 diabetes mellitus with diabetic polyneuropathy; I10 Essential (primary) hypertension; E78.00 Pure hypercholesterolemia, unspecified; E03.9 Hypothyroidism, unspecified; K57.90 Diverticulosis of intestine, part unspecified, without perforation or abscess without bleeding; D64.9 Anemia, unspecified; I25.2 Old myocardial infarction; Z79.82 Long term (current) use of aspirin; Z79.890 Hormone replacement therapy; Z79.899 Other long term (current) drug therapy; Z79.02 Long term (current) use of antithrombotics/antiplatelets; Z79.84 Long term (current) use of oral hypoglycemic drugs; Z79.4 Long term (current) use of insulin; Z87.891 Personal history of nicotine dependence; Z87.19 Personal history of other diseases of the digestive system; Z95.5 Presence of coronary angioplasty implant and graft; Z82.49 Family history of ischemic heart disease and other diseases of the circulatory system; Z83.3 Family history of diabetes mellitus; Z86.711 Personal history of pulmonary embolism
CPT/HCPCS: 96366 ×2; 96365; 99285; 36415; 93005; 93017; 80061; 80053; 80048; 83735 ×2; 84484; 85025; 85610; 85730; 71046; 78452; G0378 ×2; A9500; J3475 ×2; J2785

== ENCOUNTER 2024-02-26 15:51 | Observation (INO) | payer MEDICARE ==
[2024-02-26] MEDS ORDERED: MORPHINE SULFATE 4 MG/ML SYRINGE IVP PRN (16:21)
--- NOTE | 2024-02-26 16:37 | ED ---
General Adult HPI - General Chief complaint: Abdominal Pain Stated complaint: Abdominal Pain Time Seen by Provider: 02/26/24 16:13 Source: patient Mode of arrival: ambulatory Limitations: no limitations - History of Present Illness Initial comments: Dictation was produced using [employer] dictation software. please excuse any grammatical, word or spelling errors. Chief Complaint: 68-year-old male presents emergency department with acute on chronic abdominal pain History of Present Illness: Patient 60-year-old male has extensive abdominal history including hiatal hernia, hernia and bowel resection secondary to diverticulosis. Patient states for the last couple days he has been having some nausea vomiting and abdominal pain. States that the pain is epigastric. Does complain of some nausea. No vomiting. Denies any fever, chills or night sweats . Patient not sure if he is obstructed. The ROS documented in this emergency department record has been reviewed and confirmed by me. Those systems with pertinent positive or negative responses nelson ve been documented in the HPI. All other systems are other negative and/or noncontributory. - Related Data Home Medications Medication Instructions Recorded Confirmed Levothyroxine Sodium [Synthroid] 75 mcg PO DAILY 08/19/18 02/09/24 lisinopriL [Zestril] 10 mg PO DAILY 07/16/22 02/09/24 Aspirin EC [Ecotrin Low Dose] 81 mg PO DAILY 08/16/22 02/09/24 Metoprolol Succinate (ER) [Toprol 25 mg PO DAILY 10/10/22 02/09/24 XL] Nitroglycerin Sl Tabs [Nitrostat] 0.4 mg SL Q5M PRN 10/10/22 02/09/24 glipiZIDE [Glucotrol] 5 mg PO BID 10/10/22 02/09/24 Clopidogrel [Plavix] 75 mg PO DAILY 10/21/23 02/09/24 Dicyclomine [Bentyl] 10 mg PO DAILY 10/21/23 02/09/24 Isosorbide Mononitrate ER [Imdur] 30 mg PO DAILY 10/21/23 02/09/24 Iron Gummy 1 tab PO HS 02/09/24 02/09/24 Mv-Min/Folic/K1/Lycopen/Lutein 1 tab PO DAILY 02/09/24 02/09/24 [Centrum Silver Men Tablet] Naproxen [Naprosyn] 500 mg PO DAILY 02/09/24 02/09/24 Pantoprazole [Protonix] 40 mg PO DAILY 02/09/24 02/09/24 Previous Rx's Medication Instructions Recorded metFORMIN HCL [Glucophage] 1,000 mg PO BID #60 tab 05/31/15 Atorvastatin [Lipitor] 80 mg PO HS #90 tab 03/04/21 Magnesium W/Vitamin D(Unknown Dose) 1 tab PO DAILY #0 02/10/24 Allergies Allergy/AdvReac Type Severity Reaction Status Date / Time No Known Allergies Allergy Verified 02/26/24 16:07 Review of Systems ROS Statement: Those systems with pertinent positive or pertinent negative responses have been documented in the HPI. ROS Other: All systems not noted in ROS Statement are negative. Past Medical History Past Medical History: Blood Disorder, Coronary Artery Disease (CAD), Diabetes Mellitus, Hyperlipidemia, Hypertension, Myocardial Infarction ([place]), Pulmonary Embolus (PE), Thyroid Disorder Additional Past Medical History / Comment(s): "They think I'm still bleeding somewhere." Hx blood transfusion r/t anemia.IDDM type II, neuropathy bilateral feet, hypothyroid, chronic low back pain, DDD, stress vertebral fracture lower back, 2 herniated cervical discs-neck pain, chron's, diverticulosis, suspected L upper lobe pulmonary embolism, shingles R upper chest hiatal hernia Hx d irrhea. "They thought I had a blood clot that caused my heart attack." Last Myocardial Infarction Date:: 03-02-2021 History of Any Multi-Drug Resistant Organisms: None Reported Past Surgical History: Bowel Resection, Cholecystectomy, Heart Catheterization With Stent, Orthopedic Surgery, Tonsillectomy Additional Past Surgical History / Comment(s): PCI with stent 2009 at [facility], bowel resection with 1 ft of colon removed d/t chron's, R shoulder rotator cuff repair, colonoscopy, right neck glad removed as child, stent at [facility] 08/24/22 Past Anesthesia/Blood Transfusion Reactions: No Reported Reaction Additional Past Anesthesia/Blood Transfusion Reaction / Comment(s): Hx blood transfusion. Date of Last Stent Placement:: July/2022 Past Psychological History: No Psychological Hx Reported Smoking Status: Former smoker Past Alcohol Use History: None Reported Past Drug Use History: None Reported - Past Family History Father Family Medical History: Cancer Additional Family Medical History / Comment(s): Father of throat cancer in his early 70s. He had heart problems and an aneurysm Mother Family Medical History: Diabetes Mellitus, Myocardial Infarction ([place]) Additional Family Medical History / Comment(s): Pt does not recall at what age mother had her [place] Daughter(s) Family Medical History: Cancer Additional Family Medical History / Comment(s): thyroid CA Brother(s) Family Medical History: Diabetes Mellitus, Renal Disease General Exam - General Exam Comments Initial Comments: PHYSICAL EXAM: General Impression: Alert and oriented x3, not in acute distress HEENT: Normocephalic atraumatic, extra-ocular movements intact, pupils equal and reactive to light bilaterally, mucous membranes moist. Cardiovascular: Heart regular rate and rhythm Chest: Able to complete full sentences, no retractions, no tachypnea Abdomen: abdomen soft, diffuse tenderness, tympanitic to percussion, non- distended, no organomegaly Musculoskeletal: Pulses present and equal in all extremities, no peripheral edema Motor: no focal deficits noted Neurological: CN II-XII grossly intact, no focal motor or sensory deficits noted Skin: Intact with no visualized rashes Psych: Normal affect and mood Limitations: no limitations Course Vital Signs 02/26/24 02/26/24 02/26/24 16:07 17:40 18:32 Temperature 97.4 F L Pulse Rate 100 95 79 Respiratory 26 H 16 17 Rate Blood Pressure 144/79 120/87 127/69 O2 Sat by Pulse 97 95 95 Oximetry EKG Findings - EKG Comments: EKG Findings:: Was pt. sent in by a medical professional or institution (, PA, PRIVATE SECRETARY, urgent care, hospital, or retirement...) When possible be specific. @ -No. Did you speak to anyone other than the patient for history (EMS, parent, family, police, friend...)? What history was obtained from this source. @ - No. Did you review nursing and triage notes (agree or disagree)? Why? @ -I reviewed and agree with nursing and triage notes. Were old charts reviewed (outside hosp., previous admission, EMS record, old EKG, old radiological studies, urgent care reports/EKG's, retirement records)? Report findings. @ -No old charts were reviewed. Differential Diagnosis (chest pain, altered mental status, abdominal pain women, abdominal pain men, vaginal bleeding, musculoskeletal, weakness, fever, dyspnea, syncope, headache, dizziness, GI bleed, back pain, seizure, CVA, palpatations, mental health)? @ -Differential Abdominal Pain Men: Appendicitis, cholecystitis, diverticulosis, ischemic bowel, pancreatitis, hepatitis, UTI, gastroenteritis, AAA, incarcerated hernia, bowel obstruction, constipation, inflammatory bowel, hepatitis, peptic ulcer disease, splenic infarction, perforated viscus, testicular torsion, this is not meant to be an all-inclusive list. EKG interpreted by me (3pts min.). @ -None done. X-rays interpreted by me (1pt min.). @ -None done. CT interpreted by me (1pt min.). @ -CT abdomen pelvis shows possible abdominal ischemia. U/S interpreted by me (1pt. min.). @ -None done. What testing was considered but not performed or refused? (CT, X-rays, U/S, labs)? Why? @ -None. What meds were considered but not given or refused? Why? @ -None. Was smoking cessation discussed for >3mins.? @ -No. Were there social determinants of health that impacted care today? How? (Homelessness, low income, unemployed, alcoholism, drug addiction, transportation, low edu. Level, literacy, decrease access to med. care, halfway, rehab)? @ -No. Was there de-escalation of care discussed even if they declined (Discuss DNR or withdrawal of care, Hospice)? DNR status. @ -No. What co-morbidities impacted this encounter? (DM, HTN, Smoking, COPD, CAD, Cancer, CVA, ARF, Chemo, Hep., AIDS, mental health diagnosis, sleep apnea, morbid obesity)? @ -Abdominal surgery. Was patient admitted / discharged? Hospital course, mention meds given and route, prescriptions, significant lab abnormalities, going to OR and other pertinent info. @ -68-year-old male with significant abdominal surgical history presents to the emergency department with abdominal pain. Vital signs upon arrival are within acceptable limits. Laboratory evaluation obtained. Leukocytosis 12.[address] shows findings concerning for abdominal ischemia. Reevaluated bedside 7:52 PM found to be in stable condition. Patient states that he is pain-free after morphine. Patient will be admitted observation. Case discussed with Dr. Ma who request patient be admitted to medicine with her on consult. Patient started antibiotics. Did you discuss the management of the patient with other professionals (professionals i.e. , PA, PRIVATE SECRETARY, lab, RT, psych nurse, manager social responsibility, station mechanic helper, teacher, transit authority police officer, protective services case worker)? Give summary. @ -See above. Was critical care preformed (if so, how long)? @ -No. Undiagnosed new problem with uncertain prognosis? @ -No. Drug Therapy requiring intensive monitoring for toxicity (Heparin, Nitro, Insulin, Cardizem)? @ -No. Were any procedures done? @ -No. Diagnosis/symptom? Acute, or Chronic, or Acute on Chronic? Uncomplicated (without systemic symptoms) or Complicated (systemic symptoms)? @ -Abdominal pain. Side effects of treatment? @ -No. Exacerbation, Progression, or Severe Exacerbation? @ -No. Poses a threat to life or bodily function? How? (Chest pain, [place], [place], pneumonia, PE, COPD, DKA, ARF, appy, cholecystitis, CVA, Diverticulitis, Homicidal, Suicidal, threat to staff... and all critical care pts). @ -yes Medical Decision Making - Lab Data Result diagrams: 02/26/24 16:42 02/26/24 16:42 Lab Results 02/26/24 02/26/24 02/26/24 Range/Units 16:42 16:42 16:42 WBC 12.9 H (3.8-10.6) k/uL RBC 4.61 (4.30-5.90) m/uL Hgb 15.3 (13.0-17.5) gm/dL Hct 44.8 (39.0-53.0) % MCV 97.2 (80.0-100.0) fL MCH 33.1 (25.0-35.0) pg MCHC 34.1 (31.0-37.0) g/dL RDW 13.4 (11.5-15.5) % Plt Count 217 (150-450) k/uL MPV 8.2 Neutrophils % 87 % Lymphocytes % 7 % Monocytes % 4 % Eosinophils % 1 % Basophils % 0 % Neutrophils # 11.3 H (1.3-7.7) k/uL Lymphocytes # 0.9 L (1.0-4.8) k/uL Monocytes # 0.5 (0-1.0) k/uL Eosinophils # 0.1 (0-0.7) k/uL Basophils # 0.0 (0-0.2) k/uL PT 10.2 (10.0-12.5) sec INR 0.9 (<1.2) APTT 23.6 (22.0-30.0) sec Sodium 132 L (137-145) mmol/L Potassium 4.9 (3.5-5.1) mmol/L Chloride 100 (98-107) mmol/L Carbon Dioxide 26 (22-30) mmol/L Anion Gap 6 mmol/L BUN 15 (9-20) mg/dL Creatinine 0.68 (0.66-1.25) mg/dL Est GFR (CKD-EPI)AfAm >90 (>60 ml/min/1.73 sqM) Est GFR (CKD-EPI)NonAf >90 (>60 ml/min/1.73 sqM) Glucose 441 H (74-99) mg/dL Lactic Ac Sepsis Rflx Plasma Lactic Acid Hakeem (0.7-2.0) mmol/L Calcium 9.2 (8.4-10.2) mg/dL Magnesium 1.5 L (1.6-2.3) mg/dL Total Bilirubin 0.7 (0.2-1.3) mg/dL AST 22 (17-59) U/L ALT 26 (4-49) U/L Alkaline Phosphatase 137 H (38-126) U/L Troponin I (0.000-0.034) ng/mL Total Protein 6.7 (6.3-8.2) g/dL Albumin 4.1 (3.5-5.0) g/dL Lipase 121 (23-300) U/L 02/26/24 02/26/24 02/26/24 Range/Units 16:42 16:42 17:29 WBC (3.8-10.6) k/uL RBC (4.30-5.90) m/uL Hgb (13.0-17.5) gm/dL Hct (39.0-53.0) % MCV (80.0-100.0) fL MCH (25.0-35.0) pg MCHC (31.0-37.0) g/dL RDW (11.5-15.5) % Plt Count (150-450) k/uL MPV Neutrophils % % Lymphocytes % % Monocytes % % Eosinophils % % Basophils % % Neutrophils # (1.3-7.7) k/uL Lymphocytes # (1.0-4.8) k/uL Monocytes # (0-1.0) k/uL Eosinophils # (0-0.7) k/uL Basophils # (0-0.2) k/uL PT (10.0-12.5) sec INR (<1.2) APTT (22.0-30.0) sec Sodium (137-145) mmol/L Potassium (3.5-5.1) mmol/L Chloride (98-107) mmol/L Carbon Dioxide (22-30) mmol/L Anion Gap mmol/L BUN (9-20) mg/dL Creatinine (0.66-1.25) mg/dL Est GFR (CKD-EPI)AfAm (>60 ml/min/1.73 sqM) Est GFR (CKD-EPI)NonAf (>60 ml/min/1.73 sqM) Glucose (74-99) mg/dL Lactic Ac Sepsis Rflx Y Plasma Lactic Acid Hakeem 2.6 H* (0.7-2.0) mmol/L Calcium (8.4-10.2) mg/dL Magnesium (1.6-2.3) mg/dL Total Bilirubin (0.2-1.3) mg/dL AST (17-59) U/L ALT (4-49) U/L Alkaline Phosphatase (38-126) U/L Troponin I <0.012 (0.000-0.034) ng/mL Total Protein (6.3-8.2) g/dL Albumin (3.5-5.0) g/dL Lipase (23-300) U/L Disposition Clinical Impression: Abdominal pain Disposition: ADMITTED IP TO THIS HOSP Condition: Fair Referrals: Ceasar Sears DO [Primary Care Provider] - 1-2 days Decision Time: 19:53
[2024-02-26 16:54] LABS: Basophils % (A) 0 %; Eosinophils # (A) 0.1 k/uL (0-0.7); Eosinophils % (A) 1 %; HCT 44.8 % (39.0-53.0); HGB 15.3 gm/dL (13.0-17.5); Lymphocytes # (A) 0.9 k/uL (1.0-4.8); Lymphocytes % (A) 7 %; MCH 33.1 pg (25.0-35.0); MCHC 34.1 g/dL (31.0-37.0); MCV 97.2 fL (80.0-100.0); Mean Platelet Volume 8.2; Monocytes # (A) 0.5 k/uL (0-1.0); Monocytes % (A) 4 %; Neutrophils # (A) 11.3 k/uL (1.3-7.7); Neutrophils % (A) 87 %; Platelet Count 217 k/uL (150-450); RBC 4.61 m/uL (4.30-5.90); RDW 13.4 % (11.5-15.5); WBC 12.9 k/uL (3.8-10.6)
[2024-02-26 17:12] LABS: INR 0.9 (<1.2); Partial Thromboplastin Time 23.6 sec (22.0-30.0); Prothrombin Time 10.2 sec (10.0-12.5)
[2024-02-26 17:14] LABS: ALT 26 U/L (4-49); AST 22 U/L (17-59); African American GFR (CKD) >90 (>60 ml/min/1.73 sqM); Albumin 4.1 g/dL (3.5-5.0); Alkaline Phosphatase 137 U/L (38-126); Anion Gap 6 mmol/L; Blood Urea Nitrogen 15 mg/dL (9-20); Calcium 9.2 mg/dL (8.4-10.2); Carbon Dioxide 26 mmol/L (22-30); Chloride 100 mmol/L (98-107); Glucose 441 mg/dL (74-99); Lipase 121 U/L (23-300); Magnesium 1.5 mg/dL (1.6-2.3); Non-African American GFR(CKD) >90 (>60 ml/min/1.73 sqM); Potassium 4.9 mmol/L (3.5-5.1); Sodium 132 mmol/L (137-145); Total Bilirubin 0.7 mg/dL (0.2-1.3); Total Protein 6.7 g/dL (6.3-8.2)
[2024-02-26] MEDS: SODIUM CHLORIDE 0.9% 1,000 ML IV STA (17:40)
--- NOTE | 2024-02-26 18:40 | CT ---
EXAMINATION TYPE: CT abdomen pelvis w con DATE OF EXAM: 02/26/2024 6:02 PM COMPARISON: 06/27/2016 CLINICAL INDICATION: Male, 68 years old with history of abdominal pain; Pt c/o severe abdominal pain. Denies n/v/d. States he does have hiatal hernia and hx of bowel resection. TECHNIQUE: Axial CT abdomen pelvis w con;Sagittal and coronal reformats were created on a separate w orkstation. Contrast used:100 ml mL of Isovue 300 with IV Contrast, (none if empty) Oral contrast used: without Oral Contrast (none if empty) CT DLP: 1011.8 mGycm, Automated exposure control for dose reduction was used. FINDINGS: LOWER CHEST: Unremarkable ABDOMEN LIVER: Unremarkable GALLBLADDER AND BILE DUCTS: The gallbladder is surgically absent. PANCREAS: Unremarkable. SPLEEN: Unremarkable. ADRENAL GLANDS: Unremarkable. KIDNEYS AND URETERS: No evidence of hydronephrosis or renal calculus. The ureters are unremarkable. PELVIS BLADDER: No evidence for wall thickening or mass given limitations of exam. REPRODUCTIVE: Unremarkable. ABDOMEN & PELVIS STOMACH AND BOWEL: Scattered colonic diverticula postsurgical changes sigmoid colon: Appears without evidence for wall thickening or obstruction. The appendix appears surgically absent with surgical cli ps present. Mesenteric edema in the distended loops of bowel in the low abdomen with hyperemia of the mucosa and mesenteric engorgement. Series 202 image 33 series 201 image 64 No evidence of bowel obstruction. No transition point identified. PERITONEUM/RETROPERITONEUM: No evidence of pneumoperitoneum or free fluid. VASCULATURE: Mild atherosclerotic calcifications are present throughout the abdominal aorta and its b ranches. No evidence of aortic aneurysm. MUSCULOSKELETAL: No acute osseous abnormalities LYMPH NODES: No gross evidence for lymphadenopathy. SOFT TISSUE/ABDOMINAL WALL: Unremarkable IMPRESSION: Prominence of the left upper quadrant small bowel extending down towards midline with relative nondis tention of the right lower quadrant small bowel. Small bowel feces also present with mesenteric edema correlate for enteritis. Correlate with lactic acid to exclude acute ischemia. [facility], , 02/26/2024 6:38 PM
[2024-02-26] MEDS ORDERED: NALOXONE 0.4 MG/ML 1 ML VIAL IV PRN (19:48)
[2024-02-26] MEDS ORDERED: MORPHINE SULFATE 4 MG/ML SYRINGE IV PRN (19:48)
[2024-02-26] MEDS: SODIUM CHLORIDE 0.9% 1,000 ML IV SCH (21:28)
[2024-02-26] MEDS: PIPERACILLIN-TAZOBACTAM 3.375 GM in SODIUM CHLORIDE 0.9% 100 ML IVPB SCH (21:29)
[2024-02-27] MEDS ORDERED: NITROGLYCERIN SL TABS 0.4 MG TAB SUBLINGUAL PRN (13:09)
--- NOTE | 2024-02-27 13:22 | P.CONS ---
History of Present Illness - History of Present Illness 60-year-old male came in with complaints of lower abdominal pain in the mid abdo men sharp in nature nonradiating patient has extensive to abdominal pain history of surgeries in the past with a bowel resection in the past patient also has a hiatal hernia all his pain resolved at this time CT of the abdomen is consistent with dilated bowel loops possibility of ileus because of which patient is admitted patient is presently n.p.o. is passing gas but does not have much of bowel sounds last bowel movement was 2 days ago. REVIEW OF SYSTEMS: All other systems are negative except those mentioned in the HPI PHYSICAL EXAMINATION: GENERAL: The patient is alert and oriented x3, not in any acute distress. Well developed, well nourished. HEENT: Pupils are round and equally reacting to light. EOMI. No scleral icterus. No conjunctival pallor. Normocephalic, atraumatic. No pharyngeal erythema. No thyromegaly. CARDIOVASCULAR: S1 and S2 present. No murmurs, rubs, or gallops. PULMONARY: Chest is clear to auscultation, no wheezing or crackles. ABDOMEN: Soft, nontender, nondistended sluggish or absent bowel sounds. No palpable organomegaly. MUSCULOSKELETAL: No joint swelling or deformity. EXTREMITIES: No cyanosis, clubbing, or pedal edema. NEUROLOGICAL: Gross neurological examination did not reveal any focal deficits. SKIN: No rashes. Assessment and plan -Abdominal pain secondary to ileus General Surgery will evaluate the patient patient is presently n.p.o. is hungry patient is on pain medications as per neurosurgery -Leukocytosis is secondary to ileus patient is on Zosyn probably will not need it -Lactic acidosis secondary to intravascular depletion for which patient is receiving IV fluids -Hypovolemic hyponatremia IV fluids as mentioned above -Coronary disease -Hyperlipidemia -Hypertension -History of PE in the past -Hypothyroidism Diabetes mellitus hold off glipizide sliding scale insulin was ordered Evaluation chronic medical problems patient will be resumed on appropriate home medications, I did not order Plavix yet this need to be ordered if general surgery is agreeable and not planning on any surgery but delayed rehab DVT prophylaxis: Lovenox Past Medical History Past Medical History: Blood Disorder, Coronary Artery Disease (CAD), Diabetes Mellitus, Hyperlipidemia, Hypertension, Myocardial Infarction ([place]), Pulmonary Embolus (PE), Thyroid Disorder Additional Past Medical History / Comment(s): "They think I'm still bleeding somewhere." Hx blood transfusion r/t anemia.IDDM type II, neuropathy bilateral feet, hypothyroid, chronic low back pain, DDD, stress vertebral fracture lower back, 2 herniated cervical discs-neck pain, chron's, diverticulosis, suspected L upper lobe pulmonary embolism, shingles R upper chest hiatal hernia Hx dirrhea. "They thought I had a blood clot that caused my heart attack." Last Myocardial Infarction Date:: 03-02-2021 History of Any Multi-Drug Resistant Organisms: None Reported Past Surgical History: Bowel Resection, Cholecystectomy, Heart Catheterization With Stent, Orthopedic Surgery, Tonsillectomy Additional Past Surgical History / Comment(s): PCI with stent 2009 at [facility], bowel resection with 1 ft of colon removed d/t chron's, R shoulder rotator cuff repair, colonoscopy, right neck glad removed as child, stent at [facility] 08/24/22 Past Anesthesia/Blood Transfusion Reactions: No Reported Reaction Additional Past Anesthesia/Blood Transfusion Reaction / Comm: Hx blood transfusion. Date of Last Stent Placement:: July/2022 Past Psychological History: No Psychological Hx Reported Smoking Status: Former smoker Past Alcohol Use History: None Reported Past Drug Use History: None Reported - Past Family History Father Family Medical History: Cancer Additional Family Medical History / Comment(s): Father of throat cancer in his early 70s. He had heart problems and an aneurysm Mother Family Medical History: Diabetes Mellitus, Myocardial Infarction ([place]) Additional Family Medical History / Comment(s): Pt does not recall at what age mother had her [place] Daughter(s) Family Medical History: Cancer Additional Family Medical History / Comment(s): thyroid CA Brother(s) Family Medical History: Diabetes Mellitus, Renal Disease Medications and Allergies Home Medications Medication Instructions Recorded Confirmed Type Levothyroxine Sodium [Synthroid] 75 mcg PO DAILY 08/19/18 02/26/24 History Atorvastatin [Lipitor] 80 mg PO HS #90 tab 03/04/21 02/26/24 Rx lisinopriL [Zestril] 10 mg PO DAILY 07/16/22 02/26/24 History Aspirin EC [Ecotrin Low Dose] 81 mg PO DAILY 08/16/22 02/26/24 History Metoprolol Succinate (ER) [Toprol 25 mg PO DAILY 10/10/22 02/26/24 History XL] Nitroglycerin Sl Tabs [Nitrostat] 0.4 mg SL Q5M PRN 10/10/22 02/26/24 History glipiZIDE [Glucotrol] 5 mg PO BID 10/10/22 02/26/24 History Clopidogrel [Plavix] 75 mg PO DAILY 10/21/23 02/26/24 History Dicyclomine [Bentyl] 10 mg PO DAILY 10/21/23 02/26/24 History Isosorbide Mononitrate ER [Imdur] 30 mg PO DAILY 10/21/23 02/26/24 History Iron Gummy 1 tab PO HS 02/09/24 02/26/24 History Mv-Min/Folic/K1/Lycopen/Lutein 1 tab PO DAILY 02/09/24 02/26/24 History [Centrum Silver Men Tablet] Naproxen [Naprosyn] 500 mg PO DAILY 02/09/24 02/26/24 History Pantoprazole [Protonix] 40 mg PO DAILY 02/09/24 02/26/24 History Magnesium W/Vitamin D(Unknown Dose) 1 tab PO DAILY #0 02/10/24 02/26/24 Rx Allergies Allergy/AdvReac Type Severity Reaction Status Date / Time No Known Allergies Allergy Verified 02/26/24 20:13 Physical Exam Vitals: Vital Signs Temp Pulse Resp BP Pulse Ox 02/27/24 10:58 72 18 132/71 97 02/27/24 07:23 66 18 121/65 97 02/27/24 05:00 67 15 121/57 99 02/27/24 02:00 66 14 103/70 93 L 02/26/24 21:41 80 18 129/72 92 L 02/26/24 20:17 98.1 F 78 18 135/70 96 02/26/24 18:32 79 17 127/69 95 02/26/24 17:40 95 16 120/87 95 02/26/24 16:07 97.4 F L 100 26 H 144/79 97 Intake and Output 02/26/24 02/27/24 02/27/24 22:59 06:59 14:59 Other: Weight 83.915 kg Results CBC & Chem 7: 02/26/24 16:42 02/26/24 16:42 Labs: Abnormal Lab Results - Last 24 Hours (Table) 02/26/24 02/26/24 02/26/24 Range/Units 16:42 16:42 16:42 WBC 12.9 H (3.8-10.6) k/uL Neutrophils # 11.3 H (1.3-7.7) k/uL Lymphocytes # 0.9 L (1.0-4.8) k/uL Sodium 132 L (137-145) mmol/L Glucose 441 H (74-99) mg/dL Plasma Lactic Acid Hakeem 2.6 H* (0.7-2.0) mmol/L Magnesium 1.5 L (1.6-2.3) mg/dL Alkaline Phosphatase 137 H (38-126) U/L
[2024-02-27 13:44] LABS: Glucose,Whole Blood 207 mg/dL (70-110)
--- NOTE | 2024-02-27 14:26 | P.GSHP ---
History of Present Illness H&P Date: 02/27/24 CHIEF COMPLAINT: Abdominal pain HISTORY OF PRESENT ILLNESS: The patient is a 68-year-old male presents to the emergency room with acute onset epigastric abdominal pain. Patient reports his last meal was Thanksgiving meal. Pain was moderate to severe. Pain was very similar to a prior diverticulitis attack which she had prior open colectomy. His senior housekeeper is Dr. Cloud. He reports personal history of hiatal hernia. No blood in stools. Patient reports blood sugars has been uncontrolled over 300-400. He drinks on average 60 ounces of fluids daily. He reports he ambulates at least 3 to 4 miles a day. Patient is admitted for abnormal CT scan for possible abdominal ischemia. At the time of my assessment, patient reports his abdominal pain is now resolved. Patient reports hunger. Overall, patient reports avoiding seeds with his meals. PAST MEDICAL HISTORY: See list and reviewed PAST SURGICAL HISTORY: See list and reviewed MEDICATIONS: See list and reviewed ALLERGIES: See list and reviewed SOCIAL HISTORY: See list and reviewed FAMILY HISTORY: See list and reviewed REVIEW OF ORGAN SYSTEMS: CONSTITUTIONAL: No fevers or chills. EYES: Reports troubles with vision for diabetic retinopathy. HEENT: No difficulties with hearing. No nosebleeds. No difficulty swallowing. RESPIRATORY: Past history of pulmonary embolism. Past tobacco abuse disorder. CARDIOVASCULAR: Has coronary artery disease. Has hypertensive heart disease. History of myocardial infarction. Has hyperlipidemia. Prior cardiac catheterization with stent placement. GASTROINTESTINAL: Personal history of diverticulitis. History of bowel resection. GENITOURINARY: Denies any blood in urine or increased urinary frequency. NEUROLOGICAL: Has diabetic neuropathy. MUSCULOSKELETAL: Has back pain, stiffness or joint arthritis. SKIN: No current skin cancer. No rash. PSYCHIATRIC: Denies current depression or suicidal thoughts. ENDOCRINE: Has diabetes type 2, insulin-dependent, with hyperglycemia. He has thyroid disorder. HEME/LYMPHATIC: Denies any lumps and bumps around the neck. No recent deep venous thrombosis. ALLERGY/IMMUNOLOGY: No immunoglobulin therapy. No immune deficiencies. BREAST: Denies current breast lumps, pain or nipple discharge. PHYSICAL EXAM: VITALS: Reviewed CONSTITUTIONAL: Well developed and in no acute distress. EYES: Conjuctivae without sclera icterus. Extraocular movements grossly intact. HEAD, EARS, NOSE, THROAT: Moist buccal mucosa. Head is atraumatic, normocephalic. Hears conversational speech. No nasal drainage. NECK: Supple. No JV distention. No thyroidomegaly. RESPIRATORY: Non-labored respirations and equal bilateral excursions. No gross wheezes. CARDIOVASCULAR: Palpable 2+ radial pulses. ABDOMEN: Well-healed lower midline incision. Present diastases recti 4 cm from subxiphoid to pubis. No palpable incisional hernia. Nontender. No peritonitis. LYMPH: No neck lymphadenopathy. MUSCULOSKELETAL: No clubbing cyanosis or edema SKIN: Warm and well perfused with good skin turgor. NEUROLOGIC: Cranial nerves II through XII grossly intact. No focal or lateralizing signs. PSYCH: Appropriate affect. Alert and oriented to person, place and time. Displays appropriate insight. CLINCAL LABS: Reviewed. WBC on admission white count over 12,000. Lactic acid on admission 2.5. Lactic acid now normal after IV fluid hydration. CBC pending at this time. Blood sugar glucose over 400. IMAGING: Independently reviewed. CT of the abdomen pelvis independent review demonstrate moderate diverticulosis. Mesenteric inflammation identified. Findings more consistent with localized mesenteric inflammation. This is my independent interpretation. RADIOLOGY: Report reviewed. CT report demonstrates questionable acute ischemia small bowel. RECORDS: previous old records reviewed with EGD obtained September 2023 demonstrates mild gastritis. Multiple hospitalizations for acute coronary syndrome, chest pain including prior anemia reviewed. ASSESSMENT: 1. Acute epigastric abdominal pain now resolved 2. Abnormal CT scan for bowel ischemia, resolved 3. Lactic acidosis 4. Coronary artery disease status post stent placement 5. Diabetes type 2, insulin-dependent, with complications 6. Diabetes type 2 with neuropathy 7. 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 History of myocardial infarction 9. Gastroesophageal reflux disease 10. Diastases recti 11. History of colectomy from diverticulitis 12. Diabetes type 2 with hyperglycemia PLAN: 1. Treatment for acute ischemia per CT scan included IV fluid hydration including antibiotics. Patient reports complete resolution of his acute onset abdominal pain and is seeking food. 2. He has poorly controlled diabetes type 2 with complications of retinopathy, neuropathy, hyperglycemia. Recommend high-protein diet without seeds to minimiz e risk of recurrent diverticulosis diverticulitis 3. May be discharged once tolerating diet. 4. No surgical invention needed at this time. 5. I have ordered repeat CBC regarding prior leukocytosis. 6. Follow-up as outpatient. 7. Extensive dietary surveillance and counseling regarding diverticulitis, management of diabetes reviewed. ADVANCE DIRECTIVE: CODE STATUS in chart Past Medical History Past Medical History: Blood Disorder, Coronary Artery Disease (CAD), Diabetes Mellitus, Hyperlipidemia, Hypertension, Myocardial Infarction ([place]), Pulmonary E mbolus (PE), Thyroid Disorder Additional Past Medical History / Comment(s): "They think I'm still bleeding somewhere." Hx blood transfusion r/t anemia.IDDM type II, neuropathy bilateral feet, hypothyroid, chronic low back pain, DDD, stress vertebral fracture lower back, 2 herniated cervical discs-neck pain, chron's, diverticulosis, suspected L upper lobe pulmonary embolism, shingles R upper chest hiatal hernia Hx dirrhea. "They thought I had a blood clot that caused my heart attack." Last Myocardial Infarction Date:: 03-02-2021 History of Any Multi-Drug Resistant Organisms: None Reported Past Surgical History: Bowel Resection, Cholecystectomy, Heart Catheterization With Stent, Orthopedic Surgery, Tonsillectomy Additional Past Surgical History / Comment(s): PCI with stent 2010 at [facility], bowel resection with 1 ft of colon removed d/t chron's, R shoulder rotator cuff repair, colonoscopy, right neck glad removed as child, stent at [facility] 08/24/22 Past Anesthesia/Blood Transfusion Reactions: No Reported Reaction Additional Past Anesthesia/Blood Transfusion Reaction / Comment(s): Hx blood transfusion. Date of Last Stent Placement:: July/2022 Past Psychological History: No Psychological Hx Reported Smoking Status: Former smoker Past Alcohol Use History: None Reported Past Drug Use History: None Reported - Past Family History Father Family Medical History: Cancer Additional Family Medical History / Comment(s): Father of throat cancer in his early 70s. He had heart problems and an aneurysm Mother Family Medical History: Diabetes Mellitus, Myocardial Infarction ([place]) Additional Family Medical History / Comment(s): Pt does not recall at what age mother had her [place] Daughter(s) Family Medical History: Cancer Additional Family Medical History / Comment(s): thyroid CA Brother(s) Family Medical History: Diabetes Mellitus, Renal Disease Medications and Allergies Home Medications Medication Instructions Recorded Confirmed Type Levothyroxine Sodium [Synthroid] 75 mcg PO DAILY 08/19/18 02/26/24 History Atorvastatin [Lipitor] 80 mg PO HS #90 tab 03/04/21 02/26/24 Rx lisinopriL [Zestril] 10 mg PO DAILY 07/16/22 02/26/24 History Aspirin EC [Ecotrin Low Dose] 81 mg PO DAILY 08/16/22 02/26/24 History Metoprolol Succinate (ER) [Toprol 25 mg PO DAILY 10/10/22 02/26/24 History XL] Nitroglycerin Sl Tabs [Nitrostat] 0.4 mg SL Q5M PRN 10/10/22 02/26/24 History glipiZIDE [Glucotrol] 5 mg PO BID 10/10/22 02/26/24 History Clopidogrel [Plavix] 75 mg PO DAILY 10/21/23 02/26/24 History Dicyclomine [Bentyl] 10 mg PO DAILY 10/21/23 02/26/24 History Isosorbide Mononitrate ER [Imdur] 30 mg PO DAILY 10/21/23 02/26/24 History Iron Gummy 1 tab PO HS 02/09/24 02/26/24 History Mv-Min/Folic/K1/Lycopen/Lutein 1 tab PO DAILY 02/09/24 02/26/24 History [Centrum Silver Men Tablet] Naproxen [Naprosyn] 500 mg PO DAILY 02/09/24 02/26/24 History Pantoprazole [Protonix] 40 mg PO DAILY 02/09/24 02/26/24 History Magnesium W/Vitamin D(Unknown Dose) 1 tab PO DAILY #0 02/10/24 02/26/24 Rx Allergies Allergy/AdvReac Type Severity Reaction Status Date / Time No Known Allergies Allergy Verified 02/26/24 20:13 Surgical - Exam Vital Signs Temp Pulse Resp BP Pulse Ox 97.4 F L 100 26 H 144/79 97 02/26/24 16:07 02/26/24 16:07 02/26/24 16:07 02/26/24 16:07 02/26/24 16:07 Results - Labs 02/26/24 16:42 02/26/24 16:42 Abnormal Lab Results - Last 24 Hours (Table) 02/26/24 02/26/24 02/26/24 Range/Units 16:42 16:42 16:42 WBC 12.9 H (3.8-10.6) k/uL Neutrophils # 11.3 H (1.3-7.7) k/uL Lymphocytes # 0.9 L (1.0-4.8) k/uL Sodium 132 L (137-145) mmol/L Glucose 441 H (74-99) mg/dL POC Glucose (mg/dL) (70-110) mg/dL Plasma Lactic Acid Hakeem 2.6 H* (0.7-2.0) mmol/L Magnesium 1.5 L (1.6-2.3) mg/dL Alkaline Phosphatase 137 H (38-126) U/L 02/27/24 Range/Units 13:42 WBC (3.8-10.6) k/uL Neutrophils # (1.3-7.7) k/uL Lymphocytes # (1.0-4.8) k/uL Sodium (137-145) mmol/L Glucose (74-99) mg/dL POC Glucose (mg/dL) 207 H (70-110) mg/dL Plasma Lactic Acid Hakeem (0.7-2.0) mmol/L Magnesium (1.6-2.3) mg/dL Alkaline Phosphatase (38-126) U/L Diabetes panel 02/26/24 Range/Units 16:42 Sodium 132 L (137-145) mmol/L Potassium 4.9 (3.5-5.1) mmol/L Chloride 100 (98-107) mmol/L Carbon Dioxide 26 (22-30) mmol/L BUN 15 (9-20) mg/dL Creatinine 0.68 (0.66-1.25) mg/dL Glucose 441 H (74-99) mg/dL Calcium 9.2 (8.4-10.2) mg/dL AST 22 (17-59) U/L ALT 26 (4-49) U/L Alkaline Phosphatase 137 H (38-126) U/L Total Protein 6.7 (6.3-8.2) g/dL Albumin 4.1 (3.5-5.0) g/dL Calcium panel 02/26/24 Range/Units 16:42 Calcium 9.2 (8.4-10.2) mg/dL Albumin 4.1 (3.5-5.0) g/dL Pituitary panel 02/26/24 Range/Units 16:42 Sodium 132 L (137-145) mmol/L Potassium 4.9 (3.5-5.1) mmol/L Chloride 100 (98-107) mmol/L Carbon Dioxide 26 (22-30) mmol/L BUN 15 (9-20) mg/dL Creatinine 0.68 (0.66-1.25) mg/dL Glucose 441 H (74-99) mg/dL Calcium 9.2 (8.4-10.2) mg/dL Adrenal panel 02/26/24 Range/Units 16:42 Sodium 132 L (137-145) mmol/L Potassium 4.9 (3.5-5.1) mmol/L Chloride 100 (98-107) mmol/L Carbon Dioxide 26 (22-30) mmol/L BUN 15 (9-20) mg/dL Creatinine 0.68 (0.66-1.25) mg/dL Glucose 441 H (74-99) mg/dL Calcium 9.2 (8.4-10.2) mg/dL Total Bilirubin 0.7 (0.2-1.3) mg/dL AST 22 (17-59) U/L ALT 26 (4-49) U/L Alkaline Phosphatase 137 H (38-126) U/L Total Protein 6.7 (6.3-8.2) g/dL Albumin 4.1 (3.5-5.0) g/dL
[2024-02-27] MEDS: MAGNESIUM SULFATE-D5W PMX 1 GM in DEXTROSE/WATER 1 100ML.BAG IVPB SCH (14:48)
[2024-02-27] MEDS: METOPROLOL SUCCINATE (ER) 25 MG TAB.ER.24H PO SCH (15:08)
[2024-02-27 15:21] LABS: Basophils % (A) 0 %; Eosinophils # (A) 0.1 k/uL (0-0.7); Eosinophils % (A) 1 %; HCT 38.7 % (39.0-53.0); Lymphocytes # (A) 0.8 k/uL (1.0-4.8); Lymphocytes % (A) 15 %; MCH 31.9 pg (25.0-35.0); MCHC 33.5 g/dL (31.0-37.0); MCV 95.1 fL (80.0-100.0); Monocytes # (A) 0.3 k/uL (0-1.0); Monocytes % (A) 5 %; Neutrophils # (A) 4.3 k/uL (1.3-7.7); Neutrophils % (A) 77 %; Platelet Count 167 k/uL (150-450); RBC 4.07 m/uL (4.30-5.90); RDW 13.8 % (11.5-15.5); WBC 5.6 k/uL (3.8-10.6)
[2024-02-27 15:30] LABS: African American GFR (CKD) >90 (>60 ml/min/1.73 sqM); Anion Gap 5 mmol/L; Blood Urea Nitrogen 10 mg/dL (9-20); Calcium 8.5 mg/dL (8.4-10.2); Carbon Dioxide 28 mmol/L (22-30); Chloride 104 mmol/L (98-107); Glucose 195 mg/dL (74-99); Non-African American GFR(CKD) >90 (>60 ml/min/1.73 sqM); Potassium 4.2 mmol/L (3.5-5.1); Sodium 137 mmol/L (137-145)
[2024-02-27 16:43] LABS: Glucose,Whole Blood 311 mg/dL (70-110)
[2024-02-27] MEDS: INSULIN ASPART (NovoLOG) 100 UNIT/ML VIAL SQ SCH (17:34)
[2024-02-27 20:24] LABS: Glucose,Whole Blood 263 mg/dL (70-110)
[2024-02-27] MEDS ORDERED: glipiZIDE 5 MG TAB PO SCH (21:00)
[2024-02-27] MEDS: ATORVASTATIN 80 MG TAB PO SCH (21:19)
[2024-02-28] MEDS: LEVOTHYROXINE 75 MCG TAB PO SCH (06:03)
[2024-02-28] MEDS: PANTOPRAZOLE 40 MG TABLET PO SCH (06:05)
[2024-02-28 06:12] LABS: Glucose,Whole Blood 187 mg/dL (70-110)
[2024-02-28] MEDS: lisinopriL 10 MG TAB PO SCH (07:55)
[2024-02-28] MEDS: ASPIRIN 81 MG PO SCH (07:55)
[2024-02-28] MEDS: ISOSORBIDE MONONITRATE ER 30 MG TAB.ER.24H PO SCH (07:55)
[2024-02-28] MEDS: ENOXAPARIN 40 MG/0.4 ML SYRINGE SQ SCH (07:55)
[2024-02-28 09:15] VITALS: RESP 16
--- NOTE | 2024-02-28 11:06 | P.PN ---
Subjective Patient is admitted for ileus clinically doing well patient blood sugars are slightly high patient is on sliding scale insulin can be switched to p.o. oral glipizide upon discharge patient is passing gas did move his bowels yet patient is medically stable to be discharged if agreeable with general surgery. REVIEW OF SYSTEMS: All other systems are negative except those mentioned in the HPI PHYSICAL EXAMINATION: GENERAL: The patient is alert and oriented x3, not in any acute distress. Well developed, well nourished. HEENT: Pupils are round and equally reacting to light. EOMI. No scleral icterus. No conjunctival pallor. Normocephalic, atraumatic. No pharyngeal erythema. No thyromegaly. CARDIOVASCULAR: S1 and S2 present. No murmurs, rubs, or gallops. PULMONARY: Chest is clear to auscultation, no wheezing or crackles. ABDOMEN: Soft, nontender, nondistended, normoactive bowel sounds. No palpable organomegaly. MUSCULOSKELETAL: No joint swelling or deformity. EXTREMITIES: No cyanosis, clubbing, or pedal edema. NEUROLOGICAL: Gross neurological examination did not reveal any focal deficits. SKIN: No rashes. Assessment and plan -Abdominal pain secondary to ileus . Patient is clinically doing well and can be discharged from my perspective -Leukocytosis is secondary to ileus patient is on Zosyn probably will not need it -Lactic acidosis secondary to intravascular depletion for which patient is receiving IV fluids improved lactic acidosis -Hypovolemic hyponatremia IV fluids as mentioned above, improved -Coronary disease -Hyperlipidemia -Hypertension -History of PE in the past -Hypothyroidism Diabetes mellitus can be resumed on glipizide Evaluation chronic medical problems patient will be resumed on appropriate home medications, DVT prophylaxis: Lovenox Objective - Vital Signs Vital signs: Vital Signs Temp 98.3 F 02/28/24 07:51 Pulse 72 02/28/24 07:51 Resp 16 02/28/24 07:51 BP 157/77 02/28/24 07:51 Pulse Ox 95 02/28/24 07:51 FiO2 Intake & Output 02/27/24 02/28/24 02/28/24 18:59 06:59 18:59 Intake Total 225 220 Balance 225 220 Weight 83.915 kg Intake: IV 225 Sodium Chloride 0.9% 1, 225 000 ml @ 75 mls/hr IV . [id number] [facility] Rx#:[id number] Oral 220 Other: Voiding Method Toilet # Voids 3 - Labs CBC & Chem 7: 02/27/24 15:06 02/27/24 15:06 Labs: Abnormal Lab Results - Last 24 Hours (Table) 02/27/24 02/27/24 02/27/24 Range/Units 13:42 15:06 15:06 RBC 4.07 L (4.30-5.90) m/uL Hct 38.7 L (39.0-53.0) % Lymphocytes # 0.8 L (1.0-4.8) k/uL Creatinine 0.59 L (0.66-1.25) mg/dL Glucose 195 H (74-99) mg/dL POC Glucose (mg/dL) 207 H (70-110) mg/dL 02/27/24 02/27/24 02/28/24 Range/Units 16:42 20:23 06:10 RBC (4.30-5.90) m/uL Hct (39.0-53.0) % Lymphocytes # (1.0-4.8) k/uL Creatinine (0.66-1.25) mg/dL Glucose (74-99) mg/dL POC Glucose (mg/dL) 311 H 263 H 187 H (70-110) mg/dL
[2024-02-28 11:42] LABS: Glucose,Whole Blood 314 mg/dL (70-110)
[2024-02-28 15:21] VITALS: BP 124/70; PULSE 75; TEMP 97.5
--- NOTE | 2024-02-28 15:57 | P.DS ---
Providers Date of admission: 02/26/24 19:50 Expected date of discharge: 02/28/24 Attending physician: Guera Ma Consults: 02/26/24 19:46 Consult Physician Routine Consulting Provider: Christopher Hoff Consult Reason/Comments: abdominal ischemia Do you want consulting provider notified?: Yes 02/27/24 14:16 Consult Physician Stat Consulting Provider: Guera Ma Consult Reason/Comments: surgical Do you want consulting provider notified?: Already Contacted Primary care physician: Ceasar Sears [facility] Course: CHIEF COMPLAINT: Abdominal pain HISTORY OF PRESENT ILLNESS: The patient is a 68-year-old male who presented to the ER with acute onset abdominal pain. Diagnostic studies demonstrated acute ischemia. Patient pain had resolved after IV antibiotics include fluid hydration. Patient was given a dietary challenge. This morning and this afternoon, he is feeling well. Family is at bedside. REVIEW OF ORGAN SYSTEMS: No fevers or chills. No further nausea and vomiting. PHYSICAL EXAM: VITALS: Reviewed CONSTITUTIONAL: Well developed and in no acute distress. EYES: Conjuctivae without sclera icterus. Extraocular movements grossly intact. HEAD, EARS, NOSE, THROAT: Moist buccal mucosa. Head is atraumatic, normocephalic. Hears conversational speech. No nasal drainage. RESPIRATORY: Non-labored respirations and equal bilateral excursions. No gross wheezes. CARDIOVASCULAR: Palpable 2+ radial pulses. ABDOMEN: Well-healed lower midline incision. Present diastases recti 4 cm from subxiphoid to pubis. No palpable incisional hernia. Nontender. No peritonitis. MUSCULOSKELETAL: No clubbing cyanosis or edema SKIN: Warm and well perfused with good skin turgor. NEUROLOGIC: Cranial nerves II through XII grossly intact. No focal or late ralizing signs. PSYCH: Appropriate affect. Alert and oriented to person, place and time. Displays appropriate insight. CLINCAL LABS: Reviewed. WBC leukocytosis resolved ASSESSMENT: 1. Acute epigastric abdominal pain now resolved 2. Abnormal CT scan for bowel ischemia, resolved 3. Lactic acidosis 4. Coronary artery disease status post stent placement 5. Diabetes type 2, insulin-dependent, with complications 6. Diabetes type 2 with neuropathy 7. 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 History of myocardial infarction 9. Gastroesophageal reflux disease 10. Diastases recti 11. History of colectomy from diverticulitis 12. Diabetes type 2 with hyperglycemia 13. Hypomagnesia PLAN: 1. Clinically has done well and may follow-up as outpatient. 2. Dietary surveillance and counseling including 100 g of protein, 100 ounces of fluid was described. 3. Patient has chronic hypomagnesia likely due to side effect from Protonix. Protonix discontinued. Patient Condition at Discharge: Fair Plan - Discharge Summary Discharge Rx Participant: No New Discharge Prescriptions: Continue Levothyroxine Sodium [Synthroid] 75 mcg PO DAILY Atorvastatin [Lipitor] 80 mg PO HS #90 tab Aspirin EC [Ecotrin Low Dose] 81 mg PO DAILY Metoprolol Succinate (ER) [Toprol XL] 25 mg PO DAILY glipiZIDE [Glucotrol] 5 mg PO BID Mv-Min/Folic/K1/Lycopen/Lutein [Centrum Silver Men Tablet] 1 tab PO DAILY Naproxen [Naprosyn] 500 mg PO DAILY Magnesium W/Vitamin D(Unknown Dose) 1 tab PO DAILY #0 lisinopriL [Zestril] 10 mg PO DAILY Nitroglycerin Sl Tabs [Nitrostat] 0.4 mg SL Q5M PRN PRN Reason: Chest Pain Clopidogrel [Plavix] 75 mg PO DAILY Isosorbide Mononitrate ER [Imdur] 30 mg PO DAILY Dicyclomine [Bentyl] 10 mg PO DAILY Iron Gummy 1 tab PO HS Discontinued Pantoprazole [Protonix] 40 mg PO DAILY Discharge Medication List Levothyroxine Sodium [Synthroid] 75 mcg PO DAILY 08/19/18 [History] Atorvastatin [Lipitor] 80 mg PO HS #90 tab 03/04/21 [Rx] lisinopriL [Zestril] 10 mg PO DAILY 07/16/22 [History] Aspirin EC [Ecotrin Low Dose] 81 mg PO DAILY 08/16/22 [History] Metoprolol Succinate (ER) [Toprol XL] 25 mg PO DAILY 10/10/22 [History] Nitroglycerin Sl Tabs [Nitrostat] 0.4 mg SL Q5M PRN 10/10/22 [History] glipiZIDE [Glucotrol] 5 mg PO BID 10/10/22 [History] Clopidogrel [Plavix] 75 mg PO DAILY 10/21/23 [History] Dicyclomine [Bentyl] 10 mg PO DAILY 10/21/23 [History] Isosorbide Mononitrate ER [Imdur] 30 mg PO DAILY 10/21/23 [History] Iron Gummy 1 tab PO HS 02/09/24 [History] Mv-Min/Folic/K1/Lycopen/Lutein [Centrum Silver Men Tablet] 1 tab PO DAILY 02/09/24 [History] Naproxen [Naprosyn] 500 mg PO DAILY 02/09/24 [History] Magnesium W/Vitamin D(Unknown Dose) 1 tab PO DAILY #0 02/10/24 [Rx] Follow up Appointment(s)/Referral(s): Ceasar Sears DO [Primary Care Provider] - 3 Days Guera Ma MD [STAFF PHYSICIAN] - As Needed (Need referral from PCP. ) Patient Instructions/Handouts: Diverticulitis (DC) Discharge Disposition: HOME SELF-CARE
[2024-02-29] MEDS ORDERED: CLOPIDOGREL 75 MG TAB PO SCH (09:00)
== END 2024-02-28 16:42 | disposition home or self-care (01) ==
LOC: EC 15:51 → 4SSUR 19:50 → INTOOBSV 19:50 → 4SSUR 23:15
PROVIDERS: ADMIT Surgery Plastic and Reconstructive Surgery; ATTEND Surgery Plastic and Reconstructive Surgery
DX: K56.7 Ileus, unspecified (principal); K55.9 Vascular disorder of intestine, unspecified; E87.29 Other acidosis; I25.10 Atherosclerotic heart disease of native coronary artery without angina pectoris; E11.319 Type 2 diabetes mellitus with unspecified diabetic retinopathy without macular edema; E11.40 Type 2 diabetes mellitus with diabetic neuropathy, unspecified; E11.65 Type 2 diabetes mellitus with hyperglycemia; I25.2 Old myocardial infarction; K21.9 Gastro-esophageal reflux disease without esophagitis; E03.9 Hypothyroidism, unspecified; E78.5 Hyperlipidemia, unspecified; E83.42 Hypomagnesemia; E86.1 Hypovolemia; E87.1 Hypo-osmolality and hyponatremia; G89.29 Other chronic pain; I10 Essential (primary) hypertension; K44.9 Diaphragmatic hernia without obstruction or gangrene; M54.50 Low back pain, unspecified; Z79.02 Long term (current) use of antithrombotics/antiplatelets; Z79.4 Long term (current) use of insulin; Z79.82 Long term (current) use of aspirin; Z79.84 Long term (current) use of oral hypoglycemic drugs; Z79.890 Hormone replacement therapy; Z79.899 Other long term (current) drug therapy; Z86.711 Personal history of pulmonary embolism; Z87.891 Personal history of nicotine dependence; Z90.49 Acquired absence of other specified parts of digestive tract; Z95.5 Presence of coronary angioplasty implant and graft
CPT/HCPCS: 96366 ×4; 96367; 96372; 96361; 96365; 99285; 36415; 93005; 80053; 80048; 83605; 83690; 83735; 84484; 85025 ×2; 85610; 85730; 74177; G0378 ×3; J2543 ×3; J1650; J3475; Q9967